=== PATIENT | female | born 1990 | race Caucasian/White ===

== ENCOUNTER → 2024-04-03 | Outpatient (CLI) | payer BC, SELFPAY ==
[2024-04-06 21:07] LABS: Chlamydia By Nucleic Acid AMP Negative (Negative); Gonococcus By Nucleic Acid AMP Negative (Negative)
[2024-04-15 17:07] LABS: HPV APTIMA, High Risk Negative (Negative)
== END | disposition home or self-care (01) ==
LOC: LABSPEC 15:47
PROVIDERS: Referring Provider Registered Nurse; Visit Provider Registered Nurse
DX: O99.280 Endocrine, nutritional and metabolic diseases complicating pregnancy, unspecified trimester (principal); E03.9 Hypothyroidism, unspecified; Z3A.00 Weeks of gestation of pregnancy not specified
CPT/HCPCS: 87086; 87088; 87491; 87591; 87624; 88175; G0145

== ENCOUNTER → 2024-04-14 | Outpatient (CLI) | payer BC, SELFPAY ==
[2024-04-14 17:14] LABS: Absolute Lymphocyte Count 1.49 X10^3/uL (0.83-4.51); Absolute Neutrophil Count 5.6 X10^3/uL (2.0-7.7); Basophil# 0.03 X10^3/uL; Basophil% 0.4 % (0-1); Eosinophil# 0.07 X10^3/uL; Eosinophils% 0.9 % (0-5); Hematocrit 39.7 % (37-47); Hemoglobin 13.4 g/dL (12.0-15.0); Lymphocyte # 1.49 X10^3/ul (0.83-4.51); Lymphocyte % 19.7 % (19-41); Mean Corp Hgb Conc 33.8 g/dL (32-36); Mean Corpuscular Hgb 30.3 pg (27.0-32.0); Mean Corpuscular Volume 89.8 fL (81-99); Mean Platelet Vol. 9.7 fl (6.2-12.0); Monocyte# 0.38 X10^3/uL; NRBC Flagged by Analyzer 0 % (0-5); Neutrophil # 5.57 X10^3/uL (2.7-7.7); Neutrophil % 73.6 % (47-70); Platelet Count 273 K/mm3 (150-450); RBC Distribution Width CV 12.5 % (11.6-14.6); RBC Distribution Width SD 41.1 fl (35.1-43.9); Red Blood Count 4.42 M/mm3 (4.2-5.4); White Blood Count 7.6 K/mm3 (4.4-11.0)
[2024-04-14 17:46] LABS: T4 Free Direct 1.13 ng/dL (0.76-1.46)
[2024-04-14 18:39] LABS: HIV - WCH Non-Reactive (Nonreactive); Hepatitis B Surface Antigen Non-Reactive (Nonreactive); Hepatitis C Antibody Non-Reactive (Nonreactive); Rubella IgG Reactive (Nonreactive); Syphilis Antibodies Non-reactive
== END | disposition home or self-care (01) ==
LOC: BWCLAB 16:52
PROVIDERS: Referring Provider Registered Nurse; Visit Provider Registered Nurse
DX: O99.280 Endocrine, nutritional and metabolic diseases complicating pregnancy, unspecified trimester (principal); E03.9 Hypothyroidism, unspecified; Z3A.00 Weeks of gestation of pregnancy not specified
CPT/HCPCS: 36415; 84439; 84443; 85025; 86703; 86762; 86780; 86803; 86850; 86900; 86901; 87340

== ENCOUNTER → 2024-04-30 | Outpatient (CLI) | payer BC, SELFPAY | END | disposition home or self-care (01) | LOC: LABSPEC 16:46 | PROVIDERS: Visit Provider Obstetrics & Gynecology | DX: R30.0 Dysuria (principal) | CPT/HCPCS: 87086 ==

== ENCOUNTER → 2024-07-02 | Outpatient (CLI) | payer BC, SELFPAY | END | disposition home or self-care (01) | PROVIDERS: Referring Provider Obstetrics & Gynecology; Visit Provider Obstetrics & Gynecology | DX: Z34.90 Encounter for supervision of normal pregnancy, unspecified, unspecified trimester (principal); Z3A.00 Weeks of gestation of pregnancy not specified | CPT/HCPCS: 36415 ==

== ENCOUNTER → 2024-07-30 | Outpatient (CLI) | payer BC, SELFPAY ==
[2024-07-30 17:09] LABS: Absolute Lymphocyte Count 1.36 X10^3/uL (0.83-4.51); Absolute Neutrophil Count 6.6 X10^3/uL (2.0-7.7); Basophil# 0.04 X10^3/uL; Basophil% 0.5 % (0-1); Eosinophil# 0.07 X10^3/uL; Eosinophils% 0.8 % (0-5); Hematocrit 39.6 % (37-47); Hemoglobin 13.3 g/dL (12.0-15.0); Lymphocyte # 1.36 X10^3/ul (0.83-4.51); Mean Corp Hgb Conc 33.6 g/dL (32-36); Mean Corpuscular Hgb 30.9 pg (27.0-32.0); Mean Corpuscular Volume 92.1 fL (81-99); Mean Platelet Vol. 10.8 fl (6.2-12.0); Monocyte# 0.38 X10^3/uL; Monocyte% 4.5 % (0-10); NRBC Flagged by Analyzer 0 % (0-5); Neutrophil # 6.62 X10^3/uL (2.7-7.7); Platelet Count 263 K/mm3 (150-450); RBC Distribution Width CV 13.5 % (11.6-14.6); RBC Distribution Width SD 45.7 fl (35.1-43.9); White Blood Count 8.5 K/mm3 (4.4-11.0)
[2024-07-30 17:32] LABS: Syphilis Antibodies No_Result (Nonreactive)
[2024-07-30 18:01] LABS: Glucose Challenge Gest 1H 50g 141 mg/dL (70-140); HIV Nonreactive (Nonreactive)
== END | disposition home or self-care (01) ==
PROVIDERS: Referring Provider Obstetrics & Gynecology; Visit Provider Obstetrics & Gynecology
DX: O09.90 Supervision of high risk pregnancy, unspecified, unspecified trimester (principal); Z13.1 Encounter for screening for diabetes mellitus; Z3A.00 Weeks of gestation of pregnancy not specified
CPT/HCPCS: 36415; 82950; 85025; 86703; 86780

== ENCOUNTER → 2024-08-06 | Outpatient (CLI) | payer BC, SELFPAY ==
[2024-08-06 07:25] LABS: Glucose GTT-Gestation. Fasting 82 mg/dL (<105)
[2024-08-06 10:51] LABS: Glucose GTT-Gestational 1 Hr 175 mg/dL (<190)
[2024-08-06 10:51] LABS: Glucose GTT-Gestational 2 Hr 175 mg/dL (<165)
[2024-08-06 11:07] LABS: Glucose GTT-Gestational 3 Hr 86 L (<145)
== END | disposition home or self-care (01) ==
LOC: LAB 07:03
PROVIDERS: PCP Family Medicine; Referring Provider Obstetrics & Gynecology; Visit Provider Obstetrics & Gynecology
DX: Z13.1 Encounter for screening for diabetes mellitus (principal)
CPT/HCPCS: 36415; 82951; 82952

== ENCOUNTER → 2024-10-07 | Outpatient (CLI) | payer BC, SELFPAY | END | disposition home or self-care (01) | LOC: LABSPEC 16:35 | PROVIDERS: PCP Family Medicine; Referring Provider Obstetrics & Gynecology; Visit Provider Obstetrics & Gynecology | DX: O09.90 Supervision of high risk pregnancy, unspecified, unspecified trimester (principal); Z3A.00 Weeks of gestation of pregnancy not specified | CPT/HCPCS: 87081 ==

== ENCOUNTER 2024-10-14 15:18 | Inpatient (IN) | payer BC, SELFPAY ==
[2024-10-14] VITALS (9 sets, daily range): BP systolic 109–141; BP diastolic 63–85; PULSE 66–78; RESP 15–16; TEMP 36.9–37.4; O2SAT 99–100; BMI 28.6
--- NOTE | 2024-10-14 01:45 | FALS_PTH ---
PATIENT: ALVARO VALE LOC: [facility] U#:[id number] AGE/SX: 34/F ROOM: [facility] RE10/14/[address]: Shyanne Degroot CNM : 1990 BED: 1 DIS: 10/17/2024 SPEC #: [id number] RECD: 10/14/24 02:00 STATUS: ARUN OMER #: [id number] ALE: 10/14/24 01:[address]: Shyanne Degroot DEPT: SURGICAL PATHOLOGY RECD BY: Caden Manzano ENTERED: 10/15/24 08:26 SP TYPE: FALL TUBES OTHR DR: MD Dr. Nicole Cantor MD Tissues: A - Fallopian tube Procedures: Surgery Specimen Level II HEADER OPERATION: Tubal ligation PRE-OP DIAGNOSIS: Sterilization TISSUE SUBMITTED: A- Bilateral fallopian tubes * suture on right* MICROSCOPIC DIAGNOSIS A. Left and right fallopian tubes, bilateral salpingectomies: * Full thickness segment of the right fallopian tube with paratubal cysts * Full thickness segment of the left fallopian tube MICROSCOPIC DESCRIPTION Slides are reviewed. GROSS DESCRIPTION A. Received in formalin in a container labeled with the patient's name, date of , and R tube has suture are bilateral fimbriated fallopian tube segments, the right received with a stitch. The right tube is 5.5 cm in length by 0.8 cm in diameter with an attached 4.4 x 3.1 x 2.3 cm thin-walled paratubal cyst, adjacent to the unremarkable fimbriated end. The paratubal cyst is opened to reveal an abundance of thin, clear serous fluid. The inner lining is polanco-pink, smooth, and glistening. Sectioning of the right fallopian tube reveals a pinpoint lumen. The left fallopian tube is 5.5 cm in length by 0.8 cm in diameter. There is purple-jones, smooth, and glistening serosa with an unremarkable fimbriated end. Sectioning reveals a pinpoint lumen. [employer] sections:A1. Right fimbriated end, bisected with adjacent paratubal cystA2. Right fallopian tube cross-sections with paratubal cystA3. Left fallopian tube B 10-15-2024 CPT:54611n0
[2024-10-14] MEDS: Lactated Ringers 1,000 ML 999 ML IV (13:25)
[2024-10-14 14:18] LABS: Absolute Lymphocyte Count 1.49 X10^3/uL (0.83-4.51); Absolute Neutrophil Count 8.9 X10^3/uL (2.0-7.7); Basophil# 0.04 X10^3/uL; Basophil% 0.4 % (0-1); Eosinophil# 0.06 X10^3/uL; Eosinophils% 0.5 % (0-5); Hematocrit 36.2 % (37-47); Hemoglobin 12.5 g/dL (12.0-15.0); Lymphocyte # 1.49 X10^3/ul (0.83-4.51); Lymphocyte % 13.5 % (19-41); Mean Corp Hgb Conc 34.5 g/dL (32-36); Mean Corpuscular Hgb 31.3 pg (27.0-32.0); Mean Corpuscular Volume 90.7 fL (81-99); Mean Platelet Vol. 12.1 fl (6.2-12.0); Monocyte# 0.54 X10^3/uL; Monocyte% 4.9 % (0-10); NRBC Flagged by Analyzer 0 % (0-5); Neutrophil # 8.88 X10^3/uL (2.7-7.7); Neutrophil % 80.3 % (47-70); Platelet Count 229 K/mm3 (150-450); RBC Distribution Width CV 13.1 % (11.6-14.6); RBC Distribution Width SD 42.7 fl (35.1-43.9); Red Blood Count 3.99 M/mm3 (4.2-5.4); White Blood Count 11.1 K/mm3 (4.4-11.0)
[2024-10-14 15:03] LABS: Syphilis Antibodies Nonreactive (Nonreactive)
[2024-10-14] MEDS: Lactated Ringers 1,000 ML 150 ML IV (16:05)
--- NOTE | 2024-10-14 18:39 | HP.PCM.OB_ITS ---
HPI - General General Date of Admission: 10/14/24 Date of Service: 10/14/24 Chief Complaint: Lower Abdominal Pains; 36 Weeks 6-Day Gestation HPI Narrative ALVARO VALE, is a 34 F G2, P1 who presents at 36 weeks 6 days gestation with some lower abdominal pain intermittent. She denies any vaginal bleeding, leaking of fluid, or contractions and reports good movement. She had a prior section for non-reassuring heart tones. She desires permanent sterilization with her upcoming repeat . On monitor the patient is noted to have good variability but at initial presentation occasional late decelerations were noted. The patient had eaten at noon and it was decided to wait until 6 PM to and only proceed with section if absolutely necessary. After the patient received IV fluids and waited 3 more hours she was noted not to not have any further late decelerations so the section was postponed as she will be 37 weeks gestation tomorrow. After delaying the , a bedside ultrasound was done which showed a biophysical of 8 out of 10 with -2 for oligohydramnios. Some small pockets of fluid were visualized but none greater than 1 cm x 1 cm. The baby is cephalic. Maternal Data Information KATIE Calculator Estimated Delivery Date Method Current WG Current Estimate 11/05/24 LMP (Certain) 36w 6d Final KATIE Source: US <20 weeks Gestational age: 36 weeks 6 days gestation [facility] Medical History (Updated 10/14/24 @ 18:[address] Raheem Hart MD) Thyroid disorder Delivery by section of full-term infant Home Medications ?Medication ?Instructions ?Recorded ?Last Taken ?Type PNV 153-FA 400 mcg-om3 35 mg-dha 1 tab PO DAILY 10/13/24 18:00 History 25 mg-epa 5 mg-fish oil chew tablet 1 TAB acetaminophen 500 mg capsule 500 mg PO Q4-6H PRN pain 03/19/24 10/14/24 03:00 History 1,000 mg cetirizine 10 mg capsule (Zyrtec) 10 mg PO QDAY PRN al lergy symptoms 03/19/24 Unknown History levothyroxine 25 mcg capsule 50 mcg PO ONCE 07/30/24 0 10/14/24 06:30 History 50 mcg Allergy/AdvReac Type Severity Reaction Status Date / Time Penicillins (PCN) Allergy Mild Rash Verified 10/14/24 12:42 Family History Aunt Thyroid disorder Maternal Mother Thyroid disorder, Onset Age: 25 Graves Disease Postural orthostatic tachycardia syndrome [POTS] Depression Suicide attempt Surgical History (Updated 10/14/24 @ 18:[address] Raheem Hart MD) History of surgery H/O colonoscopy Thicket teeth extracted Social History adopted: No household members: spouse and children number of children: 1 current occupational status: employed current occupation: [employer] current occupational exposures/hazards: No pets and animals: Yes pets and animals: dog(s) history of recent travel: No sexually active: Yes Smoking Status: Never smoker alcohol intake: never substance use type: does not use diet: other well-balanced diet: daily or most days caffeine: No eating out: rarely or never during the past year weight has: remained stable what type of physical activity do you participate in: none kerry/sabianist: Mu-Ism seatbelt use: always do you feel safe at home: Yes additional social history: Raheem- [place] [facility] History 2 Elective abortions Hx Para 1 Spontaneous abortions Hx # Term Pregnancies Ectopic pregnancies Hx # Pregnancies Multiple births # of living children 1 Past Pregnancies Del. Date Name GA/Weeks Outcome Route Bth Weight Infant Gen Labor Lgth Anesthesia Del Locatn Provider FOB 10/16/21 Jonas 39 live - full term 7#10oz Male epidural [facility] Dr. Ethan Maciel Delivery Date: 10/16/21 Last Updated by: India Bradley LGA, IOL, c section due to decels, cord around neck Visit Details Expected Delivery Route/Plan RLTCS Plans Covid status: [] Flu vaccine: [] Tdap vaccine: [] Rhogam: [] LARC form signed: [] Problem list reviewed and updated with the most current plan of care details and appropriate orders placed. Relevant counseling for the gestational age provided. Continue routine care and follow up unless otherwise noted in visit notes/problem list details OB Flowsheet Initial Weight: 148 lb Date -?-?-?-?-?-?-?-?-?-?-?-?- EGA Weight BP Urine Prot -?-?-?-?-?-?-?-?-?-?-?-?- Glucose FHR FuHt Pres Dilation -?-?-?-?-?-?-?-?-?-?-?-?- Effaced St Visit Note 04/03/24 -?-?-?-?-?-?-?-?-?-?-?-?- 9w 1d 148 lb (+0 oz) 104/68 -?-?-?-?-?-?-?-?-?-?-?-?- 173 -?-?-?-?-?-?-?-?-?-?-?-?- LC CRL 2.68 con with LMP. desires nipt. 04/30/24 -?-?-?-?-?-?-?-?-?-?-?-?- 13w 0d 152 lb 4 oz (+4 lb 4 oz) 115/72 Negative -?-?-?-?-?-?-?-?-?-?-?-?- Negative 170 -?-?-?-?-?-?-?-?-?-?-?-?- JV- some nausea still. NIPT was low risk boy! some burning with urination. UA ordered. 06/01/24 -?-?-?-?-?-?-?-?-?-?-?-?- 17w 4d 153 lb 8 oz (+5 lb 8 oz) 118/68 Negative -?-?-?-?-?-?-?-?-?-?-?-?- Negative 170 -?-?-?-?-?-?-?-?-?-?-?-?- KW- no vb/crampi ng. possible flutters. US scheduled. desires R C/S and possible tubal. 07/02/24 -?-?-?-?-?-?-?-?-?-?-?-?- 22w 0d 160 lb 2 oz (+12 lb 2 oz) 126/75 -?-?-?-?-?-?-?-?-?-?-?-?- 140 -?-?-?-?-?-?-?-?-?-?-?-?- SM- no vb lof go od fm no reuglar ctx didn't get complete spine views will get afp today and fu US eventually 07/30/24 -?-?-?-?-?-?-?-?-?-?-?-?- 26w 0d 165 lb 6 oz (+17 lb 6 oz) 125/75 Negative -?-?-?-?-?-?-?-?-?-?-?-?- Negative 150 26 -?-?-?-?-?-?-?-?-?-?-?-?- JV- no lof, vagi nal bleeding, or cramping. did glucola today. results pending. 09/03/24 -?-?-?-?-?-?-?-?-?-?-?-?- 31w 0d 169 lb 8 oz (+21 lb 8 oz) 119/73 -?-?-?-?-?-?-?-?-?-?-?-?- 140 31 -?-?-?-?-?-?-?-?-?-?-?-?- SM- no vb lof go od mf no reulgar ctx nl 3 hr gtt 09/10/24 -?-?-?-?-?-?-?-?-?-?-?-?- 32w 0d 172 lb (+24 lb) 119/75 -?-?-?-?-?-?-?-?-?-?-?-?- 130 32 -?-?-?-?-?-?-?-?-?-?-?-?- SM- no vb lof go od fm nore gular ctx 09/22/24 -?-?-?-?-?-?-?-?-?-?-?-?- 33w 5d 172 lb 8 oz (+24 lb 8 oz) 129/78 Negative -?-?-?-?-?-?-?-?-?-?-?-?- Negative 130 33 -?-?-?-?-?-?-?-?-?-?-?-?- SM- no vb lof go od fm no regualr ctx doing well 10/07/24 -?-?-?-?-?-?-?-?-?-?-?-?- 35w 6d 175 lb 8 oz (+27 lb 8 oz) 127/84 Negative -?-?-?-?-?-?-?-?-?-?-?-?- Negative 140 35 Cephalic -?-?-?-?-?-?-?-?-?-?-?-?- JV- no lof, vagi nal bleeding, or dec fm. gbs collected. planning rpt section and BTL and if labor starts still wants a section. NST FHR Rate Baby A NST Reactive:: Yes FHR Category:: Category I Uterine Activity:: Initially showed some late decelerations but these resolved with IV fluid. Vital Signs Vital Signs Vital Signs: 10/14/24 12:51 10/14/24 12:51 10/14/24 12:51 Temperature Temperature Source Oral Pulse Rate 75 Respiratory Rate Blood Pressure 130/80 H Blood Pressure Mean BP Systolic 130 BP Diastolic 80 Blood Pressure Source Blood Pressure Position Blood Pressure Location Pulse Ox Oxygen Delivery Method 10/14/24 12:51 10/14/24 12:51 10/14/24 16:05 Temperature 99.4 F H Temperature Source Pulse Rate Respiratory Rate 16 Blood Pressure 141/85 H Blood Pressure Mean BP Systolic 141 BP Diastolic 85 Blood Pressure Source Blood Pressure Position Blood Pressure Location Pulse Ox Oxygen Delivery Method 10/14/24 16:05 10/14/24 16:06 10/14/24 16:06 Temperature Temperature Source Pulse Rate 77 71 Respiratory Rate Blood Pressure 136/82 H Blood Pressure Mean BP Systolic 136 BP Diastolic 82 Blood Pressure Source Blood Pressure Position Blood Pressure Location Pulse Ox Oxygen Delivery Method 10/14/24 16:08 10/14/24 16:08 10/14/24 16:09 Temperature Temperature Source Oral Pulse Rate 74 Respiratory Rate Blood Pressure Blood Pressure Mean BP Systolic BP Diastolic Blood Pressure Source Blood Pressure Position Blood Pressure Location Pulse Ox 99 Oxygen Delivery Method 10/14/24 16:09 10/14/24 16:09 10/14/24 16:33 Temperature 98.5 F 98.5 F Temperature Source Oral Pulse Rate 78 Respiratory Rate 16 16 Blood Pressure 136/82 H Blood Pressure Mean 100 BP Systolic BP Diastolic Blood Pressure Source Monitor Blood Pressure Position Semi-Fowlers Blood Pressure Location Right Arm Pulse Ox 99 Oxygen Delivery Method Room Air 10/14/24 17:58 10/14/24 17:58 10/14/24 17:58 Temperature Temperature Source Pulse Rate 66 Respiratory Rate 16 Blood Pressure 109/63 Blood Pressure Mean BP Systolic 109 BP Diastolic 63 Blood Pressure Source Blood Pressure Position Blood Pressure Location Pulse Ox Oxygen Delivery Method Weight Weight: 177 lb 9.6 oz Body Mass Index (BMI) 28.6 Physical Exam Const alert, oriented x3 and no apparent distress General Appearance: cooperative and comfortable Exam Limitations: no limitations HEENT normocephalic Resp normal respiratory effort and no retractions Cardio regular rate Back/Spine normal ROM Extremity normal to inspection, full ROM and no clubbing, cyanosis or edema Neuro moves all extremities Psych mental status grossly normal, affect normal, speech normal and activity/motor behavior normal Labs Labs Labs: Blood Type O POSITIVE Antibody Screen NEGATIVE Hct 36.2 % (37-47) L Hgb 12.5 g/dL (12.0-15.0) Syphilis Total Ab Nonreactive (Nonreactive) Rubella IgG Antibody Reactive (Nonreactive) Hep Bs Antigen Non-Reactive (Nonreactive) Hepatitis C Antibody Non-Reactive (Nonreactive) Chlamydia DNA (NAHID) Negative (Negative) N.gonorrhoeae DNA (NAHID) Negative (Negative) HIV 1&2 Antibody Nonreactive (Nonreactive) Glucose 1 Hr 50 gm 141 mg/dL (70-140) H Gest Glucose Tolerance MG/DL Assessment & Plan (1) Sterilization: COMMENT: plan BS at time of CS (2) Previous section: (3) Oligohydramnios in third trimester: PLAN: Plan to monitor patient on continuous monitor overnight and proceed with repeat section in the morning. At that time she will be 37 weeks g estation. If heart tones become non-reassuring between now and then we will proceed immediately with section. We discussed the surgery including tubal at length including the possibly of bleeding, infection, and injury to surrounding structures such as bowel or bladder. We also discussed the permanent nature of a tubal removal and the availability of other nonpermanent control options and the patient desires that we proceed with bilateral salpingectomy. All questions were answered.
--- OUTSIDE RECORDS SUMMARY | 2024-10-14 21:56 | XMS RPT_ITS | CCD ---
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 Monterroso October Primary Care Unava ilable MD BRE LONG Referring Unava ilable Woodland, Ms. Monterroso October Primary Care Unava ilable NISHA LUI Attending Unavailable NISHA LUI Referring Unavailable MD BRE LONG Attending Unava ilable Jamie, Ms. Monterroso October Primary Care Unava ilMD BRE Bell Referring Unava ilable Woodland, Ms. Monterroso October Primary Care Unava ilMD BRE Bell Attending Unava ilable MD BRE LONG Attending Unava ilable [place], Ms. Monterroso October Primary Care Unava ilMD BRE Bell Referring Unava ilable MD BRE LONG Attending Unava ilable Jamie, Ms. Monterroso October Primary Care Unava ilMD BRE Bell Referring Unava ilable MD BRE LONG Attending Unava ilable Jamie, Ms. Monterroso Jonelle Primary Care Unava ilMD BRE Bell Referring Unava ilable MD BRE LONG Attending Unava ilable [place]land, Ms. Monterroso October Primary Care Unava ilable MD BRE LONG Referring Unava ilable ETHAN, MD BRE BURGESS Attending Unava ilable [place]land, Ms. Monterroso October Primary Care Unava ilMD BRE Bell Referring Unava ilable DO TINY ABDULLAHI Attending Unavailab le [place], Ms. Monterroso October Primary Care Unava ilable Kamenik, Ms. Caden Weaver Attending Unavai lable [place]land, Ms. Monterroso October Primary Care Unava ilable Lucius, Venita Duarte Attending Unava ilable [place], Ms. Monterroso October Primary Care Unava ilable Kamdiegok, Ms. Caden Weaver Attending Unavai lable Woodland, Ms. Monterroso October Primary Care Unava ilable LongBre Attending Unavailable Long, Bre Referring Unavailable Woodland, Ms. Monterroso October Primary Care Unava ilable LongBre Attending Unavailable Long, Bre Referring Unavailable [place]land, Ms. Monterroso October Primary Care Unava ilable Amadeo, Dr. Freddie Espana Referring Unavailabl e [place], Ms. Monterroso October Primary Care Unava ilable Amadeo, Dr. Freddie Espana Attending Unavailabl e Long, Bre Admitting Unavailable Long, Bre Referring Unavailable Sal Trejo Attending Unavailable [place], Ms. Monterroso October Primary Care Unava ilable Nicole Negron MD Primary Care Provider Nicole Negron MD Unavailable Nicole Negron MD Primary Care Provider Nicole Negron MD Unavailable NICOLE NEGRON Primary Care Unavailab CADEN Hearn Attending Unavailable NICOLE NEGRON Primary Care Unavailab CADEN Hearn Attending Unavailable NICOLE NEGRON Primary Care Unavailab PAPA Reynaga Attending Unavailable LONGSDORF, NICOLE A Primary Care Unavailab le LUCIUSVENITA JUAREZ Attending Unavailable LONGSDORF, NICOLE A Primary Care Unavailab le LONGSDORF, NICOLE A Primary Care Unavailab le LONGSDORF, NICOLE A Primary Care Unavailab le LONGSDORF, NICOLE A Primary Care Unavailab le LONGSDORF, NICOLE A Primary Care Unavailab le LONGSDORF, NICOLE A Primary Care Unavailab le BAILEY BRO Referring Unavailabl e NO PRIMARY CAREMD Primary Care Unavailable CONSTANTINE LUI Attending Unavailable NO PRIMARY CARE, Primary Care Unavailable AUGUSTUS CANTU Attending Unavailable BRYANNA PARDO Referring Unavailab nina Degroot CNM, Shyanne Attending Provider Shyanne Degroot CNM Referring Provider Dr. Bryanna Coronel DO Attending Provider Karoline Prabhakar CNM Attending Provider [phone] Dr. Bailey Bro MD Attending Provider [phone] Dr. Bailey Bro MD Referring Provider Dr. Bryanna Coronel DO Referring Provider Dr. Nicole Negron MD Primary Care Provide r Dr. Bryanna Coronel DO Attending Provider Dr. Nicole Negron MD Referring Provider Nicole Negorn MD Primary Care Provider Nicole Negron MD Unavailable NICOLE NEGRON Attending Unavailab le LONGSDORF, NICOLE A Primary Care Unavailab le MICKY, STEPHANIA Attending Unavailable LONGSDORF, NICOLE A Referring Unavailab le LONGSDORF, NICOLE A Primary Care Unavailab le MICKY, STEPHANIA Attending Unavailable MIGDALIA, NICOLE A Primary Care Unavailab le Bryanna Coronel Attending Unavailabl e Shyanne Degroot Attending Unavailable Shyanne Degroot Referring Unavailable Bailey Bro Attending Unavailable Bailey Bro Referring Unavailable Degroot, Shyanne Attending Unavailable Karoline Prabhakar Attending Unavailable Bailey Bro Attending Unavailable Vande Velde, Bryanna Attending Unavailabl e MarcanthonyBailey Attending Unavailable Longsdorf, Nicole Referring Unavailable Longsdorf, Nicole Primary Care Unavailable Vande Velde, Bryanna Referring Unavailabl e Vande Velde, Bryanna Attending Unavailabl e Longsdorf, Nicole Primary Care Unavailable Vande Velde, Bryanna Attending Unavailabl e Vande Velde, Bryanna Referring Unavailabl e Longsdorf, Nicole Primary Care Unavailable Vande Velde, Bryanna Admitting Unavailabl e Vande Velde, Bryanna Attending Unavailabl e Longsdorf, Nicole Primary Care Unavailable Vande Velde, Bryanna Referring Unavailabl e Vande Velde, Bryanna Attending Unavailabl e Vande Velde, Bryanna Attending Unavailabl e MARCO A, SAFIA Attending Unavailable MARCO A, SAFIA Referring Unavailable Bailey Bro Attending Unavailable GideonanthBailey carr Referring Unavailable Degroot, Shyanne Attending Unavailable Degroot, Shyanne Referring Unavailable Longsdorf, Nicole Primary Care Unavailable Bailey Bro Attending Unavailable Longsdorf, Nicole Referring Unavailable Longsdorf, Nicole Primary Care Unavailable MarcBailey reveles Attending Unavailable Longsdorf, Nicole Referring Unavailable Longsdorf, Nicole Primary Care Unavailable Longsdorf, Nicole Referring Unavailable Vande Velde, Bryanna Attending Unavailabl e Allergies Allergy Classification Reported Allergen(s) Allergy Type Date of Onset Reaction(s) Facility influenza A virus (H1N1) antigen / influenza A virus (H3N2) antigen / influenza B virus antigen (2 sources) influenza A virus (H1N1) antigen / influenza A virus (H3N2) antigen / influenza B virus antigen; Translations: [Influenza, seasonal, injectable] Drug Allergy [facility] Work Phone: Penicillins (antibiotic) (2 sources) Penicillins; Translations: [Penicillins] Drug Allergy [facility] Work Phone: Serotonin Reuptake Inhibitors (SSRIs) (2 sources) Citalopram; Translations: [CeleXA TABS] Drug Allergy [facility] Work Phone: (5 sources) Citalopram Drug Allergy Unknown [facility] (20 sources) Penicillin; Translations: [Penicillins] Drug Allergy Unknown [facility] (20 sources) Citalopram; Translations: [CeleXA TABS] Drug Allergy 3 Unknown [facility] Work Phone: (20 sources) Influenza, seasonal, injectable; Translations: [Influenza, seasonal, injectable] Allergy to drug (finding) [facility] Work Phone: (4 sources) influenza virus vaccine, inactivated Other, Rash [facility] (12 sources) Penicillins; Translations: [PENICILLINS] Drug Allergy 5 [facility] (6 sources) Other; Translations: [OTHER] Allergy to substance 3 Other, Rash [facility] Work Phone: (1 source) Seasonal allergy; Translations: [SEASONAL ALLERGIES] Propensity to adverse reactions (disorder) 5 [facility] Repository (3 sources) Citalopram; Translations: [CITALOPRAM] Drug Allergy 3 [place] [address] Repository (4 sources) Penicillins Allergy to substance 5 [facility] (1 source) Penicillins Drug Allergy 3 [facility] (1 source) Penicillins Drug allergy (disorder) 5 [facility] Repository Medications Current Medications Medication Drug Class(es) Dates Sig (Normalized) Sig (Original) acetaminophen 500 mg oral capsule (20 sources) Start: 03-19-2024 take 1 capsule by mouth every four to six hours as needed Acetaminophen 500 mg capsule Active 500 mg PO EVERY 4-6 HOURS as needed March 19, 2024 1:00am Start: 10-18-2021 take 3 tablets by mo ut every six hours acetaminophen 325 mg oral tablet ; 3 tab(s) orally every 6 hours Quantity: 0 Refills: 0 Ordered: 18-Oct-2021 Bre Long Start: 18-Oct-2021 Generic Substitution Allowed acetaminophen (T ylenol) 325 mg tablet Take by mouth every 6 hours if needed for mild pain (1 - 3). Active take 2 tablets by mo [facility] every four hours acetaminophen 325 mg oral tablet ; 2 tab(s) orally every 4 hours as needed for pain Quantity: 0 Refills: 0 Ordered: 16-Oct-2021 Megan Segura Status: Discontinued Generic Substitution Allowed Tylenol TABS Wesley ntity: 0 Refills: 0 Ordered: 07-Mar-2021 DO Active azithromycin 250 mg oral tablet (2 sources) Macrolide Antimicrobial Start: 11-26-2023 End: 12-01-2023 azithromycin (Zithromax Z-Sony) 250 mg tablet Indications: Acute non-recurrent maxillary sinusitis Take 2 tablets (500 mg) on Day 1, followed by 1 tablet (250 mg) once daily on Days 2 through 5. 6 tablet 11/26/2023 12/01/2023 Active Start: 08-26-2023 End: 08-31-2023 azithromycin (Zithromax Z-Pa k) 250 mg tablet Indications: Acute streptococcal pharyngitis Take 2 tablets (500 mg) on Day 1, followed by 1 tablet (250 mg) once daily on Days 2 through 5. 6 tablet 08/26/2023 08/31/2023 Active cetirizine hydrochloride 10 mg oral capsule (20 sources) Histamine-1 Receptor Antagonist Start: 03-19-2024 take 1 capsule by mouth once daily as needed Cetirizine (Zyrtec) 10 mg capsule Active 10 mg PO daily as needed March 19, 2024 1:00am take 1 tablet by mouth once michael y cetirizine (ZyrTEC) 10 mg tablet Take 1 tablet (10 mg) by mouth once daily. Active ZyrTEC Allergy 1 0 MG Oral Capsule Quantity: 0 Refills: 0 Ordered: 26-Oct-2020 DO Active ZyrTEC Quantity: 0 Refills: 0 Ordered: 04-Feb-2021 Brandi Snowden Status: Discontinued Generic Substitution Allowed ZyrTEC Quantity: 0 Refills: 0 Ordered: 04-Feb-2021 Brandi Snowden Generic Substitution Allowed fructose 374 mg/ml / glucose 374 mg/ml / phosphoric acid 4.3 mg/ml oral solution (2 sources) Start: 04-23-2024 phosphorated c arbohydrate (Emetrol) solution Indications: Nausea Take 15-30 milliliter(s) orally every 15 minutes, As Needed for nausea/vomiting (do not take more than 5 doses in 1 hour). 400 mL 04/23/2024 Active levothyroxine sodium 0.025 mg oral capsule (16 sources) l-Thyroxine Start: 07-30-2024 Levothyroxine 25 mcg capsule Active 50 ug PO ONCE July 30, 2024 2:50pm 50 mcg x5 days, 25 mcg x2 days Start: 06-18-2024 End: 06-18-2025 take 1 tablet by mouth once daily in the morning levothyroxine (Synthroid, Levoxyl) 50 mcg tablet Indications: Acquired hypothyroidism Take 1 tablet (50 mcg) by mouth early in the morning.. Take on an empty stomach at the same time each day, either 30 to 60 minutes prior to breakfast 90 tablet 3 06/18/2024 06/18/2025 Active Start: 06-01-2024 End: 07-30-2024 take 2 capsules by mouth two times weekly Levothyroxine 25 mcg capsule Discontinued 50 ug PO .twice weekly June 01, 2024 3:38pm July 30, 2024 2:51pm Start: 03-19-2024 End: 06-01-2024 take 1 capsule by mouth once daily Levothyroxine 25 mcg capsule Discontinued 25 ug PO daily March 19, 2024 1:00am June 01, 2024 3:39pm Start: 03-06-2024 End: 03-06-2025 take 1 tablet by mouth once daily in the morning levothyroxine (Synthroid) 25 mcg tablet Indications: Acquired hypothyroidism Take 1 tablet (25 mcg) by mouth early in the morning.. Take on an empty stomach at the same time each day, either 30 to 60 minutes prior to breakfast 30 tablet 11 03/06/2024 03/06/2025 Active ondansetron 8 mg disintegrating oral tablet (1 source) Serotonin-3 Receptor Antagonist Start: 05-28-2022 take 1 tablet by mouth every six hours ondansetron 8 mg oral tablet, disintegrating ; 1 tab(s) orally every 6 hours Quantity: 12 Refills: 0 Ordered: 28-May-2022 Tiny Abdullahi Start: 28-May-2022 Generic Substitution Allowed Pnv No.[id number]-Ep a-Fish 400 mcg-35 mg- 25 mg-5 mg tablet,chewable (4 sources) Start: 03-19-2024 Pnv No.[id number] pa-Fish 400 mcg-35 mg- 25 mg-5 mg tablet,chewable Active {tbl} PO March 19, 2024 1:00am 1 oral capsule (2 sources) take 1 capsule by mouth once daily 1 oral capsule ; 1 cap(s) orally once a day Quantity: 0 Refills: 0 Ordered: 16-Oct-2021 Megan Segura Generic Substitution Allowed Completed/Discontinued Medications Medication Drug Class(es) Dates Sig (Normalized) Sig (Original) ibuprofen 800 mg oral tablet (6 sources) Nonsteroidal Anti-inflammatory Drug Start: 10-18-2021 End: 11-01-2021 take 1 tablet by mouth every eight hours ibuprofen 800 mg oral tablet ; 1 tab(s) orally every 8 hours Quantity: 60 Refills: 0 Ordered: 18-Oct-2021 Bre Long Start: 18-Oct-2021 End: 01-Nov-2021 Generic Substitution Allowed Comments: Do not take this drug if you are .It is very important that you take or use this exactly as directed. Do not skip doses or discontinue unless directed by your doctor.May cause drowsiness or dizziness.Obtain medical advice before taking any non-prescription drugs as some may affect the action of this medication.Take with food or milk. Motrin IB 200 MG Oral Tablet Quantity: 0 Refills: 0 Ordered: 26-Oct-2020 DO Active Comment on above: Do not take this blanco g if you are .It is very important that you take or use this exactly as directed. Do not skip doses or discontinue unless directed by your doctor.May cause drowsiness or dizziness.Obtain medical advice before taking any non-prescription drugs as some may affect the action of this medication.Take with food or milk. PNV Plus Multivitamin TABS (20 sources) PNV Plu s Multivitamin TABS Quantity: 0 Refills: 0 Ordered: 07-Mar-2021 DO Active microencapsulated potassium chloride 20 meq extended release oral tablet (1 source) Start: 4 End: 4 20 mEq, oral, Once, On Mariely 03/19/24 at 1650, For 1 dose, Best given with food and plenty of water to minimize gastric irritation. Do not crush or chew. NEGATED: Highlighted row has not occurred!No Current Medications (2 sources) No Current Medications Problems Active Problems Problem Classification Problem Date Documented Da te Episodic/Chronic Contraceptive and procreative management (1 source) Encounter for sterilization; Translations: [Encounter for sterilization] Onset: 5 Episodic Diabetes or abnormal glucose tolerance complicating ; childbirth; or the puerperium (12 sources) Abnormal glucose level; Translations: [Abnormal glucose complicating ] Onset: 5 08-03-2024 Episodic Comment on above: needs 3 hour needs 3 hour -n WNL distress and abnormal forces of labor (1 source) Liveborn with labor distress; Translations: [ distress, affecting management of mother, delivered, with or without mention of antepartum condition] 10-17-2021 Episodic Fever of unknown origin (1 source) Fever, unspecified; Translations: [Fever, unspecified] Onset: 3 Episodic Headache; including migraine (3 sources) Headache; including migraine; Translations: [Headache, unspecified] Onset: 3 02-04-2021 Comment on above: HEADACHE, FEVER, COU GH, BODY ACHES Hemorrhage during ; abruptio placenta; placenta previa (3 sources) Bleeding from female genital tract during ; Translations: [Antepartum hemorrhage, unspecified, unspecified trimester] Onset: 4 03-19-2024 Episodic Immunizations and screening for infectious disease (20 sources) Patient encounter status; Translations: [Screening examination for venereal disease] Onset: 2 09-03-2024 Episodic Comment on above: plan BS at time of C S Inflammatory diseases of female pelvic organs (11 sources) Vaginitis; Translations: [Vaginitis and vulvovaginitis, unspecified] Episodic Malaise and fatigue (20 sources) Fatigue; Translations: [Other malaise and fatigue] Episodic Nausea and vomiting (4 sources) Nausea; Translations: [Nausea] Onset: 3 Episodic Other complications of ; puerperium affecting management of mother (5 sources) Large for gestation age fetus; Translations: [LGA (large for gestational age) fetus] Episodic Other complications of (20 sources) High risk ; Translations: [Supervision of high risk , unspecified, unspecified trimester] 03-19-2024 Episodic Comment on above: , KATIE 11/05/24, Martinez Mcdaniel, Raheem PRR , KATIE 5,boy [facility] Jonas, Raheem Other complications of (1 source) Supervision of high risk , unspecified, unspecified trimester; Translations: [Supervision of high risk , unspecified, unspecified trimester] Onset: 5 Episodic Other ear and sense organ disorders (1 source) Unspecified hearing loss, right ear; Translations: [Unspecified hearing loss, right ear] Onset: 3 Chronic Other ear and sense organ disorders (1 source) Impacted cerumen, bilateral; Translations: [Impacted cerumen, bilateral] Onset: 3 Episodic Other gastrointestinal disorders (20 sources) Irritable bowel syndrome; Translations: [Irritable bowel syndrome without diarrhea] 04-30-2024 Chronic Other gastrointestinal disorders (1 source) Irritable bowel syndrome without diarrhea; Translations: [Irritable bowel syndrome, unspecified] Onset: 5 Chronic Other nutritional; endocrine; and metabolic disorders (20 sources) Weight gain; Translations: [Abnormal weight gain] Episodic Other and delivery including normal (20 sources) Primigravida; Translations: [Supervision of normal first ] Onset: 2 10-13-2021 Episodic Comment on above: elects NIPT with Gen kalpana, nl anatomy Other screening for suspected conditions (not mental disorders or infectious disease) (20 sources) Cancer cervix screening status; Translations: [Screening for malignant neoplasms of cervix] Onset: 4 02-07-2024 Episodic Other upper respiratory disease (20 sources) Seasonal allergy; Translations: [Other seasonal allergic rhinitis] 03-19-2024 Chronic Other upper respiratory disease (1 source) Other seasonal allergic rhinitis; Translations: [Other seasonal allergic rhinitis] Onset: 5 Chronic Other upper respiratory disease (2 sources) Pain in throat 06-28-2022 Episodic Comment on above: SORE THROAT Other upper respiratory disease (1 source) Nasal congestion; Translations: [Nasal congestion] Onset: 3 Episodic Residual codes; unclassified (15 sources) Unprotected sexual intercourse; Translations: [High-risk sexual behavior] Episodic Residual codes; unclassified (7 sources) Gestation period, 11 weeks; Translations: [ state, incidental] Episodic Residual codes; unclassified (17 sources) Past history of procedure; Translations: [Other postprocedural status] Episodic Comment on above: 04/04/2021 NIL HPV-; Residual codes; unclassified (8 sources) Gestation period, 15 weeks; Translations: [ state, incidental] Episodic Residual codes; unclassified (3 sources) Gestation period, 19 weeks; Translations: [ state, incidental] Episodic Residual codes; unclassified (2 sources) Gestation period, 26 weeks; Translations: [ state, incidental] Episodic Residual codes; unclassified (1 source) Gestation period, 29 weeks; Translations: [ state, incidental] Episodic Residual codes; unclassified (11 sources) Gestation period, 31 weeks; Translations: [ state, incidental] Episodic Residual codes; unclassified (8 sources) Gestation period, 36 weeks; Translations: [ state, incidental] Episodic Residual codes; unclassified (1 source) History of uterine scar from previous surgery; Translations: [History of uterine scar from previous surgery] Onset: 5 Episodic Residual codes; unclassified (1 source) 35 weeks gestation of ; Translations: [35 weeks gestation of ] Onset: 5 Episodic Residual codes; unclassified (1 source) 31 weeks gestation of ; Translations: [31 weeks gestation of ] Onset: 5 Episodic Residual codes; unclassified (1 source) 26 weeks gestation of ; Translations: [26 weeks gestation of ] Onset: 5 Episodic Thyroid disorders (20 sources) Acquired hypothyroidism; Translations: [Hypothyroidism, unspecified] Onset: 4 03-30-2024 Chronic Comment on above: TSH with [facility]ater. no rmalized with levothyroidismTSH 2.79 04/03/2024, t4=1.05 Unclassified (2 sources) INDUCTION OF LABOR 10-03-2021 Comment on above: INDUCTION OF LABOR Unclassified (1 source) PP 10-10-2021 Comment on above: PP Unclassified (1 source) 39 weeks gestation of 10-13-2021 Unclassified (1 source) Status post delivery 10-17-2021 Unclassified (1 source) intolerance to labor, delivered, current hospitalization 10-17-2021 Unclassified (2 sources) PASSED OUT THIS A.M. 05-28-2022 Comment on above: PASSED OUT THIS A.M. Unclassified (1 source) Patient encounter procedure 12-04-2021 Comment on above: YEARLY Unclassified (2 sources) UNABLE TO HEAR OUT OF RIGHT EAR 08-11-2022 Comment on above: UNABLE TO HEAR OUT O F RIGHT EAR Unclassified (1 source) Cough, unspecified; Translations: [Cough, unspecified] Onset: 3 Unclassified (1 source) Unvaccinated for COVID-19; Translations: [Unvaccinated for COVID-19] Onset: 3 Unclassified (1 source) Contact with and (suspected) exposure to COVID-19; Translations: [Contact with and (suspected) exposure to COVID-19] Onset: 3 Unclassified (1 source) Personal history of COVID-19; Translations: [Personal history of COVID-19] Onset: 2 Viral infection (20 sources) Disease caused by 2019-nCoV; Translations: [Other specified viral infection] Onset: 3 05-28-2022 Episodic Viral infection (1 source) COVID-19; Translations: [COVID-19] Onset: 2 Past or Other Problems Problem Classification Problem Date Documented Da te Episodic/Chronic Allergic reactions (2 sources) Allergy status to penicillin; Translations: [Allergy status to serum and vaccine status] Onset: 05-28-2022 Episodic Diseases of mouth; excluding dental (10 sources) Bleeding from mouth; Translations: [Irritative hyperplasia of oral mucosa] Onset: 10-16-2022 Resolved: 10-16-2022 10-16-2022 Episodic Genitourinary symptoms and ill-defined conditions (20 sources) Blood in urine; Translations: [Hematuria, unspecified] Onset: 04-23-2024 Episodic Other complications of ; puerperium affecting management of mother (1 source) Abnormality in heart rate and rhythm complicating labor and delivery; Translations: [Abnlt in heart rate and rhythm comp labor and delivery] Onset: 10-19-2021 Episodic Other complications of (3 sources) Maternal care for excessive growth, third trimester, not applicable or unspecified; Translations: [Maternal care for excess growth, third trimester, unsp] Onset: 10-16-2021 Episodic Other complications of (3 sources) Uterine size-date discrepancy, third trimester; Translations: [Uterine size-date discrepancy, third trimester] Onset: 10-13-2021 Episodic Other complications of (3 sources) Endocrine, nutritional and metabolic diseases complicating , unspecified trimester; Translations: [Endocrine, nutritional and metabolic diseases complicating , unspecified trimester ([facility])] Onset: 05-14-2024 Episodic Other skin disorders (2 sources) Nonscarring hair loss, unspecified; Translations: [Nonscarring hair loss, unspecified] Onset: 01-31-2024 Episodic Other upper respiratory infections (11 sources) Acute pharyngitis, unspecified; Translations: [Streptococcal sore throat] Onset: 09-03-2022 08-26-2023 Episodic Prolonged (1 source) Post-term ; Translations: [Post-term ] Onset: 10-13-2021 Episodic Residual codes; unclassified (1 source) 39 weeks gestation of ; Translations: [39 weeks gestation of ] Onset: 10-19-2021 Episodic Residual codes; unclassified (1 source) 40 weeks gestation of ; Translations: [40 weeks gestation of ] Onset: 10-13-2021 Episodic Residual codes; unclassified (1 source) 37 weeks gestation of ; Translations: [37 weeks gestation of ] Onset: 09-26-2021 Episodic Residual codes; unclassified (2 sources) First trimester ; Translations: [Less than 8 weeks gestation of ] Onset: 03-30-2024 03-30-2024 Episodic Residual codes; unclassified (1 source) Less than 8 weeks gestation of ; Translations: [Less than 8 weeks gestation of ([facility])] Onset: 03-30-2024 Episodic Residual codes; unclassified (1 source) 22 weeks gestation of ; Translations: [22 weeks gestation of ] Onset: 07-02-2024 Episodic Residual codes; unclassified (1 source) 17 weeks gestation of ; Translations: [17 weeks gestation of ] Onset: 06-01-2024 Episodic Syncope (4 sources) Syncope; Translations: [Syncope and collapse] Onset: 05-28-2022 05-28-2022 Episodic Unclassified (20 sources) Finding of menstrual bleeding; Translations: [Menstruation] Comment on above: AGE 15; Unclassified (9 sources) Onset: 10-16-2022 Resolved: 09-17-2023 10-16-2022 NEGATED: Highlighted row has been ruled out!Unclassified (4 sources) No known active problems 02-07-2024 Results Test Name Value Interpretation Reference Range Facility Rule out Beta Strep (Grp. B) on 10-12-2024 MISSAEL Group B Beta Streptococcus is not isolated. Normal [facility] Comment on above: Performed By: #### L 100.0100, L3890.6100, L900.0098, L509.4005, L506.0400, L3890.6005, BTS, L509.8000, L501.9520, L3890.6300 #### [facility] [address] [place], [address] License Examiner Office Visit Reporton 10-07-2024 License Examiner Office Visit Report [facility] [address], [address] [place] [address] OFFICE VISIT Date of Service: 10/07/24 MR#: [id number] Acct: [id number] Name: MARIA ELENA AJ Ajith Rep #: [id number] : 1990 Provider: Dr. Bryanna Hogan DO Age/Sex: 34/F Location: [facility] Status: Signed Intake Vital Signs 07/30/24 14:46 09/22/24 15:45 10/07/24 15:51 10/07/24 15:52 Height 5 ft 6 in 5 ft 6 in 5 ft 6 in 5 ft 6 in Weight: 175 lb 8 oz BMI 28.3 BP 127/84 H Intake Visit Reasons: 36wk ob *doc only Ems Driver Required: No Is patient in pain?: No Allergies Penicillins (PCN) Allergy (Mild, Verified 10/07/24 15:51) Rash Medications ???Medication ???Instructions ???Recorded ???Confirmed ???Type PNV 153-FA 400 mcg-om3 35 mg-dha tab PO 03/19/24 10/07/24 History 25 mg-epa 5 mg-fish oil chew tablet acetaminophen 500 mg capsule 500 mg PO Q4-6H PRN 03/19/2410/07 History cetirizine 10 mg capsule (Zyrtec) 10 mg PO QDAY PRN 03/19/24 History levothyroxine 25 mcg capsule 50 mcg PO ONCE 07/30/24 10/07/24 H istory Last Menstrual Period: 01/30/24 Zika: Zika virus screening: Negative : No PFSH PFSH Medical History Delivery by section of full-term infant Surgical History H/O colonoscopy [place] teeth extracted Family History Aunt Thyroid disorder Maternal Mother Thyroid disorder, Onset Age: 25 Graves Disease Postural orthostatic tachycardia syndrome [POTS] Depression Suicide attempt Social History adopted: No household members: spouse and children number of children: 1 current occupational status: employed 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 current occupational exposures/hazards: No pets and animals: Yes pets and animals: dog(s) history of recent travel: No sexually active: Yes Smoking Status: Never smoker alcohol intake: never substance use type: does not use diet: other well-balanced diet: daily or most days caffeine: No eating out: rarely or never during the past year weight has: remained stable what type of physical activity do you participate in: none kerry/judaism: Mormon seatbelt use: always do you feel safe at home: Yes additional social history: Raheem- Maintenance SV History 2 Elective abortions Hx Para 1 Spontaneous abortions Hx # Term Pregnancies Ectopic pregnancies Hx # Pregnancies Multiple births # of living children 1 Past Pregnancies Del. Date Name GA/Weeks Outcome Route Bth Weight Gen Labor Lgth Anesthesia Del Andria Provider FOB 10/16/21 Jonas 39 live - full term 7#10oz Male epidural [facility] Dr. Ethan Maciel Delivery Date: 10/16/21 Last Updated by: India Bradley LGA, IOL, c section due to decels, cord around neck HPI 36wk ob *doc only Details: MARIA ELENA AJ is a 34 year old who presents for routine OB visit. OB Visit KATIE Calculator Estimated Delivery Date Method Current WG Current Estimate 11/05/24 LMP (Certain) 35w 6d Expected Delivery Route/Plan RLTCS Specific Issue/Plans Covid status: [] Flu vaccine: [] Tdap vaccine: [] Rhogam: [] LARC form signed: [] Problem list reviewed and updated with the most current plan of care details and appropriate orders placed. Relevant counseling for the gestational age provided. Continue routine care and follow up unless otherwise noted in visit notes/problem list details Initial Weight: 148 lb Date -???-???-???-???-???-??? -???-???-???-???-???-??? - EGA Weight BP Urine Prot -???-???-???-???-???-??? -???-???-???-???-???-??? - Glucose FHR FuHt Pres Dilation -???-???-???-???-???-??? -???-???-???-???-???-??? - Effaced St Visit Note 04/03/24 -???-???-???-???-???-??? -???-???-???-???-???-??? - 9w 1d 148 lb (+0 oz) 104/68 -???-???-???-???-???-??? -???-???-???-???-???-??? - 173 -???-???-???-???-???-??? -???-???-???-???-???-??? - LC CRL 2.68 con with LMP. desires nipt. 04/30/24 -???-???-???-???-???-??? -???-???-???-???-???-??? - 13w 0d 152 lb 4 oz (+4 lb 4 oz) 115/72 Negative -???-???-???-???-???-??? -???-???-???-???-???-??? - Negative 170 -???-???-???-???-???-??? -???-???-???-???-???-??? - JV- some avinash sea still. NIPT was low risk boy! some burning with urination. UA ordered. 06/01/24 -???-???-???-???-???-??? -???-???-???-???-???-??? - 17w 4d 153 lb 8 oz (+5 lb 8 oz) 118/68 Negative -???-???-???-???-???-??? -???-???-???-???-???-??? - Negative 170 -???-???-???-???-???-??? -???- (more content not included)... Normal [facility] T4 (THYROXINE), TOTALon 05-2 T4 [Mass/Vol] 13.6 ug/dL High 5.1-11.9 [facility] Comment on above: Order Comment: FASTI NG:YES FASTING: YES Performed By: #### 8 67 #### [facility] [address], [address] [place], [place] [id number] Client Liaison: Florencio Denis MD TSHon 10-03-2024 TSH Qn 3.28 m[IU]/L Normal [facility] Comment on above: Result Comment: Refe rence Range > or = 20 Years 0.40-4.50 Ranges First trimester 0.26-2.66 Second trimester 0.55-2.73 Third trimester 0.43-2.91 Performed By: #### 8 67 #### [facility] [address], [address] [place], [place] [id number] Client Liaison: Florencio Denis MD Laboratory - Chemistry and C hemistry - challengeOrdered By: Bailey Bro on 09-22-2024 Glucose Ql (U) Negative [facility] - UrinalysisOrder ed By: Bailey Bro on 09-22-2024 Protein Ql (U) Negative [facility] License Examiner Office Visit Reporton 09-22-2024 License Examiner Office Visit Report [facility] [address], [address] [place] [address] OFFICE VISIT Date of Service: 09/22/24 MR#: [id number] Acct: [id number] Name: MARIA ELENA AJ Rep #: [id number] : 1990 Provider: Dr. Bailey wilkinson MD Age/Sex: 33/F Location: [facility] Status: Signed Intake Vital Signs 04/30/24 15:41 09/10/24 15:54 09/22/24 15:40 09/22/24 15:45 Height 5 ft 6 in 5 ft 6 in 5 ft 6 in 5 ft 6 in Weight: 172 lb 8 oz BMI 27.8 BP 129/78 H Intake Visit Reasons: 34 wk ob *doc only Ems Driver Required: No Is patient in pain?: No Feel stressed/tense/nervous/a nxious/difficulty sleeping: not at all Allergies Penicillins (PCN) Allergy (Mild, Verified 09/22/24 15:40) Rash Medications ???Medication ???Instructions ???Recorded ???Confirmed ???Type PNV 153-FA 400 mcg-om3 35 mg-dha tab PO 03/19/24 09/22/24 History 25 mg-epa 5 mg-fish oil chew tablet acetaminophen 500 mg capsule 500 mg PO Q4-6H PRN 03/19/2409/22 History cetirizine 10 mg capsule (Zyrtec) 10 mg PO QDAY PRN 03/19/24 History levothyroxine 25 mcg capsule 50 mcg PO ONCE 07/30/24 09/22/24 H istory Last Menstrual Period: 01/30/24 Zika: Zika virus screening: Negative : No PFSH PFSH Medical History Delivery by section of full-term Surgical History H/O colonoscopy [place] teeth extracted Family History Aunt Thyroid disorder Maternal Mother Thyroid disorder, Onset Age: 25 Graves Disease Postural orthostatic tachycardia syndrome [POTS] Depression Suicide attempt Social History adopted: No household members: spouse and children number of children: 1 current occupational status: employed 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 current occupational exposures/hazards: No pets and animals: Yes pets and animals: dog(s) history of recent travel: No sexually active: Yes Smoking Status: Never smoker alcohol intake: never substance use type: does not use diet: other well-balanced diet: daily or most days caffeine: No eating out: rarely or never during the past year weight has: remained stable what type of physical activity do you participate in: none kerry/judaism: Mormon seatbelt use: always do you feel safe at home: Yes additional social history: Raheem- Maintenance SV History 2 Elective abortions Hx Para 1 Spontaneous abortions Hx # Term Pregnancies Ectopic pregnancies Hx # Pregnancies Multiple births # of living children 1 Past Pregnancies Del. Date Name GA/Weeks Outcome Route Bth Weight Infant Gen Labor Lgth Anesthesia Del Locatn Provider FOB 10/16/21 Jonas 39 live - full term 7#10oz Male epidural [facility] Dr. Ethan Maciel Delivery Date: 10/16/21 Last Updated by: India Bradley LGA, IOL, c section due to decels, cord around neck HPI 34 wk ob *doc only Details: MARIA ELENA AJ is a 33 year old who presents for routine OB visit. OB Visit KATIE Calculator Estimated Delivery Date Method Current WG Current Estimate 11/05/24 LMP (Certain) 33w 5d Expected Delivery Route/Plan RLTCS Specific Issue/Plans Covid status: [] Flu vaccine: [] Tdap vaccine: [] Rhogam: [] LARC form signed: [] Problem list reviewed and updated with the most current plan of care details and appropriate orders placed. Relevant counseling for the gestational age provided. Continue routine care and follow up unless otherwise noted in visit notes/problem list details Initial Weight: 148 lb Date -???-???-???-???-???-??? -???-???-???-???-???-??? - EGA Weight BP Urine Prot -???-???-???-???-???-??? -???-???-???-???-???-??? - Glucose FHR FuHt Pres Dilation -???-???-???-???-???-??? -???-???-???-???-???-??? - Effaced St Visit Note 04/03/24 -???-???-???-???-???-??? -???-???-???-???-???-??? - 9w 1d 148 lb (+0 oz) 104/68 -???-???-???-???-???-??? -???-???-???-???-???-??? - 173 -???-???-???-???-???-??? -???-???-???-???-???-??? - LC CRL 2.68 con with LMP. desires nipt. 04/30/24 -???-???-???-???-???-??? -???-???-???-???-???-??? - 13w 0d 152 lb 4 oz (+4 lb 4 oz) 115/72 Negative -???-???-???-???-???-??? -???-???-???-???-???-??? - Negative 170 -???-???-???-???-???-??? -???-???-???-???-???-??? - JV- some avinash sea still. NIPT was low risk boy! some burning with urination. UA ordered. 06/01/24 -???-???-???-???-???-??? -???-???-???-???-???-??? - 17w 4d 153 lb 8 oz (+5 lb 8 oz) 118/68 Negative -???-???-???-???-???-??? -???-???-? (more content not included)... Normal [facility] License Examiner Office Visit Reporton 09-10-2024 License Examiner Office Visit Report [facility] [address], [address] [place] [address] OFFICE VISIT Date of Service: 09/10/24 MR#: [id number] Acct: [id number] Name: MARIA ELENA AJ Rep #: [id number] : 1990 Provider: Dr. Bailey wilkinson MD Age/Sex: 33/F Location: [facility] Status: Signed Intake Vital Signs 04/30/24 15:41 07/02/24 16:05 09/03/24 15:08 09/10/24 15:54 Height 5 ft 6 in 5 ft 6 in 5 ft 6 in 5 ft 6 in Weight: 169 lb 8 oz 172 lb BMI 27.3 27.7 BP 119/73 119/75 Intake Visit Reasons: 32 wk ob *doc only Chief Complaint: 32wk ob Ems Driver Required: No Is patient in pain?: No Allergies Penicillins (PCN) Allergy (Mild, Verified 09/10/24 15:52) Rash Medications ???Medication ???Instructions ???Recorded ???Confirmed ???Type PNV 153-FA 400 mcg-om3 35 mg-dha tab PO 03/19/24 09/10/24 History 25 mg-epa 5 mg-fish oil chew tablet acetaminophen 500 mg capsule 500 mg PO Q4-6H PRN 03/19/2409/10 History cetirizine 10 mg capsule (Zyrtec) 10 mg PO QDAY PRN 03/19/24 History levothyroxine 25 mcg capsule 50 mcg PO ONCE 07/30/24 09/10/24 H istory Last Menstrual Period: 01/30/24 : No Have you fallen in the past year?: No PFSH PFSH Medical History Delivery by section of full-term Surgical History H/O colonoscopy [place] teeth extracted Family History Aunt Thyroid disorder Maternal Mother Thyroid disorder, Onset Age: 25 Graves Disease Postural orthostatic tachycardia syndrome [POTS] Depression Suicide attempt Social History adopted: No household members: spouse and children number of children: 1 current occupational status: employed 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 current occupational exposures/hazards: No pets and animals: Yes pets and animals: dog(s) history of recent travel: No sexually active: Yes Smoking Status: Never smoker alcohol intake: never substance use type: does not use diet: other well-balanced diet: daily or most days caffeine: No eating out: rarely or never during the past year weight has: remained stable what type of physical activity do you participate in: none kerry/judaism: Mormon seatbelt use: always do you feel safe at home: Yes additional social history: Raheem- Maintenance SV History 2 Elective abortions Hx Para 1 Spontaneous abortions Hx # Term Pregnancies Ectopic pregnancies Hx # Pregnancies Multiple births # of living children 1 Past Pregnancies Del. Date Name GA/Weeks Outcome Route Bth Weight Gen Labor Lgth Anesthesia Del Locatn Provider FOB 10/16/21 Jonas 39 live - full term 7#10oz Male epidural [facility]. Ethan Maciel Delivery Date: 10/16/21 Last Updated by: India Bradley LGA, IOL, c section due to decels, cord around neck HPI 32 wk ob *doc only Details: MARIA ELENA AJ is a 33 year old who presents for routine OB visit. OB Visit KATIE Calculator Estimated Delivery Date Method Current WG Current Estimate 11/05/24 LMP (Certain) 32w 0d Expected Delivery Route/Plan RLTCS Specific Issue/Plans Covid status: [] Flu vaccine: [] Tdap vaccine: [] Rhogam: [] LARC form signed: [] Problem list reviewed and updated with the most current plan of care details and appropriate orders placed. Relevant counseling for the gestational age provided. Continue routine care and follow up unless otherwise noted in visit notes/problem list details Initial Weight: 148 lb Date -???-???-???-???-???-??? -???-???-???-???-???-??? - EGA Weight BP Urine Prot -???-???-???-???-???-??? -???-???-???-???-???-??? - Glucose FHR FuHt Pres Dilation -???-???-???-???-???-??? -???-???-???-???-???-??? - Effaced St Visit Note 04/03/24 -???-???-???-???-???-??? -???-???-???-???-???-??? - 9w 1d 148 lb (+0 oz) 104/68 -???-???-???-???-???-??? -???-???-???-???-???-??? - 173 -???-???-???-???-???-??? -???-???-???-???-???-??? - LC CRL 2.68 con with LMP. desires nipt. 04/30/24 -???-???-???-???-???-??? -???-???-???-???-???-??? - 13w 0d 152 lb 4 oz (+4 lb 4 oz) 115/ Negative -???-???-???-???-???-??? -???-???-???-???-???-??? - Negative 170 -???-???-???-???-???-??? -???-???-???-???-???-??? - JV- some avinash sea still. NIPT was low risk boy! some burning with urination. UA ordered. 06/01/24 -???-???-???-???-???-??? -???-???-???-???-???-??? - 17w 4d 153 lb 8 oz (+5 lb 8 oz) 118/ Negative -???-???-???-???-???-??? -???-???-???-???-???-??? - Negative 170 -??? (more content not included)... [facility] License Examiner Office Visit Reporton 09-03-2024 License Examiner Office Visit Report [facility] [address], [address] [place] [address] OFFICE VISIT Date of Service: 09/03/24 MR#: [id number] Acct: [id number] Name: MARIA ELENA AJ Rep #: [id number] : 1990 Provider: Dr. Bailey wilkinson MD Age/Sex: 33/F Location: [facility] Status: Signed Intake Vital Signs 04/03/24 14:36 06/01/24 14:33 07/02/24 16:05 07/30/24 14:46 09/03/24 15:08 Height 5 ft 6 in 5 ft 6 in 5 ft 6 in 5 ft 6 in 5 ft 6 in Weight: 169 lb 8 oz BMI 27.3 BP 119/73 Intake Visit Reasons: 31 wk ob *doc only Ems Driver Required: No Is patient in pain?: No Feel stressed/tense/nervous/a nxious/difficulty sleeping: not at all Allergies Penicillins (PCN) Allergy (Mild, Verified 09/03/24 15:06) Rash Medications ???Medication ???Instructions ???Recorded ???Confirmed ???Type PNV 153-FA 400 mcg-om3 35 mg-dha tab PO 03/19/24 09/03/24 History 25 mg-epa 5 mg-fish oil chew tablet acetaminophen 500 mg capsule 500 mg PO Q4-6H PRN 03/19/2409/03 History cetirizine 10 mg capsule (Zyrtec) 10 mg PO QDAY PRN 03/19/24 History levothyroxine 25 mcg capsule 50 mcg PO ONCE 07/30/24 09/03/24 H istory Last Menstrual Period: 01/30/24 Zika: Zika virus screening: Negative : No PFSH PFSH Medical History Delivery by section of full-term infant Surgical History H/O colonoscopy [place] teeth extracted Family History Aunt Thyroid disorder Maternal Mother Thyroid disorder, Onset Age: 25 Graves Disease Postural orthostatic tachycardia syndrome [POTS] Depression Suicide attempt Social History adopted: No household members: spouse and children number of children: 1 current occupational status: employed 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 current occupational exposures/hazards: No pets and animals: Yes pets and animals: dog(s) history of recent travel: No sexually active: Yes Smoking Status: Never smoker alcohol intake: never substance use type: does not use diet: other well-balanced diet: daily or most days caffeine: No eating out: rarely or never during the past year weight has: remained stable what type of physical activity do you participate in: none kerry/judaism: Mormon seatbelt use: always do you feel safe at home: Yes additional social history: Raheem- Cedrick MONCADA History 2 Elective abortions Hx Para 1 Spontaneous abortions Hx # Term Pregnancies Ectopic pregnancies Hx # Pregnancies Multiple births # of living children 1 Past Pregnancies Del. Date Name GA/Weeks Outcome Route Bth Weight Infant Gen Labor Lgth Anesthesia Del Locatn Provider FOB 10/16/21 Jonas 39 live - full term 7#10oz Male epidural [facility] Dr. Ethan Maciel Delivery Date: 10/16/21 Last Updated by: India Bradley LGA, IOL, c section due to decels, cord around neck HPI 31 wk ob *doc only Details: MARIA ELENA AJ is a 33 year old who presents for routine OB visit. OB Visit KATIE Calculator Estimated Delivery Date Method Current WG Current Estimate 11/05/24 LMP (Certain) 31w 0d Expected Delivery Route/Plan RLTCS Specific Issue/Plans Covid status: [] Flu vaccine: [] Tdap vaccine: [] Rhogam: [] LARC form signed: [] Problem list reviewed and updated with the most current plan of care details and appropriate orders placed. Relevant counseling for the gestational age provided. Continue routine care and follow up unless otherwise noted in visit notes/problem list details Initial Weight: 148 lb Date -???-???-???-???-???-??? -???-???-???-???-???-??? - EGA Weight BP Urine Prot -???-???-???-???-???-??? -???-???-???-???-???-??? - Glucose FHR FuHt Pres Dilation -???-???-???-???-???-??? -???-???-???-???-???-??? - Effaced St Visit Note 04/03/24 -???-???-???-???-???-??? -???-???-???-???-???-??? - 9w 1d 148 lb (+0 oz) 104/68 -???-???-???-???-???-??? -???-???-???-???-???-??? - 173 -???-???-???-???-???-??? -???-???-???-???-???-??? - LC CRL 2.68 con with LMP. desires nipt. 04/30/24 -???-???-???-???-???-??? -???-???-???-???-???-??? - 13w 0d 152 lb 4 oz (+4 lb 4 oz) 115/72 Negative -???-???-???-???-???-??? -???-???-???-???-???-??? - Negative 170 -???-???-???-???-???-??? -???-???-???-???-???-??? - JV- some avinash sea still. NIPT was low risk boy! some burning with urination. UA ordered. 06/01/24 -???-???-???-???-???-??? -???-???-???-???-???-??? - 17w 4d 153 lb 8 oz (+5 lb 8 oz) 118/68 Negative -???-???- (more content not included)... Normal [facility] T4 (THYROXINE), TOTALon - T4 [Mass/Vol] 12.2 ug/dL High 5.1-11.9 [facility] Comment on above: Performed By: #### 8 67 #### [facility] [address], [address] [place], [place] [id number] Client Liaison: Florencio Denis MD TSHon 08-29-2024 TSH Qn 2.46 m[IU]/L Normal [facility] Comment on above: Result Comment: Refe rence Range > or = 20 Years 0.40-4.50 Ranges First trimester 0.26-2.66 Second trimester 0.55-2.73 Third trimester 0.43-2.91 Performed By: #### 8 67 #### [facility] [address], [address] [place], [place] [id number] Client Liaison: Florencio Denis MD Gestational GTT 3HR 100gon 0 08-06-2024 3HR GTT- GEST. High [facility] Comment on above: Order Comment: Y Result Comment: FAST ING 82 Col: 08/06/24 0707 GLUCOSE TOLERANCE TEST FOR Reference Interval GESTATIONAL DIABETES Fasting <105 mg/dL 1 hour <190 mg/dl 2 hour <165 mg/dl 3 hour <145 mg/dl 1 HR GLU 175 Col: 08/06/24 0839 2 HR GLU 175 H Col: 08/06/24 0937 3 HR GLU 86 Col: 08/06/24 1040 Performed By: #### L 500.4710 #### [facility] [address] [place], [address] Glucose tolerance 3 hours ge stational panelOrdered By: Bryanna Zhang on 08-06-2024 Gestational Glucose Tolerance Test See comment [facility] Comment on above: FASTING 82 Col: 07/12 12/04 0707GLUCOSE TOLERANCE TEST FOR Reference Interval GESTATIONAL DIABETES Fasting <105 mg/dL 1 hour <190 mg/dl 2 hour <165 mg/dl 3 hour <145 mg/dl 1 HR GLU 175 Col: 08/06/24 0839 2 HR GLU 175 H Col: 08/06/24 0937 3 HR GLU 86 Col: 08/06/24 1040 Quantitative serum or plasma 3 hour gestational glucose tolerance panelOrdered By: Bryanna Zhang on 08-06-2024 Glucose tolerance 3 hours gestational panel See comment [facility] Comment on above: FASTING 82 Col: 07/12 12/04 0707GLUCOSE TOLERANCE TEST FOR Reference Interval GESTATIONAL DIABETES Fasting <105 mg/dL 1 hour <190 mg/dl 2 hour <165 mg/dl 3 hour <145 mg/dl 1 HR GLU 175 Col: 08/06/24 0839 2 HR GLU 175 H Col: 08/06/24 0937 3 HR GLU 86 Col: 08/06/24 1040 T4 (THYROXINE), TOTALon 07-12 T4 [Mass/Vol] 12.5 ug/dL High 5.1-11.9 [facility] Comment on above: Performed By: #### 8 26, 936 #### [facility] [place] [address] Client Liaison: Florencio Denis MD T4, FREEon 08-01-2024 T4, FREE Normal [facility] Comment on above: Order Comment: FASTI NG:NO FASTING: NO Performed By: #### 8 90, 006 #### [facility] [place] [address] Client Liaison: Florencio Denis MD TSHon 08-01-2024 TSH Normal [facility] Comment on above: Performed By: #### 8 90, 246 #### [facility] [place] [address] Client Liaison: Florencio Denis MD Absolute lymphocyte countOrd ered By: Bryanna Zhang on 07-30-2024 Lymphocytes Auto (Unsp spec) [#/Vol] 1.36 10*3/uL 0.83-4.51 [facility] Absolute neutrophil countOrd ered By: Bryanna Zhang on 07-30-2024 Neutrophils (Bld) [#/Vol] 6.6 10*3/uL 2.0-7.7 [facility] Automated lymphocyte count a s percentage of total leukocytesOrdered By: Bryanna Zhang on 07-30-2024 Lymphocytes/100 WBC Auto (Unsp spec) 16.0 % Low 19-41 [facility] Basophil percentageOrdered B y: Bryanna Zhang on 07-30-2024 Basophils/100 WBC (Bld) 0.5 % 0-1 [facility] CBC W/Diff, Automatedon - Absolute Lymph 1.36 X10 3/uL Normal 0.83-4.51 [facility] Comment on above: Performed By: #### L 3410.9998, L100.0100 #### [facility] [address] [place], [address] Absolute Neut 6.6 X10 3/uL Normal 2.0-7.7 [facility] Comment on above: Performed By: #### L 3410.9998, L100.0100 #### [facility] [address] [place], [address] Basophils/100 WBC (Bld) 0.5 % Normal 0-1 [facility] Comment on above: Performed By: #### L 3410.9998, L100.0100 #### [facility] [address] [place], [address] Eosinophils/100 WBC (Bld) 0.8 % Normal 0-5 [facility] Comment on above: Performed By: #### L 3410.9998, L100.0100 #### [facility] [address] [place], [address] Erythrocyte distribution width (RBC) [Ratio] 13.5 % Normal 11.6-14.6 [facility] Comment on above: Performed By: #### L 3410.9998, L100.0100 #### [facility] [address] [place], [address] Hematocrit (Bld) [Volume fraction] 39.6 % Normal 37-47 [facility] Comment on above: Performed By: #### L 3410.9998, L100.0100 #### [facility] [address] [place], [address] Hemoglobin (Bld) [Mass/Vol] 13.3 g/dL Normal 12.0-15.0 [facility] Comment on above: Performed By: #### L 3410.9998, L100.0100 #### [facility] [address] [place], [address] IG% 0.200 Normal 0.0-0.9 [facility] Comment on above: Result Comment: IG% - Immature Granulocytes (promyelocytes, myelocytes and metamyelocytes) > 1% indicates that a LEFT SHIFT is Present. Performed By: #### L 3410.9998, L100.0100 #### [facility] [address] [place], [address] Lymphocytes/100 WBC (Bld) 16.0 % Low 19-41 [facility] Comment on above: Performed By: #### L 3410.9998, L100.0100 #### [facility] [address] [place], [address] MCH (RBC) [Entitic mass] 30.9 pg Normal 27.0-32.0 [facility] Comment on above: Performed By: #### L 3410.9998, L100.0100 #### [facility] [address] [place], [address] MCHC (RBC) [Mass/Vol] 33.6 g/dL Normal 32-36 [facility] Comment on above: Performed By: #### L 3410.9998, L100.0100 #### [facility] [address] [place], [address] MCV (RBC) [Entitic vol] 92.1 fL Normal 81-99 [facility] Comment on above: Performed By: #### L 3410.9998, L100.0100 #### [facility] [address] [place], [address] Monocytes/100 WBC (Bld) 4.5 % Normal 0-10 [facility] Comment on above: Performed By: #### L 3410.9998, L100.0100 #### [facility] [address] [place], [address] Neutrophils/100 WBC (Bld) 78.0 % High 47-70 [facility] Comment on above: Performed By: #### L 3410.9998, L100.0100 #### [facility] [address] [place], [address] Nucleated RBC (Bld) [#/Vol] 0 10*3/uL Normal 0-5 [facility] Comment on above: Performed By: #### L 3410.9998, L100.0100 #### [facility] [address] [place], [address] Platelet mean volume (Bld) [Entitic vol] 10.8 fL Normal 6.2-12.0 [facility] Comment on above: Performed By: #### L 3410.9998, L100.0100 #### [facility] [address] [place], [address] Platelets (Bld) [#/Vol] 263 10*3/uL Normal 150-450 [facility] Comment on above: Performed By: #### L 3410.9998, L100.0100 #### [facility] [address] [place], [address] RBC (Bld) [#/Vol] 4.30 10*6/uL Normal 4.2-5.4 [facility] Comment on above: Performed By: #### L 3410.9998, L100.0100 #### [facility] [address] [place], [address] RDW SD 45.7 fl High 35.1-43.9 [facility] Comment on above: Performed By: #### L 3410.9998, L100.0100 #### [facility] [address] [place], [address] WBC (Bld) [#/Vol] 8.5 10*3/uL Normal 4.4-11.0 [facility] Comment on above: Performed By: #### L 3410.9998, L100.0100 #### [facility] [address] [place], [address] Eosinophil percentageOrdered By: Bryanna Zhang on 07-30-2024 Eosinophils/100 WBC (Bld) 0.8 % 0-5 [facility] Erythrocyte distribution wid th ratioOrdered By: Bryanna Zhang on 07-30-2024 Erythrocyte distribution width (RBC) [Ratio] 13.5 % 11.6-14.6 [facility] Erythrocyte distribution wid th standard deviationOrdered By: Bryanna Zhang on 07-30-2024 Erythrocyte distribution width (RBC) [Entitic vol] 45.7 fL High 35.1-43.9 [facility] Erythrocyte distribution width (RBC) [Ratio] 45.7 fl High 35.1-43.9 [facility] Glucose Challenge Gest 1H 50 mariama 07-30-2024 GLU GEST 50g 1H 141 mg/dL High 70-140 [facility] Comment on above: Performed By: #### L 3410.9998, L100.0100 #### [facility] [address] [place], [address] Glucose measurement at 2 merna rs post-dose gestational glucose tolerance testOrdered By: Bryanna Zhang on 07-30-2024 Glucose [Mass/Vol] 141 mg/dL High 70-140 [facility] Hematocrit Auto (Bld) [Volum e fraction]Ordered By: Bryanna Zhang on 07-30-2024 Hematocrit (Bld) [Volume fraction] 39.6 % 37-47 [facility] Hemoglobin measurementOrdere d By: Bryanna Zhang on 07-30-2024 Hemoglobin (Bld) [Mass/Vol] 13.3 g/dL 12.0-15.0 [facility] Immature granulocytes/100 WB C Auto (Bld)Ordered By: Bryanna Zhang on 07-30-2024 Immature granulocytes/100 WBC (Bld) 0.200 % 0.0-0.9 [facility] Comment on above: IG% - Immature Granu locytes (promyelocytes, myelocytes and metamyelocytes) > 1% indicates that a LEFT SHIFT is Present. L3890.6006on 07-30-2024 HIV Non-Reactive Normal Nonreactive [facility] Comment on above: Result Comment: Non- Reactive Reactive Repeatedly reactive samples must be confirmed according to CDC recommended confirmatory algorithms. The subresults for either HIVAG or AHIV can be used as an aid in the selection of the confirmation algorithm for reactive samples. Send out specimens with Reactive results to [facility] for confirmation. Order the HIV antibody detection and differentiation: #[id number] Performed By: #### L 3410.9998, L100.0100 #### [facility] [address] [facility] [place], [place], [address] L509.8002on 07-30-2024 Syphilis Abs No_Result Normal Nonreactive [facility] Comment on above: Performed By: #### L 3410.9998, L100.0100 #### [facility] [address] [facility] [place], [place], [id number] Laboratory - Chemistry and C hemistry - challengeOrdered By: Bryanna Zhang on 07-30-2024 Glucose Ql (U) Negative [facility] - UrinalysisOrder ed By: Bryanna Zhang on 07-30-2024 Protein Ql (U) Negative [facility] Lymphocytes Auto (Unsp spec) [#/Vol]Ordered By: Bryanna Zhang on 07-30-2024 Lymphocytes (Bld) [#/Vol] 1.36 10*3/uL 0.83-4.51 [facility] Lymphocytes/100 WBC Auto (Un sp spec)Ordered By: Bryanna Zhang on 07-30-2024 Lymphocytes/100 WBC (Bld) 16.0 % Low 19-41 [facility] MCV (mean corpuscular volume ) determinationOrdered By: Bryanna Zhang on 07-30-2024 MCV (RBC) [Entitic vol] 92.1 fL 81-99 [facility] Mean corpuscular hemoglobin (MCH) determinationOrdered By: Bryanna Zhang on 07-30-2024 MCH (RBC) [Entitic mass] 30.9 pg 27.0-32.0 [facility] Mean corpuscular hemoglobin concentration (MCHC) determinationOrdered By: Bryanna Zhang on 07-30-2024 MCHC (RBC) [Mass/Vol] 33.6 g/dL 32-36 [facility] Mean platelet volume determi nationOrdered By: Bryanna Zhang on 07-30-2024 Platelet mean volume (Bld) [Entitic vol] 10.8 fL 6.2-12.0 [facility] Monocyte percentageOrdered B y: Bryanna Zhang on 07-30-2024 Monocytes/100 WBC (Bld) 4.5 % 0-10 [facility] Neutrophil percentageOrdered By: Bryanna Zhang on 07-30-2024 Neutrophils/100 WBC (Bld) 78.0 % High 47-70 [facility] No Panel InformationOrdered By: Bryanna Zhang on 07-30-2024 HIV (1&2) Antibody Non-Reactive Nonreactive [facility] Comment on above: Non-ReactiveReactive Repeatedly reactive samples must be confirmed according to CDC recommended confirmatory algorithms. The subresults for either HIVAG or AHIV can be used as an aid in the selection of the confirmation algorithm for reactive samples.Send out specimens with Reactive results to [facility] for confirmation.Order the HIV antibody detection and differentiation: #[id number] Nucleated red blood cell per centageOrdered By: Bryanna Zhang on 07-30-2024 Nucleated RBC/100 WBC (Bld) [Ratio] 0 % 0-5 [facility] License Examiner Office Visit Reporton 07-30-2024 License Examiner Office Visit Report [facility]'s [address], [address] [place] [address] OFFICE VISIT Date of Service: 07/30/24 MR#: [id number] Acct: [id number] Name: MARIA ELENA AJ Rep #: [id number] : 1990 Provider: Dr. Bryanna Hogan, Age/Sex: 33/F Location: [facility] Status: Signed Intake Vital Signs 04/03/24 14:36 07/02/24 16:05 07/30/24 14:44 07/30/24 14:46 Height 5 ft 6 in 5 ft 6 in 5 ft 6 in 5 ft 6 in Weight: 165 lb 6 oz BMI 26.6 BP 125/75 H Intake Visit Reasons: 26 wk ob/glucose Ems Driver Required: No Is patient in pain?: No Allergies Penicillins (PCN) Allergy (Mild, Verified 07/30/24 14:44) Rash Medications ???Medication ???Instructions ???Recorded ???Confirmed ???Type PNV 153-FA 400 mcg-om3 35 mg-dha tab PO 03/19/24 07/30/24 History 25 mg-epa 5 mg-fish oil chew tablet acetaminophen 500 mg capsule 500 mg PO Q4-6H PRN 03/19/2407/30 History cetirizine 10 mg capsule (Zyrtec) 10 mg PO QDAY PRN 03/19/24 History levothyroxine 25 mcg capsule 50 mcg PO ONCE 07/30/24 07/30/24 H istory Last Menstrual Period: 01/30/24 Zika: Zika virus screening: Negative : No PFSH PFSH Medical History Delivery by section of full-term infant Surgical History H/O colonoscopy [place] teeth extracted Family History Aunt Thyroid disorder Maternal Mother Thyroid disorder, Onset Age: 25 Graves Disease Postural orthostatic tachycardia syndrome [POTS] Depression Suicide attempt Social History adopted: No household members: spouse and children number of children: 1 current occupational status: employed 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 current occupational exposures/hazards: No pets and animals: Yes pets and animals: dog(s) history of recent travel: No sexually active: Yes Smoking Status: Never smoker alcohol intake: never substance use type: does not use diet: other well-balanced diet: daily or most days caffeine: No eating out: rarely or never during the past year weight has: remained stable what type of physical activity do you participate in: none kerry/judaism: Mormon seatbelt use: always do you feel safe at home: Yes additional social history: Raheem- Maintenance SV History 2 Elective abortions Hx Para 1 Spontaneous abortions Hx # Term Pregnancies Ectopic pregnancies Hx # Pregnancies Multiple births # of living children 1 Past Pregnancies Del. Date Name GA/Weeks Outcome Route Bth Weight Infant Gen Labor Lgth Anesthesia Del Locatn Provider FOB 10/16/21 Jonas 39 live - full term 7#10oz Male epidural [facility] Dr. Ethan Maciel Delivery Date: 10/16/21 Last Updated by: India Bradley LGA, IOL, c section due to decels, cord around neck HPI 26 wk ob/glucose Details: MARIA ELENA AJ is a 33 year old who presents for routine OB visit. OB Visit KATIE Calculator Estimated Delivery Date Method Current WG Current Estimate 11/05/24 LMP (Certain) 26w 0d Expected Delivery Route/Plan RLTCS Specific Issue/Plans Covid status: [] Flu vaccine: [] Tdap vaccine: [] Rhogam: [] LARC form signed: [] Problem list reviewed and updated with the most current plan of care details and appropriate orders placed. Relevant counseling for the gestational age provided. Continue routine care and follow up unless otherwise noted in visit notes/problem list details Initial Weight: 148 lb Date -???-???-???-???-???-??? -???-???-???-???-???-??? - EGA Weight BP Urine Prot -???-???-???-???-???-??? -???-???-???-???-???-??? - Glucose FHR FuHt Pres Dilation -???-???-???-???-???-??? -???-???-???-???-???-??? - Effaced St Visit Note 04/03/24 -???-???-???-???-???-??? -???-???-???-???-???-??? - 9w 1d 148 lb (+0 oz) 104/68 -???-???-???-???-???-??? -???-???-???-???-???-??? - 173 -???-???-???-???-???-??? -???-???-???-???-???-??? - CRL 2.68 con with LMP. desires nipt. 04/30/24 -???-???-???-???-???-??? -???-???-???-???-???-??? - 13w 0d 152 lb 4 oz (+4 lb 4 oz) 115/72 Negative -???-???-???-???-???-??? -???-???-???-???-???-??? - Negative 170 -???-???-???-???-???-??? -???-???-???-???-???-??? - JV- some avinash sea still. NIPT was low risk boy! some burning with urination. UA ordered. 06/01/24 -???-???-???-???-???-??? -???-???-???-???-???-??? - 17w 4d 153 lb 8 oz (+5 lb 8 oz) 118/68 Negative -???-???-???-???-???-??? -???-???-???-???-???-??? - Negative 170 -???-???-???-???-???-??? -???-?? (more content not included)... Normal [facility] Platelet countOrdered By: Lg Zhang on 07-30-2024 Platelets (Bld) [#/Vol] 263 10*3/uL 150-450 [facility] RBC Auto (Bld) [#/Vol]Ordere d By: Bryanna Zhang on 07-30-2024 RBC (Bld) [#/Vol] 4.30 10*6/uL 4.2-5.4 [facility] T. pallidum abOrdered By: Lg Zhang on 07-30-2024 Syphilis Total Antibody No_Result Nonreactive [facility] White blood cell (WBC) count Ordered By: Bryanna Zhang on 07-30-2024 WBC (Bld) [#/Vol] 8.5 10*3/uL 4.4-11.0 [facility] L3410.9998on 07-07-2024 [facility] Misc. COMMENT Normal . [facility] Comment on above: Order Comment: [id number] 1 AFP SERUM RT Result Comment: TEST RESULTS LIMITS AFP, Serum, Open Spina Bifida Results Report Test Results: *Screen Negative* Gest. Age on Collection Date 22.0 weeks Gestat. Age Based On LMP Recalculations are not recommended when gestational dating by LMP and ultrasound are within 10 days. M[age] KATIE 34.1 yr Race Weight 160 lbs Insulin Dep Diabetes No Multiple Gestation No AFP Value 139.7 ng/mL AFP MoM 2.01 OSBR Risk 1 IN 788 Interpretation Interpretation: Screen Negative This result is screen negative for OSB. The AFP MoM calculated is based on the gestational age provided. MS-AFP can identify up to 80% of open neural tube defects. Closed neural tube defects and some open defects may not be detected by this test. This test does not screen for Down Syndrome or Trisomy 18. If screening for Down Syndrome or Trisomy 18 is desired, contact [facility] to discuss available options. The [employer] recommends amniocentesis be offered to women age 35 and older. Comment: Nanette Wise, Ph.D., [facility] Director References: Available Upon Request. Multiples Of Median Cutoffs For AFP Elevations Tate 2.5 Black 2.8 IDD 2.0 Twins 4.5 Abbreviation Definitions IDD - Insulin Dep Diabetes OSBR - Open Spina Bifida Risk For further inquiries contact [facility] at [phone]. This test was developed and its performance characteristics determined by [facility]. It has not been cleared or approved by the Food and Drug Administration. TESTING PERFORMED AT [facility]. ORIGINAL REPORT ON FILE IN LAB CONTAINS ADDITIONAL TEST SITE INFORMATION. AMENDED REPORT 07/07/24 1402 [facility] Mis. previously reported as: COMMENT Test Ordered: [id number] AFP, Serum, Open Spina Bifida Test Results: TG Reference Range: . Please refer to the following specimen for additional lab results. Please refer to [phone] for results. Performed at: [address] [id number] Building Architectural Designer: Kumar Monzon PhD, Phone: [phone] Performed at: [facility] [address] [place], [place] [id number] Building Architectural Designer: Amanda Nelson [facility], Phone: [phone] Performed By: #### L 3410.9998, L100.0100 #### [facility] [address] [place], [address] CBC W/Diff, Automatedon 02-2 0-2024 Absolute Neut Normal 2.0-7.7 [facility] Comment on above: Result Comment: to b e done another day Performed By: #### L 3410.9998, L100.0100 #### [facility] [address] [place], [address] HCT Normal 37-47 [facility] Comment on above: Result Comment: to b e done another day Performed By: #### L 3410.9998, L100.0100 #### [facility] [address] [place], [address] HGB Normal 12.0-15.0 [facility] Comment on above: Result Comment: to b e done another day Performed By: #### L 3410.9998, L100.0100 #### [facility] [address] [place], [address] MCH Normal 27.0-32.0 [facility] Comment on above: Result Comment: to b e done another day Performed By: #### L 3410.9998, L100.0100 #### [facility] [address] [place], [address] MCHC Normal 32-36 [facility] Comment on above: Result Comment: to b e done another day Performed By: #### L 3410.9998, L100.0100 #### [facility] [address] [place], [address] MCV Normal 81-99 [facility] Comment on above: Result Comment: to b e done another day Performed By: #### L 3410.9998, L100.0100 #### [facility] [address] [place], [address] NEUT% Normal 47-70 [facility] Comment on above: Result Comment: to b e done another day Performed By: #### L 3410.9998, L100.0100 #### [facility] [address] [place], [address] PLT Normal 150-450 [facility] Comment on above: Result Comment: to b e done another day Performed By: #### L 3410.9998, L100.0100 #### [facility] [address] [place], [address] RBC Normal 4.2-5.4 [facility] Comment on above: Result Comment: to b e done another day Performed By: #### L 3410.9998, L100.0100 #### [facility] [address] [place], [address] RDW CV Normal 11.6-14.6 [facility] Comment on above: Result Comment: to b e done another day Performed By: #### L 3410.9998, L100.0100 #### [facility] [address] [place], [address] RDW SD Normal 35.1-43.9 [facility] Comment on above: Result Comment: to b e done another day Performed By: #### L 3410.9998, L100.0100 #### [facility] [address] [place], [address] WBC Normal 4.4-11.0 [facility] Comment on above: Result Comment: to b e done another day Performed By: #### L 3410.9998, L100.0100 #### [facility] [address] [place], [address] License Examiner Office Visit Reporton 07-02-2024 License Examiner Office Visit Report [facility]'s [address], [address] [place] [address] OFFICE VISIT Date of Service: 07/02/24 MR#: [id number] Acct: [id number] Name: MARIA ELENA AJ Rep #: [id number] : 1990 Provider: Dr. Bailey wilkinson MD Age/Sex: 33/F Location: [facility] Status: Signed Intake Vital Signs 04/03/24 14:36 06/01/24 14:33 07/02/24 16:04 07/02/24 16:05 Height 5 ft 6 in 5 ft 6 in 5 ft 6 in 5 ft 6 in Weight: 160 lb 2 oz BMI 25.8 BP 126/75 H Intake Visit Reasons: 20 wk ob Ems Driver Required: No Is patient in pain?: No Feel stressed/tense/nervous/a nxious/difficulty sleeping: not at all Allergies Penicillins (PCN) Allergy (Mild, Verified 07/02/24 16:04) Rash Medications ???Medication ???Instructions ???Recorded ???Confirmed ???Type PNV 153-FA 400 mcg-om3 35 mg-dha tab PO 03/19/24 07/02/24 History 25 mg-epa 5 mg-fish oil chew tablet acetaminophen 500 mg capsule 500 mg PO Q4-6H PRN 03/19/2407/02 History cetirizine 10 mg capsule (Zyrtec) 10 mg PO QDAY PRN 03/19/24 History levothyroxine 25 mcg capsule 50 mcg PO .twice weekly 06/01/24 0 07/02/24 History Last Menstrual Period: 01/30/24 Zika: Zika virus screening: Negative : No PFSH PFSH Medical History Delivery by section of full-term Surgical History H/O colonoscopy [place] teeth extracted Family History Aunt Thyroid disorder Maternal Mother Thyroid disorder, Onset Age: 25 Graves Disease Postural orthostatic tachycardia syndrome [POTS] Depression Suicide attempt Social History adopted: No household members: spouse and children number of children: 1 current occupational status: employed 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 current occupational exposures/hazards: No pets and animals: Yes pets and animals: dog(s) history of recent travel: No sexually active: Yes Smoking Status: Never smoker alcohol intake: never substance use type: does not use diet: other well-balanced diet: daily or most days caffeine: No eating out: rarely or never during the past year weight has: remained stable what type of physical activity do you participate in: none kerry/judaism: Mormon seatbelt use: always do you feel safe at home: Yes additional social history: Raheem- Maintenance SV History 2 Elective abortions Hx Para 1 Spontaneous abortions Hx # Term Pregnancies Ectopic pregnancies Hx # Pregnancies Multiple births # of living children 1 Past Pregnancies Del. Date Name GA/Weeks Outcome Route Bth Weight Infant Gen Labor Lgth Anesthesia Del Locatn Provider FOB 10/16/21 Jonas 39 live - full term 7#10oz Male epidural [facility] Dr. Ethan Maciel Delivery Date: 10/16/21 Last Updated by: India Bradley LGA, IOL, c section due to decels, cord around neck HPI 20 wk ob Details: MARIA ELENA AJ is a 33 year old who presents for routine OB visit. OB Visit KATIE Calculator Estimated Delivery Date Method Current WG Current Estimate 11/05/24 LMP (Certain) 22w 0d Expected Delivery Route/Plan RLTCS Specific Issue/Plans Covid status: [] Flu vaccine: [] Tdap vaccine: [] Rhogam: [] LARC form signed: [] Problem list reviewed and updated with the most current plan of care details and appropriate orders placed. Relevant counseling for the gestational age provided. Continue routine care and follow up unless otherwise noted in visit notes/problem list details Initial Weight: 148 lb Date -???-???-???-???-???-??? -???-???-???-???-???-??? - EGA Weight BP Urine Prot -???-???-???-???-???-??? -???-???-???-???-???-??? - Glucose FHR FuHt Pres Dilation -???-???-???-???-???-??? -???-???-???-???-???-??? - Effaced St Visit Note 04/03/24 -???-???-???-???-???-??? -???-???-???-???-???-??? - 9w 1d 148 lb (+0 oz) 104/68 -???-???-???-???-???-??? -???-???-???-???-???-??? - 173 -???-???-???-???-???-??? -???-???-???-???-???-??? - LC CRL 2.68 con with LMP. desires nipt. 04/30/24 -???-???-???-???-???-??? -???-???-???-???-???-??? - 13w 0d 152 lb 4 oz (+4 lb 4 oz) 115/72 Negative -???-???-???-???-???-??? -???-???-???-???-???-??? - Negative 170 -???-???-???-???-???-??? -???-???-???-???-???-??? - JV- some avinash sea still. NIPT was low risk boy! some burning with urination. UA ordered. 06/01/24 -???-???-???-???-???-??? -???-???-???-???-???-??? - 17w 4d 153 lb 8 oz (+5 lb 8 oz) 118/68 Negative -???-???-???-???-???-??? -???-???-???-???-???- (more content not included)... Normal [facility] Thyrotropinon 06-05-2024 TSH Qn 3.91 m[IU]/L Normal 0.44-3.98 [facility] Comment on above: Order Comment: TSH t esting is performed using different testing methodology at [facility] than at [facility]. Direct result comparisons should only be made within the same method. Performed By: #### 2 132-9 #### CK KHAN ([id number]) [facility] [address] [place] [address] Thyroxine.freeon 06-05-2024 Free T4 [Mass/Vol] 0.85 ng/dL Normal 0.61-1.12 [facility] Comment on above: Order Comment: Thyro xine Free testing is performed using different testing methodology at [facility] than at [facility]. Direct result comparisons should only be made within the same method.Biotin can cause falsely elevated free T4 results. Patients taking a Biotin dose of up to 10 mg/day should refrain from taking Biotin for 24 hours before sample collection. Patient taking a Biotin dose of >10 mg/day should consult with their physician or the laboratory before the blood draw. Performed By: #### 2 132-9 #### CK KHAN ([id number]) [facility] [address] [place], [place] [id number] Laboratory - Chemistry and C hemistry - challengeon 06-01-2024 Glucose Ql (U) Negative [facility] - Urinalysison Protein Ql (U) Negative [facility] License Examiner Office Visit Reporton 06-01-2024 License Examiner Office Visit Report [address], [address] [place] [id number] OFFICE VISIT Date of Service: 06/01/24 MR#: [id number] Acct: [id number] Name: MARIA ELENA AJ Rep #: [id number] : 1990 Provider: SHAQ Sheikh ams Age/Sex: 33/F Location: [facility] [place] Status: Signed Intake Vital Signs 04/30/24 15:41 06/01/24 14:33 Height 5 ft 6 in 5 ft 6 in Weight: 153 lb 8 oz BMI 24.7 BP 118/68 Intake Visit Reasons: 16 WK OB Ems Driver Required: No Is patient in pain?: No Feel stressed/tense/nervous/a nxious/difficulty sleeping: not at all Allergies Penicillins (PCN) Allergy (Mild, Verified 06/01/24 14:34) Rash Medications ???Medication ???Instructions ???Recorded ???Confirmed ???Type PNV 153-FA 400 mcg-om3 35 mg-dha tab PO 03/19/24 06/01/24 History 25 mg-epa 5 mg-fish oil chew tablet acetaminophen 500 mg capsule 500 mg PO Q4-6H PRN 03/19/24 06/01/24 History cetirizine 10 mg capsule (Zyrtec) 10 mg PO QDAY PRN 03/19/24 06/01/24 History levothyroxine 25 mcg capsule 50 mcg PO .twice weekly 06/01/24 06/01/24 History Last Menstrual Period: 01/30/24 Zika: Zika virus screening: Negative : No Have you fallen in the past year?: No PFSH PFSH Medical History Delivery by section of full-term Surgical History H/O colonoscopy [place] teeth extracted Family History Aunt Thyroid disorder Maternal Mother Thyroid disorder, Onset Age: 25 Graves Disease Postural orthostatic tachycardia syndrome [POTS] Depression Suicide attempt Social History adopted: No household members: spouse and children number of children: 1 current occupational status: employed 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 current occupational exposures/hazards: No pets and animals: Yes pets and animals: dog(s) history of recent travel: No sexually active: Yes Smoking Status: Never smoker alcohol intake: never substance use type: does not use diet: other well-balanced diet: daily or most days caffeine: No eating out: rarely or never during the past year weight has: remained stable what type of physical activity do you participate in: none kerry/judaism: Mormon seatbelt use: always do you feel safe at home: Yes additional social history: Raheem- [place] SV History 2 Elective abortions Hx Para 1 Spontaneous abortions Hx # Term Pregnancies Ectopic pregnancies Hx # Pregnancies Multiple births # of living children 1 Past Pregnancies Del. Date Name GA/Weeks Outcome Route Bth Weight Infant Gen Labor Lgth Anesthesia Del Locatn Provider FOB 10/16/21 Jonas 39 live - full term 7#10oz Male epidural [facility] Dr. Ethan Maciel Delivery Date: 10/16/21 Last Updated by: India Bradley LGA, IOL, c section due to decels, cord around neck HPI 16 WK OB Details: MARIA ELENA AJ is a 33 year old who presents for routine OB visit. OB Visit KATIE Calculator Estimated Delivery Date Method Current WG Current Estimate 11/05/24 LMP (Certain) 17w 4d Expected Delivery Route/Plan undecided c/s vs TOLAC Specific Issue/Plans Covid status: [] Flu vaccine: [] Tdap vaccine: [] Rhogam: [] LARC form signed: [] Problem list reviewed and updated with the most current plan of care details and appropriate orders placed. Relevant counseling for the gestational age provided. Continue routine care and follow up unless otherwise noted in visit notes/problem list details Initial Weight: 148 lb Date -???-???-???-???-???-??? -???-???-???-???-???-??? - EGA Weight BP Urine Prot -???-???-???-???-???-??? -???-???-???-???-???-??? - Glucose FHR FuHt Pres Dilation -???-???-???-???-???-??? -???-???-???-???-???-??? - Effaced St Visit Note 04/03/24 -???-???-???-???-???-??? -???-???-???-???-???-??? - 9w 1d 148 lb (+0 oz) 104/68 -???-???-???-???-???-??? -???-???-???-???-???-??? - 173 -???-???-???-???-???-??? -???-???-???-???-???-??? - LC CRL 2.68 con with LMP. desires nipt. 04/30/24 -???-???-???-???-???-??? -???-???-???-???-???-??? - 13w 0d 152 lb 4 oz (+4 lb 4 oz) 115/72 Negative -???-???-???-???-???-??? -???-???-???-???-???-??? - Negative 170 -???-???-???-???-???-??? -???-???-???-???-???-??? - JV- some avinash sea still. NIPT was low risk boy! some burning with urination. UA ordered. 06/01/24 -???-???-???-???-???-??? -???-???-???-???-???-??? - 17w 4d 153 lb 8 oz (+5 lb 8 oz) 118/68 Negative -???-???-???-???-???-??? -???-???-???-???-???-??? - Negative (more content not included)... Normal [facility] Thyrotropinon 05-08-2024 TSH Qn 3.47 m[IU]/L Normal 0.44-3.98 [facility] Comment on above: Order Comment: TSH t esting is performed using different testing methodology at [facility] than at other [facility]. Direct result comparisons should only be made within the same method. Performed By: #### T KATIE #### CK KHAN ([id number]) [facility] [address] [place] [address] Thyroxine.freeon 05-08-2024 Free T4 [Mass/Vol] 0.87 ng/dL Normal 0.61-1.12 [facility] Comment on above: Order Comment: TSH t esting is performed using different testing methodology at [facility] than at [facility]. Direct result comparisons should only be made within the same method. Performed By: #### T KATIE #### CK KHAN ([id number]) [facility]) [address] [place] [address] Urine Cultureon 05-01-2024 URC Culture exhibits no growth. Normal [facility] Comment on above: Performed By: #### L 3410.9998, L100.0100 #### [facility] [address] [place] [address]. [place], [place], [id number] Laboratory - Chemistry and C hemistry - challengeon 04-30-2024 Bilirubin Ql (U) Negative [facility] Glucose Ql (U) Negative [facility] Ketones Ql (U) Negative [facility] pH (U) 5.0 [pH] [facility] Specific gravity (U) [Rel density] 1.010 [facility] Urobilinogen (U) [Mass/Vol] 0.7274390 mg/dL [facility] Laboratory - Hematology and Cell countson 04-30-2024 Hemoglobin Ql (U) Trace [facility] - Specimen inform ationon 04-30-2024 Clarity (U) Clear [facility] Color (U) YELLOW [facility] Laboratory - Urinalysison Nitrite Ql (U) Negative [facility] Protein Ql (U) Negative [facility] No Panel Informationon 04-30 Urine Leukocytes Negatve [facility] License Examiner Office Visit Reporton 04-30-2024 License Examiner Office Visit Report [facility] [address], [address] [place] [address] OFFICE VISIT Date of Service: 04/30/24 MR#: [id number] Acct: [id number] Name: MARIA ELENA AJ Rep #: [id number] : 1990 Provider: Dr. Bryanna Hogan DO Age/Sex: 33/F Location: [facility] Status: Signed Intake Vital Signs 04/03/24 14:36 04/30/24 15:41 04/30/24 15:41 Height 5 ft 6 in 5 ft 6 in 5 ft 6 in Weight: 152 lb 4 oz BMI 24.5 BP 115/72 Intake Visit Reasons: 12 WK OB Ems Driver Required: No Is patient in pain?: No Allergies Penicillins (PCN) Allergy (Mild, Verified 04/30/24 15:40) Rash Medications ???Medication ???Instructions ???Recorded ???Confirmed ???Type PNV 153-FA 400 mcg-om3 35 mg-dha tab PO 03/19/24 04/30/24 History 25 mg-epa 5 mg-fish oil chew tablet acetaminophen 500 mg capsule 500 mg PO Q4-6H PRN 03/19/24 04/30/24 History cetirizine 10 mg capsule (Zyrtec) 10 mg PO QDAY PRN 03/19/24 04/30/24 History levothyroxine 25 mcg capsule 25 mcg PO QDAY 03/19/24 04/30/24 History Last Menstrual Period: 01/30/24 Zika: Zika virus screening: Negative : No PFSH PFSH Medical History Delivery by section of full-term infant Surgical History H/O colonoscopy [place] teeth extracted Family History Aunt Thyroid disorder Maternal Mother Thyroid disorder, Onset Age: 25 Graves Disease Postural orthostatic tachycardia syndrome [POTS] Depression Suicide attempt Social History adopted: No household members: spouse and children number of children: 1 current occupational status: employed 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 current occupational exposures/hazards: No pets and animals: Yes pets and animals: dog(s) history of recent travel: No sexually active: Yes Smoking Status: Never smoker alcohol intake: never substance use type: does not use diet: other well-balanced diet: daily or most days caffeine: No eating out: rarely or never during the past year weight has: remained stable what type of physical activity do you participate in: none kerry/judaism: Mormon seatbelt use: always do you feel safe at home: Yes additional social history: Raheem- [place] History 2 Elective abortions Hx Para 1 Spontaneous abortions Hx # Term Pregnancies Ectopic pregnancies Hx # Pregnancies Multiple births # of living children 1 Past Pregnancies Del. Date Name GA/Weeks Outcome Route Bth Weight Infant Gen Labor Lgth Anesthesia Del Locatn Provider FOB 10/16/21 Jonas 39 live - full term 7#10oz Male epidural [facility] Dr. Ethan Maciel Delivery Date: 10/16/21 Last Updated by: India Bradley LGA, IOL, c section due to decels, cord around neck HPI 12 WK OB Details: MARIA ELENA AJ is a 33 year old who presents for routine OB visit. OB Visit KATIE Calculator Estimated Delivery Date Method Current WG Current Estimate 11/05/24 LMP (Certain) 13w 0d Expected Delivery Route/Plan undecided c/s vs TOLAC Specific Issue/Plans Covid status: [] Flu vaccine: [] Tdap vaccine: [] Rhogam: [] LARC form signed: [] Problem list reviewed and updated with the most current plan of care details and appropriate orders placed. Relevant counseling for the gestational age provided. Continue routine care and follow up unless otherwise noted in visit notes/problem list details Initial Weight: 148 lb Date -???-???-???-???-???-??? -???-???-???-???-???-??? - EGA Weight BP Urine Prot -???-???-???-???-???-??? -???-???-???-???-???-??? - Glucose FHR FuHt Pres Dilation -???-???-???-???-???-??? -???-???-???-???-???-??? - Effaced St Visit Note 04/03/24 -???-???-???-???-???-??? -???-???-???-???-???-??? - 9w 1d 148 lb (+0 oz) 104/68 -???-???-???-???-???-??? -???-???-???-???-???-??? - 173 -???-???-???-???-???-??? -???-???-???-???-???-??? - LC CRL 2.68 con with LMP. desires nipt. 04/30/24 -???-???-???-???-???-??? -???-???-???-???-???-??? - 13w 0d 152 lb 4 oz (+4 lb 4 oz) 115/72 Negative -???-???-???-???-???-??? -???-???-???-???-???-??? - Negative 170 -???-???-???-???-???-??? -???-???-???-???-???-??? - JV- some avinash sea still. NIPT was low risk boy! some burning with urination. UA ordered. ACOG First Trimester First Trimester: Desire for , Alcohol, Tobacco Cessation, Illicit/Recreational Drug/Substance Use, Intimate Partner Violence, Barriers to care, Unstable Housing, Communication Barriers, Environmental/Work Haz (more content not included)... Normal [facility] Urine cultureOrdered By: Emily Zhang on 04-30-2024 Bacteria identified Cx Nom (U) Culture exhibits no growth. [facility] Bacteria identifiedon 2023 Bacteria identified Cx Nom (U) Test: Urine Culture Specimen Source: Clean Catch/Voided Specimen Type: Urine Specimen Date: 04/23/20241832 Result Date: 04/24/20242132 Result Status: Final result Abnormal: No Resulting Lab: [facility] [address] [place] [address] CULTURE Clinically insignificant growth based on current clinical standards. Normal [facility] Comment on above: Performed By: #### 6 30-4 #### FAITH Canseco ([id number]) [facility] ([facility]) [address] [place] [address] POCT SARS-COV-2/FLU/RSV PCR SYMPTOMATIC manually resultedon 04-23-2024 FLUAV RNA NAHID+probe Ql (Resp) Not detected Not Detected [facility] Work Phone: FLUBV RNA NAHID+probe Ql (Resp) Not detected Not Detected [facility] Work Phone: RSV RNA NAHID+probe Ql (Resp) Not detected Not Detected [facility] Work Phone: SARS-CoV-2 (COVID-19) RNA NAHID+probe Ql (Resp) Not detected Not Detected [facility] Work Phone: [facility] Work Phone: POCT UA Automated manually r esultedOrdered By: Liliane Wiley on 04-23-2024 Appearance (U) Clear Clear [facility] Glucose Test strip (U) [Mass/Vol] Negative NEGATIVE mg/dl [facility] Hemoglobin Ql (U) TRACE-Lysed Abnormal NEGATIVE [facility] Interpretation and review of laboratory results Abnormal [facility] Leukocyte esterase Test strip Ql (U) Negative NEGATIVE [facility] Nitrite Ql (U) Negative NEGATIVE [facility] pH (U) 6.5 [pH] No Reference Range Established [facility] POC Bilirubin, Urine Negative NEGATIVE [facility] POC Color, Urine Yellow Straw, Yellow, Light-Yellow [facility] POC Ketones, Urine Negative NEGATIVE mg/dl [facility] POC Protein, Urine Negative NEGATIVE, 30 (1+) mg/dl [facility] POC Specific [place], Urine 1.010 1.005 - 1.035 [facility] POC Urobilinogen, Urine 0.2 0.2, 1.0 EU/DL [facility] PAP IG HPV APTIMA 16/18,45on 04-15-2024 ADEQ Comment Normal . [facility] Comment on above: Order Comment: Speci men Comment: [id number] Comment: No. of containers..01 ThinPrep Vial Result Comment: Sati sfactory for evaluation. Endocervical and/or squamous metaplastic cells (endocervical component) are present. Performed By: #### L 3410.9998, L100.0100 #### [facility] [address] [place], [place], [id number] COMM . Normal . [facility] Comment on above: Order Comment: Speci men Comment: [id number] Comment: No. of containers..01 ThinPrep Vial Performed By: #### L 3410.9998, L100.0100 #### [facility] [address] [place], [place], [id number] COMMENT Comment Normal . [facility] Comment on above: Order Comment: Speci men Comment: [id number] Comment: No. of containers..01 ThinPrep Vial Result Comment: This liquid based ThinPrep(R) pap test was screened with the use of an image guided system. Performed By: #### L 3410.9998, L100.0100 #### [facility] [address] [place], [address] DIAG Comment Normal . [facility] Comment on above: Order Comment: Speci men Comment: [id number] Comment: No. of containers..01 ThinPrep Vial Result Comment: NEGA TIVE FOR INTRAEPITHELIAL LESION OR MALIGNANCY. Performed By: #### L 3410.9998, L100.0100 #### [facility] [address] [place], [address] HPV APTIMA, HR Negative Normal Negative [facility] Comment on above: Order Comment: Speci men Comment: [id number] Comment: No. of containers..01 ThinPrep Vial Result Comment: This nucleic acid amplification test detects fourteen high- risk HPV types (16,18,31,33,35,39,45,51,52,56,58,59,66,68) without differentiation. Performed By: #### L 3410.9998, L100.0100 #### [facility] [address] [place], [address] HPV Iris Rfx Comment Normal . [facility] Comment on above: Order Comment: Speci men Comment: [id number] Comment: No. of containers..01 ThinPrep Vial Result Comment: Crit eria not met, HPV Genotype not performed. Performed at: [address] [id number] Building Architectural Designer: Zaira Lopes MD, Phone: [phone] Performed at: =[address] [id number] Building Architectural Designer: Zaira Lopes MD, Phone: [phone] Performed By: #### L 3410.9998, L100.0100 #### [facility] [address] [place], [address] PAPSMR Comment Normal . [facility] Comment on above: Order Comment: Speci men Comment: [id number] Comment: No. of containers..01 ThinPrep Vial Result Comment: The Pap smear is a screening test designed to aid in the detection of premalignant and malignant conditions of the uterine cervix. It is not a diagnostic procedure and should not be used as the sole means of detecting cervical cancer. Both false-positive and false-negative reports do occur. Performed By: #### L 3410.9998, L100.0100 #### [facility] [address] [place], [address] PERFORM Comment Normal . [facility] Comment on above: Order Comment: Speci men Comment: [id number] Comment: No. of containers..01 ThinPrep Vial Result Comment: Milagros Mejia, Coal Passer (ASCP) Performed By: #### L 3410.9998, L100.0100 #### [facility] [address] [place], [place], [phone] Absolute neutrophil countOrd ered By: Shyanne Degroot on 04-14-2024 Neutrophils (Bld) [#/Vol] 5.6 10*3/uL 2.0-7.7 [facility] Basophil percentageOrdered B y: Shyanne Degroot on 04-14-2024 Basophils/100 WBC (Bld) 0.4 % 0-1 [facility] CBC W/Diff, Automatedon Absolute Lymph 1.49 X10 3/uL Normal 0.83-4.51 [facility] Comment on above: Performed By: #### L 100.0100, L3890.6100, L900.0098, L509.4005, L506.0400, L3890.6005, BTS, L509.8000, L501.9520, L3890.6300 #### [facility] [address] [place], [place], [phone] ([phone]) Absolute Neut 5.6 X10 3/uL Normal 2.0-7.7 [facility] Comment on above: Performed By: #### L 100.0100, L3890.6100, L900.0098, L509.4005, L506.0400, L3890.6005, BTS, L509.8000, L501.9520, L3890.6300 #### [facility] [address] [place], [address] (183) Basophils/100 WBC (Bld) 0.4 % Normal 0-1 [facility] Comment on above: Performed By: #### L 100.0100, L3890.6100, L900.0098, L509.4005, L506.0400, L3890.6005, BTS, L509.8000, L501.9520, L3890.6300 #### [facility] [address] [place], [address] (221) Eosinophils/100 WBC (Bld) 0.9 % Normal 0-5 [facility] Comment on above: Performed By: #### L 100.0100, L3890.6100, L900.0098, L509.4005, L506.0400, L3890.6005, BTS, L509.8000, L501.9520, L3890.6300 #### [facility] [address] [place], [place], [phone] (685) Erythrocyte distribution width (RBC) [Ratio] 12.5 % Normal 11.6-14.6 [facility] Comment on above: Performed By: #### L 100.0100, L3890.6100, L900.0098, L509.4005, L506.0400, L3890.6005, BTS, L509.8000, L501.9520, L3890.6300 #### [facility] [address] [place], [address] Hematocrit (Bld) [Volume fraction] 39.7 % Normal 37-47 [facility] Comment on above: Performed By: #### L 100.0100, L3890.6100, L900.0098, L509.4005, L506.0400, L3890.6005, BTS, L509.8000, L501.9520, L3890.6300 #### [facility] [address] [place], [address] Hemoglobin (Bld) [Mass/Vol] 13.4 g/dL Normal 12.0-15.0 [facility] Comment on above: Performed By: #### L 100.0100, L3890.6100, L900.0098, L509.4005, L506.0400, L3890.6005, BTS, L509.8000, L501.9520, L3890.6300 #### [facility] [address] [place], [address] IG% 0.400 Normal 0.0-0.9 [facility] Comment on above: Result Comment: IG% - Immature Granulocytes (promyelocytes, myelocytes and metamyelocytes) > 1% indicates that a LEFT SHIFT is Present. Performed By: #### L 100.0100, L3890.6100, L900.0098, L509.4005, L506.0400, L3890.6005, BTS, L509.8000, L501.9520, L3890.6300 #### [facility] [address] [place], [address] Lymphocytes/100 WBC (Bld) 19.7 % Normal 19-41 [facility] Comment on above: Performed By: #### L 100.0100, L3890.6100, L900.0098, L509.4005, L506.0400, L3890.6005, BTS, L509.8000, L501.9520, L3890.6300 #### [facility] [address] [place], [address] MCH (RBC) [Entitic mass] 30.3 pg Normal 27.0-32.0 [facility] Comment on above: Performed By: #### L 100.0100, L3890.6100, L900.0098, L509.4005, L506.0400, L3890.6005, BTS, L509.8000, L501.9520, L3890.6300 #### [facility] [address] [place], [address] MCHC (RBC) [Mass/Vol] 33.8 g/dL Normal 32-36 [facility] Comment on above: Performed By: #### L 100.0100, L3890.6100, L900.0098, L509.4005, L506.0400, L3890.6005, BTS, L509.8000, L501.9520, L3890.6300 #### [facility] [address] [place], [address] MCV (RBC) [Entitic vol] 89.8 fL Normal 81-99 [facility] Comment on above: Performed By: #### L 100.0100, L3890.6100, L900.0098, L509.4005, L506.0400, L3890.6005, BTS, L509.8000, L501.9520, L3890.6300 #### [facility] [address] [place], [address] Monocytes/100 WBC (Bld) 5.0 % Normal 0-10 [facility] Comment on above: Performed By: #### L 100.0100, L3890.6100, L900.0098, L509.4005, L506.0400, L3890.6005, BTS, L509.8000, L501.9520, L3890.6300 #### [facility] [address] [place], [address] Neutrophils/100 WBC (Bld) 73.6 % High 47-70 [facility] Comment on above: Performed By: #### L 100.0100, L3890.6100, L900.0098, L509.4005, L506.0400, L3890.6005, BTS, L509.8000, L501.9520, L3890.6300 #### [facility] [address] [place], [address] (286) Nucleated RBC (Bld) [#/Vol] 0 10*3/uL Normal 0-5 [facility] Comment on above: Performed By: #### L 100.0100, L3890.6100, L900.0098, L509.4005, L506.0400, L3890.6005, BTS, L509.8000, L501.9520, L3890.6300 #### [facility] [address] [place], [address] (317) Platelet mean volume (Bld) [Entitic vol] 9.7 fL Normal 6.2-12.0 [facility] Comment on above: Performed By: #### L 100.0100, L3890.6100, L900.0098, L509.4005, L506.0400, L3890.6005, BTS, L509.8000, L501.9520, L3890.6300 #### [facility] [address] [place], [address] (785) Platelets (Bld) [#/Vol] 273 10*3/uL Normal 150-450 [facility] Comment on above: Performed By: #### L 100.0100, L3890.6100, L900.0098, L509.4005, L506.0400, L3890.6005, BTS, L509.8000, L501.9520, L3890.6300 #### [facility] [address] [place], [address] RBC (Bld) [#/Vol] 4.42 10*6/uL Normal 4.2-5.4 [facility] Comment on above: Performed By: #### L 100.0100, L3890.6100, L900.0098, L509.4005, L506.0400, L3890.6005, BTS, L509.8000, L501.9520, L3890.6300 #### [facility] [address] [place], [address] RDW SD 41.1 fl Normal 35.1-43.9 [facility] Comment on above: Performed By: #### L 100.0100, L3890.6100, L900.0098, L509.4005, L506.0400, L3890.6005, BTS, L509.8000, L501.9520, L3890.6300 #### [facility] [address] [place], [address] WBC (Bld) [#/Vol] 7.6 10*3/uL Normal 4.4-11.0 [facility] Comment on above: Performed By: #### L 100.0100, L3890.6100, L900.0098, L509.4005, L506.0400, L3890.6005, BTS, L509.8000, L501.9520, L3890.6300 #### [facility] [address] [place], [address] Direct serum free thyroxine (FT4) measurementOrdered By: Shyanne Degroot on 04-14-2024 Free T4 [Mass/Vol] 1.13 ng/dL 0.76-1.46 [facility] Eosinophil percentageOrdered By: Shyanne Degroot on 04-14-2024 Eosinophils/100 WBC (Bld) 0.9 % 0-5 [facility] Erythrocyte distribution wid th ratioOrdered By: Shyanne Degroot on 04-14-2024 Erythrocyte distribution width (RBC) [Ratio] 12.5 % 11.6-14.6 [facility] Erythrocyte distribution wid th standard deviationOrdered By: Shyanne Degroot on 04-14-2024 Erythrocyte distribution width (RBC) [Entitic vol] 41.1 fL 35.1-43.9 [facility] HIV - WCHon 04-14-2024 HIV Non-Reactive Normal Nonreactive [facility] Comment on above: Order Comment: Reaso n for Exam: Performed By: #### L 3410.9998, L100.0100 #### [facility] [address] [place], [address] HIV 1+2 Ab+HIV1 p24 Ag IA Ql Ordered By: Shyanne Degroot on 04-14-2024 HIV (1&2) Antibody Non-Reactive Nonreactive [facility] Hematocrit Auto (Bld) [Volum e fraction]Ordered By: Shyanne Degroot on 04-14-2024 Hematocrit (Bld) [Volume fraction] 39.7 % 37-47 [facility] Hemoglobin measurementOrdere d By: Shyanne Degroot on 04-14-2024 Hemoglobin (Bld) [Mass/Vol] 13.4 g/dL 12.0-15.0 [facility] Hepatitis B Surface Antigeno n 04-14-2024 HEP B Surf Ag Non-Reactive [facility] Comment on above: Order Comment: Reaso n for Exam: Performed By: #### L 3410.9998, L100.0100 #### [facility] [address] [place], [address] Hepatitis B surface antigen detectionOrdered By: Shyanne Degroot on 04-14-2024 Hepatitis B Surface Antigen Non-Reactive Nonreactive [facility] Hepatitis C Antibodyon 04-14 Hepatitis C AB Non-Reactive Normal [facility] Comment on above: Order Comment: Reaso n for Exam: Result Comment: Non Reactive: < 0.8 Equivocal: >/= 0.8 to < 1.0 Reactive: >/= 1.0 The [facility] requires that a reactive/equivocal HCV antibody result be sent out for confirmation. HCV Quant by PCR testing. Performed By: #### L 3410.9998, L100.0100 #### [facility] [address] [place], [place], [id number] Hepatitis C virus antibody a ssayOrdered By: Shyanne Degroot on 04-14-2024 Hepatitis C Antibody Non-Reactive Nonreactive [facility] Comment on above: Non Reactive: < 0.8 Equivocal: >/= 0.8 to < 1.0 Reactive: >/= 1.0The CDC requires that a reactive/equivocal HCV antibody result be sent out for confirmation. HCV Quant by PCR testing. Immature granulocytes/100 WB C Auto (Bld)Ordered By: Shyanne Degroot on 04-14-2024 Immature granulocytes/100 WBC (Bld) 0.400 % 0.0-0.9 [facility] Comment on above: IG% - Immature Granu locytes (promyelocytes, myelocytes and metamyelocytes) > 1% indicates that a LEFT SHIFT is Present. L509.8000on 04-14-2024 Syphilis Abs Non-Reactive Normal [facility] Comment on above: Order Comment: Reaso n for Exam: Performed By: #### L 100.0100, L3890.6100, L900.0098, L509.4005, L506.0400, L3890.6005, BTS, L509.8000, L501.9520, L3890.6300 #### [facility] [address] [facility] [place], [place], [id number] Lymphocytes Auto (Unsp spec) [#/Vol]Ordered By: Shyanne Degroot on 04-14-2024 Lymphocytes (Bld) [#/Vol] 1.49 10*3/uL 0.83-4.51 [facility] Lymphocytes/100 WBC Auto (Un sp spec)Ordered By: Shyanne Degroot on 04-14-2024 Lymphocytes/100 WBC (Bld) 19.7 % 19-41 [facility] MCV (mean corpuscular volume ) determinationOrdered By: Shyanne Degroot on 04-14-2024 MCV (RBC) [Entitic vol] 89.8 fL 81-99 [facility] Mean corpuscular hemoglobin (MCH) determinationOrdered By: Shyanne Degroot on 04-14-2024 MCH (RBC) [Entitic mass] 30.3 pg 27.0-32.0 [facility] Mean corpuscular hemoglobin concentration (MCHC) determinationOrdered By: Shyanne Degroot on 04-14-2024 MCHC (RBC) [Mass/Vol] 33.8 g/dL 32-36 [facility] Mean platelet volume determi nationOrdered By: Shyanne Degroot on 04-14-2024 Platelet mean volume (Bld) [Entitic vol] 9.7 fL 6.2-12.0 [facility] Miscellaneous procedureOrder ed By: Shyanne Degroot on 04-14-2024 Miscellaneous Test Comment SEE SCANNED REPORT [facility] Monocyte percentageOrdered B y: Shyanne Degroot on 04-14-2024 Monocytes/100 WBC (Bld) 5.0 % 0-10 [facility] NATERAon 04-14-2024 NATURA SEE SCANNED REPORT Normal [facility] Comment on above: Order Comment: Comme nts: NIPT with Gender Performed By: #### L 100.0100, L3890.6100, L900.0098, L509.4005, L506.0400, L3890.6005, BTS, L509.8000, L501.9520, L3890.6300 #### [facility] [address] [place], [place] [address], [address] Neutrophil percentageOrdered By: Shyanne Degroot on 04-14-2024 Neutrophils/100 WBC (Bld) 73.6 % High 47-70 [facility] Nucleated red blood cell per centageOrdered By: Shyanne Degroot on 04-14-2024 Nucleated RBC/100 WBC (Bld) [Ratio] 0 % 0-5 [facility] Platelet countOrdered By: Kerry Degroot on 04-14-2024 Platelets (Bld) [#/Vol] 273 10*3/uL 150-450 [facility] RBC Auto (Bld) [#/Vol]Ordere d By: Shyanne Degroot on 04-14-2024 RBC (Bld) [#/Vol] 4.42 10*6/uL 4.2-5.4 [facility] Rubella IgGon 04-14-2024 Rubella IgG Reactive Normal Nonreactive [facility] Comment on above: Order Comment: Reaso n for Exam: Result Comment: Anti body Results Interpretation of Immune Status Non Reactive Presumed Non-Immune Equivocal Equivocal Reactive Presumed Immune Performed By: #### L 100.0100, L3890.6100, L900.0098, L509.4005, L506.0400, L3890.6005, BTS, L509.8000, L501.9520, L3890.6300 #### [facility] [address] [place], [place], [id number] Rubella immune status IgGOrd ered By: Shyanne Degroot on 04-14-2024 Rubella IgG Antibody Reactive Nonreactive [facility] Comment on above: Antibody Results Int erpretation of Immune Status Non Reactive Presumed Non-Immune Equivocal Equivocal Reactive Presumed Immune T4 Free Directon 04-14-2024 T4 FREE DIRECT 1.13 ng/dL Normal 0.76-1.46 [facility] Comment on above: Order Comment: NIPT with Gender Performed By: #### L 100.0100, L3890.6100, L900.0098, L509.4005, L506.0400, L3890.6005, BTS, L509.8000, L501.9520, L3890.6300 #### [facility] [address] [place], [place], [id number] TSH QnOrdered By: Shyanne kendall on 04-14-2024 Thyroid Stimulating Hormone (TSH) 2.880 uIU/mL 0.358-3.740 [facility] Thyroid Stim Hormone (TSH)on 04-14-2024 TSH 2.880 uIU/mL Normal 0.358-3.740 [facility] Comment on above: Order Comment: NIPT with Gender Performed By: #### L 100.0100, L3890.6100, L900.0098, L509.4005, L506.0400, L3890.6005, BTS, L509.8000, L501.9520, L3890.6300 #### [facility] [address] [place], [address] Treponema sp Ab Ql (S)Ordere d By: Shyanne Degroot on 04-14-2024 Syphilis Total Antibody Non-Reactive [facility] Type AND Screenon 04-14-2024 Ab SCREEN GEL Negative Normal [facility] Comment on above: Order Comment: PN Performed By: #### L 100.0100, L3890.6100, L900.0098, L509.4005, L506.0400, L3890.6005, BTS, L509.8000, L501.9520, L3890.6300 #### [facility] [address] [place], [place], [id number] ABO and Rh group Nom (Bld) Blood group O Rh(D) positive Normal [facility] Comment on above: Order Comment: PN Performed By: #### L 100.0100, L3890.6100, L900.0098, L509.4005, L506.0400, L3890.6005, BTS, L509.8000, L501.9520, L3890.6300 #### [facility] [address] [place], [address] White blood cell (WBC) count Ordered By: Shyanne Degroot on 04-14-2024 WBC (Bld) [#/Vol] 7.6 10*3/uL 4.4-11.0 [facility] Chlamydia/GC NAHID aptimaon CHLAMY,NUC ACID Negative Normal Negative [facility] Comment on above: Performed By: #### L 3410.9998, L100.0100 #### [facility] [address] [place], [place], [address] GC BY NUC ACID Negative Normal Negative [facility] Comment on above: Result Comment: Perf ormed at: =G - [facility] [address] [place] [id number] Building Architectural Designer: Zaira Lopes MD, Phone: [phone] Performed By: #### L 3410.9998, L100.0100 #### [facility] [address] [place], [place], [address] Urine Cultureon 04-05-2024 [facility] Mixed Gram Positive Organisms Sprakers Count 11,000-25,000 MIXC Mixed contaminants. Submit a new specimen if indicated. Normal [facility] Comment on above: Performed By: #### L 3410.9998, L100.0100 #### [facility] [address] [place], [place], [address] Free T4 [Mass/Vol]on 024 Interpretation and review of laboratory results Normal [facility] Thyroxine Free testi ng is performed using different testing methodology at [facility] than at other [facility]. Direct result comparisons should only be made within the same method. Biotin can cause falsely elevated free T4 results. Patients taking a Biotin dose of up to 10 mg/day should refrain from taking Biotin for 24 hours before sample collection. Patient taking a Biotin dose of >10 mg/day should consult with their physician or the laboratory before the blood draw. [facility] License Examiner Office Visit Reporton 04-03-2024 License Examiner Office Visit Report [facility] [address], [address] [place] [address] OFFICE VISIT Date of Service: 04/03/24 MR#: [id number] Acct: [id number] Name: MARIA ELENA AJ Rep #: [id number] : 1990 Provider: SHAQ young Age/Sex: 33/F Location: [facility] Status: Signed Intake Vital Signs 04/03/24 14:36 Height 5 ft 6 in Weight: 148 lb BMI 23.8 BP 104/68 Intake Visit Reasons: New OB, LMP 9/19, KATIE 11/05/24 Chief Complaint: NOB Ems Driver Required: No Is patient in pain?: No Allergies Penicillins (PCN) Allergy (Mild, Verified 04/03/24 14:34) Rash Medications ???Medication ???Instructions ???Recorded ???Confirmed ???Type PNV 153-FA 400 mcg-om3 35 mg-dha tab PO 03/19/24 History 25 mg-epa 5 mg-fish oil chew tablet acetaminophen 500 mg capsule 500 mg PO Q4-6H PRN 03/19/24 History cetirizine 10 mg capsule (Zyrtec) 10 mg PO QDAY PRN 03/19/24 History levothyroxine 25 mcg capsule 25 mcg PO QDAY 03/19/24 History Last Menstrual Period: 01/30/24 Zika: Zika virus screening: Negative : No PFSH PFSH Medical History Delivery by section of full-term infant Surgical History H/O colonoscopy [place] teeth extracted Family History (Updated 04/03/24 @ 14:36 by Yennifer Gooden) Aunt Thyroid disorder Maternal Mother Thyroid disorder, Onset Age: 25 Graves Disease Postural orthostatic tachycardia syndrome [POTS] Depression Suicide attempt Social History adopted: No household members: spouse and children number of children: 1 current occupational status: employed 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 current occupational exposures/hazards: No pets and animals: Yes pets and animals: dog(s) history of recent travel: No sexually active: Yes Smoking Status: Never smoker alcohol intake: never substance use type: does not use diet: other well-balanced diet: daily or most days caffeine: No eating out: rarely or never during the past year weight has: remained stable what type of physical activity do you participate in: none kerry/judaism: Mormon seatbelt use: always do you feel safe at home: Yes additional social history: Raheem- [place] History 2 Elective abortions Hx Para 1 Spontaneous abortions Hx # Term Pregnancies Ectopic pregnancies Hx # Pregnancies Multiple births # of living children 1 Past Pregnancies Del. Date Name GA/Weeks Outcome Route Bth Weight Infant Gen Labor Lgth Anesthesia Del Sachinatn Provider FOB 10/16/21 Jonas 39 live - full term 7#10oz Male epidural [facility]. Ethan Maciel Delivery Date: 10/16/21 Last Updated by: India Bradley LGA, IOL, c section due to decels, cord around neck HPI New OB, LMP 01/29, KATIE 11/05/24 Details: MARIA ELENA AJ is a 33 year old who presents for New OB visit. OB Visit KATIE Calculator Estimated Delivery Date Method Current WG Current Estimate 11/05/24 LMP (Certain) 9w 1d Comments: HIV: Urine Culture: Sequential Screen: NIPT Screen: Estimated Due Date: 11/05/24 Expected Delivery Route/Plan undecided c/s vs TOLAC Specific Issue/Plans Covid status: [] Flu vaccine: [] Tdap vaccine: [] Rhogam: [] LARC form signed: [] Problem list reviewed and updated with the most current plan of care details and appropriate orders placed. Relevant counseling for the gestational age provided. Continue routine care and follow up unless otherwise noted in visit notes/problem list details Initial Weight: 148 lb Date -???-???-???-???-???-??? -???-???-???-???-???-??? - EGA Weight BP Urine Prot -???-???-???-???-???-??? -???-???-???-???-???-??? - Glucose FHR FuHt Pres Dilation -???-???-???-???-???-??? -???-???-???-???-???-??? - Effaced St Visit Note 04/03/24 -???-???-???-???-???-??? -???-???-???-???-???-??? - 9w 1d 148 lb (+0 oz) 104/68 -???-???-???-???-???-??? -???-???-???-???-???-??? - 173 -???-???-???-???-???-??? -???-???-???-???-???-??? - LC CRL 2.68 con with LMP. desires nipt. Menstrual History Last Menstrual Period: 01/30/24 Reported LMP: definite Normal amount/duration: Yes Antepartum Record Genetic Screening: Congenital Heart Defect: Other, Neural Tube Defect: Other, Hemoglobinopathy Or Carrier: Other, Cystic Fibrosis: Other, Chromosome Abnormality: Other, Avinash-Sachs: Other, Hemophilia: Other, Intellectual Disability/Autism: Other, Recurrent Loss/Stillbirth: Other, Other Structural Defect: Other, Other Genetic Disease: Other and Maternal Metaboli (more content not included)... Normal [facility] T4on 04-03-2024 T4 [Mass/Vol] 11.9 ug/dL High 4.5 - 11.1 ug/dL [facility] T4 [Mass/Vol]on 04-03-2024 Interpretation and review of laboratory results Abnormal [facility] TPO Ab Qnon 04-03-2024 Interpretation and review of laboratory results Normal [facility] Negative: <=60 U/mL Positive: >60 U/mL [facility] TSH Qnon 04-03-2024 Interpretation and review of laboratory results Normal [facility] TSH testing is perfo rmed using different testing methodology at [facility] than at other [facility]. Direct result comparisons should only be made within the same method. [facility] Thyroid Peroxidase (TPO) Ant ibodyon 04-03-2024 TPO Ab Qn 31 [IU]/mL NINF [facility] Thyroid Stimulating Hormoneo n 04-03-2024 TSH Qn 2.79 m[IU]/L [facility] Thyroperoxidase Abon 024 TPO Ab Qn 31 [IU]/mL Normal <=60 [facility] Comment on above: Order Comment: TSH t esting is performed using different testing methodology at [facility] than at other [facility]. Direct result comparisons should only be made within the same method. Performed By: #### T JACKELYNS #### CK KHAN ([id number]) [facility] [address] [place], [place] [address] Thyrotropinon 04-03-2024 TSH Qn 2.79 m[IU]/L Normal 0.44-3.98 [facility] Comment on above: Order Comment: TSH t esting is performed using different testing methodology at [facility] than at other [facility]. Direct result comparisons should only be made within the same method. Performed By: #### T JACKELYNS #### CK KHAN ([id number]) [facility] [address] [place], [place] [address] Thyroxineon 04-03-2024 T4 [Mass/Vol] 11.9 ug/dL High 4.5-11.1 [facility] Comment on above: Performed By: #### T JACKELYNS #### CK KHAN ([id number]) [facility] [address] [place] [address] Thyroxine, Freeon 04-03-2024 Free T4 [Mass/Vol] 1.05 ng/dL 0.61 - 1. 12 ng/dL [facility] Thyroxine.freeon 04-03-2024 Free T4 [Mass/Vol] 1.05 ng/dL Normal 0.61-1.12 [facility] Comment on above: Order Comment: TSH t esting is performed using different testing methodology at [facility] than at other [facility]. Direct result comparisons should only be made within the same method. Performed By: #### T JACKELYNS #### CK KHAN ([id number]) [facility] [address] [place], [place] [address] Blood type and Indirect anti body screen panel (Bld)on 03-19-2024 ABO group Nom (Bld) O [facility] Blood group antibody screen Ql Negative [facility] D Ag Ql (Bld) Positive [facility] ABO group Nom (Bld) O Normal [facility] Comment on above: Performed By: #### 3 4532-2 #### CK KHAN ([id number]) [facility] ([facility]) [address] [place] [address] Blood group antibody screen Ql Negative [facility] Comment on above: Performed By: #### 3 4532-2 #### CK KHAN ([id number]) [facility] ([facility]) [address] [place] [address] D Ag Ql (Bld) Positive [facility] Comment on above: Performed By: #### 3 4532-2 #### CK KHAN ([id number]) [facility] ([facility]) [address] [place] [address] CBC W Auto Differential pane l (Bld)on 03-19-2024 Basophils (Bld) [#/Vol] 0.05 10*3/uL [facility] Basophils/100 WBC (Bld) 0.5 % 0.0 - 2.0 % [facility] Eosinophils (Bld) [#/Vol] 0.12 10*3/uL [facility] Eosinophils/100 WBC (Bld) 1.3 % 0.0 - 6.0 % [facility] Erythrocyte distribution width (RBC) [Ratio] 12 % 11.5 - 14.5 % [facility] Hematocrit (Bld) [Volume fraction] 41.4 % 36.0 - 46.0 % [facility] Hemoglobin (Bld) [Mass/Vol] 14 g/dL 12.0 - 16.0 g/dL [facility] Immature granulocytes (Bld) [#/Vol] 0.04 10*3/uL [facility] Immature granulocytes/100 WBC (Bld) 0.4 % 0.0 - 0.9 % [facility] Comment on above: Immature Granulocyte Count (IG) includes promyelocytes, myelocytes and metamyelocytes but does not include bands. Percent differential counts (%) should be interpreted in the context of the absolute cell counts (cells/UL). Lymphocytes (Bld) [#/Vol] 1.72 10*3/uL [facility] Lymphocytes/100 WBC (Bld) 18.7 % 13.0 - 44.0 % [facility] MCH (RBC) [Entitic mass] 30.6 pg 26.0 - 34.0 pg [facility] MCHC (RBC) [Mass/Vol] 33.8 g/dL 32.0 - 36.0 g/dL [facility] MCV (RBC) [Entitic vol] 90 fL 80 - 100 fL [facility] Monocytes (Bld) [#/Vol] 0.51 10*3/uL [facility] Monocytes/100 WBC (Bld) 5.5 % 2.0 - 10.0 % [facility] Neutrophils (Bld) [#/Vol] 6.78 10*3/uL [facility] Comment on above: Percent differential counts (%) should be interpreted in the context of the absolute cell counts (cells/uL). Neutrophils/100 WBC (Bld) 73.6 % 40.0 - 80.0 % [facility] Nucleated RBC/100 WBC (Bld) [Ratio] 0 % [facility] Platelets (Bld) [#/Vol] 258 10*3/uL [facility] RBC (Bld) [#/Vol] 4.58 10*6/uL [facility] WBC (Bld) [#/Vol] 9.2 10*3/uL [facility] Basophils (Bld) [#/Vol] 0.05 x10*3/uL Normal 0.00-0.10 [facility] Comment on above: Performed By: #### 5 7021-8 #### CK KHAN ([id number]) [facility] [address] [place] [address] Basophils/100 WBC (Bld) 0.5 % Normal 0.0-2.0 [facility] Comment on above: Performed By: #### 5 7021-8 #### CK KHAN ([id number]) [facility] [address] [place] [address] Eosinophils (Bld) [#/Vol] 0.12 x10*3/uL Normal 0.00-0.70 [facility] Comment on above: Performed By: #### 5 7021-8 #### CK KHAN ([id number]) [facility] [address] [place] [address] Eosinophils/100 WBC (Bld) 1.3 % Normal 0.0-6.0 [facility] Comment on above: Performed By: #### 5 7021-8 #### CK KHAN ([id number]) [facility] [address] [place] [address] Erythrocyte distribution width (RBC) [Ratio] 12.0 % Normal 11.5-14.5 [facility] Comment on above: Performed By: #### 5 7021-8 #### CK KHAN ([id number]) [facility] [address] [place] [address] Hematocrit (Bld) [Volume fraction] 41.4 % Normal 36.0-46.0 [facility] Comment on above: Performed By: #### 5 7021-8 #### CK KHAN ([id number]) [facility] [address] [place] [address] Hemoglobin (Bld) [Mass/Vol] 14.0 g/dL Normal 12.0-16.0 [facility] Comment on above: Performed By: #### 5 7021-8 #### CK KHAN ([id number]) [facility] [address] [place] [address] Immature granulocytes (Bld) [#/Vol] 0.04 x10*3/uL Normal 0.00-0.70 [facility] Comment on above: Performed By: #### 5 7021-8 #### CK KHAN ([id number]) [facility] [address] [place] [address] Immature granulocytes/100 WBC (Bld) 0.4 % Normal 0.0-0.9 [facility] Comment on above: Result Comment: Danisha ture Granulocyte Count (IG) includes promyelocytes, myelocytes and metamyelocytes but does not include bands. Percent differential counts (%) should be interpreted in the context of the absolute cell counts (cells/UL). Performed By: #### 5 7021-8 #### CK KHAN ([id number]) [facility] [address] [place] [address] Lymphocytes (Bld) [#/Vol] 1.72 x10*3/uL Normal 1.20-4.80 [facility] Comment on above: Performed By: #### 5 7021-8 #### CK KHAN ([id number]) [facility] [address] [place] [address] Lymphocytes/100 WBC (Bld) 18.7 % Normal 13.0-44.0 [facility] Comment on above: Performed By: #### 5 7021-8 #### CK KHAN ([id number]) [facility] [address] [place], [place] [address] MCH (RBC) [Entitic mass] 30.6 pg Normal 26.0-34.0 [facility] Comment on above: Performed By: #### 5 7021-8 #### CK KHAN ([id number]) [facility] [address] [place] [address] MCHC (RBC) [Mass/Vol] 33.8 g/dL Normal 32.0-36.0 [facility] Comment on above: Performed By: #### 5 7021-8 #### CK KHAN ([id number]) [facility] [address] [place] [address] MCV (RBC) [Entitic vol] 90 fL Normal 80-100 [facility] Comment on above: Performed By: #### 5 7021-8 #### CK KHAN ([id number]) [facility] [address] [place] [address] Monocytes (Bld) [#/Vol] 0.51 x10*3/uL Normal 0.10-1.00 [facility] Comment on above: Performed By: #### 5 7021-8 #### CK KHAN ([id number]) [facility] [address] [place] [address] Monocytes/100 WBC (Bld) 5.5 % Normal 2.0-10.0 [facility] Comment on above: Performed By: #### 5 7021-8 #### CK KHAN ([id number]) [facility] [address] [place] [address]187 Neutrophils (Bld) [#/Vol] 6.78 x10*3/uL Normal 1.20-7.70 [facility] Comment on above: Result Comment: Perc ent differential counts (%) should be interpreted in the context of the absolute cell counts (cells/uL). Performed By: #### 5 7021-8 #### CK KHAN ([id number]) [facility] [address] [place] [address] 47533 Neutrophils/100 WBC (Bld) 73.6 % Normal 40.0-80.0 [facility] Comment on above: Performed By: #### 5 7021-8 #### CK KHAN ([id number]) [facility] [address] [place] [address] 10831 Nucleated RBC/100 WBC (Bld) [Ratio] 0.0 /100 WBCs Normal 0.0-0.0 [facility] Comment on above: Performed By: #### 5 7021-8 #### CK KHAN ([id number]) [facility] [address] [place] [address] Platelets (Bld) [#/Vol] 258 x10*3/uL Normal 150-450 [facility] Comment on above: Performed By: #### 5 7021-8 #### CK KHAN ([id number]) [facility] [address] [place] [address] RBC (Bld) [#/Vol] 4.58 x10*6/uL Normal 4.00-5.20 [facility] Comment on above: Performed By: #### 5 7021-8 #### CK KHAN ([id number]) [facility] [facility] [address] [place] [address] WBC (Bld) [#/Vol] 9.2 x10*3/uL Normal 4.4-11.3 [facility] Comment on above: Performed By: #### 5 7021-8 #### CK KHAN ([id number]) [facility] ([facility]) [address] [place] [address] Choriogonadotropin.beta subu niton 03-19-2024 HCG.beta subunit Qn 013837 m[IU]/mL High <5 [facility] Comment on above: Order Comment: Total HCG measurement is performed using the Tara [employer] Access Immunoassay which detects intact HCG and free beta HCG subunit. This test is not indicated for use as a tumor marker. HCG testing is performed using a different test methodology at [facility] than other [facility]. Direct result comparison should only be made within the same method. Result Comment: Low- level positive HCG results can be seen in early , in kayleen- or post-menopausal females due to normal pituitary HCG production, or with analytic interference. Repeat testing in 48-72 hours can aid in assessing for as results should double in this time period. FSH measurement is recommended in kayleen- or post-menopausal females as concurrent elevation of FSH can support pituitary production as the source of the HCG elevation. Performed By: #### 2 1198-7 #### CK KHAN ([id number]) [facility] ([facility]) [address] [place] [address] Comprehensive metabolic 2000 panelon 03-19-2024 Albumin BCP dye [Mass/Vol] 4.1 g/dL 3.4 - 5.0 g/dL [facility] ALP [Catalytic activity/Vol] 55 U/L 33 - 110 U/L [facility] ALT With P-5'-P [Catalytic activity/Vol] 12 U/L 7 - 45 U/L [facility] Comment on above: Patients treated wit h Sulfasalazine may generate falsely decreased results for ALT. Anion gap [Moles/Vol] 9 mmol/L Low 10 - 2 0 mmol/L [facility] AST With P-5'-P [Catalytic activity/Vol] 14 U/L 9 - 39 U/L [facility] Bilirubin [Mass/Vol] 0.5 mg/dL 0.0 - 1 .2 mg/dL [facility] Calcium [Mass/Vol] 9.2 mg/dL 8.6 - 10. 3 mg/dL [facility] Chloride [Moles/Vol] 103 mmol/L 98 - 10 7 mmol/L [facility] CO2 [Moles/Vol] 26 mmol/L 21 - 32 mmol/L [facility] Creatinine [Mass/Vol] 0.69 mg/dL 0.50 - 1.05 mg/dL [facility] eGFR - PINF [facility] Comment on above: Calculations of garrett mated GFR are performed using the 2020 CKD-EPI Study Refit equation without the race variable for the IDMS-Traceable creatinine methods. https://jasn.asnjournals.org/content/early//ASN.91934 93868 Glucose [Mass/Vol] 97 mg/dL 74 - 99 mg/dL [facility] Potassium [Moles/Vol] 3.3 mmol/L Low 3.5 - 5.3 mmol/L [facility] Protein [Mass/Vol] 7.3 g/dL 6.4 - 8.2 g/dL [facility] Sodium [Moles/Vol] 135 mmol/L Low 136 - 145 mmol/L [facility] Urea nitrogen [Mass/Vol] 13 mg/dL 6 - 23 mg/dL [facility] Albumin BCP dye [Mass/Vol] 4.1 g/dL Normal 3.4-5.0 [facility] Comment on above: Performed By: #### 2 4323-8 #### CK KHAN ([id number]) [facility] ([facility]) [address] [place] [address] ALP [Catalytic activity/Vol] 55 U/L Normal 33-110 [facility] Comment on above: Performed By: #### 2 4323-8 #### CK KHAN ([id number]) [facility] ([facility]) [address] [place] [address] ALT With P-5'-P [Catalytic activity/Vol] 12 U/L Normal 7-45 [facility] Comment on above: Result Comment: Sunita ents treated with Sulfasalazine may generate falsely decreased results for ALT. Performed By: #### 2 4323-8 #### CK KHAN ([id number]) [facility] ([facility]) [address] [place] [address] Anion gap [Moles/Vol] 9 mmol/L Low 10-20 [facility] Comment on above: Performed By: #### 2 4323-8 #### CK KHAN ([id number]) [facility] ([facility]) [address] [place] [address] AST With P-5'-P [Catalytic activity/Vol] 14 U/L Normal 9-39 [facility] Comment on above: Performed By: #### 2 4323-8 #### CK KHAN ([id number]) [facility] ([facility]) [address] [place] [address] Bilirubin [Mass/Vol] 0.5 mg/dL Normal 0.0-1.2 [facility] Comment on above: Performed By: #### 2 4323-8 #### CK KHAN ([id number]) [facility] ([facility]) [address] [place] [address] Calcium [Mass/Vol] 9.2 mg/dL Normal 8.6-10.3 [facility] Comment on above: Performed By: #### 2 4323-8 #### CK KHAN ([id number]) [facility] ([facility]) [address] [place] [address] Chloride [Moles/Vol] 103 mmol/L Normal 98-107 [facility] Comment on above: Performed By: #### 2 4323-8 #### CK KHAN ([id number]) [facility] ([facility]) [address] [place] [address] CO2 [Moles/Vol] 26 mmol/L Normal 21-32 [facility] Comment on above: Performed By: #### 2 4323-8 #### CK KHAN ([id number]) [facility] ([facility]) [address] [place] [address] Creatinine [Mass/Vol] 0.69 mg/dL Normal 0.50-1.05 [facility] Comment on above: Performed By: #### 2 4323-8 #### CK KHAN ([id number]) [facility] ([facility]) [address] [place] [address] GFR/1.73 sq M.predicted MDRD (S/P/Bld) [Vol rate/Area] mL/min/{1.73_m2} Normal >60 [facility] Comment on above: Result Comment: Calc ulations of estimated GFR are performed using the 2020 CKD-EPI Study Refit equation without the race variable for the IDMS-Traceable creatinine methods. https://jasn.asnjournals.org/content/early//ASN.56067 27351 Performed By: #### 2 4323-8 #### CK KHAN ([id number]) [facility] ([facility]) [address] [place] [address] Glucose [Mass/Vol] 97 mg/dL Normal 74-99 [facility] Comment on above: Performed By: #### 2 4323-8 #### CK KHAN ([id number]) [facility] ([facility]) [address] [place] [address] Potassium [Moles/Vol] 3.3 mmol/L Low 3.5-5.3 [facility] Comment on above: Performed By: #### 2 4323-8 #### CK KHAN ([id number]) [facility] ([facility]) [address] [place] [address] Protein [Mass/Vol] 7.3 g/dL Normal 6.4-8.2 [facility] Comment on above: Performed By: #### 2 4323-8 #### CK RIVASANNABEL ([id number]) [facility] ([facility]) [address] [place] [address] Sodium [Moles/Vol] 135 mmol/L Low 136-145 [facility] Comment on above: Performed By: #### 2 4323-8 #### CK URIASKERRY ([id number]) [facility] ([facility]) [address] [place] [address] Urea nitrogen [Mass/Vol] 13 mg/dL Normal 6-23 [facility] Comment on above: Performed By: #### 2 4323-8 #### CK RIVASANNABEL ([id number]) [facility] ([facility]) [facility] [place] [address] HCG.beta subunit Qnon 2023 Interpretation and review of laboratory results Abnormal [facility] Total HCG measuremen t is performed using the Tara Arnoldo Access Immunoassay which detects intact HCG and free beta HCG subunit. This test is not indicated for use as a tumor marker. HCG testing is performed using a different test methodology at [facility] than other [facility]. Direct result comparison should only be made within the same method. [facility] No Panel Informationon 03-19 Interpretation and review of laboratory results Abnormal [facility] US PELVIS OB TRANSABDOMINAL W TRANSVAGINAL UP TO 1ST TRIMESTERon 03-19-2024 US PELVIS OB TRANSABDOMINAL W TRANSVAGINAL UP TO 1ST TRIMESTER Interpreted By: Sarah Hanson, STUDY: US PELVIS OB TRANSABDOMINAL W TRANSVAGINAL UP TO 1ST TRIMESTER; 03/19/2024 5:25 pm INDICATION: Signs/Symptoms:vaginal bleeding in . no documented IUP. LMP 01/30/2024 and serum beta HCG 101,154. COMPARISON: None. ACCESSION NUMBER(S): [id number] ORDERING CLINICIAN: PAPA DELGADO TECHNIQUE: Multiple grayscale and M-mode sonographic transabdominal and transvaginal images of the pelvis were obtained. FINDINGS: Within the upper endometrial canal, there is gestational sac which contains a pole measuring 9.6 mm in crown-rump length. This corresponds to an estimated gestational age of 7 weeks 0 days. The estimated sonographic due date is 11/03/2024. The heart rate is 165 beats per minute. There is subjectively normal amount of amniotic fluid. A yolk sac is noted. A small crescentic hypoechoic subchorionic hemorrhage measures 1.6 x 1.0 x 0.4 cm. The uterus measures 11.1 x 5.9 x 8.4 cm. No uterine myometrial masses seen. The right ovary measures 3.2 x 2.4 x 2.4 cm and contains a 1.9 cm dominant follicle. Normal arterial and venous flow is present. No right ovarian mass. There is an elongated thin walled anechoic structure in the right adnexal region measuring 4.7 x 2.1 x 3.6 cm. No internal solid components noted. There may be a tubular component on sagittal cine clip images provided. The left ovary measures 4.3 x 2.6 x 3.4 cm and contains a 2.5 cm corpus luteum. Normal arterial and venous flow is present. No left ovarian mass. IMPRESSION: 1. Single live intrauterine with a pole and normal heart rate of 165 beats per minute. 2. Estimated gestational age of 7 weeks 0 days based on sonographic measurements with estimated sonographic due date of 11/03/2024. 3. Small subchorionic hemorrhage. 4. Right adnexal elongated simple-appearing cystic structure measuring up to 4.7 cm may represent right hydrosalpinx, paraovarian or peritoneal inclusion cyst. Attention on follow-up imaging is advised. 5. Left ovarian corpus luteum. Signed by: Sarah Hanson 03/19/2024 6:00 PM Dictation workstation: [id number] [facility] US Pelvis transvaginalon 1. Single live intrauterine with a pole and normal heart rate of 165 beats per minute. 2. Estimated gestational age of 7 weeks 0 days based on sonographic measurements with estimated sonographic due date of 11/03/2024. 3. Small subchorionic hemorrhage. 4. Right adnexal elongated simple-appearing cystic structure measuring up to 4.7 cm may represent right hydrosalpinx, paraovarian or peritoneal inclusion cyst. Attention on follow-up imaging is advised. 5. Left ovarian corpus luteum. Signed by: Sarah Hanson 03/19/2024 6:00 PM Dictation workstation: [id number] MMODAL Interpreted By: Sarah Bray, STUDY: US PELVIS OB TRANSABDOMINAL W TRANSVAGINAL UP TO 1ST TRIMESTER; 03/19/2024 5:25 pm INDICATION: Signs/Symptoms:vaginal bleeding in . no documented IUP. LMP 01/30/2024 and serum beta HCG 101,154. COMPARISON: None. ACCESSION NUMBER(S): [id number] ORDERING CLINICIAN: PAPA DELGADO TECHNIQUE: Multiple grayscale and M-mode sonographic transabdominal and transvaginal images of the pelvis were obtained. FINDINGS: Within the upper endometrial canal, there is gestational sac which contains a pole measuring 9.6 mm in crown-rump length. This corresponds to an estimated gestational age of 7 weeks 0 days. The estimated sonographic due date is 11/03/2024. The heart rate is 165 beats per minute. There is subjectively normal amount of amniotic fluid. A yolk sac is noted. A small crescentic hypoechoic subchorionic hemorrhage measures 1.6 x 1.0 x 0.4 cm. The uterus measures 11.1 x 5.9 x 8.4 cm. No uterine myometrial masses seen. The right ovary measures 3.2 x 2.4 x 2.4 cm and contains a 1.9 cm dominant follicle. Normal arterial and venous flow is present. No right ovarian mass. There is an elongated thin walled anechoic structure in the right adnexal region measuring 4.7 x 2.1 x 3.6 cm. No internal solid components noted. There may be a tubular component on sagittal cine clip images provided. The left ovary measures 4.3 x 2.6 x 3.4 cm and contains a 2.5 cm corpus luteum. Normal arterial and venous flow is present. No left ovarian mass. MMODAL Sarah Hanson MD - 03/19/2024 Interpreted By: Sarah Hanson, STUDY: US PELVIS OB TRANSABDOMINAL W TRANSVAGINAL UP TO 1ST TRIMESTER; 03/19/2024 5:25 pm INDICATION: Signs/Symptoms:vaginal bleeding in . no documented IUP. LMP 01/30/2024 and serum beta HCG 101,154. COMPARISON: None. ACCESSION NUMBER(S): [id number] ORDERING CLINICIAN: PAPA DELGADO TECHNIQUE: Multiple grayscale and M-mode sonographic transabdominal and transvaginal images of the pelvis were obtained. FINDINGS: Within the upper endometrial canal, there is gestational sac which contains a pole measuring 9.6 mm in crown-rump length. This corresponds to an estimated gestational age of 7 weeks 0 days. The estimated sonographic due date is 11/03/2024. The heart rate is 165 beats per minute. There is subjectively normal amount of amniotic fluid. A yolk sac is noted. A small crescentic hypoechoic subchorionic hemorrhage measures 1.6 x 1.0 x 0.4 cm. The uterus measures 11.1 x 5.9 x 8.4 cm. No uterine myometrial masses seen. The right ovary measures 3.2 x 2.4 x 2.4 cm and contains a 1.9 cm dominant follicle. Normal arterial and venous flow is present. No right ovarian mass. There is an elongated thin walled anechoic structure in the right adnexal region measuring 4.7 x 2.1 x 3.6 cm. No internal solid components noted. There may be a tubular component on sagittal cine clip images provided. The left ovary measures 4.3 x 2.6 x 3.4 cm and contains a 2.5 cm corpus luteum. Normal arterial and venous flow is present. No left ovarian mass. IMPRESSION: 1. Single live intrauterine with a pole and normal heart rate of 165 beats per minute. 2. Estimated gestational age of 7 weeks 0 days based on sonographic measurements with estimated sonographic due date of 11/03/2024. 3. Small subchorionic hemorrhage. 4. Right adnexal elongated simple-appearing cystic structure measuring up to 4.7 cm may represent right hydrosalpinx, paraovarian or peritoneal inclusion cyst. Attention on follow-up imaging is advised. 5. Left ovarian corpus luteum. Signed by: Sarah Hanson 03/19/2024 6:00 PM Dictation workstation: [id number] [facility] Work Phone: Radiology Study observation (narrative) [facility] Work Phone: US Pelvis transvaginalOrdere d By: Sarah Hanson on 03-19-2024 [facility] Work Phone: Urinalysis complete W Reflex Culture panel (U)on 03-19-2024 Appearance (U) Clear Clear [facility] Bacteria Auto (Urine sed) [#/Area] 1+ Abnormal NONE SEEN /HPF [facility] Bilirubin (U) [Mass/Vol] Negative NEGATIVE [facility] Color (U) Colorless Abnormal Light-Yellow , Yellow, Dark-Yellow [facility] Epithelial cells.squamous Auto (Urine sed) [#/Area] 1-9 (SPARSE) Reference range not established. /HPF [facility] Glucose Auto test strip (U) [Mass/Vol] Normal Normal mg/dL [facility] Ketones (U) [Mass/Vol] Negative NEGAT CHELSI mg/dL [facility] Leukocyte esterase Auto test strip Ql (U) Negative NEGATIVE [facility] Mucus Auto (Urine sed) [#/Area] FEW Reference range not established. /LPF [facility] Nitrite Auto test strip Ql (U) Negative NEGATIVE [facility] pH (U) 6 [pH] 5.0, 5.5, 6.0, 6.5, 7.0, 7.5, 8.0 [facility] Protein (U) [Mass/Vol] Negative NEGAT CHELSI, 10 (TRACE), 20 (TRACE) mg/dL [facility] RBC (U) [#/Vol] 0.5 (2+) Abnormal NEGATIVE [facility] RBC Auto (Urine sed) [#/Area] >20 Abnormal NONE, 1-2, 3-5 /HPF [facility] Specific gravity (U) [Rel density] 1.005 1.005 - 1.035 [facility] Urobilinogen (U) [Mass/Vol] Normal Normal mg/dL [facility] WBC Auto (Urine sed) [#/Area] 1-5 1-5, NONE /HPF [facility] Appearance (U) Clear Normal Clear [facility] Comment on above: Performed By: #### 5 8077-9 #### CK KHAN ([id number]) [facility] ([facility]) [address] [place] [address] Bacteria Auto (Urine sed) [#/Area] 1+ /HPF Abnormal NONE SEEN [facility] Comment on above: Performed By: #### 5 8077-9 #### CK KHAN ([id number]) [facility] ([facility]) [address] [place] [address] Bilirubin (U) [Mass/Vol] Negative Normal NEGATIVE [facility] Comment on above: Performed By: #### 5 8077-9 #### CK KHAN ([id number]) [facility] ([facility]) [address] [place] [address] Color (U) Colorless Normal Light-Yellow , Yellow, Dark-Yellow [facility] Comment on above: Performed By: #### 5 8077-9 #### CK KHAN ([id number]) [facility] ([facility]) [address] [place] [address] Epithelial cells.squamous Auto (Urine sed) [#/Area] 1-9 (SPARSE) Normal Reference range not established. [facility] Comment on above: Performed By: #### 5 8077-9 #### CK KHAN ([id number]) [facility] ([facility]) [address] [place] [address] Glucose Auto test strip (U) [Mass/Vol] Normal Normal Normal [facility] Comment on above: Performed By: #### 5 8077-9 #### CK KHAN ([id number]) [facility] ([facility]) [address] [place], [place] [address] Ketones (U) [Mass/Vol] Negative Normal NEGATIVE [facility] Comment on above: Performed By: #### 5 8077-9 #### CK KHAN ([id number]) [facility] ([facility]) [address] [place], [place] [address] Leukocyte esterase Auto test strip Ql (U) Negative Normal NEGATIVE [facility] Comment on above: Performed By: #### 5 8077-9 #### CK KHAN ([id number]) [facility] ([facility]) [address] [place] [address]87 Mucus Auto (Urine sed) [#/Area] FEW Normal Reference range not established. [facility] Comment on above: Performed By: #### 5 8077-9 #### CK KHAN ([id number]) [facility] ([facility]) [address] [place] [address] 62729 Nitrite Auto test strip Ql (U) Negative Normal NEGATIVE [facility] Comment on above: Performed By: #### 5 8077-9 #### CK KHAN ([id number]) [facility] ([facility]) [address] [place] [address]36[address] pH (U) 6.0 [pH] Normal 5.0, 5.5, 6.0, 6.5, 7.0, 7.5, 8.0 [facility] Comment on above: Performed By: #### 5 8077-9 #### CK KHAN ([id number]) [facility] ([facility]) [address] [place] [address]352 Protein (U) [Mass/Vol] Negative Normal NEGAT CHELSI, 10 (TRACE), 20 (TRACE) [facility] Comment on above: Performed By: #### 5 8077-9 #### CK KHAN ([id number]) [facility] ([facility]) [address] [place] [address] 06942 RBC (U) [#/Vol] 0.5 (2+) Abnormal NEGATIVE [facility] Comment on above: Performed By: #### 5 8077-9 #### CK KHAN ([id number]) [facility] ([facility]) [address] [place] [address] 34852 RBC Auto (Urine sed) [#/Area] >20 Abnormal NONE, 1-2, 3-5 [facility] Comment on above: Performed By: #### 5 8077-9 #### CK KHAN ([id number]) [facility] ([facility]) [address] [place] [address] 47736 Specific gravity (U) [Rel density] 1.005 Normal 1.005-1.035 [facility] Comment on above: Performed By: #### 5 8077-9 #### CK KHAN ([id number]) [facility] ([facility]) [address] [place] [address] Urobilinogen (U) [Mass/Vol] Normal Normal Normal [facility] Comment on above: Performed By: #### 5 8077-9 #### CK KHAN ([id number]) [facility] ([facility]) [address] [place] [address] WBC Auto (Urine sed) [#/Area] 1-5 Normal 1-5, NONE [facility] Comment on above: Performed By: #### 5 8077-9 #### CK KHAN ([id number]) [facility] ([facility]) [address] [place] [address] hCG, quantitative, on 03-19-2024 HCG.beta subunit Qn 282088 m[IU]/mL High [facility] Comment on above: Low-level positive H CG results can be seen in early , in kayleen- or post-menopausal females due to normal pituitary HCG production, or with analytic interference. Repeat testing in 48-72 hours can aid in assessing for as results should double in this time period. FSH measurement is recommended in kayleen- or post-menopausal females as concurrent elevation of FSH can support pituitary production as the source of the HCG elevation. Thyrotropinon 03-06-2024 TSH Qn 5.20 m[IU]/L High 0.44-3.98 [facility] Comment on above: Order Comment: TSH t esting is performed using different testing methodology at [facility] than at other [facility]. Direct result comparisons should only be made within the same method. Performed By: #### T HYDS #### CK KHAN ([id number]) [facility] ([facility]) [address] [place] [address] Thyroxine.freeon 03-06-2024 Free T4 [Mass/Vol] 1.12 ng/dL Normal 0.61-1.12 [facility] Comment on above: Order Comment: TSH t esting is performed using different testing methodology at [facility] than at other [facility]. Direct result comparisons should only be made within the same method. Performed By: #### T KATIE #### CK KHAN ([id number]) [facility] ([facility]) [address] [place], [place] [address] Triiodothyronine.freeon 02-11 Free T3 [Mass/Vol] 3.2 pg/mL Normal 2.3-4.2 [facility] Comment on above: Performed By: #### T KATIE #### CK KHAN ([id number]) [facility] ([facility]) [address] [place], [place] [address] CBC W Auto Differential pane l (Bld)on 01-31-2024 Basophils (Bld) [#/Vol] 0.07 x10*3/uL Normal 0.00-0.10 [facility] Comment on above: Performed By: #### 5 7021-8 #### CK KHAN ([id number]) [facility] ([facility]) [address] [place] [address] 41870 Basophils/100 WBC (Bld) 1.3 % Normal 0.0-2.0 [facility] Comment on above: Performed By: #### 5 7021-8 #### CK KHAN ([id number]) [facility] ([facility]) [address] [place] [address] 77581 Eosinophils (Bld) [#/Vol] 0.25 x10*3/uL Normal 0.00-0.70 [facility] Comment on above: Performed By: #### 5 7021-8 #### CK KHAN ([id number]) [facility] ([facility]) [address] [place] [address] 56140 Eosinophils/100 WBC (Bld) 4.8 % Normal 0.0-6.0 [facility] Comment on above: Performed By: #### 5 7021-8 #### CK KHAN ([id number]) [facility] ([facility]) [address] [place] [address] 11568 Erythrocyte distribution width (RBC) [Ratio] 12.4 % Normal 11.5-14.5 [facility] Comment on above: Performed By: #### 5 7021-8 #### CK KHAN ([id number]) [facility] ([facility]) [address] [place] [address] 39189 Hematocrit (Bld) [Volume fraction] 41.9 % Normal 36.0-46.0 [facility] Comment on above: Performed By: #### 5 7021-8 #### CK KHAN ([id number]) [facility] ([facility]) [address] [place] [address] 54367 Hemoglobin (Bld) [Mass/Vol] 13.8 g/dL Normal 12.0-16.0 [facility] Comment on above: Performed By: #### 5 7021-8 #### CK KHAN ([id number]) [facility] ([facility]) [address] [place] [address] 94152 Immature granulocytes (Bld) [#/Vol] 0.01 x10*3/uL Normal 0.00-0.70 [facility] Comment on above: Performed By: #### 5 7021-8 #### CK KHAN ([id number]) [facility] ([facility]) [address] [place] [address] 97656 Immature granulocytes/100 WBC (Bld) 0.2 % Normal 0.0-0.9 [facility] Comment on above: Result Comment: Danisha ture Granulocyte Count (IG) includes promyelocytes, myelocytes and metamyelocytes but does not include bands. Percent differential counts (%) should be interpreted in the context of the absolute cell counts (cells/UL). Performed By: #### 5 7021-8 #### CK KHAN ([id number]) [facility] ([facility]) [address] [place] [address] 59628 Lymphocytes (Bld) [#/Vol] 1.70 x10*3/uL Normal 1.20-4.80 [facility] Comment on above: Performed By: #### 5 7021-8 #### CK KHAN ([id number]) [facility] ([facility]) [address] [place] [address] 55186 Lymphocytes/100 WBC (Bld) 32.7 % Normal 13.0-44.0 [facility] Comment on above: Performed By: #### 5 7021-8 #### CK KHAN ([id number]) [facility] ([facility]) [address] [place] [address] 62930 MCH (RBC) [Entitic mass] 30.3 pg Normal 26.0-34.0 [facility] Comment on above: Performed By: #### 5 7021-8 #### CK KHAN ([id number]) [facility] ([facility]) [address] [place] [address] 73783 MCHC (RBC) [Mass/Vol] 32.9 g/dL Normal 32.0-36.0 [facility] Comment on above: Performed By: #### 5 7021-8 #### CK KHAN ([id number]) [facility] ([facility]) [address] [place] [address] 34972 MCV (RBC) [Entitic vol] 92 fL Normal 80-100 [facility] Comment on above: Performed By: #### 5 7021-8 #### CK HKAN ([id number]) [facility]) [address] [place] [address] 24272 Monocytes (Bld) [#/Vol] 0.31 x10*3/uL Normal 0.10-1.00 [facility] Comment on above: Performed By: #### 5 7021-8 #### CK KHAN ([id number]) [facility]) [address] [place] [address] 92945 Monocytes/100 WBC (Bld) 6.0 % Normal 2.0-10.0 [facility] Comment on above: Performed By: #### 5 7021-8 #### CK KHAN ([id number]) [facility]) [address] [place] [address] 12435 Neutrophils (Bld) [#/Vol] 2.86 x10*3/uL Normal 1.20-7.70 [facility] Comment on above: Result Comment: Perc ent differential counts (%) should be interpreted in the context of the absolute cell counts (cells/uL). Performed By: #### 5 7021-8 #### CK KHAN ([id number]) [facility]) [address] [place] [address] 06167 Neutrophils/100 WBC (Bld) 55.0 % Normal 40.0-80.0 [facility] Comment on above: Performed By: #### 5 7021-8 #### CK KHAN ([id number]) [facility]) [address] [place] [address] 74163 Nucleated RBC/100 WBC (Bld) [Ratio] 0.0 /100 WBCs Normal 0.0-0.0 [facility] Comment on above: Performed By: #### 5 7021-8 #### CK KHAN ([id number]) [facility]) [address] [place] [address] 43268 Platelets (Bld) [#/Vol] 251 x10*3/uL Normal 150-450 [facility] Comment on above: Performed By: #### 5 7021-8 #### CK KHAN ([id number]) [facility]) [address] [place] [address] 90937 RBC (Bld) [#/Vol] 4.55 x10*6/uL Normal 4.00-5.20 [facility] Comment on above: Performed By: #### 5 7021-8 #### CK KHAN ([id number]) [facility]) [address] [place] [address] 29808 WBC (Bld) [#/Vol] 5.2 x10*3/uL Normal 4.4-11.3 [facility] Comment on above: Performed By: #### 5 7021-8 #### CK KHAN ([id number]) [facility]) [address] [place] [address] 31603 Calcidiolon 01-31-2024 25-hydroxyvitamin D3 [Mass/Vol] 31 ng/mL Normal 30-100 [facility] Comment on above: Order Comment: Defic iency: < 20 ng/ml Insufficiency: 20-29 ng/ml Sufficiency: 30-100 ng/ml This assay accurately quantifies the sum of Vitamin D3, 25-Hydroxy and Vitamin D2,25-Hydroxy. Performed By: #### 1 989-3 #### CK KHAN ([id number]) [facility]) [address] [place] [address] Cobalaminson 01-31-2024 Cobalamin (Vitamin B12) [Mass/Vol] 710 pg/mL Normal 211-911 [facility] Comment on above: Performed By: #### 2 132-9 #### CK KHAN ([id number]) [facility]) [address] [place] [address] Comprehensive metabolic 2000 panelon 01-31-2024 Albumin BCP dye [Mass/Vol] 4.2 g/dL Normal 3.4-5.0 [facility] Comment on above: Performed By: #### 2 4323-8 #### CK KHAN ([id number]) [facility]) [address] [place] [address] ALP [Catalytic activity/Vol] 52 U/L Normal 33-110 [facility] Comment on above: Performed By: #### 2 4323-8 #### CK KHAN ([id number]) [facility]) [address] [place] [address] 29267 ALT With P-5'-P [Catalytic activity/Vol] 16 U/L Normal 7-45 [facility] Comment on above: Result Comment: Sunita ents treated with Sulfasalazine may generate falsely decreased results for ALT. Performed By: #### 2 4323-8 #### CK KHAN ([id number]) [facility]) [address] [place] [address] 57658 Anion gap [Moles/Vol] 10 mmol/L Normal 10-20 [facility] Comment on above: Performed By: #### 2 4323-8 #### CK KHAN ([id number]) [facility]) [address] [place] [address] 48294 AST With P-5'-P [Catalytic activity/Vol] 17 U/L Normal 9-39 [facility] Comment on above: Performed By: #### 2 4323-8 #### CK KHAN ([id number]) [facility]) [address] [place] [address] Bilirubin [Mass/Vol] 1.0 mg/dL Normal 0.0-1.2 [facility] Comment on above: Performed By: #### 2 4323-8 #### CK KHAN ([id number]) [facility]) [address] [place] [address] 75401 Calcium [Mass/Vol] 9.0 mg/dL Normal 8.6-10.3 [facility] Comment on above: Performed By: #### 2 4323-8 #### CK KHAN ([id number]) [facility]) [address] [place] [address] 26349 Chloride [Moles/Vol] 108 mmol/L High 98-107 [facility] Comment on above: Performed By: #### 2 4323-8 #### CK KHAN ([id number]) [facility]) [address] [place] [address] 74360 CO2 [Moles/Vol] 26 mmol/L Normal 21-32 [facility] Comment on above: Performed By: #### 2 4323-8 #### CK KHAN ([id number]) [facility]) [address] [place] [address] 75905 Creatinine [Mass/Vol] 0.78 mg/dL Normal 0.50-1.05 [facility] Comment on above: Performed By: #### 2 4323-8 #### CK KHAN ([id number]) [facility]) [address] [place] [address] 15583 GFR/1.73 sq M.predicted MDRD (S/P/Bld) [Vol rate/Area] mL/min/{1.73_m2} Normal >60 [facility] Comment on above: Result Comment: Calc ulations of estimated GFR are performed using the 2020 CKD-EPI Study Refit equation without the race variable for the IDMS-Traceable creatinine methods. https://jasn.asnjournals.org/content//ASN.42192 46631 Performed By: #### 2 4323-8 #### CK KHAN ([id number]) [facility]) [address] [place] [address] 73187 Glucose [Mass/Vol] 80 mg/dL Normal 74-99 [facility] Comment on above: Performed By: #### 2 4323-8 #### CK KHAN ([id number]) [facility]) [address] [place] [address] 79015 Potassium [Moles/Vol] 3.9 mmol/L Normal 3.5-5.3 [facility] Comment on above: Performed By: #### 2 4323-8 #### CK KHAN ([id number]) [facility]) [address] [place] [address] 06585 Protein [Mass/Vol] 7.2 g/dL Normal 6.4-8.2 [facility] Comment on above: Performed By: #### 2 4323-8 #### CK KHAN ([id number]) [facility]) [address] [place] [address] 07022 Sodium [Moles/Vol] 140 mmol/L Normal 136-145 [facility] Comment on above: Performed By: #### 2 4323-8 #### CK KHAN ([id number]) [facility]) [address] [place] [address] 02476 Urea nitrogen [Mass/Vol] 15 mg/dL Normal 6-23 [facility] Comment on above: Performed By: #### 2 4323-8 #### CK KHAN ([id number]) [facility]) [address] [place] [address] 28084 TSH WITH REFLEX TO FREE T4 I F ABNORMALon 01-31-2024 TSH Qn 4.92 m[IU]/L High 0.44-3.98 [facility] Comment on above: Order Comment: TSH t esting is performed using different testing methodology at [facility] than at other [facility]. Direct result comparisons should only be made within the same method. Performed By: #### T JACKELYNS #### CK KHAN ([id number]) [facility]) [address] [place] [address] Thyroxine.freeon 01-31-2024 Free T4 [Mass/Vol] 1.10 ng/dL Normal 0.61-1.12 [facility] Comment on above: Order Comment: TSH t esting is performed using different testing methodology at [facility] than at other [facility]. Direct result comparisons should only be made within the same method. Performed By: #### T JACKELYNS #### CK KHAN ([id number]) [facility]) [address] [place] [address] POCT SARS-COV-2/FLU/RSV PCR SYMPTOMATIC manually resultedOrdered By: Liliane Wiley on 11-26-2023 FLUAV RNA NAHID+probe Ql (Resp) Not detected Not Detected [facility] FLUBV RNA NAHID+probe Ql (Resp) Not detected Not Detected [facility] RSV RNA NAHID+probe Ql (Resp) Not detected Not Detected [facility] SARS-CoV-2 (COVID-19) RNA NAHID+probe Ql (Resp) Not detected Not Detected [facility] CBC W Auto Differential pane l (Bld)on 10-12-2023 Basophils (Bld) [#/Vol] 0.06 x10*3/uL Normal 0.00-0.10 [facility] Comment on above: Performed By: #### 5 7021-8 #### CK KHAN ([id number]) [facility]) [address] [place] [address] Basophils/100 WBC (Bld) 1.1 % Normal 0.0-2.0 [facility] Comment on above: Performed By: #### 5 7021-8 #### CK KHAN ([id number]) [facility]) [address] [place] [address] Eosinophils (Bld) [#/Vol] 0.05 x10*3/uL Normal 0.00-0.70 [facility] Comment on above: Performed By: #### 5 7021-8 #### CK KHAN ([id number]) [facility]) [address] [place] [address] 36558 Eosinophils/100 WBC (Bld) 0.9 % Normal 0.0-6.0 [facility] Comment on above: Performed By: #### 5 7021-8 #### CK KHAN ([id number]) [facility]) [address] [place] [address] 08666 Erythrocyte distribution width (RBC) [Ratio] 12.5 % Normal 11.5-14.5 [facility] Comment on above: Performed By: #### 5 7021-8 #### CK KHAN ([id number]) [facility]) [address] [place] [address] 44000 Hematocrit (Bld) [Volume fraction] 40.4 % Normal 36.0-46.0 [facility] Comment on above: Performed By: #### 5 7021-8 #### CK KHAN ([id number]) [facility]) [address] [place] [address] 81614 Hemoglobin (Bld) [Mass/Vol] 13.5 g/dL Normal 12.0-16.0 [facility] Comment on above: Performed By: #### 5 7021-8 #### CK KHAN ([id number]) [facility]) [address] [place] [address] 25226 Immature granulocytes (Bld) [#/Vol] 0.01 x10*3/uL Normal 0.00-0.70 [facility] Comment on above: Performed By: #### 5 7021-8 #### CK KHAN ([id number]) [facility]) [address] [place] [address] 96184 Immature granulocytes/100 WBC (Bld) 0.2 % Normal 0.0-0.9 [facility] Comment on above: Result Comment: Danisha ture Granulocyte Count (IG) includes promyelocytes, myelocytes and metamyelocytes but does not include bands. Percent differential counts (%) should be interpreted in the context of the absolute cell counts (cells/UL). Performed By: #### 5 7021-8 #### CK KHAN ([id number]) [facility]) [address] [place] [address] 96864 Lymphocytes (Bld) [#/Vol] 1.60 x10*3/uL Normal 1.20-4.80 [facility] Comment on above: Performed By: #### 5 7021-8 #### CK KHAN ([id number]) [facility]) [address] [place] [address] 07498 Lymphocytes/100 WBC (Bld) 30.4 % Normal 13.0-44.0 [facility] Comment on above: Performed By: #### 5 7021-8 #### CK KHAN ([id number]) [facility]) [address] [place] [address] 76950 MCH (RBC) [Entitic mass] 30.2 pg Normal 26.0-34.0 [facility] Comment on above: Performed By: #### 5 7021-8 #### CK KHAN ([id number]) [facility]) [address] [place] [address] 20244 MCHC (RBC) [Mass/Vol] 33.4 g/dL Normal 32.0-36.0 [facility] Comment on above: Performed By: #### 5 7021-8 #### CK KHAN ([id number]) [facility]) [address] [place] [address] 65288 MCV (RBC) [Entitic vol] 90 fL Normal 80-100 [facility] Comment on above: Performed By: #### 5 7021-8 #### CK KHAN ([id number]) [facility]) [address] [place] [address] 24429 Monocytes (Bld) [#/Vol] 0.38 x10*3/uL Normal 0.10-1.00 [facility] Comment on above: Performed By: #### 5 7021-8 #### CK KHAN ([id number]) [facility]) [address] [place] [address] 26037 Monocytes/100 WBC (Bld) 7.2 % Normal 2.0-10.0 [facility] Comment on above: Performed By: #### 5 7021-8 #### CK KHAN ([id number]) [facility]) [address] [place] [address] 77295 Neutrophils (Bld) [#/Vol] 3.17 x10*3/uL Normal 1.20-7.70 [facility] Comment on above: Result Comment: Perc ent differential counts (%) should be interpreted in the context of the absolute cell counts (cells/uL). Performed By: #### 5 7021-8 #### CK KHAN ([id number]) [facility]) [address] [place] [address] 99836 Neutrophils/100 WBC (Bld) 60.2 % Normal 40.0-80.0 [facility] Comment on above: Performed By: #### 5 7021-8 #### CK KHAN ([id number]) [facility]) [address] [place] [address] 68461 Nucleated RBC/100 WBC (Bld) [Ratio] 0.0 /100 WBCs Normal 0.0-0.0 [facility] Comment on above: Performed By: #### 5 7021-8 #### CK KHAN ([id number]) [facility]) [address] [place] [address] 84818 Platelets (Bld) [#/Vol] 250 x10*3/uL Normal 150-450 [facility] Comment on above: Performed By: #### 5 7021-8 #### CK KHAN ([id number]) [facility]) [address] [place] [address] 53164 RBC (Bld) [#/Vol] 4.47 x10*6/uL Normal 4.00-5.20 [facility] Comment on above: Performed By: #### 5 7021-8 #### CK KHAN ([id number]) [facility]) [address] [place] [address] 39555 WBC (Bld) [#/Vol] 5.3 x10*3/uL Normal 4.4-11.3 [facility] Comment on above: Performed By: #### 5 7021-8 #### CK KHAN ([id number]) [facility]) [address] [place] [address] 36197 Cobalaminson 10-12-2023 Cobalamin (Vitamin B12) [Mass/Vol] 525 pg/mL Normal 211-911 [facility] Comment on above: Performed By: #### 2 132-9 #### CK KHAN ([id number]) [facility]) [address] [place] [address] 93936 Comprehensive metabolic 2000 panelon 10-12-2023 Albumin BCP dye [Mass/Vol] 4.2 g/dL Normal 3.4-5.0 [facility] Comment on above: Performed By: #### 2 4323-8 #### CK KHAN ([id number]) [facility]) [address] [place] [address] 04697 ALP [Catalytic activity/Vol] 52 U/L Normal 33-110 [facility] Comment on above: Performed By: #### 2 4323-8 #### CK KHAN ([id number]) [facility]) [address] [place] [address] 04863 ALT With P-5'-P [Catalytic activity/Vol] 11 U/L Normal 7-45 [facility] Comment on above: Result Comment: Sunita ents treated with Sulfasalazine may generate falsely decreased results for ALT. Performed By: #### 2 4323-8 #### CK KHAN ([id number]) [facility]) [address] [place] [address] 88087 Anion gap [Moles/Vol] 10 mmol/L Normal 10-20 [facility] Comment on above: Performed By: #### 2 4323-8 #### CK KHAN ([id number]) [facility]) [address] [place] [address] AST With P-5'-P [Catalytic activity/Vol] 13 U/L Normal 9-39 [facility] Comment on above: Performed By: #### 2 4323-8 #### CK KHAN ([id number]) [facility]) [address] [place] [address] 36920 Bilirubin [Mass/Vol] 1.0 mg/dL Normal 0.0-1.2 [facility] Comment on above: Performed By: #### 2 4322-8 #### CK KHAN ([id number]) [facility]) [address] [place] [address] 33529 Calcium [Mass/Vol] 9.1 mg/dL Normal 8.6-10.3 [facility] Comment on above: Performed By: #### 2 4322-8 #### CK KHAN ([id number]) [facility]) [address] [place] [address] Chloride [Moles/Vol] 107 mmol/L Normal 98-107 [facility] Comment on above: Performed By: #### 2 432-8 #### CK KHAN ([id number]) [facility]) [address] [place] [address] CO2 [Moles/Vol] 26 mmol/L Normal 21-32 [facility] Comment on above: Performed By: #### 2 432-8 #### CK KHAN ([id number]) [facility]) [address] [place] [address] 47056 Creatinine [Mass/Vol] 0.82 mg/dL Normal 0.50-1.05 [facility] Comment on above: Performed By: #### 2 4323-8 #### CK KHAN ([id number]) [facility]) [address] [place] [address] 72247 GFR/1.73 sq M.predicted MDRD (S/P/Bld) [Vol rate/Area] mL/min/{1.73_m2} Normal >60 [facility] Comment on above: Result Comment: Calc ulations of estimated GFR are performed using the 2020 CKD-EPI Study Refit equation without the race variable for the IDMS-Traceable creatinine methods. https://jasn.asnjournals.org/content//ASN.01168 48549 Performed By: #### 2 4323-8 #### CK KHAN ([id number]) [facility]) [address] [place] [address] 94986 Glucose [Mass/Vol] 82 mg/dL Normal 74-99 [facility] Comment on above: Performed By: #### 2 4323-8 #### CK KHAN ([id number]) [facility]) [address] [place] [address] 42367 Potassium [Moles/Vol] 3.9 mmol/L Normal 3.5-5.3 [facility] Comment on above: Performed By: #### 2 4323-8 #### CK KHAN ([id number]) [facility]) [address] [place] [address] 35148 Protein [Mass/Vol] 6.8 g/dL Normal 6.4-8.2 [facility] Comment on above: Performed By: #### 2 4323-8 #### CK KHAN ([id number]) [facility]) [address] [place] [address] 55561 Sodium [Moles/Vol] 139 mmol/L Normal 136-145 [facility] Comment on above: Performed By: #### 2 4323-8 #### CK KHAN ([id number]) [facility] [address] [place] [address] 77391 Urea nitrogen [Mass/Vol] 17 mg/dL Normal 6-23 [facility] Comment on above: Performed By: #### 2 4323-8 #### CK KHAN ([id number]) [facility] [place] [address] Lipid 1996 panelon 4 Cholesterol [Mass/Vol] 139 mg/dL Normal 0-199 [facility] Comment on above: Result Comment: Age Desirable Borderline High High 0-19 Y 0 - 169 170 - 199 >/= 200 20-24 Y 0 - 189 190 - 224 >/= 225 >24 Y 0 - 199 200 - 239 >/= 240 All ranges are based on fasting samples. Specific therapeutic targets will vary based on patient-specific cardiac risk. Pediatric guidelines reference:Pediatrics 2011, 128(S5).Adult guidelines reference: NCEP ATPIII Guidelines,JEN 2001, 258:2486-97 Venipuncture immediately after or during the administration of Metamizole may lead to falsely low results. Testing should be performed immediately prior to Metamizole dosing. Performed By: #### 2 4331-1 #### CK KHAN ([id number]) [facility]) [address] [place] [address] 15267 Cholesterol in HDL [Mass/Vol] 38.0 mg/dL Normal [facility] Comment on above: Result Comment: Age Very Low Low Normal High 0-19 Y < 35 < 40 40-45 ---- 20-24 Y ---- < 40 >45 ---- >24 Y ---- < 40 40-60 >60 Performed By: #### 2 4331-1 #### CK KHAN ([id number]) [facility]) [address] [place] [address] 86150 Cholesterol in LDL [Mass/Vol] 88 mg/dL Normal <=99 [facility] Comment on above: Result Comment: Near Borderline AGE Desirable Optimal High High Very High 0-19 Y 0 - 109 --- 110-129 >/= 130 ---- 20-24 Y 0 - 119 --- 120-159 >/= 160 ---- >24 Y 0 - 99 100-129 130-159 160-189 >/=190 Performed By: #### 2 4331-1 #### CK KHAN ([id number]) [facility]) [address] [place] [address] 39379 Cholesterol in VLDL [Mass/Vol] 13 mg/dL Normal 0-40 [facility] Comment on above: Performed By: #### 2 4331-1 #### CK KHAN ([id number]) [facility]) [facility] [place] [address] CHOLESTEROL/HDL RATIO 3.7 Normal [facility] Comment on above: Result Comment: Ref Values Desirable < 3.4 High Risk > 5.0 Performed By: #### 2 4331-1 #### CK KHAN ([id number]) [facility]) [facility] [place] [address] NON HDL CHOLESTEROL 101 mg/dL Normal 0-149 [facility] Comment on above: Result Comment: Age Desirable Borderline High High Very High 0-19 Y 0 - 119 120 - 144 >/= 145 >/= 160 20-24 Y 0 - 149 150 - 189 >/= 190 ---- >24 Y 30 mg/dL above LDL Cholesterol goal Performed By: #### 2 4331-1 #### CK KHAN ([id number]) [facility]) [facility] [place] [address] Triglyceride [Mass/Vol] 67 mg/dL Normal 0-149 [facility] Comment on above: Result Comment: Age Desirable Borderline High High Very High 0 D-90 D 19 - 174 ---- ---- ---- 91 D- 9 Y 0 - 74 75 - 99 >/= 100 ---- 10-19 Y 0 - 89 90 - 129 >/= 130 ---- 20-24 Y 0 - 114 115 - 149 >/= 150 ---- >24 Y 0 - 149 150 - 199 200- 499 >/= 500 Venipuncture immediately after or during the administration of Metamizole may lead to falsely low results. Testing should be performed immediately prior to Metamizole dosing. Performed By: #### 2 4331-1 #### CK KHAN ([id number]) [facility]) [facility] [place] [address] TSH WITH REFLEX TO FREE T4 I F ABNORMALon 10-12-2023 TSH Qn 3.00 m[IU]/L Normal 0.44-3.98 [facility] Comment on above: Order Comment: TSH t esting is performed using different testing methodology at [facility] than at other [facility]. Direct result comparisons should only be made within the same method. Performed By: #### T KATIE #### STOVER BILL ([id number]) [facility] [address] [place] [address] POCT BD Veritor Triplex Agon 08-26-2023 POC Triplex Flu A-Ag Presumptive negativ e for Triplex FLU A (no antigen detected) Presumptive negative for Triplex FLU A (no antigen detected) [facility] Work Phone: POC Triplex Flu B-Ag Presumptive negativ e for Triplex FLU B (no antigen detected) Presumptive negative for Triplex FLU B (no antigen detected) [facility] Work Phone: SARS-CoV-2 (COVID-19) RNA NAHID+probe Ql (Unsp spec) Presumptive negative for Triplex SARS-CoV-2 (no antigen detected) Presumptive negative for Triplex SARS-CoV-2 (no antigen detected) [facility] Work Phone: [facility] Work Phone: POCT Group A Streptococcus, PCR manually resultedon 08-26-2023 Interpretation and review of laboratory results Abnormal [facility] Work Phone: S. pyogenes DNA NAHID+probe Ql (Throat) Detected Abnormal Not Detected [facility] Work Phone: [facility] Work Phone: CNOVon 05-16-2023 CNOV Office Visit (UCWSTR ) -------- MARIA ELENA AJ ([id number]) 1990 F Date Time Provider Department 05/16/23 7:45 AM [facility] During your visit today, we recorded the following information about you: Temperature Pulse Respiration Blood pressure 98.4 degrees 89/minute 18/minute 122/78 Weight 66.5 kg Samm Ferguson MD 05/16/2023 8:03 AM Signed Patient presents with: Sore Throat: ST, cough and Durant x 3 days HPI: Feeling sick for 3-4 days. Sore throat worsened last night Positive symptoms: minimal Cough, Sore throat, Headache, Nasal Congestion (has some at baseline), diarrhea this weekend after eating sausage Negative symptoms: Fever, Body Aches, Vomiting, OTC: none. Had COVID illness in February. MEDICATIONS: No current outpatient medications on file. No current facility-administered medications for this visit. ALLERGIES: ALLERGIES Allergen Reactions Penicillins Rash Seasonal Allergies Other: See Comments congestion VITALS: BP 122/78 Pulse 89 Temp 36.9 ?C (98.4 ?F) (Tympanic) Resp 18 Wt 66.5 kg (146 lb 9.6 oz) LMP 09/25/2014 SpO2 100% PHYSICAL EXAM: GEN: mildly ill appearing HEENT: PERRL, EOMI, conjunctiva clear Ears: canals clear. TMs without erythema, bulge, or effusion Sinuses: non-tender frontal sinus, non-tender maxillary sinuses Throat: moist mucous membranes, mild erythema, no exudate Neck: supple, no thyromegaly, no lymphadenopathy HEART: regular rate and rhythm, no murmurs LUNGS: clear to auscultation, no wheezes or crackles, no increased WOB ASSESSMENT/PLAN: 1. Sore throat - ICD9: 462, ICD10: J02.9 - STREP A MOLECULAR (POC) - negative. - suspect viral URI; unlikely COVID because of recent infection. - Discussed supportive care treatment with rest, cold medicine, and analgesia. Samm Ferguson MD Allergies As of Date: 05/16/2023 Noted Allergy Reaction PENICILLINS 09/10/2014 2 - Rash SEASONAL ALLERGIES 09/08/2014 14 - Other: See Comments Comments: congestion Date Reviewed: 05/16/2023 Reviewed by: Sarah Winn LPN - Fully Assessed Reason for Visit: Sore Throat [200] Cmt: ST, cough and Durant x 3 days Primary Visit Diagnosis:Sore throat [J02.9] Order(s):STREP A MOLECULAR (POC) [6263790] Order #: [id number]. #:[id number] Problem List As Of Date: 05/16/2023 (None) Letter Text Encounter Status:Closed by SAMM FERGUSON on 05/16/23 Normal [facility] GROUP A STREP,PCRon 09-04-19 GROUP A STREP,PCR Not detected Normal Not Detected [facility] Comment on above: Result Comment: This test was performed utilizing an FDA-cleared rapid nucleic acid amplification by PCR to qualitatively detect Group A Streptococci from throat swab specimens without the need for culture confirmation of negative results. Performed By: #### G APC1 #### [place] [address] Lab Specimen Source Throat Normal [facility] Comment on above: Performed By: #### G APC1 #### [address] [address] Provider Note - ED v3on 08-12 Provider Note - ED v3 Provider Note: Chart Review ED NOTES ED NOTES: Presents for evaluation of throat swelling and scratchiness, increased thirst, nasal congestion, cough that have been ongoing for the past 3 days. Pain is exacerbated by oral intake. Pt did not attempt any OTC meds or conservative measures. No fever, chills, vomiting, URI symptoms, or other constitutional S/S. pt has seasonal allergies and states that symptoms preceded sore throat. No other complaints. HISTORY OF PRESENTING ILLNESS MARIA ELENA is a 31 year old Female and was seen by me at 03-Sep-2022 17:43. Triage Information: Most recent Vital Sign Value Date PAST MEDICAL HISTORY ALLERGIES/INTOLERANCES: Allergy Allergen: penicillin Type: Drug Reaction: Unknown Allergen: Celexa Type: Drug Reaction: Unknown Allergen: influenza virus vaccine, inactivated Type: Drug Reaction: Other Rash HEALTH HISTORY: No documented data. 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 HENMT: Airway patent, ears with clear tympanic membranes bilaterally. Nasal mucosa clear. Mouth with normal mucosa. Throat has slight posterior OP erytherma, no edema no pnd, no oropharyngeal exudates and uvula is midline. Face with no lymph node enlargement. EYES: Clear bilaterally, pupils equal, round and reactive to light. CARDIOVASCULAR: Normal rate, regular rhythm. Heart sounds S1, S2. No murmurs, rubs or gallops. PMI non-displaced. RESPIRATORY: Breath sounds clear and equal bilaterally. NEUROLOGICAL: Alert and oriented, no focal deficits, no motor or sensory deficits. SKIN: Skin normal color for race, warm, dry and intact. No evidence of trauma. PSYCHIATRIC: Alert and oriented to person, place, time/situation. normal mood and affect. No apparent risk to self or others. CRITICAL CARE VITAL SIGNS: T PRBP SpO2O2(LPM) %FiO2 Method 03-Sep-2022 17:43:[id number] 98 MDM MDM/ED COURSE: Discussed Findings with: patient Data Reviewed: vital signs Treatment Plan: Swab obtained for strep testing. Encouraged pt to continue otc cold remedies PRN, push by mouth fluids and rest. Patient's clinical presentation is otherwise unremarkable at this time. Patient is discharged with instructions to follow-up with primary care or seek emergency medical attention for worsening symptoms or any new concerns. DISPOSITION Diagnosis/Annotation: ED Dx Name:Acute pharyngitis Code:J02.9 Disposition: discharged Type: home CONSULT CRITICAL CARE TIME Is this a critically ill patient: no Electronic Signatures for Addendum Section: Caden Segura (CLAIM MANAGER-PRINT DECORATOR) (Signed Addendum 04-Sep-2022 08:47) VM left for pt to return to call regarding strep test results. Electronic Signatures: Caden Segura (CLAIM MANAGER-PRINT DECORATOR) (Signed 04-Sep-2022 08:46) Authored: ED Notes, HPI, PMH, ROS, PE, Results/Vital Signs, MDM/ED Course, Clinical Impression, Attestation, Chart Review, Scores Last Updated: 04-Sep-2022 08:47 by Caden Segura (CLAIM MANAGER-PRINT DECORATOR) [facility] Provider Note - ED v3 This report has be en cancelled. [facility] Provider Note - ED v3on 0 Provider Note - ED v3 Provider Note: Chart Review: HISTORY OF PRESENTING ILLNESS MARIA ELENA is a 31 year old Female and was seen by me at 11-Aug-2022 15:01. The historian is the patient. Triage Information: Most recent Vital Sign Value Date PAST MEDICAL HISTORY ALLERGIES/INTOLERANCES: Allergy Allergen: penicillin Type: Drug Reaction: Unknown Allergen: Celexa Type: Drug Reaction: Unknown Allergen: influenza virus vaccine, inactivated Type: Drug Reaction: Other Rash HEALTH HISTORY: No known health issues. Family history: no pertinent history. Social history: non-smoker. OUTPATIENT MEDICATIONS: Home Medications Review Status for Reconciliation: Complete Med Status: No Current Medications SIGNIFICANT EVENTS: Immunizations Description:Tdap History of ; no other known significant events or other known past surgical history. CRITICAL CARE VITAL SIGNS: T PRBP SpO2O2(LPM) %FiO2 Method 11-Aug-2022 14:50:[id number] 98 MDM MDM/ED COURSE: This note was generated with voice recognition software and may contain errors including spelling, grammar, syntax, and misrecognization of what was dictated CHIEF COMPLAINT R ear muffled/ diminished hearing HISTORY OF PRESENT ILLNESS Patient presents today with complaints of R ear muffled/diminished hearing x 1 week. Reports she noticed her hearing going in and out for a few days, but about a week ago, all the sudden it felt like her ear closed up and she was not able to hear much anymore. Denies any recent history of trauma or use of ear plugs/qtips; denies ear pain/drainage, fever, headaches, dizziness, nasal congestion, and cold symptoms. Reports is unsure if L ear feels like it is plugged, as well. She tried using an ear flushing kit without any relief; has not tried any other [id number] medications or home remedies for symptom management. REVIEW OF SYSTEMS 10 systems reviewed negative with exception of history of present illness listed above PHYSICAL EXAMINATION General: Pleasant female; alert and oriented; in no acute distress. Sitting comfortably on exam table. Eyes: Pupils equal, round and reactive to light. No conjunctival erythema; no scleral icterus. HENT: No sinus tenderness. Bilat TMs fully occluded by dark cerumen. Visible portion of canals without erythema/edema; no tenderness with manipulation of tragus or pinna. After irrigation, bilat canals with only small amount of cerumen, and full TMs intact/canal visible - unremarkable. Neck: Supple. No lymphadenopathy Respiratory: Lungs are clear to auscultation; no wheezes, rhonchi, or rales. Respirations unlabored, Breath sounds are equal, Symmetrical chest wall expansion. Cardiovascular: Normal rate, Regular rhythm. Normal S1S2. No m/r/g. Musculoskeletal: Grossly normal; appropriate for age. Ambulates and changes position without instability or reported dizziness. Integumentary: Elmo, warm, dry, and Intact. Neurologic: No focal deficits. Hearing grossly intact (and normal again per pt) s/p ear irrigation. Cognition and Speech: Oriented, Speech clear and coherent. Psychiatric: Cooperative, Appropriate mood & affect. MEDICAL DECISION MAKING Course: Worsening; stable. Impression/Plan: Ear irrigation of both ears performed in office today; ear canals clear s/p procedure. Pt tolerated procedure well, stating hearing had returned to normal afterwards. No sign of infection or indications for further treatment at this time. Discussed strategies for management of normal cerumen in the future - should avoid qtips, but can use baby nose bulb and warm water + H2O2 to irrigate, or seek care if wax becomes bothersome again or if she has any further issues with hearing. Patient agrees with plan of care; questions were encouraged and answered. Problem: diminished hearing Data reviewed/analyzed: No labwork, imaging, or tests outside of physical exam done today; no previous documents available for review today. Ear irrigation performed in office. Risk: Low risk of morbidity/mortality Problems addressed: cerumen impaction of bilat ears Education/patient instructions: See above. Should continue regular f/u with PCP. DISPOSITION Diagnosis/Annotation: ED Dx Name:Bilateral impacted cerumen Code:H61.23 Disposition: discharged Type: home CONSULT CRITICAL CARE TIME Is this a critically ill patient: no Electronic Signatures: Venita Goins (CLAIM MANAGER-PRINT DECORATOR) (Signed 12-Aug-2022 16:57) Authored: HPI, PMH, Results/Vital Signs, MDM/ED Course, Clinical Impression, Attestation, Chart Review, Scores Last Updated: 12-Aug-2022 16:57 by Venita Goins (CLAIM MANAGER-PRINT DECORATOR) Normal [facility] GROUP A STREP,PCRon 06-28-19 23 GROUP A STREP,PCR Detected Abnormal Not Detected [facility] Comment on above: Result Comment: This test was performed utilizing an FDA-cleared rapid nucleic acid amplification by PCR to qualitatively detect Group A Streptococci from throat swab specimens without the need for culture confirmation of negative results. Performed By: #### G APC1 #### [place] [id number] Lab Specimen Source Throat Normal [facility] Comment on above: Performed By: #### G APC1 #### [place] [address] Provider Note - ED v3on 06-13 Provider Note - ED v3 Provider Note: Chart Review ED NOTES ED NOTES: Presents for evaluation of throat swelling and pain. 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 Pain is exacerbated by oral intake. Pt did not attempt any OTC meds or conservative measures. No chills, vomiting, cough, URI symptoms, or other constitutional S/S. No known ill contacts. No other complaints. HISTORY OF PRESENTING ILLNESS MARIA ELENA is a 31 year old Female and was seen by me at 28-Jun-2022 09:06. Triage Information: Most recent Vital Sign Value Date PAST MEDICAL HISTORY ALLERGIES/INTOLERANCES: Allergy Allergen: penicillin Type: Drug Reaction: Unknown Allergen: Celexa Type: Drug Reaction: Unknown Allergen: influenza virus vaccine, inactivated Type: Drug Reaction: Other Rash HEALTH HISTORY: No documented data. OUTPATIENT MEDICATIONS: Home Medications Review Status for Reconciliation: Complete Med Status: Patient Currently Takes Medications Drug Name: azithromycin 250 mg oral tablet Instructions: Take 2 tabs (500mg) x 1 days, then 1 tab (250mg) once daily x 4 days SIGNIFICANT EVENTS: Immunizations Description:Tdap CROSSING GATEMAN: Is : no Is : yes REVIEW OF SYSTEMS All other systems reviewed and are negative REVIEW OF SYSTEMS: Comments See HPI PHYSICAL EXAM CONSTITUTIONAL: Mildly ill appearing but well nourished, awake, alert, oriented to person, place, time/situation and in no apparent distress. HENMT: Airway patent, ears with clear tympanic membranes bilaterally. Nasal mucosa clear. Mouth with normal mucosa. Throat has posterior OP erythema, 2+ tonsillar edema bilaterally, no oropharyngeal exudates and uvula is midline. Face with anterior cervical lymphadenopathy. EYES: Clear bilaterally, pupils equal, round and reactive to light. CARDIOVASCULAR: Normal rate, regular rhythm. Heart sounds S1, S2. No murmurs, rubs or gallops. PMI non-displaced. RESPIRATORY: Breath sounds clear and equal bilaterally. NEUROLOGICAL: Alert and oriented, no focal deficits, no motor or sensory deficits. SKIN: Skin normal color for race, warm, dry and intact. No evidence of trauma. PSYCHIATRIC: Alert and oriented to person, place, time/situation. normal mood and affect. No apparent risk to self or others. CRITICAL CARE VITAL SIGNS: T PRBP SpO2O2(LPM) %FiO2 Method 28-Jun-2022 09:03:[id number]/73 99 MDM MDM/ED COURSE: Discussed Findings with: patient Data Reviewed: vital signs Awaiting: lab results (strep testing) Treatment Plan: Rx Z-Sony. Advised pt to change toothbrush after 3 days of antibiotics, use warm salt water gargles, otc analgesics, push by mouth fluids and rest. Patient's clinical presentation is otherwise unremarkable at this time. Patient is discharged with instructions to follow-up with primary care or seek emergency medical attention for worsening symptoms or any new concerns. DISPOSITION Diagnosis/Annotation: ED Dx Name:Acute pharyngitis Code:J02.9 Disposition: discharged Type: home CONSULT CRITICAL CARE TIME Is this a critically ill patient: no Electronic Signatures for Addendum Section: Liliane Wiley (FIDEL SPENCER) (Signed Addendum 28-Jun-2022 18:24) patient contacted with results Electronic Signatures: Liliane Wiley (FIDEL SPENCER) (Signature Pending) Authored: PE, Attestation Caden Segura (CLAIM MANAGER-PRINT DECORATOR) (Signed 28-Jun-2022 09:27) Authored: ED Notes, HPI, PMH, ROS, PE, Results/Vital Signs, MDM/ED Course, Clinical Impression, Attestation, Chart Review, Scores Last Updated: 28-Jun-2022 18:24 by Liliane Wiley (FIDEL SPENCER) [facility] CBC AND DIFFERENTIALon 05-28 % AUTOMATED IMMATURE GRAN 0.2 % Normal 0.0 - 0.9 [facility] Comment on above: Result Comment: Danisha ture Granulocyte Count (IG) includes promyelocytes, myelocytes and metamyelocytes but does not include bands. Percent differential counts (%) should be interpreted in the context of the absolute cell counts (cells/L). Performed By: #### C BCDF #### [address] [address] Basophils (Bld) [#/Vol] 0.04 10*3/uL Normal 0.00 - 0.10 [facility] Comment on above: Performed By: #### C BCDF #### [address] [address] Basophils/100 WBC (Bld) 0.7 % Normal 0.0 - 2.0 [facility] Comment on above: Performed By: #### C BCDF #### [address] [address] Eosinophils (Bld) [#/Vol] 0.01 10*3/uL Normal 0.00 - 0.70 [facility] Comment on above: Performed By: #### C BCDF #### [address] [address] Eosinophils/100 WBC (Bld) 0.2 % Normal 0.0 - 6.0 [facility] Comment on above: Performed By: #### C BCDF #### [address] [address] Erythrocyte distribution width (RBC) [Ratio] 12.4 % Normal 11.5 - 14.5 [facility] Comment on above: Performed By: #### C BCDF #### [address] [address] Hematocrit (Bld) [Volume fraction] 43.4 % Normal 36.0 - 46.0 [facility] Comment on above: Performed By: #### C BCDF #### [address] [address] Hemoglobin (Bld) [Mass/Vol] 14.6 g/dL Normal 12.0 - 16.0 [facility] Comment on above: Performed By: #### C BCDF #### [address] [address] Lymphocytes (Bld) [#/Vol] 0.48 10*3/uL Low 1.20 - 4.80 [facility] Comment on above: Performed By: #### C BCDF #### [address] [address] Lymphocytes/100 WBC (Bld) 8.1 % Normal 13.0 - 44.0 [facility] Comment on above: Performed By: #### C BCDF #### [address] [address] MCHC (RBC) [Mass/Vol] 33.6 g/dL Normal 32.0 - 36.0 [facility] Comment on above: Performed By: #### C BCDF #### [address] [address] MCV (RBC) [Entitic vol] 89 fL Normal 80 - 100 [facility] Comment on above: Performed By: #### C BCDF #### [address] [address] Monocytes (Bld) [#/Vol] 0.24 10*3/uL Normal 0.10 - 1.00 [facility] Comment on above: Performed By: #### C BCDF #### [address] [address] Monocytes/100 WBC (Bld) 4.0 % Normal 2.0 - 10.0 [facility] Comment on above: Performed By: #### C BCDF #### [address] [address] Neutrophils (Bld) [#/Vol] 5.15 10*3/uL Normal 1.20 - 7.70 [facility] Comment on above: Result Comment: Perc ent differential counts (%) should be interpreted in the context of the absolute cell counts (cells/L). Performed By: #### C BCDF #### [address] [address] Neutrophils/100 WBC (Bld) 86.8 % Normal 40.0 - 80.0 [facility] Comment on above: Performed By: #### C BCDF #### [address] [address] Platelets (Bld) [#/Vol] 224 10*3/uL Normal 150 - 450 [facility] Comment on above: Performed By: #### C BCDF #### [address] [address] RBC 4.89 x10E12/L Normal 4.00 - 5.20 [facility] Comment on above: Performed By: #### C BCDF #### [address] [address] WBC (Bld) [#/Vol] 5.9 10*3/uL Normal 4.4 - 11.3 [facility] Comment on above: Performed By: #### C BCDF #### [place] [id number] COMPREHENSIVE PANELon 2022 Albumin [Mass/Vol] 4.4 g/dL Normal 3.4 - 5.0 [facility] Comment on above: Performed By: #### C MP #### [address] [address] ALP [Catalytic activity/Vol] 100 U/L Normal 33 - 110 [facility] Comment on above: Performed By: #### C MP #### [address] [address] ALT [Catalytic activity/Vol] 14 U/L Normal 7 - 45 [facility] Comment on above: Result Comment: Sunita ents treated with Sulfasalazine may generate falsely decreased results for ALT. Performed By: #### C MP #### [address] [address] Anion gap [Moles/Vol] 11 mmol/L Normal 10 - 20 [facility] Comment on above: Performed By: #### C MP #### [address] [address] AST [Catalytic activity/Vol] 16 U/L Normal 9 - 39 [facility] Comment on above: Performed By: #### C MP #### [address] [address] Bilirubin [Mass/Vol] 0.9 mg/dL Normal 0.0 - 1.2 [facility] Comment on above: Performed By: #### C MP #### [address] [address] Calcium [Mass/Vol] 9.4 mg/dL Normal 8.6 - 10.3 [facility] Comment on above: Performed By: #### C MP #### [address] [address] Chloride [Moles/Vol] 103 mmol/L Normal 98 - 107 [facility] Comment on above: Performed By: #### C MP #### [address] [address] Creatinine [Mass/Vol] 0.85 mg/dL Normal 0.50 - 1.05 [facility] Comment on above: Performed By: #### C MP #### [address] [address] eGFR FEMALE >90 Normal >90 [facility] Comment on above: Result Comment: CALC ULATIONS OF ESTIMATED GFR ARE PERFORMED USING THE 2020 CKD-EPI STUDY REFIT EQUATION WITHOUT THE RACE VARIABLE FOR THE IDMS-TRACEABLE CREATININE METHODS. https://jasn.asnjournals.org/content//ASN.63186 [address] Performed By: #### C MP #### [address] [address] Glucose [Mass/Vol] 101 mg/dL High 74 - 99 [facility] Comment on above: Performed By: #### C MP #### [address] [address] HCO3 (Bld) [Moles/Vol] 26 mmol/L Normal 21 - 32 [facility] Comment on above: Performed By: #### C MP #### [address] [address] Potassium [Moles/Vol] 3.7 mmol/L Normal 3.5 - 5.3 [facility] Comment on above: Performed By: #### C MP #### [address] [address] Protein [Mass/Vol] 7.7 g/dL Normal 6.4 - 8.2 [facility] Comment on above: Performed By: #### C MP #### [address] [address] Sodium [Moles/Vol] 136 mmol/L Normal 136 - 145 [facility] Comment on above: Performed By: #### C MP #### [address] [address] Urea nitrogen [Mass/Vol] 12 mg/dL Normal 6 - 23 [facility] Comment on above: Performed By: #### C MP #### [address] [address] Covid 19 Resultson 3 SARS-CoV-2 (COVID-19) RNA NAHID+probe Ql (Unsp spec) NEGATIVE COVID-19 Test Coronaviruses are common world-wide and are the cause of many common colds. SARS-COV2 is a new coronavirus that began circulating worldwide in 2019 so we are calling it COVID-19. It has been estimated that four out of five patients with COVID-19 will recover at home without the need for medical attention. Symptoms of COVID-19 may include cough, fever, shortness of breath, loss of taste or smell and other flu-like symptoms including chills, sore muscles, sore throat, and headache. Severe illness is more common in older people and people with other health problems such as high blood pressure, obesity, and immune system problems. If the test is positive, you have COVID-19. You will be contacted by the ordering physicians office and instructed to remain on home isolation, in accordance with CDC guidelines. You may also be contacted by the [facility] to see if any of your close contacts may have been exposed to the virus and need to quarantine. If the test is negative, you likely do not have COVID-19 at this time, but you still may have a different illness that can spread to other people (like Influenza, or the Flu) and could still be at risk for getting COVID-19. We recommend that you stay away from other people to limit the spread of illness until your symptoms are improving and you are fever-free for 24 hours without the use of fever lowering medications such as acetaminophen or ibuprofen. No test is 100% accurate so if you are still concerned you may have COVID-19, talk to your doctor about the need to continue to stay away from others. Medicines Unless your provider told you not to use the following: Acetaminophen (Tylenol and others) is generally safe. Anti-inflammatory medications, such as Ibuprofen (Advil or Motrin) or Naproxen (Aleve) can also be used. Pklr-zrx-lpvcwii cough and cold medicines can be used according to the instructions on the package. Some spjw-sbq-yqxtyfu medicines also contain acetaminophen. Make sure you are not taking more than your recommended dose. For those not hospitalized, there is no specific treatment available for this illness. Antibiotics do not treat Coronaviruses. Follow-Up Follow up with your doctor by scheduling a virtual visit or consider follow-up at one of our urgent care fever clinics. If you are having difficulty breathing, or are very weak and having difficulty standing, this is a medical emergency. Call 911 or have someone take you to the nearest emergency room immediately. If possible, wear a facemask. Additional guidance from the CDC for patients who tested POSITIVE for COVID-19 How to isolate: Isolate yourself in a specific room at home and limit your contact with others. Use a separate bathroom from other members of the household, when possible. Leave home only to get essential medical care. Do not go to work, school or public areas. Avoid using public transportation, ride-sharing, or taxis. Restrict contact with pets and other animals. If you must care for your pet or be around animals while you are sick, wash your hands before and after your interaction and wear a facemask. Make sure that shared spaces in the home have good airflow, such as by an air conditioner or an opened window, weather permitting. Personal Hygiene Procedures: Wear a face mask when in the same room as other people or pets. If a face mask interferes with your breathing, others should wear a mask when sharing space with you. Frequent hand-washing: wash your hands with soap and water for at least 20 seconds. If soap and water are not available, use alcohol-based hand mold swabber. Avoid touching your eyes, nose, and mouth with unwashed hands. Household Hygiene Procedures: Avoid sharing personal household items such as dishes, glassware, cups, eating utensils, towels or bedding with other people or pets in your home. After use, these items should be washed with soap and hot water. Disinfect all high-touch surfaces every day with antibacterial cleaning solutions such as Lysol wipes, bleach, cleansers, etc. High-touch surfaces include tabletops, doorknobs, bathroom fixtures, toilets, phones, keyboards, tablets and bedside tables. Immediately clean any surfaces that may have blood, poop or body fluids on them, using antibacterial cleaning solutions such as Lysol wipes, bleach, cleansers, etc. If clothing or bedding come into contact with blood, poop or body fluids, they should be washed immediately. Follow the directions on the laundry detergent and clothing labels but hot water is recommended when possible. Stopping home isolation precautions: If possible, consult your doctor before stopping home isolation precautions. According to the CDC, you can discontinue home isolation precautions when you have met both of these criteria: Your fever and respiratory symptoms have been gone for 24 merna (more content not included)... Normal [facility] EMR ADDONon 05-28-2022 ADDON CONFIRMATION Canceled [facility] Comment on above: Order Comment: TEST EMR ADDON WAS CANCELLED, 05/28/2022 21:06 DUPLICATE ORDER. Performed By: #### E MRAD #### [address] [address] ADDON CONFIRMATION REQUEST REC'D Normal [facility] Comment on above: Performed By: #### E MRAD #### [address] [address] HCG,BETA-QUANTITATIVEon 05-13 HCG,BETA-QUANTITATIVE <2 Normal [facility] Comment on above: Result Comment: . Total HCG measurement is performed using the Tara Clovis Access Immunoassay which detects intact HCG and free beta HCG subunit. . This test is not indicated for use as a tumor marker. HCG testing is performed using a different test methodology at [facility] than other [facility]. Direct result comparison should only be made within the same method. REF VALUES NON FEMALE <5 MALES <5 Performed By: #### C BCDF #### [place] [address] INFLUENZA A/B, COVID 2019 PC R,SYMPTOMATICon 05-28-2022 INFLUENZA A, PCR Not detected Normal Not Detected [facility] Comment on above: Result Comment: Resp iratory virus testing is performed routinely by PCR for Influenza A/B and RSV. Not Detected results do not preclude Influenza A/B or RSV infections since the adequacy of sample collection or low viral burden may impact the clinical sensitivity of this test method. Performed By: #### C BCDF #### [place] [address] INFLUENZA B, PCR Not detected Normal Not Detected [facility] Comment on above: Result Comment: Resp iratory virus testing is performed routinely by PCR for Influenza A/B and RSV. Not Detected results do not preclude Influenza A/B or RSV infections since the adequacy of sample collection or low viral burden may impact the clinical sensitivity of this test method. Performed By: #### C BCDF #### [place] [address] SARS-CoV-2 (COVID-19) RNA NAHID+probe Ql (Unsp spec) Not detected Normal Not Detected [facility] Comment on above: Result Comment: . This test has received FDA Emergency Use Authorization (EUA) and has been verified by [facility]. This test is only authorized for the duration of time that circumstances exist to justify the authorization of the emergency use of in vitro diagnostic tests for the detection of SARS-CoV-2 virus and/or diagnosis of COVID-19 infection under section 564(b)(1) of the Act, 21 U.S.C. 360bbb-3(b)(1), unless the authorization is terminated or revoked sooner. [facility] is certified under CLIA-88 as qualified to perform high complexity testing. Testing is performed in the [facility] laboratory located at [address] [place] [address]. SARS-CoV-2/Flu/RSV Multiplex Test: Fact sheet for providers: https://www.fda.gov/media/942999/download Fact sheet for patients: https://www.fda.gov/media/139714/download Performed By: #### C BCDF #### [address] [address] Lab Specimen Source Nasal, Nasopharyngeal Normal [facility] Comment on above: Performed By: #### C BCDF #### [address] [address] LACTATEon 05-28-2022 Lactate [Moles/Vol] 0.7 mmol/L Normal 0.4 - 2.0 [facility] Comment on above: Result Comment: Erica puncture immediately after or during the administration of Metamizole may lead to falsely low results. Testing should be performed immediately prior to Metamizole dosing. Performed By: #### C BCDF #### [address] [address] Provider Note - ED v3on 05-13 Provider Note - ED v3 Provider Note: Chart Review: ED NOTES ED NOTES: Source of Information: Patient. Patient's . EMR was reviewed for previous records. -------- HPI: Syncope. This 31-year-old white female presents to the ED with complaint of syncope she states that she passed out twice this morning. States that when she woke up she was not feeling well and thought if she had a granola bar and some water she would feel better she walked to the kitchen and started feeling very hot and dizzy she sat down to a chair and was going to move to the couch which she passed on to the floor she denies any injury. then found her on the ground and attempted to set her back up and she had another syncopal episode. Patient states that she has not been feeling well for the past several days with fever and nausea and feeling dizzy or like she might pass out. She states that last night she had a fever but she denied having fever this morning she does admit to a decrease in her p.o. intake since onset of not feeling well. She denies being vaccinated against COVID and/or flu. She denies any ill contacts. She denies any associated chest pain or shortness of breath prior to passing out. She states that standing up seem to make the symptoms worse. -------- PMH: Currently breast-feeding PSH: Denies Social Hx: The patient denies any use of tobacco, alcohol or illicit drugs. Fam: MEDS: Zyrtec, Tylenol ALLERGIES: Celexa, penicillin, flu vaccine -------- PHYSICAL EXAM: General: Patient alert, awake, oriented X3, appears to be in no obvious distress, nontoxic, cooperative Skin: Warm. Dry. Intact. No rash. Eyes: PEARTLA, EOMIs intact, sclera white, conjunctiva clear HEENT: Atraumatic. Normo-cephalic. Oral and nasal mucosa pink and moist. Neck: Supple without meningismus, no lymphadenopathy. CV: Regular rate and rhythm without murmurs, heaves, lifts or thrills. Respiratory: Nonlabored breathing. There are no retractions or tachypnea. Lungs are clear to auscultation bilaterally. GI: Soft, nontender, without gross distention, bowel sounds present in all 4 quadrants. There is no pulsatile masses. There is no CVA tenderness. No rebound, rigidity or guarding. MUSC: There is no joint swelling or bony tenderness on exam. Neuro: Cranial nerves II - XII grossly intact. No focal neurologic deficits are noted on exam. Lower extremities: There is no peripheral edema bilaterally, negative Homans sign. No palpable cords. Distal pulses are +2/4 and present in both lower extremities. Psych: Maintains eye contact. Cooperative. -------- ED course: EKG was interpreted by myself at 7:26 AM reveals normal sinus rhythm no acute ST or T wave changes. Heart rate is 95 bpm. The SD interval is 126 ms. The QRS durations 86 ms. The QTC is 447 ms axis is -1 degree. Patient was seen and evaluated due to complaints of of a cyst syncopal episode x2 at home. Patient describes flulike symptoms that she has had for past couple of days with decreased p.o. intake. Patient was tested for influenza and COVID which were negative. Patient urinalysis reveals no evidence of infection. CBC reveals no anemia and electrolytes were unremarkable except for a slight elevation of glucose at 101. was negative. Chest x-ray revealed no acute cardiopulmonary disease process. Patient was treated with IV fluids and orthostatics were obtained and these were negative patient was feeling much better prior to be discharged home. I feel most likely the patient's syncope was related to orthostasis due to viral syndrome and decreased p.o. intake of fluids. Patient was discharged home in stable improved condition and referred back to her primary care doctor for follow-up. This chart was dictated with the use of Wordseye software within the framework of the current electronic medical records software. Attempts were made to edit in real time, given time constraints there is the potential for inaccuracies in my dictation. Tiny Abdullahi, DO HISTORY OF PRESENTING ILLNESS MARIA ELENA is a 31 year old Female and was seen by me at 28-May-2022 07:21 for a chief complaint of syncope (c/o body aches and low grade temp x 2-3 days. this morning she c/o nausea then had a syncopal episode, fell and hit her head.)(1). Triage Information: Most recent Vital Sign Value Date Temp (F): 98.6 05-28-2022 07:27 Temp (C) (more content not included)... Normal [facility] Risk Screen - Adult Emergenc yon 05-28-2022 Risk Screen - Adult Emergency Preferred Language: Preferred Language: Preferred Language for Discussing Health Care (patient/designee)Yusuf doyle Patient Preferred Pharmacy: Patient Preferred Pharmacy Statement: I have reviewed and updated the patient's preferred pharmacy selection for today's visit. Advanced Directives: Advance Directive/DNRno Family Violence Adult: Abuse Screen: Are you or have you been threatened or abused physically, emotionally, or sexually by anyoneno Learning Assessment (Patient): Learning Assessment (Patient): Patient is Able to be Assessed for Learningyes Factors Influencing Readiness to Learnn/a Factors that Impact Ability to Learnnone Devices/Methods Used to Communicatenone Learning Preferencesverbal instruction Cultural Considerationsnone Developmental Considerationsnone Rastafari Considerationsnone Other Learnersspouse Learning Assessment (Other Learner): Learning Assessment (Other Learner): Other learner availableyes... Learnerspouse Factors Influencing Readiness to Learnn/a Factors that Impact Ability to Learnnone Devices/Methods Used to Communicatenone Learning Preferencesverbal instruction Cultural Considerationsnone Developmental Considerationsnone Rastafari Considerationsnone Pressure Injury/TB/Substance: Pressure Injury: Do you have a coughno Smoking Statusnever smoker Alcohol Usedenies Drug Usedenies Admission Risk Screen: Significant IndicatorsComplete CAGE: CAGE: Is this an injured patient at a Trauma Center ([facility]): no Electronic Signatures: Ilana Gupta (RN) (Signed 28-May-2022 07:36) Authored: Preferred Language, Patient Preferred Pharmacy, Advanced Directives, Family Violence Adult, Learning Assessment (Patient), Learning Assessment (Other Learner), Pressure Injury/TB/Substance, Pressure Injury, CAGE Last Updated: 28-May-2022 07:36 by Ilana Gupta (RN) Normal [facility] TSHon 05-28-2022 TSH Qn 2.11 m[IU]/L Normal 0.44 - 3.98 [facility] Comment on above: Result Comment: TSH testing is performed using different testing methodology at [facility] than at other [facility]. Direct result comparisons should only be made within the same method. Performed By: #### C BCDF #### [address] [place] [address] Triage - EDon 05-28-2022 Triage - ED Quick Triage: Are You no Have You Given In The Last 6 Weeksno Are You Currently Breastfeedingyes Chart Review: PRIMARY ASSESSMENT ABCD Normal Findings: airway open and patent, circulation normal and alert and oriented ARRIVAL INFORMATION Means of Arrival: Ambulatory Mode of Arrival: private vehicle Arrival From: home Accompanied By: spouse/significant other Language: Spoken Language Preferred: Tristanian Reading Language Preferred: Tristanian Present on Arrival: Device Present on Arrival to ED: no CHIEF COMPLAINT MARIA ELENA AJ is a Female patient with a chief complaint of syncope (c/o body aches and low grade temp x 2-3 days. this morning she c/o nausea then had a syncopal episode, fell and hit her head.). Triage Date/Time: 28-May-2022 07:20 NESHA: 2 Pain Rating (0-10): 4 = Moderate Pain location: generalized Vital Signs: Temperature: 98.6F ( 37.0C) taken temporal Blood Pressure: 118/78 Mean: Heart Rate: 98 Respiratory Rate: 16 Pulse Oximetry: 98% on room air, no respiratory support. Height: 5 feet 6.00 inches. 167.6 CM Weight: 140.2 pounds. Calculated 63.6 kg. (stated) Calculated BMI (kg/m2): 22.641 Calculated BSA (m2) 1.72 Alan Coma Scale: Best Eye Response: (E4) spontaneous Best Motor Response: (M6) obeys commands Best Verbal Response: (V5) oriented [place] Score: 15 Last menstrual period: 18-May-2022 Patient has homicidal thoughts: no Risk Screens Suicide Risk Screen In the Past Month: Have you wished you were or wished you could go to sleep and not wake up no In the Past Month: Have you had any actual thoughts of killing yourself no In Your Lifetime: Have you ever done anything, started to do anything, or prepared to do anything to end your life no Talbert Fall Scale Screening Has the patient fallen before (or is the patient in the ED as a result of a fall) has had a fall Does the patient have an impaired gait does not have impaired gait Is the patient cognitively impaired not cognitively impaired Talbert Fall Scale History of falling (immediate or previous) yes (25) Secondary Diagnosis no (0) Intravenous Therapy/ Heparin/Saline Lock no (0) Gait/Transferring normal/bedrest/wheelchai r (0) Ambulatory Aids none/bedrest/nurse assist (0) Mental Status oriented to own ability (0) Talbert Fall Risk Score: 25 Interventions: Talbert Fall Interventions: MODERATE INTERVENTIONS: *Low Interventions Plus: * falls risk band/sticker applied to patient, *yellow non-skid footwear, *instruct to call for assistance before getting out of bed, *bed/chair/bedside commode/toilet alarms, *sensory devices/ambulatory aides available and in reach, *medications reviewed for potential side effects and care planning. TRAVEL HISTORY Travel History Coronavirus Screening: no exposure or symptoms Travel Exposure History: NO travel to International locations in the past 30 days PAIN Pain Scale Used: PARKER Pain Rating (0-10): 4 = Moderate Past Medical History: Past Medical History Reviewedyes Electronic Signatures: Ilana Gupta) (Signed 28-May-2022 07:35) Entered: Risk Screens, Pain, Arrival, ABCD, Travel History, Chart Review, Past Medical History Authored: Quick Triage, Risk Screens, Pain, Arrival, ABCD, Travel History, Chart Review, Past Medical History Last Updated: 28-May-2022 07:35 by Ilana Gupta (RN) Normal [facility] UA MICROSCOPICon 05-28-2022 RBC None Normal 0-5 [facility] Comment on above: Performed By: #### U AMIC #### [place] [address] SQUAMOUS EPITH. CELLS 5 /HPF Normal [facility] Comment on above: Performed By: #### U AMIC #### [place] [address] WBC None Normal 0-5 [facility] Comment on above: Performed By: #### U AMIC #### [place] [address] URINALYSIS WITH CULTURE IF I NDICATEDon 05-28-2022 Appearance (U) HAZY Normal CLEAR [facility] Comment on above: Performed By: #### C BCDF #### [place] [address] Bilirubin Ql (U) Negative Normal NEGATIVE [facility] Comment on above: Performed By: #### C BCDF #### [id number] Color (U) Yellow Normal STRAW,YELLOW [facility] Comment on above: Performed By: #### C BCDF #### [place] [address] Glucose Ql (U) Negative Normal NEGATIVE [facility] Comment on above: Performed By: #### C BCDF #### [id number] Hemoglobin Ql (U) SMALL(1+) Abnormal NEGATIVE [facility] Comment on above: Performed By: #### C BCDF #### [address] [place] [id number] Ketones Ql (U) 5(TRACE) Abnormal NEGATIVE [facility] Comment on above: Performed By: #### C BCDF #### [address] [address] Leukocyte esterase Test strip Ql (U) Negative Normal NEGATIVE [facility] Comment on above: Performed By: #### C BCDF #### [address] [address] Nitrite Ql (U) Negative Normal NEGATIVE [facility] Comment on above: Performed By: #### C BCDF #### [address] [address] pH (U) 5.0 [pH] Normal 5.0 - 8.0 [facility] Comment on above: Performed By: #### C BCDF #### [address] [address] Protein Ql (U) 30(1+) Abnormal NEGATIVE [facility] Comment on above: Performed By: #### C BCDF #### [address] [address] Specific gravity (U) [Rel density] 1.016 Normal 1.005 - 1.035 [facility] Comment on above: Performed By: #### C BCDF #### [address] [address] Urobilinogen (U) [Mass/Vol] mg/dL Normal 0.0 - 1.9 [facility] Comment on above: Performed By: #### C BCDF #### [address] [address] LMPon 12-04-2021 Last menstrual period start date [facility] [address] [employer] Phone: [facility] - Visiton 12-04-2021 [facility] - Visit Chief Complaint Patient here today for 6 week post visit. She had a on 10-16-[address] boy delivered by Dr. Long. She is breast feeding, has not started her period, has no signs of post depression, has been sexually active but is not interested in control at this time. History of Present IllnessPatient comes in for 6-week visit after a primary . Patient reports that her incision was slow to heal but now has healed completely. Patient is breast-feeding. Patient has stopped bleeding. Patient was sexually active last week and is not interested in any form of contraception at this point Active Problems 31 weeks gestation of (V22.2) (Z3A.31) 36 weeks gestation of (V22.2) (Z3A.36) COVID-19 (079.89) (U07.1) Fatigue (780.79) (R53.83) Hematuria (599.70) (R31.9) LGA (large for gestational age) fetus Normal first in third trimester (V22.0) (Z34.03) Screen for STD (sexually transmitted disease) (V74.5) (Z11.3) Screening for cervical cancer (V76.2) (Z12.4) Weight gain (783.1) (R63.5) Past Medical History History of Papanicolaou smear (V45.89) (Z98.890) 04/04/2021 NIL HPV- History of Menstruation AGE 15 Surgical History History of Colonoscopy History of Foot surgery History of Hydatidiform mole removal History of [place] tooth extraction Family History Family history of Crohn's disease (V18.59) (Z83.79) Family history of thyroid disease (V18.19) (Z83.49) Family history of Irregular heartbeat Family history of thyroid disease (V18.19) (Z83.49) Social History Never smoker No advance directives (V49.89) (Z78.9) No alcohol use No illicit drug use Sexually active Allergies CeleXA TABS Recorded By: Rosalinda Rand; 10/26/2020 4:07:34 PM Influenza, seasonal, injectable Recorded By: Rosalinda Rand; 10/26/2020 4:07:34 PM Penicillins Recorded By: Rosalinda Rand; 10/26/2020 4:07:34 PM Current Meds ZyrTEC Allergy 10 MG Oral Capsule; Therapy: (Recorded:26Oct2020) to Recorded Dispense: 0 Days ; #: Sufficient; Refill: 0; NANCY = N; Record; Last Updated By: Rosalinda Rand; 10/26/2020 4:07:35 PM Vitals Vital Signs Recorded: [id number] 03:02PM Jdovahpl166 Uryhszoxc02 Height5 ft 6 in Jzribk946 lb 13.60 oz BMI Icdvhkzhoa16.48 kg/m2 BSA Calculated1.81 LMPbreastfeeding Physical Exam Constitutional: Healthy-appearing in no distress. Head and Face: No obvious lesions. Neck: Good range of motion. Pulmonary: Breathing comfortably. Abdomen: Incision clean intact and well-healed. Genitourinary: Sexual maturation: External genitalia revealed no lesions the vagina was well estrogenized the cervix was healthy-appearing. Musculoskeletal: Traumatic good mobility of her extremities. Psychiatric: Appropriately oriented with normal mood and affect where he got Currently. Provider Impressions Patient is a 6 weeks . Patient is doing well. Declined contraception. Follow-up in 6 months for her annual Signatures Electronically signed by : Bre Long DO; Dec 04 2021 3:20PM EST (Author) Normal [facility] [facility] - Post Opon [facility] - Post Op Provider Impressions Patient is 1 week post for postop check. Patient doing well. Continue cleaning incision regularly and follow-up in 5 weeks for her visit Chief Complaint PT HERE TODAY FOR A C/S CHECK. PT DENIES ANY REDNESS, OR DISCHARGE COMING FROM SITE. PT HAS NO CONCERNS AT THIS TIME. History of Present IllnessPatient is a 31-year-old who is here for incision check status post last week. Patient is breast-feeding. Patient reports that bleeding is not excessive. Patient tolerating diet well. Pain is well controlled with Motrin and Tylenol. Patient has no complaints or concerns today Active Problems 31 weeks gestation of (V22.2) (Z3A.31) 36 weeks gestation of (V22.2) (Z3A.36) COVID-19 (079.89) (U07.1) Fatigue (780.79) (R53.83) Hematuria (599.70) (R31.9) LGA (large for gestational age) fetus Normal first in third trimester (V22.0) (Z34.03) Screen for STD (sexually transmitted disease) (V74.5) (Z11.3) Screening for cervical cancer (V76.2) (Z12.4) Weight gain (783.1) (R63.5) Past Medical History History of Papanicolaou smear (V45.89) (Z98.890) 04/04/2021 NIL HPV- History of Menstruation AGE 15 Surgical History History of Colonoscopy Resolved Date: 18 Nov 2017 History of Foot surgery History of Hydatidiform mole removal History of [place] tooth extraction Family History Family history of Crohn's disease (V18.59) (Z83.79) Family history of thyroid disease (V18.19) (Z83.49) Family history of Irregular heartbeat Family history of thyroid disease (V18.19) (Z83.49) Social History Never smoker No advance directives (V49.89) (Z78.9) No alcohol use No illicit drug use Sexually active Allergies CeleXA TABS Recorded By: Rosalinda Rand; 10/26/2020 4:07:34 PM Influenza, seasonal, injectable Recorded By: Rosalinda Rand; 10/26/2020 4:07:34 PM Penicillins Recorded By: Rosalinda Rand; 10/26/2020 4:07:34 PM Current Meds Medication NameInstruction PNV Plus Multivitamin TABS Tylenol TABS ZyrTEC Allergy 10 MG Oral Capsule Vitals Vital Signs Recorded: 23Oct2021 02:20PM Cyixicrv792 Dulvmojrd45 Height5 ft 6 in Sxpakj713 lb 8.78 oz BMI Poiuraxget14.04 kg/m2 BSA Calculated1.86 Physical Exam Constitutional: Awake alert appearing in no distress. Pulmonary: Breathing comfortably. Abdomen: Incision clean dry intact and healing well Steri-Strips removed. Musculoskeletal: Good mobility of her extremities. Psychiatric: Appropriately oriented with normal mood and affect. Signatures Electronically signed by : Bre Long DO; Oct 23 2021 2:54PM EST (Author) Normal [facility] Daily Progress Note - OB-Pos t-partumon 10-19-2021 Daily Progress Note - UP-Rind-ivhvkf Current Stage: Stage: Post- Subjective Data: Post : Ambulate: Yes Flatus: Yes Tolerate Diet: Yes : POD #3 Patient is resting well. She is breast-feeding. Objective Information: Objective Information: T PRBPMAPSpO2 [id number]% Date/Time10/19 0:356/9 0:356/9 3:156/9 0:356/9 0:356/9 3:15 Range(36.6C - 36.7C ) (62 - 72 ) (14 - 16 ) (120 - 135 )/ (73 - 85 ) (86 - 99 ) (97% - 98% ) Pain reported at 6 3:15: denies needs at this time ---- Intake and Output ----- Mn/Dy/Year TimeIntakeOutputNet Oct 19, 2021 6:00 am000 Physical Exam: Constitutional: alert, oriented Obstetric: Abdomen: Soft and nontender. The low Pfannenstiel incision is healing well, well approximated, no erythema or drainage. Steri-Strips in place. Respiratory/Thorax: normal respiratory effort, lungs clear, no wheezes or rhonchi Cardiovascular: S1 S2 RRR, no murmurs Extremities: no calf tenderness, reflexes 2+ Assessment and Plan: Additional Dx: Single live : Entered Date: 17-Oct-2021 07:11 intolerance to labor, delivered, current hospitalization: Entered Date: 17-Oct-2021 07:10 Status post delivery: Entered Date: 17-Oct-2021 07:10 39 weeks gestation of : Entered Date: 13-Oct-2021 12:45 Assessment: POD #3 Home today. Follow-up in the office with Dr. Long in 1 week for incision check. Electronic Signatures: Sal Trejo) (Signed 19-Oct-2021 07:19) Authored: Current Stage, Subjective Data, Objective Data, Assessment and Plan, Note Completion Last Updated: 19-Oct-2021 07:19 by Sal Trejo) Normal [facility] CBCon 10-18-2021 Erythrocyte distribution width (RBC) [Ratio] 15.9 % High 11.5 - 14.5 [facility] Comment on above: Performed By: #### C BCDF #### [address] [address] Hematocrit (Bld) [Volume fraction] 33.7 % Low 36.0 - 46.0 [facility] Comment on above: Performed By: #### C BCDF #### [address] [address] Hemoglobin (Bld) [Mass/Vol] 11.5 g/dL Low 12.0 - 16.0 [facility] Comment on above: Performed By: #### C BCDF #### [address] [address] MCHC (RBC) [Mass/Vol] 34.0 g/dL Normal 32.0 - 36.0 [facility] Comment on above: Performed By: #### C BCDF #### [address] [address] MCV (RBC) [Entitic vol] 86 fL Normal 80 - 100 [facility] Comment on above: Performed By: #### C BCDF #### [place] [id number] Platelets (Bld) [#/Vol] 157 10*3/uL Normal 150 - 450 [facility] Comment on above: Performed By: #### C BCDF #### [place] [id number] RBC 3.92 x10E12/L Low 4.00 - 5.20 [facility] Comment on above: Performed By: #### C BCDF #### [address] [address] WBC (Bld) [#/Vol] 10.3 10*3/uL Normal 4.4 - 11.3 [facility] Comment on above: Performed By: #### C BCDF #### [place] [id number] COMPREHENSIVE PANELon 2021 Albumin [Mass/Vol] 2.7 g/dL Low 3.4 - 5.0 [facility] Comment on above: Performed By: #### C MP ####[address] [address] ALP [Catalytic activity/Vol] 118 U/L High 33 - 110 [facility] Comment on above: Performed By: #### C MP ####[place] [id number] ALT [Catalytic activity/Vol] 11 U/L Normal 7 - 45 [facility] Comment on above: Result Comment: Sunita ents treated with Sulfasalazine may generate falsely decreased results for ALT. Performed By: #### C MP ####[address] [address] Anion gap [Moles/Vol] 11 mmol/L Normal 10 - 20 [facility] Comment on above: Performed By: #### C MP ####[address] [address] AST [Catalytic activity/Vol] 16 U/L Normal 9 - 39 [facility] Comment on above: Performed By: #### C MP ####[address] [address] Bilirubin [Mass/Vol] 0.3 mg/dL Normal 0.0 - 1.2 [facility] Comment on above: Performed By: #### C MP ####[address] [address] Calcium [Mass/Vol] 8.4 mg/dL Low 8.6 - 10.3 [facility] Comment on above: Performed By: #### C MP ####[address] [address] Chloride [Moles/Vol] 106 mmol/L Normal 98 - 107 [facility] Comment on above: Performed By: #### C MP ####[address] [address] Creatinine [Mass/Vol] 0.63 mg/dL Normal 0.50 - 1.05 [facility] Comment on above: Performed By: #### C MP ####[address] [address] eGFR FEMALE >90 Normal >90 [facility] Comment on above: Result Comment: CALC ULATIONS OF ESTIMATED GFR ARE PERFORMED USING THE 2020 CKD-EPI STUDY REFIT EQUATION WITHOUT THE RACE VARIABLE FOR THE IDMS-TRACEABLE CREATININE METHODS. https://jasn.asnjournals.org/content//ASN.79545 77218 Performed By: #### C MP ####[address] [address] Glucose [Mass/Vol] 79 mg/dL Normal 74 - 99 [facility] Comment on above: Performed By: #### C MP ####[address] [address] HCO3 (Bld) [Moles/Vol] 24 mmol/L Normal 21 - 32 [facility] Comment on above: Performed By: #### C MP ####[address] [address] Potassium [Moles/Vol] 4.0 mmol/L Normal 3.5 - 5.3 [facility] Comment on above: Performed By: #### C MP ####[address] [address] Protein [Mass/Vol] 5.5 g/dL Low 6.4 - 8.2 [facility] Comment on above: Performed By: #### C MP ####[address] [address] Sodium [Moles/Vol] 137 mmol/L Normal 136 - 145 [facility] Comment on above: Performed By: #### C MP ####[address] [address] Urea nitrogen [Mass/Vol] 13 mg/dL Normal 6 - 23 [facility] Comment on above: Performed By: #### C MP ####[address] [address] Daily Progress Note - OB-Pos t-partumon 10-18-2021 Daily Progress Note - WA-Yluf-bybefq Current Stage: Stage: Post- Subjective Data: Post : Ambulate: Yes Flatus: Yes Tolerate Diet: Yes Lochia: Light Current Pain Level (1-10): 0 : Patient is postop day #2 status post . Patient reports she only slept about 1 or 2 hours last night. Patient reports she is breast-feeding and that is going okay. Patient is tolerating a diet well. Patient reports good flatus and a small bowel movement yesterday. Patient reports pain is well controlled with Motrin and Tylenol. Patient reports she did use her incentive spirometer yesterday. Patient is voiding without difficulty. Patient has no concerns denies headaches or visual changes. Objective Information: Objective Information: T PRBPMAPSpO2 [id number]% Date/Time10/18 5: 5: 5: 5: 5: 5:25 Range(36.6C - 37.1C ) (48 - 97 ) (14 - 16 ) (119 - 139 )/ (64 - 82 ) (86 - 106 ) (88% - 98% ) Highest temp of 37.1 C was recorded at 10/17 12:34 Pain reported at 10/18 1:02: 2 = Mild ---- Intake and Output ----- Mn/Dy/Year TimeIntakeOutputNet Oct 17, 2021 10:00 [id number] Oct 17, 2021 2:00 [id number] The Intake and Output Totals for the last 24 hours are: IntakeOutputNet [id number] Physical Exam: Constitutional: Awake alert in no physical distress Obstetric: Uterine fundus appropriately tender below the umbilicus Head/Neck: Good range of motion Respiratory/Thorax: Good air movement and clear to auscultation Cardiovascular: Regular rate and rhythm Genitourinary: Perineum scant blood Extremities: Good mobility of her extremities Psychological: Appropriately oriented with normal mood and affect Skin: Incision clean dry and Steri-Strip strips intact Recent Lab Results: Results: CBC: 10/18/2021 04:02 \ Hgb / \ 11.5 L / WBC Plt 10.3 157 / Hct \ / 33.7 L \ RBC: 3.92 L MCV: 86 CMP: 10/18/2021 04:01 NA+ Cl- BUN / 137 106 13 / -------- Glucose --- 79 K+ HCO3- Creat \ 4.0 24 0.63 \ \ T Bili / \ 0.3 / AST x ---- x ALT 16 x ---- x 11 / Alk P \ / 118 H \ Calcium : 8.4 L Anion Gap : 11 Albumin : 2.7 L T Protein : 5.5 L Assessment and Plan: Assessment: Patient is status post primary postoperative day #2. Pain well controlled with Motrin and Tylenol GI function appears to have returned to normal. Bleeding minimal Breast-feeding is going okay patient desires to stay in hospital 1 more day to continue working on breast-feeding. Anticipate discharge home tomorrow patient has been doing well. Electronic Signatures: Bre Long) (Signed 18-Oct-2021 08:52) Authored: Current Stage, Subjective Data, Objective Data, Assessment and Plan, Note Completion Last Updated: 18-Oct-2021 08:52 by Bre Long) [facility] Discharge [id number] Discharge Profile2 Discharge Orders: Anticipated Discharge Date: Anticipated Discharge [id number] Problem List: Additional Dx: intolerance to labor, delivered, current hospitalization: Catalog Name: Labor and delivery complicated by stress, unspecified Hospital Providers: Provider RoleProvider Name AttendingBre Long DNAR: Code Status at Discharge: Full Code : Call 911: Call 911 or go to the nearest emergency room RIGHT AWAY if you have:. Chest pain or pressure; heart racing. Shortness of breath or difficulty breathing. Seizures; change in alertness or confusion. Thoughts of hurting yourself or someone else. Call Provider: Call your OB Provider if you have: (If you can't reach your healthcare provider, call 911 or go to an emergency room). Heavy bleeding. Soaking a large pad every hour or passing large clots. Incision that is not healing, is red or more painful, or has pus (if you have an incision). Red or swollen leg that is painful or warm to touch. Temperature of 100.4 degrees F or higher; bad-smelling vaginal blood or discharge. Headache that does not get better, even after taking medicine; bad headache with vision changes; pain in the upper right area of your belly. Red or swollen breast that is painful or warm to touch. Pain, burning, or difficulty with emptying your bladder. Severe constipation (more than 5 days). Trust your instincts. Always get medical care if you are not feeling well or have questions or concerns.. Activity: Return to normal activity as tolerated. Patient Instructions: Pelvic Rest: DO NOT place anything in vagina until cleared by OB Provider. May NOT return to school/work until cleared by OB Provider. Blood Pressure: Any Blood Pressure Systolic (upper number) 160 or higher OR Diastolic (bottom number) 110 or higher, call your doctor or director of safety immediately. Blood Pressure Systolic (upper number) 150 - 159 OR Diastolic (bottom number) 100 - 109, repeat in one hour. If repeat Blood Pressure Systolic 150 - 159 OR Diastolic 100 - 109, call your doctor or director of safety to discuss blood pressure management.. Diet: Regular. Follow-Up - OB Provider: Physician/Dept/ServiceOB Provider Dr. Long Call to Schedule in1 week, Outpatient office Electronic Signatures: Bre Long) (Signed 18-Oct-2021 08:56) Authored: Discharge Orders, , Gold Form - Behavioral Health Clinician Summary Last Updated: 18-Oct-2021 08:56 by Bre Long) [facility] Order Reconciliationon 10-18 Order Reconciliation Page 1 Discharge Reconciliation Document Reconciliation Type: Discharge requested on behalf of Bre Long (Physician) done by Bre Long) Discharge - Reconciliation: 18-Oct-2021 08:55 by: Bre Long) Home Medications EnteredHOME MEDICATIONS AT DISCHARGE DateReconciliation Comment/ Additional Information acetaminophen 325 mg oral tablet 2 tab(s) orally every 4 hours as needed for pain 16-Oct-2021 19:32 Discontinued; Discontinue from ORM acetaminophen 325 mg oral tablet is not required 1 oral capsule 1 cap(s) orally once a day 16-Oct-2021 19:32 1 oral capsule 1 cap(s) orally once a day 16-Oct-2021 19:32 1 oral capsule is continued as 1 oral capsule ZyrTEC 10 mg oral tablet 1 tab(s) orally once a day as needed 16-Oct-2021 19:31 ZyrTEC 10 mg oral tablet 1 tab(s) orally once a day as needed 16-Oct-2021 19:31 ZyrTEC 10 mg oral tablet is continued as ZyrTEC 10 mg oral tablet Current OrdersDateHOME MEDICATIONS AT DISCHARGE DateReconciliation Comment/ Additional Information Acetaminophen Tablet (TYLENOL)DOSE = 975 mg Oral Every 6 Hours 16-Oct-2021 23:57 acetaminophen 325 mg oral tablet 3 tab(s) orally every 6 hours 18-Oct-2021 08:53 Acetaminophen is continued as acetaminophen 325 mg oral tablet Acetaminophen Rectal Suppository (TYLENOL)DOSE = 650 mg Rectal Once, PRN Initial pain mgmt following deliveryClinician Notes: Administer in the OR. 13-Oct-2021 12:46 Acetaminophen Rectal is not required Benzocaine 20% - Menthol 0.5% Topical Prince (DERMOPLAST)DOSE = 1 application(s) Topical 4 Times a Day, PRN DiscomfortApply to Perianal Area 16-Oct-2021 18:18 Benzocaine 20% - Menthol 0.5% Topical is not required Bisacodyl Rectal Suppository (DULCOLAX)DOSE = 10 mg Rectal Daily, PRN Severe constipation 16-Oct-2021 18:18 Bisacodyl Rectal is not required Carboprost IntraMuscular (HEMABATE)DOSE = 250 microgram(s) IntraMuscular Once, PRN post bleeding in non-asthmatic patientClinician Notes: Consult provider prior to administration. 13-Oct-2021 12:46 Carboprost IntraMuscular is not required diphenhydrAMINE Injectable (BENADRYL)DOSE = 25 mg IntraVenous Push Every 4 Hours, PRN Itching if Nubain not effectiveStop After 24 Hours 16-Oct-2021 17:09 diphenhydrAMINE Injectable is not required Docusate Capsule (COLACE)DOSE = 100 mg Oral 2 Times a Day 16-Oct-2021 18:18 Docusate is not required fentaNYL 2 mcg/mL - Bupivacaine 0.0625% PCEA DEMAND/ PCEA Dose = 5BASAL/ Continuous Rate = 10One Hour Dose Limit = 40 mL/hr mL per hourNotes from Pharmacy: [Fentanyl 2 mcg/mL - Bupivacaine 0.0625%] 16-Oct-2021 15:02 fentaNYL 2 mcg/mL - Bupivacaine 0.0625% PCEA is not required hydrALAZINE (APRESOLINE) Injectable DOSE = 5 mg IntraVenous Push Once, PRN Acute-onset, severe HTN w/out known, suspected CADClinician Notes: Consult provider prior to administration. Push over more than 2 minutes. Systolic greater than or equal to 16 13-Oct-2021 12:46 hydrALAZINE (APRESOLINE) Injectable is not required HYDROmorphone Injectable (DILAUDID)DOSE = 0.2 mg IntraVenous Push Every 5 Minutes, PRN Pain - Severe (7-10)Clinician Notes: Max 4 Doses (0.8 mg) Contact OB Anesthesia for pain not being controlled 16-Oct-2021 17:09 HYDROmorphone Injectable is not required Ibuprofen Tablet (ADVIL, MOTRIN)DOSE = 600 mg Oral Every 6 HoursClinician Notes: START no earlier than 24 Hours AFTER Duramorph given. Give with Acetaminophen. 16-Oct-2021 18:18 ibuprofen 800 mg oral tablet 1 tab(s) orally every 8 hours 18-Oct-2021 08:53 Prescription is created for ibuprofen 800 mg oral tablet Labetalol Injectable (TRANDATE)DOSE = 20 mg IntraVenous Push Once, PRN Acute-onset, sev HTN w/o active asthma/ bret<60Clinician Notes: Consult provider prior to administration. Push over more than 2 minutes. Systolic greater than or equal to 160 OR 13-Oct-2021 12:46 Labetalol Injectable is not required Lactated Ringers Infusion IV Bag Volume = 1,000 mL Run at: 100 mL/hr IntraVenous Clinician Notes: Kayleen-operative order ONLY 16-Oct-2021 17:07 Lactated Ringers Infusion is not required Lactated Ringers Infusion IV Bag Volume = 1,000 mL Run at: 100 mL/hr IntraVenous Clinician Notes: Kayleen-operative order ONLY 16-Oct-2021 17:09 Lactated Ringers Infusion is not required Lactated Ringers Infusion IV Bag Volume = 1,000 mL Run at: 100 mL/hr IntraVenous 16-Oct-2021 16:17 Lactated Ringers Infusion is not required Lactated Ringers Infusion IV Bag Volume = 1,000 mL Run at: 125 mL/hr IntraVenous Clinician Notes: Convert IV to Saline Lock When Taking Oral Fluids Well 16-Oct-2021 18:18 Lactated Ringers Infusion is not required Lactated Ringers Infusion IV Bag Volume = 1,000 mL Run at: 125 mL/hr IntraVenous 13-Oct-2021 12:46 Lactated Ringers Infusion is not required Lactated Ringers IV Bolus DOSE = 1,000 mL OnceInfuse over 2 hour(s) 16-Oct-2021 16:17 Lactated Ringers (more content not included)... Normal [facility] CBCon 10-17-2021 Erythrocyte distribution width (RBC) [Ratio] 16.0 % High 11.5 - 14.5 [facility] Comment on above: Performed By: #### C BC #### [address] [address] Hematocrit (Bld) [Volume fraction] 34.8 % Low 36.0 - 46.0 [facility] Comment on above: Performed By: #### C BC #### [address] [address] Hemoglobin (Bld) [Mass/Vol] 11.6 g/dL Low 12.0 - 16.0 [facility] Comment on above: Performed By: #### C BC #### [address] [address] MCHC (RBC) [Mass/Vol] 33.4 g/dL Normal 32.0 - 36.0 [facility] Comment on above: Performed By: #### C BC #### [address] [address] MCV (RBC) [Entitic vol] 86 fL Normal 80 - 100 [facility] Comment on above: Performed By: #### C BC #### [address] [address] Platelets (Bld) [#/Vol] 177 10*3/uL Normal 150 - 450 [facility] Comment on above: Performed By: #### C BC #### [address] [address] RBC 4.05 x10E12/L Normal 4.00 - 5.20 [facility] Comment on above: Performed By: #### C BC #### [address] [address] WBC (Bld) [#/Vol] 16.8 10*3/uL High 4.4 - 11.3 [facility] Comment on above: Performed By: #### C #### [place] [address] [place] [address] Daily Progress Note - OB-Pos t-partumon 10-17-2021 Daily Progress Note - [id number] Current Stage: Stage: Post- Subjective Data: Post : Ambulate: No Flatus: Yes Tolerate Diet: Yes Lochia: Moderate : Patient is postoperative day #1. Patient reports that she did not sleep well last night because she was up through the night breast-feeding. Patient reports that pain overall is fairly well controlled. Patient has not voided since catheter was removed this morning. Patient reports good flatus and tolerating diet well. Patient has no complaints today and is working on breast-feeding. Patient denies headaches or visual changes Objective Information: Objective Information: T PRBPMAPSpO2 [id number]/812835% Date/Time10/17 3: 8: 3: 3:5310/17 3:5310/17 8:12 Range(36.6C - 37C ) (48 - 115 ) (16 - 18 ) (104 - 155 )/ (57 - 93 ) (75 - 112 ) (94% - 100% ) Highest temp of 37 C was recorded at 10/16 12:20 Pain reported at 10/17 3:53: 2 = Mild ---- Intake and Output ----- Mn/Dy/[facility]Int[facility]OutF[facility] Oct 17, 2021 6:00 [id number] Oct 16, 2021 10:00 [id number] Oct 16, 2021 2:00 [id number] The Intake and Output Totals for the last 24 hours are: IntakeOutputNet [id number] Physical Exam: Constitutional: Healthy-appearing in no physical distress Obstetric: Uterine fundus appropriately tender firm below the umbilicus Head/Neck: Good range of motion Respiratory/Thorax: Good air movement and clear to auscultation Cardiovascular: Regular rate and rhythm Gastrointestinal: Hypoactive bowel sounds Genitourinary: Scant blood on the perineum Musculoskeletal: Good mobility of her extremities Psychological: Appropriately oriented with normal mood and affect Recent Lab Results: Results: CBC: 10/17/2021 03:25 \ Hgb / \ 11.6 L / WBC Plt 16.8 H 177 / Hct \ / 34.8 L \ RBC: 4.05 MCV: 86 Assessment and Plan: Assessment: Patient is postoperative day #1 after a primary . GI appears to have hypoactive bowel sounds but will continue with regular diet as tolerated. Encourage ambulation to improve GI function. Pain adequately controlled Blood pressure elevated yesterday today blood pressure is normal and no symptoms of preeclampsia will watch blood pressure closely and check preeclamptic labs tomorrow Respiratory encourage incentive spirometery Electronic Signatures: Bre Long) (Signed 17-Oct-2021 08:17) Authored: Current Stage, Subjective Data, Objective Data, Assessment and Plan, Note Completion Last Updated: 17-Oct-2021 08:17 by Bre Long) [facility] Laboratory - Hematology and Cell countson 10-17-2021 Erythrocyte distribution width (RBC) [Ratio] 16.0 % above high threshold See Below [facility] [address] Work Phone: [phone] Comment on above: Reference Range: 11. 5 - 14.5 Hematocrit (Bld) [Volume fraction] 34.8 % below low threshold See Below [facility] [address] Work Phone: [phone] Comment on above: Reference Range: 36. 0 - 46.0 Hemoglobin (Bld) [Mass/Vol] 11.6 g/dL below low threshold See Below [facility] [address] Work Phone: [phone] Comment on above: Reference Range: 12. 0 - 16.0 MCHC (RBC) [Mass/Vol] 33.4 g/dL See Below [facility] [address] Work Phone: [phone] Comment on above: Reference Range: 32. 0 - 36.0 MCV (RBC) [Entitic vol] 86 fL 80 - 100 [facility] [address] Work Phone: [phone] Platelets (Bld) [#/Vol] 177 10*3/uL 150 - 450 [facility] [address] Work Phone: [phone] RBC (Bld) [#/Vol] 4.05 {x10E12/L} See Below [facility] [address] Work Phone: [phone] Comment on above: Reference Range: 4.0 0 - 5.20 WBC (Bld) [#/Vol] 16.8 10*3/uL above high threshold 4.4 - 11.3 [facility] [address] Work Phone: [phone] SYPHILIS SCREENING WITH REFL EXon 10-17-2021 SYPHILIS TOTAL AB Non-Reactive Normal NONREACTIVE [facility] Comment on above: Result Comment: No s ignificant level of Treponema pallidum antibody detected. Repeat testing in 2 to 4 weeks may be considered if early infection or incubating syphilis infection is suspected. Performed By: #### [facility] ####[id number] [place], [place] [id number] Admission Risk Screen - [place] 10-16-2021 Admission Risk Screen - OB Allergies: Allergies: penicillin: Unknown Celexa: Unknown influenza virus vaccine, inactivated: Other, Rash Patient Verification: New W ID Band Applied in my Departmentyes Patient Identity Verified Bydriver's license/state ID; patient ID Band FULL Name, include Middle, spelling matches patient's ID used for verificationyes ID Band Matches Patient ID used for Verficationyes ID Band MRN Matches EMR MRNyes Visitor Restriction: Coronavirus Visitor Restriction: Reasonable restrictions to in-person visitors will be observed due to current coronavirus pandemic. Travel History: COVID-19 Screening CompletedCOVID positive 14 or more days ago Additional DetailsCovid + in 2020 Travel or Exposure Past 30 DaysNO travel to International locations in the past 30 days Advance Directive: Advance Directive/DNRno Advance Directive Information Givenpatient/family declined Talbert Fall Screen: History of falling (immediate or previous)no (0) Secondary Diagnosisno (0) Intravenous Therapy/ Heparin/Saline Lockyes (20) Gait/Transferringnormal/ bedrest/wheelchair (0) Ambulatory Aidsnone/bedrest/nurse assist (0) Mental Statusoriented to own ability (0) Score: Low risk (<25). Moderate risk (25-44). High risk (>44).20 Talbert InterventionsLOW INTERVENTIONS: *patient oriented to surroundings and call system, * patient/family falls education completed and documented, *patients fall status communicated during bedside handoff, *whiteboard updated, *mode of toileting discussed with patient, *bed in low position with brakes locked, *call light in reach, * non-skid footwear Functional screen: Functional Screen: In the recent/past 2-4 weeks, patient or family have noticedno issues that require a rehabilitation consult at this time Learning Assessment (Patient): Patient is Able to be Assessed for Learningyes Factors Influencing Readiness to Learninterest in learning; motivation to learn Factors that Impact Ability to Learnnone Devices/Methods Used to Communicatenone Learning Preferenceswritten material; verbal instruction; skill demonstration; individual instruction Cultural Considerationsnone Developmental Considerationsnone Rastafari Considerationsnone Learning Assessment (Other Learner): Other learner availableno Nutrition Risk Screen: Nutrition Risk Screenno indicators present Nutrition Consult needed this visitno Can Patient Participate in Room Serviceyes Pain Screen: Pain Control Method: Laborrepositioning; rest; relaxation; epidural Pain Control Method: Postpartumrest; relaxation; medication Pain Scalenumerical 0-10 Pain Scale Educationteaching provided Acceptable Pain Level7 = Severe Presence of Painno Expression of Pain (nonverbal)none, verbalization Chronic Painno Skin - Bonilla Scale: Bonilla Scale (daily): Bonilla: Sensory Perception (response to environment)(4) no impairment Bon[place]: Moisture (degree skin exposed to moisture)(4) rarely moist [place]: Activity (ability to walk)(4) walks frequently [place]: Mobility (amount/control of body movement)(4) no limitation [place]: Nutrition (quality of food intake)(3) adequate [place]: Friction and Shear(3) no apparent problem [place]: Score22 Pressure Injury Present on Admissionno Spiritual Screen: Are there any cultural, spiritual, muslim practices/values/needs that are important for us to knowno Depression Screen: During the past month, have you often been bothered by feeling down, depressed or hopelessno During the past month, have you often had little interest or pleasure in doing thingsno Have you had any thoughts of harming anyone elseno [place] Suicide: Risk Screen Not Applicable/Able to Answerable to be screened In the Past Month: Have you wished you were or could go to sleep and not wake upno In the Past Month: Have you had any actual thoughts of killing yourselfno Lifetime: Have you ever done, started to do, or prepared to do anything to end your lifeno [place] Suicide Risknegative Family Violence Screen: Are you or have you been threatened or abused physically, emotionally, or sexually by anyoneno Do you feel UNSAFE going back to the place where you are livingno Clinical assessment: Are there any apparent signs of injuries/behaviors that could be related to abuse/neglectno Social Service Consult for abuse/neglect needed this visitno Vaccinations: Vaccination - Influenza Vaccination Screen: Is it flu season (between and August 10)No Vaccination - Pneumonia Vaccination Screen: Patient has received a previous pneumonia vaccine:no/unknown... Immunocompetent persons with underlying chronic conditions or reside in senior living care facilitiesnone of these conditions Persons with Functional or Anatomic Asplenianone of these conditions Immunocompromised Personsnone of these conditions Pneumonia vaccine NOT indicated due (more content not included)... Normal [facility] CBCon 10-16-2021 Erythrocyte distribution width (RBC) [Ratio] 15.3 % High 11.5 - 14.5 [facility] Comment on above: Performed By: #### C BC ####[place] [address] Hematocrit (Bld) [Volume fraction] 37.0 % Normal 36.0 - 46.0 [facility] Comment on above: Performed By: #### C BC ####[address] [address] Hemoglobin (Bld) [Mass/Vol] 12.6 g/dL Normal 12.0 - 16.0 [facility] Comment on above: Performed By: #### C BC ####[address] [address] MCHC (RBC) [Mass/Vol] 33.9 g/dL Normal 32.0 - 36.0 [facility] Comment on above: Performed By: #### C BC ####[address] [address] MCV (RBC) [Entitic vol] 86 fL Normal 80 - 100 [facility] Comment on above: Performed By: #### C BC ####[address] [address] Platelets (Bld) [#/Vol] 204 10*3/uL Normal 150 - 450 [facility] Comment on above: Performed By: #### C BC ####[address] [address] RBC 4.33 x10E12/L Normal 4.00 - 5.20 [facility] Comment on above: Performed By: #### C BC ####[address] [address] WBC (Bld) [#/Vol] 7.9 10*3/uL Normal 4.4 - 11.3 [facility] Comment on above: Performed By: #### C BC ####[address] [address] Discharge Planning Eyij8ml 0 10-16-2021 Discharge Planning Note2 Discharge Planning: Anticipated Discharge [id number] Discharge Planning Date and Time: 10/16/21 @ 0650 Discharge Planning initiated on admission and formally reevaluated at this time. Patient independent with ambulation and ADL's prior to admission. Additional home going needs anticipated at this time: none Handouts given to and reviewed with patient/caregiver per unit folder standards. Patient verbalizes understanding and denies any other post-discharge needs. Plan to continue to assess home going/discharge needs. Coordinate with interdisciplinary team as needed. Signature: Lauren Humphrey RN Date and Time: 10-19-2021 @ 1405 According to plan, patient discharged home with infant Discharge instructions printed and reviewed. Teaching provided on new medications, self-care, signs and symptoms to report, and follow-up appointments. Patient verbalized understanding and denies any questions at time of discharge. Patient instructed to call provider with any additional questions after discharge. Signature: david armandosupervisor international reservations: Discharge Planning Assessment [id number] Primary Contact Name and [phone](1) Lives Withspouse(1) Arrived [place] (1) Resource/Environmental Concernsnone(1) Anticipated Transition [place](1) Services Anticipated at Transitionnone(1) Discharge Documentation: Discharge/Transfer Date/[id number] 14:40 Discharged Accompanied Byspouse Discharge Modewheelchair Transportation Methodprivate car Code StatusCode Status order at time of discharge: Full Code [place] DNR Form Sent with Patient and/or Familyn/a Final DispositionHome Electronic Signatures: Briseyda Russo (RN) (Signed 19-Oct-2021 14:47) Authored: Discharge Planning, Discharge Documentation Lauren Humphrey (CLIN COOR) (Signed 16-Oct-2021 06:55) Authored: Discharge Planning, Assessment Last Updated: 19-Oct-2021 14:47 by Briseyda Russo (RN) References: 1. Data Referenced From Patient Profile - OB v3 16-Oct-2021 06:43 Normal [facility] Laboratory - Blood bankon ABO group Nom (Bld) [facility] [address] Work Phone: [phone] Blood group antibody screen Ql Negative [facility] [address] Work Phone: [phone] Rh immune globulin screen (Bld) [Interp] Positive [facility] [address] Work Phone: [phone] Laboratory - Hematology and Cell countson 10-16-2021 Erythrocyte distribution width (RBC) [Ratio] 15.3 % above high threshold See Below [facility] [address] Work Phone: [phone] Comment on above: Reference Range: 11. 5 - 14.5 Hematocrit (Bld) [Volume fraction] 37.0 % See Below [facility] [address] Work Phone: [phone] Comment on above: Reference Range: 36. 0 - 46.0 Hemoglobin (Bld) [Mass/Vol] 12.6 g/dL See Below [facility] [address] Work Phone: [phone] Comment on above: Reference Range: 12. 0 - 16.0 MCHC (RBC) [Mass/Vol] 33.9 g/dL See Below [facility] [address] Work Phone: [phone] Comment on above: Reference Range: 32. 0 - 36.0 MCV (RBC) [Entitic vol] 86 fL 80 - 100 [facility] [address] Work Phone: [phone] Platelets (Bld) [#/Vol] 204 10*3/uL 150 - 450 [facility] [address] Work Phone: [phone] RBC (Bld) [#/Vol] 4.33 {x10E12/L} See Below [facility] [address] Work Phone: [phone] Comment on above: Reference Range: 4.0 0 - 5.20 WBC (Bld) [#/Vol] 7.9 10*3/uL 4.4 - 11.3 [facility] [address] Work Phone: [phone] No Panel Informationon 10-16 ORDER RECD [facility] [address] Work Phone: [phone] Patient Profile - OB v3on Patient Profile - OB v3 Profile: Initial Info: How to be AddressedStepanie or Ramila Spoken Language PreferredEnglish Source of Informationpatient; health record Reason for admission this visitexpected delivery Primary Contact Name and [phone] Wants Family/Rep Notified of Admissionn/a; family present Notify PCPdo not notify PCP Informed of Patient Visiting Rightsyes Limitations on Visitors/Phone Callsnone Arrived [facility] Was Admitted To in Past 90 Daysnone Patient Belongingsremains with patient Patient Belongings Remaining with Patientclothing; jewelry; purse/wallet; cell phone/electronics Home Meds have been Reviewed and Verified with Patient/Familyyes Medications Brought to Hospitalno Info: Gravida1 Term Deliveries0 Deliveries0 Abortions0 Living Children0 Patient stated [id number] Calculation of EGA based on patient stated EDD39.3 Records availableyes Trimester Care Initiatedfirst Care ProviderDr. Long Current Risksnone Previous live (any gestational age)no Planno Baby's Post Discharge Care Provider (Provider Name, Address and Phone Number) [facility]. [facility] Feedingbreastmilk Benefits of Breast Milk DiscussionThe benefits of exclusive breast milk feeding and the risk of adding formula have been discussed with patient / mother. Discussion Date / [id number] 06:47 Previous Experienceno General Health: Current Weight in kg83.2 kilogram(s) Current Weight in odw801.4 pound(s) Weight Methodactual (measured) Scale Typestanding Pre Weight (lb)142 pound(s) Total Weight Gain (lb)41 pound(s) Height in feet5 feet Height in inches5.94 inch(es) Height in cm167.4 centimeter(s) Height Methodstated BMI (kg/m2)29.69 square meter Patient or Family Member Reaction to Anesthesianever had anesthesia Blood Avoidance/Restrictionsno ne Previous Transfusion Reactionnot applicable [facility] Based Care: How would you like to participate in your carelike to know what is being done before and keep updated on information What is the number one concern for you during this hospitalizationeverythi ng going smoothly with little to no complications What is the most important thing we can do to support you during this hospitalizationhaving everything I need and keeping me comfortable Is there anything we need to know to best care for youdenies Substance: Smoking Statusnever smoker Alcohol Usedenies Drug Usedenies Drug 2 Usedenies Health Mgmt: Symptoms/Conditions Managed at [place] Relationship/Environ: Primary Source of Support/Comfortspouse Lives Withspouse Resource/Environmental Concernsnone Anticipated Transition [place] Services Anticipated at Transitionnone Additional Information: Information Review: Allergies and Significant Events have been Reviewed and Verified with Patient/Familyyes Allergy, Intolerance, Adverse Event: Allergies: penicillin: Drug, Unknown, Active Celexa: Drug, Unknown, Active influenza virus vaccine, inactivated: Drug, Other, Rash, Active Electronic Signatures: Lauren Humphrey (CLIN COOR) (Signed 16-Oct-2021 06:54) Authored: Initial Info, Info, General Health, Rsp Based Care, Substance, Health Mgmt, Relationship/Environ, Additional Information Last Updated: 16-Oct-2021 06:54 by Lauren Humphrey (CLIN COOR) [facility] REQUEST-LEUKOREDUCED RED GEMMA LSon 10-16-2021 REQUEST-LEUKOREDUCED RED CELLS ORDER RECD [facility] Comment on above: Performed By: #### C BCDF #### [address] [address] SYPHILIS SCREENING WITH REFL EXon 10-16-2021 Lab Specimen Source Normal [facility] Comment on above: Performed By: #### S YPHR ####[id number] [place], [place] [id number] T. pallidum IgG+IgM IA Ql (S) Non-Reactive See Below [facility] [address] Work Phone: Comment on above: SOURCE: Reference Ra nge: NONREACTIVENo significant level of Treponema pallidum antibody detected. Repeat testing in 2 to 4 weeks may be considered if early infection or incubating syphilis infection is suspected. TYPE + SCREENon 10-16-2021 ABO TYPE O [facility] Comment on above: Performed By: #### C BCDF #### [place] [id number] RH TYPE Positive [facility] Comment on above: Performed By: #### C BCDF #### [place] [id number] CORONAVIRUS 2019, SCREEN ASY MPTOMATICon 10-13-2021 SARS-CoV-2 (COVID-19) RNA NAHID+probe Ql (Unsp spec) Not detected Normal Not Detected [facility] Comment on above: Result Comment: . This assay is designed to detect the N, ORF1ab and/or S genes of SARS-CoV-2 via nucleic acid amplification. A Negative (NOT DETECTED) result does not preclude 2019-nCoV infection since the adequacy of sample collection and/or low viral burden may result in presence of viral nucleic acids below the clinical sensitivity of this test method. Negative (NOT DETECTED) result should not be used as the sole basis for treatment or other patient management decisions. Rather negative results should be combined with clinical observations, patient history, and epidemiological information to make patient management decisions. Fact sheet for providers: https://www.fda.gov/media/402269/download Fact sheet for patients: https://www.fda.gov/media/646964/download This test has received FDA Emergency Use Authorization (EUA) and has been verified by [facility] ([facility]). This test is only authorized for the duration of time that circumstances exist to justify the authorization of the emergency use of in vitro diagnostic tests for the detection of SARS-CoV-2 virus and/or diagnosis of COVID-19 infection under section 564(b)(1) of the Act, 21 U.S.C. 360bbb-3(b)(1), unless the authorization is terminated or revoked sooner. [facility] is certified under CLIA-88 as qualified to perform high complexity testing. Testing is performed in the [facility] laboratories located at [address] [place] [address]. Performed By: #### C OVSC #### [place] [address] Lab Specimen Source Nasal, Nasopharyngeal Normal [facility] Comment on above: Performed By: #### C OVSC #### [place] [address] Coronavirus 2019 RNA by PCR, Screening Asymptomticon 10-13-2021 Coronavirus 2019 RNA by PCR, Screening Asymptomtic Not detected Normal See Below [facility] [address] Work Phone: Comment on above: SOURCE: Nasal, Nasop haryngealReference Range: Not Detected.This assay is designed to detect the N, ORF1ab and/or S genes of SARS-CoV-2 via nucleic acid amplification. A Negative (NOT DETECTED) result does not preclude 2019-nCoV infection since the adequacy of sample collection and/or low viral burden may result in presence of viral nucleic acids below the clinical sensitivity of this test method. Negative (NOT DETECTED) result should not be used as the sole basis for treatment or other patient management decisions. Rather negative results should be combined with clinical observations, patient history, and epidemiological information to make patient management decisions.Fact sheet for providers: https://www.fda.gov/media/656205/downloadFact sheet for patients: https://www.fda.gov/media/408472/downloadThis test has received FDA Emergency Use Authorization (EUA) and has been verified by [facility] ([facility]). This test is only authorized for the duration of time that circumstances exist to justify the authorization of the emergency use of in vitro diagnostic tests for the detection of SARS-CoV-2 virus and/or diagnosis of COVID-19 infection under section 564(b)(1) of the Act, 21 U.S.C. 360bbb-3(b)(1), unless the authorization is terminated or revoked sooner. [facility] is certified under CLIA-88 as qualified to perform high complexity testing. Testing is performed in the [facility] laboratories located at [address] [place] [address]. Covid 19 Resultson 2 SARS-CoV-2 (COVID-19) RNA NAHID+probe Ql (Unsp spec) NEGATIVE COVID-19 Test Coronaviruses are common world-wide and are the cause of many common colds. SARS-COV2 is a new coronavirus that began circulating worldwide in 2019 so we are calling it COVID-19. It has been estimated that four out of five patients with COVID-19 will recover at home without the need for medical attention. Symptoms of COVID-19 may include cough, fever, shortness of breath, loss of taste or smell and other flu-like symptoms including chills, sore muscles, sore throat, and headache. Severe illness is more common in older people and people with other health problems such as high blood pressure, obesity, and immune system problems. If the test is positive, you have COVID-19. You will be contacted by the ordering physicians office and instructed to remain on home isolation, in accordance with CDC guidelines. You may also be contacted by the [facility] to see if any of your close contacts may have been exposed to the virus and need to quarantine. If the test is negative, you likely do not have COVID-19 at this time, but you still may have a different illness that can spread to other people (like Influenza, or the Flu) and could still be at risk for getting COVID-19. We recommend that you stay away from other people to limit the spread of illness until your symptoms are improving and you are fever-free for 24 hours without the use of fever lowering medications such as acetaminophen or ibuprofen. No test is 100% accurate so if you are still concerned you may have COVID-19, talk to your doctor about the need to continue to stay away from others. Medicines Unless your provider told you not to use the following: Acetaminophen (Tylenol and others) is generally safe. Anti-inflammatory medications, such as Ibuprofen (Advil or Motrin) or Naproxen (Aleve) can also be used. Agnv-vvr-ivufmsf cough and cold medicines can be used according to the instructions on the package. Some xeju-kju-forenha medicines also contain acetaminophen. Make sure you are not taking more than your recommended dose. For those not hospitalized, there is no specific treatment available for this illness. Antibiotics do not treat Coronaviruses. Follow-Up Follow up with your doctor by scheduling a virtual visit or consider follow-up at one of our urgent care fever clinics. If you are having difficulty breathing, or are very weak and having difficulty standing, this is a medical emergency. Call 911 or have someone take you to the nearest emergency room immediately. If possible, wear a facemask. Additional guidance from the CDC for patients who tested POSITIVE for COVID-19 How to isolate: Isolate yourself in a specific room at home and limit your contact with others. Use a separate bathroom from other members of the household, when possible. Leave home only to get essential medical care. Do not go to work, school or public areas. Avoid using public transportation, ride-sharing, or taxis. Restrict contact with pets and other animals. If you must care for your pet or be around animals while you are sick, wash your hands before and after your interaction and wear a facemask. Make sure that shared spaces in the home have good airflow, such as by an air conditioner or an opened window, weather permitting. Personal Hygiene Procedures: Wear a face mask when in the same room as other people or pets. If a face mask interferes with your breathing, others should wear a mask when sharing space with you. Frequent hand-washing: wash your hands with soap and water for at least 20 seconds. If soap and water are not available, use alcohol-based hand mold swabber. Avoid touching your eyes, nose, and mouth with unwashed hands. Household Hygiene Procedures: Avoid sharing personal household items such as dishes, glassware, cups, eating utensils, towels or bedding with other people or pets in your home. After use, these items should be washed with soap and hot water. Disinfect all high-touch surfaces every day with antibacterial cleaning solutions such as Lysol wipes, bleach, cleansers, etc. High-touch surfaces include tabletops, doorknobs, bathroom fixtures, toilets, phones, keyboards, tablets and bedside tables. Immediately clean any surfaces that may have blood, poop or body fluids on them, using antibacterial cleaning solutions such as Lysol wipes, bleach, cleansers, etc. If clothing or bedding come into contact with blood, poop or body fluids, they should be washed immediately. Follow the directions on the laundry detergent and clothing labels but hot water is recommended when possible. Stopping home isolation precautions: If possible, consult your doctor before stopping home isolation precautions. According to the CDC, you can discontinue home isolation precautions when you have met both of these criteria: Your fever and respiratory symptoms have been gone for 24 merna (more content not included)... Normal [facility] No Panel Informationon 10-13 Please click on the link to view the study images Normal [facility] [address] Work Phone: Normal [facility] [address] Work Phone: US AGE FOL-UP PER FETU Son 10-13-2021 US AGE FOL-UP PER FETUS Patient Name: MARIA ELENA AJ STUDY: US AGE FOL-UP PER FETUS 10/13/2021 3:58 pm INDICATION: Size greater than dates. COMPARISON: Ultrasound dated 09/26/2021 ACCESSION NUMBER(S): [id number] ORDERING CLINICIAN: BRE LONG TECHNIQUE: Routine ultrasound of the pelvis was performed. Evaluation of the female pelvis was performed by transabdominal technique. FINDINGS: There is a single live intrauterine gestation in vertex position. BPD 100mm, 41 weeks, 2 days HC 357mm, 41 weeks, 6 days AC 355mm, 39 weeks, 3 days FL 79mm, 40 weeks, 1 days This results in a composite gestational age of 40 weeks, 5 days, + / -20 days. By dates the fetus should be 39 weeks, 0 days, which is concordant with the ultrasound dating. There is an estimated weight of 3949 g + / -598 g (90 of percentile). heart rate measures 150 beats per minute. Evaluation of anatomy is limited as the study was done for the evaluation of growth. The placenta is in posterior position. No evidence of placenta previa is seen. The amniotic fluid volume is within normal limits, with the amniotic fluid index measuring at up to 15.2 cm. Maternal anatomy: The cervix is closed, measuring at up to 3.3 cm in length. IMPRESSION: Single live intrauterine gestation corresponding to 40 weeks, 5 days, + / -20 days. Evaluation of anatomy was not performed. Recommend continued routine follow-up imaging evaluation. Electronically signed by: YULIA LAYNE MD [facility] GROUP B STREP SCREENon 09-26 GROUP B STREP SCREEN PATIENT: MARIA ELENA MACIAS LOCATION: [facility] [place] [facility] BILL#: [id number] : 89 AGE: SEX: F ORDERED BY: BRE LONG SOURCE: VAGINAL COLLECTED: 09/26/21 15:16 ANTIBIOTICS AT ALE.: RECEIVED : 09/27/21 15:56 SITE: VAGINAL R E S U L T S GROUP B STREP SCREEN FINAL 09/29/21 10:54 NEGATIVE FOR GROUP B BETA STREP. Normal [facility] Comment on above: Performed By: #### G BSCR #### [facility] [address] [place] [address] GROUP B STREP SCREEN TEST GROUP B STREP SCREEN WAS CANCELLED, 09/27/2021 12:13 wrong encounter. PATIENT: MARIA ELENA AJ LOCATION: [facility] [place] BILL#: [id number] : 89 AGE: SEX: F ORDERED BY: BRE LONG SOURCE: VAGINAL COLLECTED: 09/26/21 15:16 ANTIBIOTICS AT ALE.: RECEIVED : SITE: VAGINAL R E S U L T S GROUP B STREP SCREEN CANCELLED 09/27/21 12:14 [facility] Comment on above: Performed By: #### G BSCR #### [facility] [id number] [place] [id number] Laboratory - Microbiology an d Antimicrobial susceptibilityon 09-26-2021 Bacteria identified Aer cx Nom (Genital specimen) [facility] [address] Work Phone: [phone] No Panel Informationon 09-26 Please click on the link to view the study images Normal [facility] [address] Work Phone: [phone] Normal [facility] [address] Work Phone: [phone] Clinical Event Noteon 2021 Clinical Event Note Clinical Event: Clinical Event Note: Details 09/19/21 1630 Pt here for TDaP injection. Pt is 35wks gestation. Pt denies any leaking of fluid or bleeding. States fetus is active. Denies any pain or contractions currently. TDaP injection explained. Pt verbalized understanding. TDaP lot #[id number] exp: 07/19/2023 given IM in Left Deltoid 09/19/21 @ 1638. Pt tolerated injection well. TDap handout given and explained. Pt verbalizes understanding. Injection site without any complications. Patient discharged home ambulatory 09/19/21 1641 Electronic Signatures: Es Matamoros (RN) (Signed 19-Sep-2021 16:44) Authored: Clinical Event Note Last Updated: 19-Sep-2021 16:44 by Es Matamoros (RN) [facility] No Panel Informationon 08-22 Please click on the link to view the study images Normal [facility] [address] Work Phone: [phone] Normal [facility] [address] Work Phone: [phone] Complete Blood Count + Diffe rentialon 07-25-2021 Basophils/100 WBC (Bld) 0.6 % 0.0 - 2.0 [facility] [employer] Work Phone: [phone] Erythrocyte distribution width (RBC) [Ratio] 13.2 % See Below [facility] [address] Work Phone: [phone] Comment on above: Reference Range: 11. 5 - 14.5 Hematocrit (Bld) [Volume fraction] 35.9 % below low threshold See Below [facility] [address] Work Phone: [phone] Comment on above: Reference Range: 36. 0 - 46.0 Hemoglobin (Bld) [Mass/Vol] 12.8 g/dL See Below [facility] [place] Work Phone: [phone] Comment on above: Reference Range: 12. 0 - 16.0 Lymphocytes/100 WBC (Bld) 14.2 % See Below [facility] [address] [place] Work Phone: [phone] Comment on above: Reference Range: 13. 0 - 44.0 MCHC (RBC) [Mass/Vol] 35.7 g/dL See Below [facility] [address] [place] Work Phone: [phone] Comment on above: Reference Range: 32. 0 - 36.0 MCV (RBC) [Entitic vol] 89 fL 80 - 100 [facility] [address] [place] Work Phone: [phone] Monocytes/100 WBC (Bld) 6.3 % 2.0 - 10.0 [facility] [place] Work Phone: [phone] Neutrophils/100 WBC (Bld) 78.2 % See Below [facility] [address] Work Phone: [phone] Comment on above: Reference Range: 40. 0 - 80.0 Platelets (Bld) [#/Vol] 249 10*3/uL 150 - 450 [facility] [address] [place] Work Phone: [phone] RBC (Bld) [#/Vol] 4.05 {x10E12/L} See Below [facility] [address] [place] Work Phone: [phone] Comment on above: Reference Range: 4.0 0 - 5.20 WBC (Bld) [#/Vol] 9.0 10*3/uL 4.4 - 11.3 [facility] [address] Work Phone: [phone] Complete Blood Count + Differential 0.10 {x10E9/L} See Below [facility] [address] [place] Work Phone: [phone] Comment on above: Reference Range: 0.0 0 - 0.10 Reference Range: 0.0 0 - 0.70 Complete Blood Count + Differential 0.60 {x10E9/L} See Below [facility] [address] Work Phone: [phone] Comment on above: Reference Range: 0.1 0 - 1.00 Complete Blood Count + Differential 1.30 {x10E9/L} See Below [facility] [address] Work Phone: [phone] Comment on above: Reference Range: 1.2 0 - 4.80 Complete Blood Count + Differential 7.00 {x10E9/L} See Below [facility] [address] Work Phone: [phone] Comment on above: Reference Range: 1.2 0 - 7.70 Percent differential counts (%) should be interpreted in the context of the absolute cell counts (cells/L). Complete Blood Count + Differential 0.7 % 0.0 - 6.0 [facility] [employer] Work Phone: Glucose, 1 Hour Screen, Preg nancyon 07-25-2021 Glucose 1 Hr post 50 g glucose PO [Mass/Vol] 125 mg/dL <135 [facility] [address] [employer] Work Phone: [phone] Comment on above: Diagnostic value wit h glucose loading dose of 50 g. Reference values from [place] [employer]. Diabetes Care 2015;38(Suppl.1):S8-S16 No Panel Informationon 07-25 Normal [facility] [address] [employer] Work Phone: No Panel Informationon 06-06 Normal [facility] [address] [employer] Work Phone: Alpha Fetoprotein, Maternal Serumon 05-23-2021 Alpha Fetoprotein, Maternal Serum SEE BELOW [facility] [address] [employer] Work Phone: Comment on above: Genetics test res ults are available electronically in the [facility] under Diagnostic Testing-> Genetics.Results will be sent on a separate report. Complete Blood Count + Diffe rentialon 04-04-2021 Basophils/100 WBC (Bld) 2.0 % 0.0 - 2.0 [facility] [address] Work Phone: [phone] Erythrocyte distribution width (RBC) [Ratio] 13.4 % See Below [facility] [address] Work Phone: [phone] Comment on above: Reference Range: 11. 5 - 14.5 Hematocrit (Bld) [Volume fraction] 39.6 % See Below [facility] [address] Work Phone: [phone] Comment on above: Reference Range: 36. 0 - 46.0 Hemoglobin (Bld) [Mass/Vol] 13.3 g/dL See Below [facility] [address] Work Phone: [phone] Comment on above: Reference Range: 12. 0 - 16.0 Lymphocytes/100 WBC (Bld) 15.7 % See Below [facility] [address] Work Phone: [phone] Comment on above: Reference Range: 13. 0 - 44.0 MCHC (RBC) [Mass/Vol] 33.6 g/dL See Below [facility] [address] Work Phone: [phone] Comment on above: Reference Range: 32. 0 - 36.0 MCV (RBC) [Entitic vol] 92 fL 80 - 100 [facility] [address] Work Phone: [phone] Monocytes/100 WBC (Bld) 4.1 % 2.0 - 10.0 [facility] [address] Work Phone: [phone] Neutrophils/100 WBC (Bld) 77.1 % See Below [facility] [address] Work Phone: [phone] Comment on above: Reference Range: 40. 0 - 80.0 Platelets (Bld) [#/Vol] 262 10*3/uL 150 - 450 [facility] [address] Work Phone: [phone] RBC (Bld) [#/Vol] 4.32 {x10E12/L} See Below [facility] [address] Work Phone: [phone] Comment on above: Reference Range: 4.0 0 - 5.20 WBC (Bld) [#/Vol] 9.3 10*3/uL 4.4 - 11.3 [facility] [employer] Work Phone: [phone] Complete Blood Count + Differential 0.20 {x10E9/L} above high threshold See Below [facility] [employer] Work Phone: [phone] Comment on above: Reference Range: 0.0 0 - 0.10 Complete Blood Count + Differential 0.10 {x10E9/L} See Below [facility] [employer] Work Phone: [phone] Comment on above: Reference Range: 0.0 0 - 0.70 Complete Blood Count + Differential 0.40 {x10E9/L} See Below [facility] [employer] Work Phone: [phone] Comment on above: Reference Range: 0.1 0 - 1.00 Complete Blood Count + Differential 1.50 {x10E9/L} See Below [facility] [employer] Work Phone: [phone] Comment on above: Reference Range: 1.2 0 - 4.80 Complete Blood Count + Differential 7.20 {x10E9/L} See Below [facility] [employer] Work Phone: [phone] Comment on above: Reference Range: 1.2 0 - 7.70 Percent differential counts (%) should be interpreted in the context of the absolute cell counts (cells/L). Complete Blood Count + Differential 1.1 % 0.0 - 6.0 [facility] [place] [address] [employer] Work Phone: [phone] Cult, Urineon 04-04-2021 Bacteria identified Cx Nom (U) [facility] [place] [address] [employer] Work Phone: [phone] GC + Chlamydia By Amplified Detectionon 04-04-2021 C. trachomatis rRNA NAHID+probe Ql (Unsp spec) Negative Negative [facility] [place] [address] [employer] Work Phone: [phone] Comment on above: The APTIMA Combo 2 a ssay is FDA-approved for Chlamydia trachomatis and Neisseria gonorrhoeae testing on female endocervical and vaginal swabs, ThinPrep liquid pap samples, male urine samples and urethral swabs. Performance characteristics for Chlamydia trachomatis and Neisseria gonorrhoeae testing on specific itm-FQW-gtaycmux sample types (female urine samples) have been validated by [facility]. This laboratory is certified by CLIA to perform high complexity testing. Samples from all other sites are not validated for this method. N. gonorrhoeae rRNA NAHID+probe Ql (Unsp spec) Negative Negative [facility] [address] [employer] Work Phone: Comment on above: SOURCE: Urine The AP FRANCISCO Combo 2 assay is FDA-approved for Chlamydia trachomatis and Neisseria gonorrhoeae testing on female endocervical and vaginal swabs, ThinPrep liquid pap samples, male urine samples and urethral swabs. Performance characteristics for Chlamydia trachomatis and Neisseria gonorrhoeae testing on specific efc-EPM-kiizmlyp sample types (female urine samples) have been validated by [facility]. This laboratory is certified by CLIA to perform high complexity testing. Samples from all other sites are not validated for this method. HIV 1/2 ANTIGEN/ANTIBODY SCR EEN WITH REFLEX TO CONFIRMATIONon 04-04-2021 HIV 1+2 Ab Qn (S) Non-Reactive See Below [facility] [address] [employer] Work Phone: Comment on above: SOURCE: Reference Ra nge: NONREACTIVE HIV Ag/Ab screen is performed using the Siemens [employer] HIV Ag/Ab Combo assay which detects the presence of HIV p24 antigen as well as antibodies to HIV-1 (Group M and O) and HIV-2..No laboratory evidence of HIV infection. If acute HIV infection is suspected, consider testing for HIV RNA by PCR (viral load). Hepatitis B Surface Antigeno n 04-04-2021 Hepatitis B Surface Antigen Non-Reactive See Below [facility] [address] Work Phone: Comment on above: SOURCE: Reference Ra nge: NONREACTIVE Biotin interference may cause falsely decreased results. Patients taking a Biotin dose of up to 5 mg/day should refrain from taking Biotin for 24 hours before sample collection. Providers may contact their local laboratory for further information. Laboratory - Blood bankon ABO group Nom (Bld) Canceled [facility] [address] [place] Work Phone: [phone] ABO group Nom (Bld) O [facility] [address] Work Phone: [phone] Blood group antibody screen Ql Canceled [facility] [address] Work Phone: [phone] Blood group antibody screen Ql Negative [facility] [address] Work Phone: [phone] Rh immune globulin screen (Bld) [Interp] Canceled [facility] [address] Work Phone: [phone] Rh immune globulin screen (Bld) [Interp] Positive [facility] [address] Work Phone: [phone] Laboratory - Cytologyon 03-14 Cytology report Cyto stain.thin prep Doc (Cvx/Vag) [facility] [address] Work Phone: [phone] Rubella IgG Antibodyon 04-04 Rubella virus IgG IA Ql Positive [facility] [address] Work Phone: [phone] Comment on above: SOURCE: INTERPRETATI VE COMMENT NEGATIVE: No IgG antibodies specific to Rubella detected. It is likely that the patient has not had a previous exposure to Rubella through infection or vaccination. Alternatively, the patient may have been exposed to Rubella but a failure to respond may indicate immunodeficiency. EQUIVOCAL:Equivocal results; obtain additional sample for retesting. POSITIVE: IgG antibody to Rubella detected. This may indicate that the patient was exposed to Rubella through infection or vaccination.The interpretation of serological tests should take into accountthe immunological status of the patient. Test results forpatients, including immunocompromised patients, neonates, andpediatric patients, reflect their capacity to respondimmunologically to the virus as well as their exposure to thepathogen. Patients treated with IVIG may demonstrate alteredresults in serological assays. SYPHILIS SCREENING WITH REFL EXon 04-04-2021 T. pallidum IgG+IgM IA Ql (S) Non-Reactive See Below [facility] [place] [address] [place] Work Phone: [phone] Comment on above: SOURCE: Reference Ra nge: NONREACTIVENo significant level of Treponema pallidum antibody detected. Repeat testing in 2 to 4 weeks may be considered if early infection or incubating syphilis infection is suspected. Cult, Genitalon 03-07-2021 Bacteria identified Aer cx Nom (Genital specimen) [facility] [address] Work Phone: [phone] Cult, Urineon 03-07-2021 Bacteria identified Cx Nom (U) [facility] [address] Work Phone: [phone] IO HCG, Urine Test on 03-07-2021 HCG ( test) Ql (U) Positive [facility] [address] Work Phone: [phone] LMPon 03-07-2021 Last menstrual period start date 13Jan2021 [facility] [address] Work Phone: [phone] [facility] [place] - Office Visiton 02-11 [facility] [place] - Office Visit Diagnoses/Problems Assessed Positive urine test (V72.42) (Z32.01) Vaginitis (616.10) (N76.0) Hematuria (599.70) (R31.9) Orders Cult, Urine; Status:In Progress - Specimen/Data Collected,Retrospective Authorization; Done: 07Mar2021 IO HCG, Urine Test; Status:Resulted - Requires Verification,Retrospecti ve Authorization; Done: 07Mar2021 03:11PM Cult, Genital; Status:In Progress - Specimen/Data Collected,Retrospective Authorization; Done: 07Mar2021 Site : Vaginal Provider Impressions Patient is a 30-year-old 1 para 0 at 7-2/7 weeks gestation with EDC of October 20, 2021 she is here for confirmation of she will return in 4 weeks to start her care. Vaginal spotting wet mount was negative we will send a urine culture and vaginal culture to make sure she does not have a urinary tract infection or some other genital infection Chief Complaint PT IS A NEW PT HERE TODAY FOR AMENORRHEA. HAS HAD CRAMPING. NOTICED A LITTLE SPOTTING TODAY. DENIES ANY N/V. HAS BREAST TENDERNESS. LMP: 01/13/2021 History of Present IllnessPatient is a 30-year-old 1 para 0 whose last menstrual period was January 13, 2021. The patient reports that she has been feeling well since she found out she was she has been experiencing some mild round ligament pains she reports some minimal nausea but her appetite has been excellent reports that 2-day she noticed some pink blood on her toilet paper a couple times when she voided. Patient denies any abnormal discharge or odor and has had no recent coitus. Patient denies any health problems and is just excited to be Review of Systems Per HPI Active Problems Problems COVID-19 (079.89) (U07.1) Fatigue (780.79) (R53.83) Positive urine test (V72.42) (Z32.01) , first (V22.0) (Z34.00) Unprotected sex (V69.2) (Z72.51) Weight gain (783.1) (R63.5) Past Medical History Problems History of Menstruation AGE 15 Surgical History Problems History of Colonoscopy Resolved Date: 18 Nov 2017 History of Foot surgery History of Hydatidiform mole removal History of [place] tooth extraction Family History Mother Family history of Crohn's disease (V18.59) (Z83.79) Family history of thyroid disease (V18.19) (Z83.49) Grandmother Family history of Irregular heartbeat Aunt Family history of thyroid disease (V18.19) (Z83.49) Social History Problems Never smoker No advance directives (V49.89) (Z78.9) No alcohol use No illicit drug use Sexually active Unprotected sex (V69.2) (Z72.51) Allergies Medication CeleXA TABS Recorded By: Rosalinda Rand; 10/26/2020 4:07:34 PM Influenza, seasonal, injectable Recorded By: Rosalinda Rand; 10/26/2020 4:07:34 PM Penicillins Recorded By: Rosalinda Rand; 10/26/2020 4:07:34 PM Current Meds Medication NameInstruction PNV Plus Multivitamin TABS Tylenol TABS ZyrTEC Allergy 10 MG Oral Capsule Vitals Vital Signs Recorded: 07Mar2021 03:17PM Mnllkroethb99 F Jamdomlj562 Fefgkkrez09 Height5 ft 6 in Kzgjrf194 lb 8.64 oz BMI Vzpvirkxnv12.94 kg/m2 BSA Calculated1.79 [id number] Physical Exam Constitutional: Pleasant young female healthy-appearing. Head and Face: No gross lesions. Abdomen: Soft nontender. External genitalia revealed no lesions the vagina was well estrogenized the cervix was nonfriable there was no evidence of blood whatsoever Musculoskeletal: Good mobility of all extremities. Psychiatric: Appropriately oriented with normal mood and affect. Wet mount revealed no yeast no clue cells and no trichomoniasis Transvaginal ultrasound measurements showed the fetus to be 7 weeks and 4 days consistent with her last menstrual period giving her a final EDC October 20, 2021. heart rate was 167 Results/Data IO HCG, Urine [id number] 03:11PMBre Long MEDLINE LOT: [id number] EXP: 06/12/2022 Test NameResultFlagReference IO Urine hCGPositive Signatures Electronically signed by : Bre Long DO; Mar 07 2021 3:56PM EST (Author) Normal [facility] IO HCG, Urine Test on 02-14-2021 HCG ( test) Ql (U) Positive [employer] Phone: LMPon 02-14-2021 Fall risk assessment a) No falls within the last year [employer] Phone: Last menstrual period start date 13Jan2021 [employer] Phone: Tobacco use status CPHS b) No [employer] Phone: Office Visiton 02-14-2021 Follow-up visit Diagnoses/Problems , first (V22.0) (Z34.00) COVID-19 (079.89) (U07.1) Orders , first Obstetrics and Gynecology Referral Evaluation and Treatment Evaluate AND Treat first New OB visit Status: Hold For - Scheduling Requested for: 14Feb2021 Patient Discussion/Summary Recommended OB appt, continue vitamin. Follow up if any problems. If any bleeding or severe pain go to ER. Chief Complaint Pt presents for test; LMP 01/13/21; breast soreness for a couple of weeks. History of Present IllnessPt presents today for evaluation f missed menses. She has been trying to get and her menses was supposed to started x 4 days ago. She took home test and it was +. She denies nausea. She has breast tenderness. She recently had COVID and is feeling better, still some shortness of breath. She has been taking vitamin. Review of Systems General: Negative except HPI Cardiovascular: Negative except HPI Respiratory: Negative except HPI Gastrointestinal: Negative except HPI : Negative except HPI Neurological: Negative except HPI Active Problems Fatigue (780.79) (R53.83) Unprotected sex (V69.2) (Z72.51) Weight gain (783.1) (R63.5) Surgical History History of Colonoscopy Resolved Date: 18 Nov 2017 History of Foot surgery History of Hydatidiform mole removal History of [place] tooth extraction Family History Family history of Crohn's disease (V18.59) (Z83.79) Family history of thyroid disease (V18.19) (Z83.49) Family history of thyroid disease (V18.19) (Z83.49) Social History Never smoker No advance directives (V49.89) (Z78.9) No alcohol use No illicit drug use Unprotected sex (V69.2) (Z72.51) Allergies CeleXA TABS Recorded By: Rosalinda Rand; 10/26/2020 4:07:34 PM Influenza, seasonal, injectable Recorded By: Rosalinda Rand; 10/26/2020 4:07:34 PM Penicillins Recorded By: Rosalinda Rand; 10/26/2020 4:07:34 PM Current Meds Medication NameInstruction Motrin IB 200 MG Oral Tablet ZyrTEC Allergy 10 MG Oral Capsule Vitals Vital Signs Recorded: 14Feb2021 02:07PM Vqzxokrfjip22.1 F Heart Rate72 Nkowmqfu542, RUE Hlxrlxtoh48, RUE Height5 ft 6 in Tpjsgj573 lb 4 oz BMI Frzquxonmu13.93 kg/m2 BSA Calculated1.76 Tobacco Useb) No Fall Screeninga) No falls within the last year O2 Qfyofgwzvp74 [id number] Physical Exam General: well nourished, in no distress Neck: No lymphadenopathy, thyromegaly or carotid bruit. Supple and normal ROM Cardiovascular: RRR, no Murmur, No edema Respiratory: Clear lungs throughout, no cough Abdomen: No tenderness or masses. Normal bowel sounds Neuro: Alert and oriented x 3 Musculoskeletal: Normal gait Signatures Electronically signed by : Kriss Ayala APRN-PRINT DECORATOR; Feb 14 2021 7:49PM EST (Author) Normal [facility] Coronavirus 2019 RNA by PCR, Symptomaticon 02-04-2021 Date and time of symptom onset [id number] [facility] [employer] [employer] Phone: Coronavirus 2019 RNA by PCR, Symptomatic Detected Abnormal See Below [employer] [facility] Phone: Comment on above: SOURCE: Nasal, Nasop haryngealReference Range: Not Detected.This assay is designed to detect the N, ORF1ab and/or S genes of SARS-CoV-2 via nucleic acid amplification. A Negative (NOT DETECTED) result does not preclude 2019-nCoV infection since the adequacy of sample collection and/or low viral burden may result in presence of viral nucleic acids below the clinical sensitivity of this test method. Negative (NOT DETECTED) result should not be used as the sole basis for treatment or other patient management decisions. Rather negative results should be combined with clinical observations, patient history, and epidemiological information to make patient management decisions.Fact sheet for providers: https://www.fda.gov/media/596265/downloadFact sheet for patients: https://www.fda.gov/media/332143/downloadThis test has received FDA Emergency Use Authorization (EUA) and has been verified by [facility] ([facility]). This test is only authorized for the duration of time that circumstances exist to justify the authorization of the emergency use of in vitro diagnostic tests for the detection of SARS-CoV-2 virus and/or diagnosis of COVID-19 infection under section 564(b)(1) of the Act, 21 U.S.C. 360bbb-3(b)(1), unless the authorization is terminated or revoked sooner. [facility] is certified under CLIA-88 as qualified to perform high complexity testing. Testing is performed in the [facility] laboratories located at [address] [place] [address]. Ferritin, Serumon 10-26-2020 Ferritin [Mass/Vol] 56 ug/L 8 - 150 [facility] [employer] [facility] Work Phone: IO HCG, Urine Test on 10-26-2020 HCG ( test) Ql (U) Negative [facility] [employer] Work Phone: Laboratory - Chemistry and C hemistry - challengeon 10-26-2020 Anion gap [Moles/Vol] 10 mmol/L 10 - 20 [facility] [employer] Work Phone: Calcium [Mass/Vol] 9.2 mg/dL 8.6 - 10.3 [facility] [employer] Work Phone: Chloride [Moles/Vol] 105 mmol/L 98 - 107 [facility] [employer] Work Phone: CO2 [Moles/Vol] 27 mmol/L 21 - 32 [facility] [employer] Work Phone: Creatinine [Mass/Vol] 0.88 mg/dL See Below [facility] [employer] Work Phone: Comment on above: Reference Range: 0.5 0 - 1.05 Glucose [Mass/Vol] 81 mg/dL 74 - 99 [facility] [employer] Work Phone: Potassium [Moles/Vol] 3.7 mmol/L 3.5 - 5.3 [facility] [employer] Work Phone: Sodium [Moles/Vol] 138 mmol/L 136 - 145 [facility] [employer] Work Phone: TSH Qn 2.44 m[IU]/L See Below [facility] [employer] Work Phone: Comment on above: Reference Range: 0.4 4 - 3.98 TSH testing is performed using different testing methodology at [facility] than at other [facility]. Direct result comparisons should only be made within the same method. Urea nitrogen [Mass/Vol] 17 mg/dL 6 - 23 [facility] [employer] Work Phone: Laboratory - Hematology and Cell countson 10-26-2020 Erythrocyte distribution width (RBC) [Ratio] 12.9 % See Below [facility] Phone: Comment on above: Reference Range: 11. 5 - 14.5 Hematocrit (Bld) [Volume fraction] 40.4 % See Below [facility] Phone: Comment on above: Reference Range: 36. 0 - 46.0 Hemoglobin (Bld) [Mass/Vol] 13.3 g/dL See Below [facility] Phone: Comment on above: Reference Range: 12. 0 - 16.0 MCHC (RBC) [Mass/Vol] 33.0 g/dL [facility] Below [facility] Phone: Comment on above: Reference Range: 32. 0 - 36.0 MCV (RBC) [Entitic vol] 91 fL 80 - 100 [facility] Phone: Platelets (Bld) [#/Vol] 250 10*3/uL 150 - 450 [facility] Phone: RBC (Bld) [#/Vol] 4.43 {x10E12/L} See Below [facility] Phone: Comment on above: Reference Range: 4.0 0 - 5.20 WBC (Bld) [#/Vol] 6.1 10*3/uL 4.4 - 11.3 [facility] Phone: No Panel Informationon 10-26 >60 >60 [facility] Phone: Comment on above: CALCULATIONS OF GARRETT MATED GFR ARE PERFORMED USING THE MDRD STUDY EQUATION FOR THE IDMS-TRACEABLE CREATININE METHODS. CLIN CHEM 2007;53:766-72 Tobacco Screening.on 021 Fall risk assessment a) No falls within the last year [facility] Phone: Last menstrual period start date 28Sep2020 [employer] Work Phone: Tobacco use status CPHS b) No [facility] [employer] Work Phone: Vitamin B12, Serumon 021 Cobalamin (Vitamin B12) [Mass/Vol] 585 pg/mL 211 - 911 [employer] [facility] Work Phone: Vitamin D 25-Hydroxyon 10-26 25-hydroxyvitamin D3 [Mass/Vol] 25 ng/mL Abnormal [facility] [place] [employer] [facility] Work Phone: Comment on above: .DEFICIENCY: < 20 NG /MLINSUFFICIENCY: 20-29 NG/MLSUFFICIENCY: 30-100 NG/MLTHIS ASSAY ACCURATELY QUANTIFIES THE SUM OFVITAMIN D3, 25-HYDROXY AND VIT D2,25-HYDROXY. Thyroid Perox.tpo Abon 12-30 TPO Ab 7 International_Unit/mL Normal 0-34 [facility] Comment on above: Result Comment: Perf ormed At: CB [facility] [address] [id number] Nicolás Heath PhD Ph:[phone] Performed By: #### 1 [id number] #### CHRISTIANO Send Outs Subsection [address] [place] [address] Free T4on 12-29-2018 Free T4 [Mass/Vol] 1.00 ng/dL Normal 0.58-1.64 [facility] Comment on above: Performed By: #### [id number] #### CHRITSIANO [employer] [address] [place] [address] Lab Miscellaneouson 12-30-19 Status Sent Out Normal [facility] Comment on above: Performed By: #### 1 [id number] #### CHRISTIANO Send Outs Subsection [address] [place] [address] Test Name TPO ab Normal [facility] Comment on above: Performed By: #### 1 [id number] #### CHRISTIANO Send Outs Subsection [facility] [place] [address] TSHon 12-29-2018 TSH Qn 3.30 mcIU/mL Normal 0.30-5.60 [facility] Comment on above: Performed By: #### 2 [id number] #### CHRISTIANO [employer] [address] [place], [place] [id number] Vital Signs Date Time Vital Sign Value Performing Clinician Sreekanth chapmna 10-07-2024 15:52-0400 Body height 167.[address] Bailey Bro MD Work Phone: [facility] 10-07-2024 15:51-0400 Body mass index (BMI) [Ratio] 28.3 kg/m2 Dr. Bailey Bro MD Work Phone: 9(580)496-844145 [place] [address] 10-07-2024 15:51-0400 Body weight 79.[address] Bailey Bro MD Work Phone: 6(636)401-426845 [place] [address] 10-07-2024 15:51-0400 Diastolic blood pressure 84 mm[Hg] Dr. Bailey Bro MD Work Phone: [facility] 10-07-2024 15:51-0400 Systolic blood pressure 127 mm[Hg] Dr. Bailey Bro MD Work Phone: [facility] 09-22-2024 15:45-0400 Body height 167.[address] Bailey Bro MD Work Phone: [facility] 09-22-2024 15:40-0400 Body mass index (BMI) [Ratio] 27.8 kg/m2 Dr. Bailey Bro MD Work Phone: [facility] 09-22-2024 15:40-0400 Body weight 78.[address] Bailey Bro MD Work Phone: 3(997)407-393945 [place] [address] 09-22-2024 15:40-0400 Diastolic blood pressure 78 mm[Hg] Dr. Bailey Bro MD Work Phone: 1(943)114-026445 [place] [address] 09-22-2024 15:40-0400 Systolic blood pressure 129 mm[Hg] Dr. Bailey Bro MD Work Phone: 2(951)927-427545 [place] [address] 09-21-2024 17:00-0400 Body height 167.6 cm Stephania Rodrigues MD Work Phone: [facility] 09-21-2024 17:00-0400 Body mass index (BMI) [Ratio] 28.25 kg/m2 Stephania Rodrigues MD Work Phone: [facility] 09-21-2024 17:00-0400 Body weight 79.38 kg Stephania Rodrigues MD Work Phone: [facility] 09-21-2024 17:00-0400 Diastolic blood pressure 81 mm[Hg] Stephania Rodrigues MD Work Phone: [facility] 09-21-2024 17:00-0400 Heart rate 69 /min Stephania Rodrigues MD Work Phone: [facility] 09-21-2024 17:00-0400 Systolic blood pressure 124 mm[Hg] Stephania Rodrigues MD Work Phone: [facility] 09-10-2024 15:54-0400 Body mass index (BMI) [Ratio] 27.7 kg/m2 Dr. Bailey Bro MD Work Phone: [facility] 09-10-2024 15:54-0400 Body weight 78.[address] Bailey Bro MD Work Phone: [facility] 09-10-2024 15:54-0400 Diastolic blood pressure 75 mm[Hg] Dr. Bailey Bro MD Work Phone: [facility] 09-10-2024 15:54-0400 Systolic blood pressure 119 mm[Hg] Dr. Bailey Bro MD Work Phone: [facility] 09-03-2024 15:08-0400 Body mass index (BMI) [Ratio] 27.3 kg/m2 Dr. Bailey Bro MD Work Phone: [facility] 09-03-2024 15:08-0400 Body weight 76.[address] Bailey Bro MD Work Phone: [facility] 09-03-2024 15:08-0400 Diastolic blood pressure 73 mm[Hg] Dr. Bailey Bro MD Work Phone: [facility] 09-03-2024 15:08-0400 Systolic blood pressure 119 mm[Hg] Dr. Bailey Bro MD Work Phone: [facility] 07-30-2024 14:46-0400 Body height 167.64 cm Shyanne Degroot CNM Work Phone: [facility] 07-30-2024 14:44-0400 Body mass index (BMI) [Ratio] 26.6 kg/m2 Shyanne Degroot CNM Work Phone: [facility] 07-30-2024 14:44-0400 Body weight 75.01 kg Shyanne Degroot CNM Work Phone: [facility] 07-30-2024 14:44-0400 Diastolic blood pressure 75 mm[Hg] Syhanne Degroot CNM Work Phone: [facility] 07-30-2024 14:44-0400 Systolic blood pressure 125 mm[Hg] Shyanne Degroot CNM Work Phone: [facility] 07-02-2024 16:04-0500 Body mass index (BMI) [Ratio] 25.8 kg/m2 Shyanne Degroot CNM Work Phone: [facility] 07-02-2024 16:04-0500 Body weight 72.63 kg Shyannemario Degroot CNM Work Phone: [facility] 07-02-2024 16:04-0500 Diastolic blood pressure 75 mm[Hg] Shyanne Degroot CNM Work Phone: [facility] 07-02-2024 16:04-0500 Systolic blood pressure 126 mm[Hg] Shyanne Degroot CNM Work Phone: [facility] 06-01-2024 14:33-0500 Body mass index (BMI) [Ratio] 24.7 kg/m2 Shyanne Degroot CNM Work Phone: [facility] 06-01-2024 14:33-0500 Body weight 69.62 kg Shyanne Degroot CNM Work Phone: [facility] 06-01-2024 14:33-0500 Diastolic blood pressure 68 mm[Hg] Shyanne Degroot CNM Work Phone: [facility] 06-01-2024 14:33-0500 Systolic blood pressure 118 mm[Hg] Shyanne Degroot CNM Work Phone: [facility] 04-30-2024 15:41-0500 Body mass index (BMI) [Ratio] 24.5 kg/m2 Shyanne Degroot CNM Work Phone: [facility] 04-30-2024 15:41-0500 Body weight 69.05 kg Shyanne Degroot CNM Work Phone: [facility] 04-30-2024 15:41-0500 Diastolic blood pressure 72 mm[Hg] Shyanne Degroot CNM Work Phone: [facility] 04-30-2024 15:41-0500 Systolic blood pressure 115 mm[Hg] Shyanne Degroot CNM Work Phone: [facility] 04-23-2024 17:39-0500 Body height 167.6 cm Venita Goins CLAIM MANAGER-PRINT DECORATOR Work Phone: [facility] 04-23-2024 17:39-0500 Body mass index (BMI) [Ratio] 23.73 kg/m2 Venita Goins CLAIM MANAGER-PRINT DECORATOR Work Phone: [facility] 04-23-2024 17:39-0500 Body temperature 97.81 [degF] Venita Goins CLAIM MANAGER-PRINT DECORATOR Work Phone: [facility] 04-23-2024 17:39-0500 Body weight 66.68 kg Venita Goins CLAIM MANAGER-PRINT DECORATOR Work Phone: [facility] 04-23-2024 17:39-0500 Diastolic blood pressure 71 mm[Hg] Venita Lucius CLAIM MANAGER-PRINT DECORATOR Work Phone: [facility] 04-23-2024 17:39-0500 Heart rate 71 /min Venita Lucius CLAIM MANAGER-PRINT DECORATOR Work Phone: [facility] 04-23-2024 17:39-0500 Respiratory rate 18 /min Venita Lucius CLAIM MANAGER-PRINT DECORATOR Work Phone: [facility] 04-23-2024 17:39-0500 SaO2% (BldA) [Mass fraction] 100 % Venita Lucius CLAIM MANAGER-PRINT DECORATOR Work Phone: [facility] 04-23-2024 17:39-0500 Systolic blood pressure 136 mm[Hg] Venita Lucius CLAIM MANAGER-PRINT DECORATOR Work Phone: [facility] 03-30-2024 16:09-0500 Body height 167.6 cm Stephania Rodrigues MD Work Phone: [facility] 03-30-2024 16:09-0500 Body mass index (BMI) [Ratio] 23.73 kg/m2 Stephanai Rodrigues MD Work Phone: [facility] 03-30-2024 16:09-0500 Body weight 66.68 kg Stephania Rodrigues MD Work Phone: [facility] 03-30-2024 16:09-0500 Diastolic blood pressure 70 mm[Hg] Stephania Rodrigues MD Work Phone: [facility] 03-30-2024 16:09-0500 Heart rate 77 /min Stephania Rodrigues MD Work Phone: [facility] 03-30-2024 16:09-0500 Systolic blood pressure 117 mm[Hg] Stephania Rodrigues MD Work Phone: [facility] 03-19-2024 18:00-0500 Diastolic blood pressure 70 mm[Hg] Papa Delgado DO Work Phone: [facility] 03-19-2024 18:00-0500 Heart rate 74 /min Papa Delgado DO Work Phone: [facility] 03-19-2024 18:00-0500 Respiratory rate 16 /min Papa Delgado DO Work Phone: [facility] 03-19-2024 18:00-0500 Systolic blood pressure 113 mm[Hg] Papa Delgado DO Work Phone: [facility] 03-19-2024 16:05-0500 Body height 167.6 cm Papa Delgado DO Work Phone: [facility] 03-19-2024 16:05-0500 Body mass index (BMI) [Ratio] 22.6 kg/m2 Papa Delgado DO Work Phone: [facility] 03-19-2024 16:05-0500 Body temperature 97.5 [degF] Papa Delgado DO Work Phone: [facility] 03-19-2024 16:05-0500 Body weight 63.5 kg Papa Delgado DO Work Phone: [facility] 03-19-2024 16:05-0500 SaO2% (BldA) [Mass fraction] 100 % Papa Delgado DO Work Phone: [facility] 02-07-2024 16:09-0400 Body height 167.6 cm Nicole Negron MD Work Phone: [facility] 02-07-2024 16:09-0400 Body mass index (BMI) [Ratio] 22.89 kg/m2 Nicole Negron MD Work Phone: [facility] 02-07-2024 16:09-0400 Body weight 64.32 kg Nicole Negron MD Work Phone: [facility] 02-07-2024 16:09-0400 Diastolic blood pressure 60 mm[Hg] Nicole Negron MD Work Phone: [facility] 02-07-2024 16:09-0400 Heart rate 52 /min Nicole Negron MD Work Phone: [facility] 02-07-2024 16:09-0400 SaO2% (BldA) [Mass fraction] 100 % Nicole Negron MD Work Phone: [facility] 02-07-2024 16:09-0400 Systolic blood pressure 90 mm[Hg] Nicole Negron MD Work Phone: [facility] 11-26-2023 17:05-0400 Body height 167.6 cm Caden Kamenik CLAIM MANAGER-PRINT DECORATOR Work Phone: [facility] 11-26-2023 17:05-0400 Body mass index (BMI) [Ratio] 22.76 kg/m2 Caden Gravesenik CLAIM MANAGER-PRINT DECORATOR Work Phone: [facility] 11-26-2023 17:05-0400 Body temperature 98.1 [degF] Caden Gravesenik CLAIM MANAGER-PRINT DECORATOR Work Phone: [facility] 11-26-2023 17:05-0400 Body weight 63.96 kg Caden Gravesenimarah CLAIM MANAGER-PRINT DECORATOR Work Phone: [facility] 11-26-2023 17:05-0400 Diastolic blood pressure 78 mm[Hg] Caden Gravesenimarah CLAIM MANAGER-PRINT DECORATOR Work Phone: [facility] 11-26-2023 17:05-0400 Heart rate 83 /min Caden Gravesenimarha CLAIM MANAGER-PRINT DECORATOR Work Phone: [facility] 11-26-2023 17:05-0400 Respiratory rate 18 /min Caden Gravesenimarah CLAIM MANAGER-PRINT DECORATOR Work Phone: [facility] 11-26-2023 17:05-0400 SaO2% (BldA) [Mass fraction] 99 % Caden Gravesenimarah CLAIM MANAGER-PRINT DECORATOR Work Phone: [facility] 11-26-2023 17:05-0400 Systolic blood pressure 114 mm[Hg] Caden Segura CLAIM MANAGER-PRINT DECORATOR Work Phone: [facility] 09-17-2023 16:03-0400 Body height 167.6 cm Nicole Negron MD Work Phone: [facility] 09-17-2023 16:03-0400 Body mass index (BMI) [Ratio] 22.85 kg/m2 Nicole Negron MD Work Phone: [facility] 09-17-2023 16:03-0400 Body weight 64.23 kg Nicole Negron MD Work Phone: [facility] 09-17-2023 16:03-0400 Diastolic blood pressure 72 mm[Hg] Nicole Negron MD Work Phone: [facility] 09-17-2023 16:03-0400 Heart rate 67 /min Nicole Negron MD Work Phone: [facility] 09-17-2023 16:03-0400 SaO2% (BldA) [Mass fraction] 99 % Nicole Negron MD Work Phone: [facility] 09-17-2023 16:03-0400 Systolic blood pressure 118 mm[Hg] Nicole Negron MD Work Phone: [facility] 08-26-2023 09:40-0400 Body height 167.6 cm Caden Segura APRN-PRINT DECORATOR Work Phone: [facility] 08-26-2023 09:40-0400 Body mass index (BMI) [Ratio] 21.79 kg/m2 Caden Segura CLAIM MANAGER-PRINT DECORATOR Work Phone: [facility] 08-26-2023 09:40-0400 Body temperature 98.6 [degF] Caden Segura CLAIM MANAGER-PRINT DECORATOR Work Phone: [facility] 08-26-2023 09:40-0400 Body weight 61.24 kg Caden Segura CLAIM MANAGER-PRINT DECORATOR Work Phone: [facility] 08-26-2023 09:40-0400 Diastolic blood pressure 80 mm[Hg] Caden Segura CLAIM MANAGER-PRINT DECORATOR Work Phone: [facility] 08-26-2023 09:40-0400 Heart rate 83 /min Caden Segura CLAIM MANAGER-PRINT DECORATOR Work Phone: [facility] 08-26-2023 09:40-0400 Respiratory rate 16 /min Caden Segura CLAIM MANAGER-PRINT DECORATOR Work Phone: [facility] 08-26-2023 09:40-0400 SaO2% (BldA) [Mass fraction] 98 % Caden Segura CLAIM MANAGER-PRINT DECORATOR Work Phone: [facility] 08-26-2023 09:40-0400 Systolic blood pressure 113 mm[Hg] Caden Segura CLAIM MANAGER-PRINT DECORATOR Work Phone: [facility] 10-16-2022 16:12-0400 Body height 167.6 cm Nicole Negron MD Work Phone: [facility] 10-16-2022 16:12-0400 Body mass index (BMI) [Ratio] 24.37 kg/m2 Nicole Negron MD Work Phone: [facility] 10-16-2022 16:12-0400 Body weight 68.49 kg Nicole Negron MD Work Phone: [facility] 10-16-2022 16:12-0400 Diastolic blood pressure 68 mm[Hg] Nicole Negron MD Work Phone: [facility] 10-16-2022 16:12-0400 Heart rate 64 /min Nicole Negron MD Work Phone: [facility] 10-16-2022 16:12-0400 SaO2% (BldA) [Mass fraction] 98 % Nicole Negron MD Work Phone: [facility] 10-16-2022 16:12-0400 Systolic blood pressure 112 mm[Hg] Nicole Negron MD Work Phone: [facility] 08-11-2022 16:50-0400 Body height 168 cm Kriss Woodland Other Phone: [facility] 08-11-2022 16:50-0400 Body temperature 98.06 [degF] Kriss Woodland Other Phone: [facility] 08-11-2022 16:50-0400 Diastolic blood pressure 73 mm[Hg] Kriss Woodland Other Phone: [facility] 08-11-2022 16:50-0400 Heart rate 75 /min Kriss Woodland Other Phone: [facility] 08-11-2022 16:50-0400 Respiratory rate 12 /min Kriss Woodland Other Phone: [facility] 08-11-2022 16:50-0400 SaO2% (BldA) [Mass fraction] 98 % Kriss Woodland Other Phone: [facility] 08-11-2022 16:50-0400 Systolic blood pressure 118 mm[Hg] Kriss Woodland Other Phone: [facility] 06-28-2022 11:03-0500 Body height 168 cm Kriss Woodland Other Phone: [facility] 06-28-2022 11:03-0500 Body temperature 98.42 [degF] Kriss Woodland Other Phone: [facility] 06-28-2022 11:03-0500 Diastolic blood pressure 73 mm[Hg] Kriss Woodland Other Phone: [facility] 06-28-2022 11:03-0500 Heart rate 100 /min Kriss Woodland Other Phone: [facility] 06-28-2022 11:03-0500 Respiratory rate 16 /min Kriss Woodland Other Phone: [facility] 06-28-2022 11:03-0500 SaO2% (BldA) [Mass fraction] 99 % Kriss Woodland Other Phone: [facility] 06-28-2022 11:03-0500 Systolic blood pressure 120 mm[Hg] Kriss Woodland Other Phone: [facility] 05-28-2022 12:18-0500 Diastolic blood pressure 68 mm[Hg] Kriss Woodland Other Phone: [facility] 05-28-2022 12:18-0500 Heart rate 85 /min Kriss Woodland Other Phone: [facility] 05-28-2022 12:18-0500 Respiratory rate 16 /min Kriss Woodland Other Phone: [facility] 05-28-2022 12:18-0500 SaO2% (BldA) [Mass fraction] 100 % Kriss Woodland Other Phone: [facility] 05-28-2022 12:18-0500 Systolic blood pressure 112 mm[Hg] Kriss Woodland Other Phone: [facility] 05-28-2022 09:27-0500 Body height 167.6 cm Kriss Woodland Other Phone: [facility] 05-28-2022 09:27-0500 Body temperature 98.6 [degF] Kriss Woodland Other Phone: [facility] 05-28-2022 09:27-0500 Body weight 63.6 kg Kriss Woodland Other Phone: [facility] 12-04-2021 15:02-0400 Body height 167.64 cm Kriss Chapinpster Work Phone: [place] [address] [place] Work Phone: 12-04-2021 15:02-0400 Body mass index (BMI) [Ratio] 25.48 kg/m2 Kriss Mei [place] Work Phone: [place] [address] [place] Work Phone: 12-04-2021 15:02-0400 Body surface area Derived from formula 1.81 m2 Kriss Mei [place] Work Phone: [place] [address] [place] Work Phone: 12-04-2021 15:02-0400 Body weight 71.6 kg Kriss Chapinpster Work Phone: [place] [address] [place] Work Phone: 12-04-2021 15:02-0400 Diastolic blood pressure 68 mm[Hg] Kriss Mei ChapinWoodland Work Phone: [place] [address] [place] Work Phone: 12-04-2021 15:02-0400 Systolic blood pressure 166 mm[Hg] Kriss Mei [place] Work Phone: [place] [address] [place] Work Phone: 10-19-2021 16:00-0400 Body temperature 98.06 [degF] Kriss Woodland Other Phone: [facility] 10-19-2021 16:00-0400 Diastolic blood pressure 73 mm[Hg] Kriss Woodland Other Phone: [facility] 10-19-2021 16:00-0400 Heart rate 59 /min Kriss Woodland Other Phone: [facility] 10-19-2021 16:00-0400 Respiratory rate 16 /min Kriss Woodland Other Phone: [facility] 10-19-2021 16:00-0400 SaO2% (BldA) [Mass fraction] 99 % Kriss Ayala Other Phone: [facility] 10-19-2021 16:00-0400 Systolic blood pressure 121 mm[Hg] Kriss Ayala Other Phone: [facility] 10-10-2021 14:30-0400 Body height 167.64 cm Kriss Eastonter Work Phone: [place] [address] [place] Work Phone: 10-10-2021 14:30-0400 Body mass index (BMI) [Ratio] 29.36 kg/m2 Kriss Eastonter Work Phone: [place] [address] [place] Work Phone: 10-10-2021 14:30-0400 Body surface area Derived from formula 1.92 m2 Kriss Eastonter Work Phone: [place] [address] [place] Work Phone: 10-10-2021 14:30-0400 Body weight 82.5 kg Kriss Eastonter Work Phone: [place] [address] [place] Work Phone: 10-10-2021 14:30-0400 Diastolic blood pressure 78 mm[Hg] Kriss Chapinpster Work Phone: [place] [address] [place] Work Phone: 10-10-2021 14:30-0400 Systolic blood pressure 118 mm[Hg] Kriss Mei ChapinWoodland Work Phone: [place] [address] [place] Work Phone: 10-03-2021 15:01-0400 Body height 167.64 cm Kriss Chapinpster Work Phone: [address] Work Phone: 10-03-2021 15:01-0400 Body mass index (BMI) [Ratio] 29.39 kg/m2 Kriss Eastonter Work Phone: [place] [address] [place] Work Phone: 10-03-2021 15:01-0400 Body surface area Derived from formula 1.92 m2 Kriss Hurley [place] Work Phone: [place] [address] [place] Work Phone: 10-03-2021 15:01-0400 Body weight 82.6 kg Kriss Eastonter Work Phone: [place] [address] [place] Work Phone: 10-03-2021 15:01-0400 Diastolic blood pressure 82 mm[Hg] Kriss Hurley [place] Work Phone: [place] [address] [place] Work Phone: 10-03-2021 15:01-0400 Systolic blood pressure 122 mm[Hg] Kriss Hurley [place] Work Phone: [place] [address] [place] Work Phone: 09-26-2021 15:27-0400 Body height 167.64 cm Kriss Ayala Work Phone: [place] [address] [place] Work Phone: 09-26-2021 15:27-0400 Body mass index (BMI) [Ratio] 29.71 kg/m2 Kriss Eastonter Work Phone: [place] [address] [place] Work Phone: 09-26-2021 15:27-0400 Body surface area Derived from formula 1.93 m2 Kriss Hurley [place] Work Phone: [place] [address] [place] Work Phone: 09-26-2021 15:27-0400 Body weight 83.5 kg Kriss Eastonter Work Phone: [place] [address] [place] Work Phone: 09-26-2021 15:27-0400 Diastolic blood pressure 82 mm[Hg] Kriss Chapinpster Work Phone: [place] [address] [place] Work Phone: 09-26-2021 15:27-0400 Systolic blood pressure 120 mm[Hg] Kriss Chapinpster Work Phone: [place] [address] [place] Work Phone: 09-19-2021 15:54-0400 Body height 167.64 cm Kriss Chapinpster Work Phone: [place] [address] [place] Work Phone: 09-19-2021 15:54-0400 Body mass index (BMI) [Ratio] 29.25 kg/m2 Kriss Chapinpster Work Phone: [place] [address] [place] Work Phone: 09-19-2021 15:54-0400 Body surface area Derived from formula 1.92 m2 Kriss Chapinpster Work Phone: [place] [address] [place] Work Phone: 09-19-2021 15:54-0400 Body weight 82.2 kg Kriss Chapinpster Work Phone: [place] [address] [place] Work Phone: 09-19-2021 15:54-0400 Diastolic blood pressure 58 mm[Hg] Kriss Chapinpster Work Phone: [place] [address] [place] Work Phone: 09-19-2021 15:54-0400 Systolic blood pressure 102 mm[Hg] Kriss Chapinpster Work Phone: [place] [address] [place] Work Phone: 08-22-2021 15:42-0400 Body height 167.64 cm Kriss Eastonter Work Phone: [place] [address] [place] Work Phone: 08-22-2021 15:42-0400 Body mass index (BMI) [Ratio] 28.36 kg/m2 Kriss Eastonter Work Phone: [place] [address] [place] Work Phone: 08-22-2021 15:42-0400 Body surface area Derived from formula 1.89 m2 Kriss Mei [place] Work Phone: [place] [address] [place] Work Phone: 08-22-2021 15:42-0400 Body weight 79.7 kg Kriss Eastonter Work Phone: [place] [address] [place] Work Phone: 08-22-2021 15:42-0400 Diastolic blood pressure 58 mm[Hg] Kriss Easotnter Work Phone: [place] [address] [place] Work Phone: 08-22-2021 15:42-0400 Systolic blood pressure 102 mm[Hg] Kriss Mei EastonWoodland Work Phone: [place] [address] [place] Work Phone: 08-08-2021 15:26-0400 Body height 167.64 cm Kriss Chapinpster Work Phone: [place] [address] [place] Work Phone: 08-08-2021 15:26-0400 Body mass index (BMI) [Ratio] 27.8 kg/m2 Kriss J [place] Work Phone: [place] [address] [place] Work Phone: 08-08-2021 15:26-0400 Body surface area Derived from formula 1.88 m2 Kriss Eastonter Work Phone: [place] [address] [place] Work Phone: 08-08-2021 15:26-0400 Body weight 78.13 kg Kriss Chapinpster Work Phone: [place] [address] [place] Work Phone: 08-08-2021 15:26-0400 Diastolic blood pressure 64 mm[Hg] Kriss Chapinpster Work Phone: [place] [address] [place] Work Phone: 08-08-2021 15:26-0400 Systolic blood pressure 116 mm[Hg] Kriss Chapinpster Work Phone: [place] [address] [place] Work Phone: 07-25-2021 14:36-0400 Body height 167.64 cm Kriss Eastonter Work Phone: [place] [address] [place] Work Phone: 07-25-2021 14:36-0400 Body mass index (BMI) [Ratio] 27.68 kg/m2 Kriss Chapinpster Work Phone: [place] [address] [place] Work Phone: 07-25-2021 14:36-0400 Body surface area Derived from formula 1.87 m2 Kriss Chapinpster Work Phone: [place] [address] [place] Work Phone: 07-25-2021 14:36-0400 Body weight 77.79 kg Kriss Chapinpster Work Phone: [place] [address] [place] Work Phone: 07-25-2021 14:36-0400 Diastolic blood pressure 78 mm[Hg] Kriss Chapinpster Work Phone: [place] [address] [place] Work Phone: 07-25-2021 14:36-0400 Systolic blood pressure 118 mm[Hg] Kriss Mei EastonWoodland Work Phone: [place] [address] [place] Work Phone: 06-27-2021 15:17-0500 Body height 167.64 cm Kriss Eastonter Work Phone: [place] [address] [place] Work Phone: 06-27-2021 15:17-0500 Body mass index (BMI) [Ratio] 26.51 kg/m2 Kriss Eastonter Work Phone: [place] [address] [place] Work Phone: 06-27-2021 15:17-0500 Body surface area Derived from formula 1.84 m2 Kriss J [place] Work Phone: [place] [address] [place] Work Phone: 06-27-2021 15:17-0500 Body temperature 96.8 [degF] Kriss Eastonter Work Phone: [place] [address] [place] Work Phone: 06-27-2021 15:17-0500 Body weight 74.5 kg Kriss Hurley Jamie Work Phone: [place] [address] [place] Work Phone: 06-27-2021 15:17-0500 Diastolic blood pressure 68 mm[Hg] Kriss Hurley [place] Work Phone: [place] [address] [place] Work Phone: 06-27-2021 15:17-0500 Systolic blood pressure 122 mm[Hg] Kriss Hurley [place] Work Phone: [place] [address] [place] Work Phone: 05-30-2021 15:11-0500 Body height 167.64 cm Kriss Eastonter Work Phone: [place] [address] [place] Work Phone: 05-30-2021 15:11-0500 Body mass index (BMI) [Ratio] 25.87 kg/m2 Kriss Hurley [place] Work Phone: [place] [address] [place] Work Phone: 05-30-2021 15:11-0500 Body surface area Derived from formula 1.82 m2 Kriss Hurley [place] Work Phone: [place] [address] [place] Work Phone: 05-30-2021 15:11-0500 Body temperature 97.5 [degF] Kriss Hurley [place] Work Phone: [place] [address] [place] Work Phone: 05-30-2021 15:11-0500 Body weight 72.69 kg Kriss Eastonter Work Phone: [place] [address] [place] Work Phone: 05-30-2021 15:11-0500 Diastolic blood pressure 78 mm[Hg] Kriss Chapinpster Work Phone: [place] [address] [place] Work Phone: 05-30-2021 15:11-0500 Systolic blood pressure 116 mm[Hg] Kriss Hurley [place] Work Phone: [place] [address] [place] Work Phone: 05-02-2021 15:10-0500 Body height 167.64 cm Kriss Eastonter Work Phone: [place] [address] [place] Work Phone: 05-02-2021 15:10-0500 Body mass index (BMI) [Ratio] 24.92 kg/m2 Kriss Hurley Woodland Work Phone: [place] [address] [place] Work Phone: 05-02-2021 15:10-0500 Body surface area Derived from formula 1.79 m2 Kriss Eastonter Work Phone: [place] [address] [place] Work Phone: 05-02-2021 15:10-0500 Body temperature 97.5 [degF] Kriss Eastonter Work Phone: [place] [address] [place] Work Phone: 05-02-2021 15:10-0500 Body weight 70.03 kg Kriss Hurley Woodland Work Phone: [place] [address] [place] Work Phone: 05-02-2021 15:10-0500 Diastolic blood pressure 70 mm[Hg] Kriss Eastonter Work Phone: [place] [address] [place] Work Phone: 05-02-2021 15:10-0500 Systolic blood pressure 112 mm[Hg] Kriss Eastonter Work Phone: [place] [address] [place] Work Phone: 04-04-2021 15:37-0500 Body height 167.64 cm Kriss Eatsonter Work Phone: [place] [address] [place] Work Phone: 04-04-2021 15:37-0500 Body mass index (BMI) [Ratio] 25.02 kg/m2 Kriss Eastonter Work Phone: [place] [address] [place] Work Phone: 04-04-2021 15:37-0500 Body surface area Derived from formula 1.79 m2 Kriss Hurley [place] Work Phone: [place] [address] [place] Work Phone: 04-04-2021 15:37-0500 Body temperature 97.1 [degF] Kriss Eastonter Work Phone: [place] [address] [place] Work Phone: 04-04-2021 15:37-0500 Body weight 70.31 kg Kriss Eastonter Work Phone: [place] [address] [place] Work Phone: 04-04-2021 15:37-0500 Diastolic blood pressure 74 mm[Hg] Kriss Eastonter Work Phone: [place] [address] [place] Work Phone: 04-04-2021 15:37-0500 Systolic blood pressure 118 mm[Hg] Kriss Eastonter Work Phone: [place] [address] [place] Work Phone: 03-07-2021 15:17-0400 Body height 167.64 cm Kriss Eastonter Work Phone: [place] [address] [place] Work Phone: 03-07-2021 15:17-0400 Body mass index (BMI) [Ratio] 24.94 kg/m2 Kriss Eastonter Work Phone: [place] [address] [place] Work Phone: 03-07-2021 15:17-0400 Body surface area Derived from formula 1.79 m2 Kriss Eastonter Work Phone: [place] [address] [place] Work Phone: 03-07-2021 15:17-0400 Body temperature 98 [degF] Kriss Chapinpster Work Phone: [place] [address] [place] Work Phone: 03-07-2021 15:17-0400 Body weight 70.1 kg Kriss Chapinpster Work Phone: [address] Work Phone: 03-07-2021 15:17-0400 Diastolic blood pressure 72 mm[Hg] Kriss Ayala Work Phone: [address] Work Phone: 03-07-2021 15:17-0400 Systolic blood pressure 104 mm[Hg] Kriss Ayala Work Phone: [address] Work Phone: 02-14-2021 14:07-0400 Body height 167.64 cm Kriss Ayala Work Phone: [facility] Work Phone: 02-14-2021 14:07-0400 Body mass index (BMI) [Ratio] 23.93 kg/m2 Kriss Ayala Work Phone: [facility] Work Phone: 02-14-2021 14:07-0400 Body surface area Derived from formula 1.76 m2 Kriss Ayala Work Phone: [facility] Work Phone: 02-14-2021 14:07-0400 Body temperature 97.1 [degF] Kriss Ayala Work Phone: [facility] Work Phone: 02-14-2021 14:07-0400 Body weight 67.25 kg Kriss Ayala Work Phone: [facility] Work Phone: 02-14-2021 14:07-0400 Diastolic blood pressure 72 mm[Hg] Kriss J Woodland Work Phone: [facility] Work Phone: 02-14-2021 14:07-0400 Heart rate 72 /min Kriss Eastonter Work Phone: [facility] Work Phone: 02-14-2021 14:07-0400 SaO2% (BldA) [Mass fraction] 99 % Kriss Eastonter Work Phone: [facility] Work Phone: 02-14-2021 14:07-0400 Systolic blood pressure 112 mm[Hg] Kriss Chapinpster Work Phone: [facility] Work Phone: 02-04-2021 13:43-0400 Body height 167.6 cm Kriss Eastonter Other Phone: [facility] 02-04-2021 13:43-0400 Body temperature 98.24 [degF] Kriss Eastonter Other Phone: [facility] 02-04-2021 13:43-0400 Diastolic blood pressure 75 mm[Hg] Kriss Eastonter Other Phone: [facility] 02-04-2021 13:43-0400 Heart rate 88 /min Kriss Eastonter Other Phone: [facility] 02-04-2021 13:43-0400 SaO2% (BldA) [Mass fraction] 98 % Kriss Eastonter Other Phone: [facility] 02-04-2021 13:43-0400 Systolic blood pressure 110 mm[Hg] Kriss Chapinpster Other Phone: [facility] 10-26-2020 16:04-0400 Body height 167.64 cm Kriss Eastonter Work Phone: [facility] Work Phone: 10-26-2020 16:04-0400 Body mass index (BMI) [Ratio] 24.61 kg/m2 Kriss Ayala Work Phone: [facility] Work Phone: 10-26-2020 16:04-0400 Body surface area Derived from formula 1.78 m2 Kriss Ayala Work Phone: [facility] Work Phone: 10-26-2020 16:04-0400 Body temperature 97.8 [degF] Kriss Ayala Work Phone: [facility] Work Phone: 10-26-2020 16:04-0400 Body weight 69.17 kg Kriss Ayala Work Phone: [facility] Work Phone: 10-26-2020 16:04-0400 Diastolic blood pressure 68 mm[Hg] Kriss Ayala Work Phone: [facility] Work Phone: 10-26-2020 16:04-0400 Heart rate 83 /min Kriss Ayala Work Phone: [facility] Work Phone: 10-26-2020 16:04-0400 SaO2% (BldA) [Mass fraction] 98 % Kriss Ayala Work Phone: [facility] Work Phone: 10-26-2020 16:04-0400 Systolic blood pressure 102 mm[Hg] Kriss Mei ChapinWoodland Work Phone: [facility] Work Phone: Encounters Encounter Date Encounter Type Care Provider Facility Start: 10-07-2024 End: 10-07-[address] Bryanna Coronel DO -[facility] Work Phone: Start: 10-07-2024 End: 10-07-[address] Bailey Bro MD Work Phone: [facility] Work Phone: Start: 10-07-2024 End: 10-07-2024 ambulatory [facility] Facility:[facility] Start: 09-22-2024 End: 09-22-[address] Bailey Bro MD -[facility] Work Phone: Start: 09-22-2024 End: 09-22-[address] Bailey Bro MD Work Phone: [facility] Work Phone: Start: 09-21-2024 End: 09-21-[address] [facility] Start: 09-21-2024 End: 09-21-2024 Office outpatient visit 15 minutes Stephania Rodrigues MD Work Phone: [facility] [place] Comment on above: Acquired hypothyroid ism (Primary Dx) Start: 09-10-2024 End: 09-10-[address] Bailey Bro MD -[facility] Work Phone: Start: 09-10-2024 End: 09-10-2024 ambulatory [facility] Facility:[facility] Start: 09-03-2024 End: 09-03-[address] Bailey Bro MD -[facility] Work Phone: Start: 09-03-2024 End: 09-03-2024 [facility] Start: 08-06-2024 End: 08-06-[address] Bailey Bro MD Work Phone: [facility] Work Phone: Start: 08-06-2024 End: 08-06-[address] Bryanna Coronel DO -Laboratory Work Phone: Start: 08-06-2024 End: 08-06-2024 ambulatory Nicole Negron Facility:[facility] Start: 07-30-2024 End: 07-30-[address] Bryanna Coronel DO -[facility] Work Phone: Start: 07-30-2024 End: 07-30-2024 ambulatory Shyanne TRACY Work Phone: [facility] Work Phone: Start: 07-30-2024 End: 07-30-2024 ambulatory Bryanna Coronel Facility:[facility] Start: 07-23-2024 End: 07-23-2024 ambulatory BAILEY BRO [facility] Start: 07-20-2024 [facility] Start: 07-04-2024 ambulatory SAFIA OJEDAE Facility:[facility] Start: 07-02-2024 End: 07-02-[address] Bailey Bro MD -[facility] Work Phone: Start: 07-02-2024 End: 07-02-2024 ambulatory Bailey Bro Facility:[facility] Start: 07-02-2024 End: 07-02-2024 ambulatory Bailey Bro Facility:[facility] Start: 06-23-2024 End: 06-23-2024 ambulatory MD ARECHIGA [facility] Start: 06-05-2024 End: 06-05-[address] [facility] Start: 06-01-2024 End: 06-01-2024 Patient encounter procedure Karoline Prabhakar CNM -[facility] Work Phone: Start: 06-01-2024 End: 06-01-2024 ambulatory Karoline Prabhakar Facility:[facility] Start: 05-08-2024 End: 05-08-[address] [facility] Start: 04-30-2024 End: 04-30-[address] Bryanna Coronel DO -Laboratory, Specimen Work Phone: Start: 04-30-2024 End: 04-30-[address] Bryanna Coronel DO -[facility] Work Phone: Start: 04-30-2024 End: 04-30-2024 ambulatory Bryanna Coronel Facility:[facility] Start: 04-30-2024 End: 04-30-2024 ambulatory Bryanna Coronel Facility:[facility] Start: 04-23-2024 End: 04-23-2024 Patient encounter procedure Venita Goins CLAIM MANAGER-PRINT DECORATOR Work Phone: [facility] Comment on above: Nausea (Primary Dx); Acute viral syndrome; Hematuria, unspecified type Start: 04-23-2024 End: 04-23-2024 ambulatory NICOLE Emeka [facility] Start: 04-14-2024 End: 04-14-2024 Patient encounter procedure Shyanne Degroot CNM -Lab, [facility] Start: 04-14-2024 End: 04-14-2024 ambulatory Shyanne Rawlins Facility:[facility] Start: 04-03-2024 End: 04-03-2024 ambulatory Shyanne Degroot Facility:[facility] Start: 04-03-2024 End: 04-03-[address] [facility] Start: 04-03-2024 End: 04-03-2024 ambulatory Shyanne Degroot Facility:[facility] Start: 03-30-2024 End: 03-30-2024 Office consultation new/estab patient 60 min Stephania Rodrigues MD Work Phone: [facility] [place] Comment on above: Acquired hypothyroid ism; Less than 8 weeks gestation of ([facility]) Start: 03-30-2024 End: 03-30-2024 ambulatory STEPHANIA RODRIGUES [facility] Ambulatory Start: 03-19-2024 End: 03-19-2024 Emergency department patient visit Papa Delgado DO Work Phone: [facility] Comment on above: Vaginal bleeding in ([facility]HS-HCC) (Primary Dx) Start: 03-06-2024 End: 03-06-[address] [facility] Start: 02-07-2024 End: 02-07-2024 Office outpatient visit 15 minutes Nicole Negron MD Work Phone: [facility] Comment on above: Abnormal TSH (Primar y Dx) Start: 02-07-2024 End: 02-07-2024 ambulatory NICOLE Hendrickson [facility] Ambulatory Start: 01-31-2024 End: 01-31-[address] [facility] Start: 11-26-2023 End: 11-26-2023 Patient encounter procedure Caden Segura APRN-PRINT DECORATOR Work Phone: [facility] Comment on above: Acute non-recurrent maxillary sinusitis (Primary Dx); Acute upper respiratory infection Start: 11-26-2023 End: 11-26-2023 ambulatory NICOLE Hendrickson [facility] Start: 10-12-2023 End: 10-12-[address] [facility] Start: 10-12-2023 End: 10-12-2023 Encounter for general adult medical examination without abnormal findings NICOLE Hendrickson [facility] Start: 09-17-2023 End: 09-17-2023 Patient encounter status Nicole Negron MD Work Phone: [facility] Work Phone: Start: 09-17-2023 End: 09-17-2023 Periodic preventive med est patient 18-39 yrs Nicole Negron MD Work Phone: [facility] Comment on above: Healthcare maintenan ce (Primary Dx) Start: 08-26-2023 End: 08-26-2023 Patient encounter procedure Caden Margarito Starkvng CLAIM MANAGER-PRINT DECORATOR Work Phone: [facility] Comment on above: Acute streptococcal pharyngitis (Primary Dx) Start: 08-26-2023 End: 08-26-2023 ambulatory NICOLE NEGRON [facility] Start: 05-16-2023 End: 05-16-2023 ambulatory Facility:[facility] Start: 10-16-2022 End: 10-16-2022 Office outpatient visit 15 minutes Nicole Negron MD Work Phone: [facility] Comment on above: Irritation of oral c avity (Primary Dx) Start: 09-03-2022 End: 09-03-2022 Emergency department patient visit Ms. Caden Segura Facility:[id number] Start: 08-11-2022 End: 08-11-2022 Emergency department patient visit Venita Goins [facility] Start: 06-28-2022 End: 06-28-2022 Emergency department patient visit Caden Segura [facility] Start: 06-04-2022 ambulatory MD BRE LONG Facility:[id number] Start: 05-28-2022 End: 05-28-2022 Emergency department patient visit Tiny Abdullahi [facility] Emergency 09 Start: 03-14-2022 ambulatory Ms. Kriss Andino mikael Ayala Facility:[id number] Start: 12-04-2021 Patient encounter procedure Kriss Ayala Work Phone: [facility] [address] [place] Work Phone: Start: 12-04-2021 ambulatory MD BRE LONG Facility:[id number] Start: 10-23-2021 ambulatory MD BRE LONG Facility:[id number] Start: 10-17-2021 Chart Update Kriss haddad Work Phone: [facility] [place] Work Phone: Start: 10-16-2021 Chart Update Kriss Ragsdale ster Work Phone: [place] [address] [place] Work Phone: Start: 10-16-2021 End: 10-19-2021 Evaluation and management of inpatient Sal Trejo [facility]D [address] Start: 10-13-2021 ambulatory Bre Long Facility: [id number] Start: 10-10-2021 ambulatory MD BRE LONG Facility:[id number] Start: 10-10-2021 Office outpatient vi sit 15 minutes Kriss J [place] Work Phone: [facility] [address] [place] Work Phone: Start: 10-03-2021 ambulatory MD BRE LONG Facility:[id number] Start: 10-03-2021 Office outpatient vi sit 15 minutes Kriss J [place] Work Phone: [place] [address] [place] Work Phone: Start: 2021 Chart Update Kriss J Harp ster Work Phone: [place] [address] [place] Work Phone: Start: 09-27-2021 Chart Update Kriss J Harp ster Work Phone: [place] [address] [place] Work Phone: Start: 09-26-2021 Office outpatient vi sit 15 minutes Kriss J [place] Work Phone: [place] [address] [place] Work Phone: Start: 09-26-2021 ambulatory MD BRE LONG Facility:[id number] Start: 09-19-2021 End: 09-19-2021 ambulatory MD BRE LONG Facility:[id number] Start: 09-19-2021 Office outpatient vi sit 15 minutes Kriss J [place] Work Phone: [place] [address] [place] Work Phone: Start: 09-05-2021 ambulatory MD BRE LONG Facility:[id number] Start: 08-23-2021 Chart Update Kriss J Harp ster Work Phone: [facility] [address] [place] Work Phone: Start: 08-22-2021 AUDIT Kriss J Harp ster Work Phone: [facility] [address] [place] Work Phone: Start: 08-08-2021 Office outpatient vi sit 10 minutes Kriss Mei [place] Work Phone: [facility] [address] [place] Work Phone: Start: 07-26-2021 Chart Update Kriss J Harp ster Work Phone: [facility] [address] [place] Work Phone: Start: 06-27-2021 Office outpatient vi sit 15 minutes Kriss Mei [place] Work Phone: [place] [address] [place] Work Phone: Start: 06-07-2021 Chart Update Kriss Mei Harp ster Work Phone: [place] [address] [place] Work Phone: Start: 05-02-2021 Office outpatient vi sit 15 minutes Kriss Mei [place] Work Phone: [facility] [address] [place] Work Phone: Start: 04-18-2021 Chart Update Kriss Mei Harp ster Work Phone: [place] [address] [place] Work Phone: Start: 04-05-2021 Chart Update Kriss J Harp ster Work Phone: [facility] [address] [place] Work Phone: Start: 04-04-2021 Office outpatient ne w 30 minutes Kriss Mei [place] Work Phone: [facility] [address] [place] Work Phone: Start: 03-13-2021 Chart Update Kriss J Harp ster Work Phone: [place] [address] [place] Work Phone: Start: 03-10-2021 Chart Update Kriss Ragsdale ster Work Phone: [place] [address] [place] Work Phone: Start: 03-07-2021 Office outpatient ne w 20 minutes Kriss Ayala Work Phone: [place] [address] [place] Work Phone: Start: 02-14-2021 Chart Update Kriss Ragsdale ster Work Phone: [facility] Work Phone: Start: 02-14-2021 Patient encounter procedure Kriss Ayala Work Phone: [facility] Work Phone: Start: 02-04-2021 End: 02-04-2021 Emergency department patient visit Venita Goins [facility] Start: 10-27-2020 Chart Update Kriss Chapinp ster Work Phone: [facility] Work Phone: Start: 10-26-2020 Patient encounter procedure Kriss Ayala Work Phone[facility] Work [facility]: Procedures Date Procedure Procedure Detail Performing Clinician Start: 10-02-2024 Thyrotropin [Units/volume] in Serum or Plasma Stephania Rodrigues MD Work Phone: Start: 07-30-2024 Serologic test for syphilis Dr. Bailey Bro MD Work Phone: Start: 04-30-2024 Urine culture Shyanne fernández CNM Work Phone: Start: 04-23-2024 POCT SARS-COV-2/FLU/ RSV PCR SYMPTOMATIC Venita Goins CLAIM MANAGER-PRINT DECORATOR Work Phone: Start: 04-23-2024 Urnls dip stick/tabl et rgnt auto w/o microscopy Venita Goins CLAIM MANAGER-PRINT DECORATOR Work Phone: Start: 04-03-2024 Thyrotropin [Units/volume] in Serum or Plasma Stephania Rodrigues MD Work Phone: Start: 03-19-2024 Us preg uterus real time w/image dcmtn transvag Papa Delgado DO Work Phone: Start: 03-19-2024 Urinalysis complete W Reflex Culture panel - Urine Papa Delgado DO Work Phone: Start: 03-19-2024 Urnls dip stick/tabl et reagent auto microscopy Papa Delgado DO Work Phone: Start: 03-19-2024 Blood typing serolog ic rh (d) Papa Delgado DO Work Phone: Start: 03-19-2024 Comprehensive metabo lic panel Papa Delgado DO Work Phone: Start: 03-06-2024 Thyrotropin [Units/volume] in Serum or Plasma Papa Delgado DO Work Phone: Start: 11-26-2023 POCT SARS-COV-2/FLU/ RSV PCR SYMPTOMATIC Caden Segura CLAIM MANAGER-PRINT DECORATOR Work Phone: Start: 10-12-2023 Lipid 1996 panel - S cesia or Plasma Caden Segura CLAIM MANAGER-PRINT DECORATOR Work Phone: Start: 08-26-2023 POCT BD VERITOR TRIP CANDICE AG NICOLE NEGRON Start: 08-26-2023 POCT GROUP A STREPTOCOCCUS, PCR NICOLE NEGRON Start: 08-26-2023 POCT BD VERITOR TRIP CANDICE AG Caden Segura CLAIM MANAGER-PRINT DECORATOR Work Phone: Start: 08-26-2023 Iadna streptococcus group a amplified probe tq Caden Segura CLAIM MANAGER-PRINT DECORATOR Work Phone: Start: 05-28-2022 End: 05-28-2022 EKG impression Tiny Abdullahi Start: 10-16-2021 Antibody screen DO JUANY LUNDBERG ABDULLAHI Comment on above: Performed By: #### [facility] #### [place] [address] [place] [address] Start: 04-04-2021 Microscopic observat ion [Identifier] in Cervix by Cyto stain Caden Segura CLAIM MANAGER-PRINT DECORATOR Work Phone: Start: 11-18-2017 Colonoscopy Kriss Ayala Work Phone: Extraction of wisdom tooth Kriss Ayala Work Phone: H/O: section Status pos t delivery Kriss Ayala Other Phone: H/O: section Previous c esarean section Shyanne Zane [facility] Work Phone: Comment on above: decel, cord ar ound neck. considering repeat cs H/O: section Previous c esarean section Dr. Bryanna Coronel DO H/O: section Previous c esarean section Karoline TRACYM H/O: section Previous c esarean section Dr. Bailey Bro MD H/O: section Previous c esarean section Dr. Bryanna Coronel DO H/O: section Previous c esarean section Dr. Bailey Bro MD H/O: section Previous c esarean section Dr. Bailey Bro MD H/O: section Previous c esarean section Dr. Bailey Bro MD H/O: section Previous c esarean section Dr. Bryanna Coronel DO Operative procedure on foot Kriss Ayala Work Phone: Removal of hydatidif orm mole Kriss Ayala Work Phone: Plan of Treatment Date Care Activity Detail Author Start: 09-28-2066 RSV High Risk: (Elde rly (60+) or Population) (1 - 1-dose 75+ series) RSV High Risk: (Elderly (60+) or Population) (1 - 1-dose 75+ series) [facility] Start: 2051 RSV patient s and/or patients aged 60+ years (1 - 1-dose 60+ series) RSV patients and/or patients aged 60+ years (1 - 1-dose 60+ series) [facility] Start: 09-28-2041 Zoster Vaccines (1 of 2) Zoste r Vaccines (1 of 2) [facility] Start: 09-10-2034 DTaP/Tdap/Td Vaccine s (9 - Td or Tdap) DTaP/Tdap/Td Vaccines (9 - Td or Tdap) [facility] Start: 09-20-2031 DTaP/Tdap/Td Vaccine s (8 - Td or Tdap) DTaP/Tdap/Td Vaccines (8 - Td or Tdap) [facility] Start: 10-11-2028 Lipid panel Lipid Panel [facility] Start: 10-02-2025 Thyroid stimulating hormone measurement TSH Level [facility] Start: 04-03-2025 Thyroid stimulating hormone measurement TSH Level [facility] Start: 03-06-2025 Thyroid stimulating hormone measurement TSH Level [facility] Start: 01-11-2025 Influenza vaccination Influenz a Vaccine (Season Ended) [facility] Start: 10-30-2024 ambulatory Ambulatory Facility:[facility] Start: 10-19-2024 End: 10-05-2025 Thyrotropin [Units/volume] in Serum or Plasma Thyroid Stimulating Hormone Lab Routine Acquired hypothyroidism Expected: 10/19/2024 (Approximate), Expires: 10/05/2025 [facility] Work Phone: Comment on above: Expected: 10/19/2024 (Approximate), Expires: 10/05/2025 Start: 10-19-2024 End: 10-05-2025 Thyroxine (T4) free [Mass/volume] in Serum or Plasma Thyroxine, Free Lab Routine Acquired hypothyroidism Expected: 10/19/2024 (Approximate), Expires: 10/05/2025 [facility] Service [facility] Work Phone: Comment on above: Expected: 10/19/2024 (Approximate), Expires: 10/05/2025 Start: 09-21-2024 End: 09-21-2024 Patient encounter procedure 09/21/2024 4:40 PM EDT Office Visit [facility] [place] [id number] [place] [id number] [place] [id number] [address] Department [place] [address] [facility] Start: 09-17-2024 Yearly Adult Physical Yearly Adult P hysical [facility] Start: 04-04-2024 Screening for malign ant neoplasm of cervix [facility] Start: 03-30-2024 End: 03-30-2024 Patient encounter procedure 03/30/2024 4:20 PM EST Office Visit [facility] [id number] [place] [id number] [place] [id number] [address] Department [place] [address] [facility] Start: 02-07-2024 End: 02-06-2025 Thyrotropin [Units/volume] in Serum or Plasma TSH Lab Routine Abnormal TSH Expected: 02/07/2024 (Approximate), Expires: 02/06/2025 [facility] Service Area Work Phone: Comment on above: Expected: 02/07/2024 (Approximate), Expires: 02/06/2025 Start: 02-07-2024 End: 02-06-2025 Thyroxine (T4) free [Mass/volume] in Serum or Plasma T4, free Lab Routine Abnormal TSH Expected: 02/07/2024 (Approximate), Expires: 02/06/2025 [facility] Work Phone: Comment on above: Expected: 02/07/2024 (Approximate), Expires: 02/06/2025 Start: 02-07-2024 End: 02-06-2025 Triiodothyronine (T3) Free [Mass/volume] in Serum or Plasma T3, free Lab Routine Abnormal TSH Expected: 02/07/2024 (Approximate), Expires: 02/06/2025 [facility] Work Phone: Comment on above: Expected: 02/07/2024 (Approximate), Expires: 02/06/2025 Start: 01-12-2024 COVID-19 Vaccine ( season) COVID-19 Vaccine () [facility] Start: 01-12-2024 COVID-19 Vaccine () COVID-19 Vaccine () [facility] Start: 01-12-2024 Influenza vaccination [facility] Start: 09-17-2023 End: 09-16-2024 CBC W Auto Differential panel - Blood CBC and Auto Differential Lab Routine Healthcare maintenance Expected: 09/17/2023 (Approximate), Expires: 09/16/2024 [facility] Service Area Work Phone: Comment on above: Expected: 09/17/2023 (Approximate), Expires: 09/16/2024 Start: 09-17-2023 End: 09-16-2024 Cobalamin (Vitamin B12) [Mass/volume] in Serum or Plasma Vitamin B12 Lab Routine Healthcare maintenance Expected: 09/17/2023 (Approximate), Expires: 09/16/2024 [facility] Work Phone: Comment on above: Expected: 09/17/2023 (Approximate), Expires: 09/16/2024 Start: 09-17-2023 End: 09-16-2024 Comprehensive metabolic 2000 panel - Serum or Plasma Comprehensive Metabolic Panel Lab Routine Healthcare maintenance Expected: 09/17/2023 (Approximate), Expires: 09/16/2024 [facility] Work Phone: Comment on above: Expected: 09/17/2023 (Approximate), Expires: 09/16/2024 Start: 09-17-2023 End: 09-16-2024 Lipid 1996 panel - Serum or Plasma Lipid Panel Lab Routine Healthcare maintenance Expected: 09/17/2023 (Approximate), Expires: 09/16/2024 [facility] Work Phone: Comment on above: Expected: 09/17/2023 (Approximate), Expires: 09/16/2024 Start: 09-17-2023 End: 09-16-2024 TSH with reflex to Free T4 if abnormal TSH with reflex to Free T4 if abnormal Lab Routine Healthcare maintenance Expected: 09/17/2023 (Approximate), Expires: 09/16/2024 [facility] Work Phone: Comment on above: Expected: 09/17/2023 (Approximate), Expires: 09/16/2024 Start: 01-11-2023 COVID-19 Vaccine ( season) COVID-19 Vaccine ( season) [facility] Start: 01-11-2023 Influenza vaccination Influenz a Vaccine (Season Ended) [facility] Start: 06-04-2022 Patient encounter procedure [facility] Start: 12-04-2021 Patient encounter procedure [facility] Start: 12-04-2021 PPV, Provider: Bre Long, Status: Pen, Time: 3:00 PM PPV, Provider: Bre Long, Status: Pen, Time: 3:[address] Work Phone: Start: 10-16-2021 End: 10-17-2022 [facility] Comment on above: May self-administer after voiding Conditional order. C onsult Provider prior to administration. Conditional order. 6 00 milliunits/min x 30 mins., then 60 milliunits/min for the remainder of the bag. Consult Provider prior to administration. Convert IV to Saline Lock When Taking Oral Fluids Well Start: 10-16-2021 End: 10-17-2022 [facility] Comment on above: Kayleen-operative or kalpana ONLYMax total of 20 mg regardless of dose. Kayleen-operative or kalpana ONLY Max 4 Doses (0.8 mg) Contact OB Anesthesia for pain not being controlled Max 2 doses (0.2mg)N otify Anesthesia. May repeat X1 while waiting for anesthesia to arrive Start: 10-16-2021 End: 10-17-2022 fentaNYL 2 mcg/mL - Bupivacaine 0.0625% PCEA ([facility]) ; DEMAND/ PCEA Dose = 5BASAL/ Continuous Rate = 10One Hour Dose Limit = 40 mL/hr mL per hourNotes from Pharmacy: [Fentanyl 2 mcg/mL - Bupivacaine 0.0625%] Start: 16-Oct-2021 End: 16-Oct-2022 Ordered: 16-Oct-2021 [employer] [facility] Start: 10-16-2021 End: 10-17-2022 [facility] Comment on above: Administer in the OR . Consult provider neris or to administration. Push over more than 2 minutes. Systolic greater than or equal to 160 OR Diastolic greater than or equal to 110. Contraindications: active asthma, heart disease, heart failure, maternal bradycardia < 60. Consult provider neris or to administration. Push over more than 2 minutes. Systolic greater than or equal to 160 OR Diastolic greater than or equal to 110. Contraindication: coronary artery disease (CAD); Caution in suspected CAD. Consult provider neris or to administration. Systolic greater than or equal to 160 OR Diastolic greater than or equal to 110. Capsules administered orally and swallowed whole; Do not puncture or crush; Do not administer sublingually. 600 milliunits/min x 30 mins., then 60 milliunits/min for the remainder of the bag. Begin infusion at delivery of (s). Consult Provider neris or to administration. Conditional order. C onsult Provider prior to administration. Conditional order. 6 00 milliunits/min x 30 mins., then 60 milliunits/min for the remainder of the bag. Consult Provider prior to administration. Max dose of 16mg / 2 4 hours Contraindication: pr ior delivery, myomectomy or transfundal surgery. Start: 10-10-2021 EPVOB, Provider: Bre Long, Status: Pen, Time: 2:15 PM EPVOB, Provider: Bre Long, Status: Pen, Time: 2:15 PM [facility] [employer] Work Phone: Start: 10-03-2021 EPVOB, Provider: Bre Long, Status: Pen, Time: 2:45 PM EPVOB, Provider: Bre Long, Status: Pen, Time: 2:45 PM [employer] Work Phone: Start: 09-26-2021 EPVOB, Provider: Bre Long, Status: Pen, Time: 3:30 PM EPVOB, Provider: Bre Long, Status: Pen, Time: 3:30 PM [place] [address] [employer] Work Phone: Start: 09-05-2021 EPVOB, Provider: Bre Long, Status: Pen, Time: 3:00 PM EPVOB, Provider: Bre Long, Status: Pen, Time: 3:00 PM [place] [address] [employer] Work Phone: Start: 08-22-2021 EPVOB, Provider: Freddie Childs, Status: Pen, Time: 3:00 PM EPVOB, Provider: Freddie Childs, Status: Pen, Time: 3:00 PM [place] [address] [employer] Work Phone: Start: 08-08-2021 EPVOB, Provider: Bre Long, Status: Pen, Time: 3:15 PM EPVOB, Provider: Bre Long, Status: Pen, Time: 3:15 PM [facility] Work Phone: Start: 07-25-2021 EPVOB, Provider: Bre Long, Status: Pen, Time: 2:45 PM EPVOB, Provider: Bre Long, Status: Pen, Time: 2:45 PM [employer] Work Phone: Start: 06-27-2021 EPVOB, Provider: Bre Long, Status: Pen, Time: 3:00 PM EPVOB, Provider: Bre Long, Status: Pen, Time: 3:00 PM [place] [address] [employer] Work Phone: Start: 05-30-2021 EPVOB, Provider: Bre Long, Status: Pen, Time: 3:00 PM EPVOB, Provider: Bre Long, Status: Pen, Time: 3:[address] Work Phone: Start: 05-02-2021 EPVOB, Provider: Bre Long, Status: Pen, Time: 3:00 PM EPVOB, Provider: Bre Long, Status: Pen, Time: 3:[address] Work Phone: Start: 04-04-2021 EPVOB, Provider: Bre Long, Status: Pen, Time: 3:15 PM EPVOB, Provider: Bre Long, Status: Pen, Time: 3:[address] Work Phone: Start: 02-17-2021 NPV, Provider: Bre Long, Status: Pen, Time: 2:45 PM NPV, Provider: Bre Long, Status: Pen, Time: 2:45 PM [facility] Work Phone: Start: 09-28-2012 Screening for malign ant neoplasm of cervix [facility] Start: 09-28-2009 Hepatitis C screening Hepatitis C [facility] Start: 07-02-2008 Hepatitis A Vaccines (2 of 2 - 2-dose series) Hepatitis A Vaccines (2 of 2 - 2-dose series) [facility] Start: 03-31-1992 COVID-19 Vaccine (#1) COVID-19 Vacci ne (#1) [facility] Start: 1991 Lipid panel Lipid Panel [facility] Start: 1991 Yearly Adult Physical Yearly Adult P [facility] Bacteria identified in Urine by Culture Urine Culture Microbiology Routine Hematuria, unspecified type 04/23/2024 6:33 PM EST [facility] Service Area Work Phone: Electrocardiogram, 12-lead Elect rocardiogram, 12-lead ECG STAT As needed until discontinued starting 03/19/2024 [facility] Service Area Work Phone: Comment on above: As needed until disc ontinued starting 03/19/2024 End: 03-19-2024 Extra Urine Estes Tube [facility] Work Phone: Comment on above: Once for 1 Occurrenc es starting 03/19/2024 until 03/19/2024 Streptococcus agalac tiae [Presence] in Unspecified specimen by Organism specific culture [facility] End: 03-19-2024 Urinalysis complete W Reflex Culture panel - Urine [facility] Work Phone: Comment on above: STAT (Lab) for 1 Occ urrences starting 03/19/2024 until 03/19/2024 [facility] Immunizations Immunization Date Immunization Notes Care Provider Fa cility 09-10-2024 tetanus toxoid, redu samantha diphtheria toxoid, and acellular pertussis vaccine, adsorbed Dr. Bailey Bro MD Work Phone: [facility] 09-19-2021 tetanus toxoid, redu samantha diphtheria toxoid, and acellular pertussis vaccine, adsorbed Nicole Negron MD Work Phone: [facility] Work Phone: 03-16-2011 meningococcal polysaccharide (groups A, C, Y and W-135) diphtheria toxoid conjugate vaccine (MCV4P) Nicole Negron MD Work Phone: [facility] Work Phone: 07-27-2008 tetanus toxoid, redu samantha diphtheria toxoid, and acellular pertussis vaccine, adsorbed Nicole Negron MD Work Phone: [facility] Work Phone: 12-31-2007 hepatitis A vaccine, adult dosage Nicole Negron MD Work Phone: [facility] Work Phone: 12-31-2007 hepatitis A and hepatitis B vaccine Nicole Negron MD Work Phone: [facility] Work Phone: 06-11-2007 human papilloma viru s vaccine, quadrivalent Nicole Negron MD Work Phone: [facility] Work Phone: 02-26-2007 human papilloma viru s vaccine, quadrivalent Nicole Negron MD Work Phone: [facility] Work Phone: 12-09-2006 human papilloma viru s vaccine, quadrivalent Nicole Negron MD Work Phone: [facility] Work Phone: 12-09-2006 meningococcal polysaccharide (groups A, C, Y and W-135) diphtheria toxoid conjugate vaccine (MCV4P) Nicole Negron MD Work Phone: [facility] Work Phone: 12-09-2006 varicella virus vaccine Angelita Negron MD Work Phone: [facility] Work Phone: 03-15-2003 tetanus and diphther ia toxoids, adsorbed, preservative free, for adult use (5 Lf of tetanus toxoid and 2 Lf of diphtheria toxoid) Nicole Negron MD Work Phone: [facility] Work Phone: 12-25-1996 measles, mumps and rubella virus vaccine Nicole Negron MD Work Phone: [facility] Work Phone: 12-13-1995 diphtheria, tetanus toxoids and pertussis vaccine Nicole Negron MD Work Phone: [facility] Work Phone: 12-13-1995 trivalent poliovirus vaccine, live, oral Nicole Negron MD Work Phone: [facility] Work Phone: 07-08-1995 varicella virus vaccine Angelita Negrno MD Work Phone: [facility] Work Phone: 03-24-1993 diphtheria, tetanus toxoids and pertussis vaccine Nicole Negron MD Work Phone: [facility] Work Phone: 03-24-1993 trivalent poliovirus vaccine, live, oral Nicole Negron MD Work Phone: [facility] Work Phone: 01-23-1993 measles, mumps and rubella virus vaccine Nicole Negron MD Work Phone: [facility] Work Phone: 08-10-1992 hepatitis B vaccine, unspecified formulation Nicole Negron MD Work Phone: [facility] Work Phone: 03-28-1992 diphtheria, tetanus toxoids and pertussis vaccine Nicole Negron MD Work Phone: [facility] Work Phone: 02-01-1992 diphtheria, tetanus toxoids and pertussis vaccine Nicole Negron MD Work Phone: [facility] Work Phone: 02-01-1992 hepatitis B vaccine, pediatric or pediatric/adolescent dosage Nicole Negron MD Work Phone: [facility] Work Phone: 02-01-1992 trivalent poliovirus vaccine, live, oral Nicole Negron MD Work Phone: [facility] Work Phone: 1991 diphtheria, tetanus toxoids and pertussis vaccine Nicole Negron MD Work Phone: [facility] Work Phone: 1991 hepatitis B vaccine, pediatric or pediatric/adolescent dosage Nicole Negron MD Work Phone: [facility] Work Phone: 1991 trivalent poliovirus vaccine, live, oral Nicole Negron MD Work Phone: [facility] Work Phone: Payers Date Payer Category Payer Self-pay 2022 [facility] [id number] 2022 Unknown [id number] 2021 Unknown 2021 Unknown [id number] 1991 Unknown [id number] 2.16.840.1.539218.3.579.2.356 1991 Unknown [id number] 2.840.1.878714.3.579.2.356 1991 Unknown [id number] 2.16840.1.202437.3.579.2.356 1991 Unknown [id number] 2.16.840.1.500567.3.579.2.356 1991 Unknown [id number] 2.16.840.1.050386.3.579.2.356 1991 Unknown [id number] 2.16.840.1.529899.3.579.2.356 1991 Unknown [id number] 2.16.840.1.118041.3.579.2.356 1991 Unknown [id number] 2.16.840.1.091526.3.579.2.356 1991 Unknown [id number] 2.16.840.1.153922.3.579.2.356 1991 Unknown [id number] 2.16.840.1.823826.3.579.2.1068 1991 Unknown [id number] 2.16.840.1.023275.3.579.2.1068 1991 Unknown [id number] 2.16.840.1.027686.3.579.2.1068 1991 Unknown [id number] 2.16.840.1.824904.3.579.2.1068 1991 Unknown [id number] 2.16.840.1.338574.3.579.2.1068 1991 Unknown [id number] 2.16.840.1.390695.3.579.2.1068 1991 Unknown [id number] 2.16.840.1.501875.3.579.2.1068 1991 Unknown [id number] 2.16.840.1.261849.3.579.2.1068 1991 Unknown [id number] 2.16.840.1.868450.3.579.2.1242 1991 Unknown [id number] 2.16.840.1.717069.3.579.2.1242 1991 Unknown [id number] 2.16.840.1.332145.3.579.2.1242 1991 Unknown [id number] 2.16.840.1.863527.3.579.2.1242 1991 Unknown [id number] 2.16.840.1.679592.3.579.2.1244 1991 Unknown [id number] 2.16.840.1.660464.3.579.2.1244 1991 Unknown [id number] 2.16.840.1.044863.3.579.2.1244 1991 Unknown [id number] 2.16.840.1.481718.3.579.2.1244 1991 Unknown [id number] 2.16.840.1.880452.3.579.2.1245 1991 Unknown [id number] 2.840.1.071803.3.579.2.1245 1991 Unknown [id number] 2.840.1.666771.3.579.2.479 1991 Unknown [id number] 2.840.1.617931.3.579.2.479 1991 Unknown [id number] 2.840.1.215636.3.579.2.1244 1991 Unknown [id number] 2.840.1.744712.3.579.2.1244 1991 Unknown [id number] 2.840.1.390286.3.579.2.1244 Unknown [id number] 2.840.1.701852.3.579.2.462 Unknown [id number] 2.840.1.192539.3.579.2.462 Unknown [id number] 2.840.1.112344.3.579.2.462 Unknown [id number] 840.1.027400.3.579.2.462 Unknown [id number] 2.840.1.385968.3.579.2.462 Unknown [id number] 840.1.693854.3.579.2.462 Unknown [id number] 2.840.1.170669.3.579.2.462 Unknown [id number] 2.840.1.297032.3.579.2.462 Unknown [id number] 2.840.1.984179.3.579.2.462 Unknown [id number] 2.840.1.948135.3.579.2.462 Unknown [id number] 2.840.1.159966.3.579.2.462 Unknown [id number] 2.16.840.1.067004.3.579.2.462 Unknown [id number] 2.16.840.1.903557.3.579.2.462 Unknown [id number] 2.16.840.1.384987.3.579.2.462 Unknown [id number] 2.16.840.1.218575.3.579.2.462 Unknown [id number] 2.16.840.1.026704.3.579.2.462 Unknown [id number] 2.16.840.1.539882.3.579.2.462 Unknown [id number] 2.16.840.1.549398.3.579.2.462 Unknown [id number] 2.16.840.1.615290.3.579.2.462 Social History Date Type Detail Facility Start: 10-16-2022 End: 09-17-2023 No alcohol use No alcohol use [facility] Work Phone: Tobacco smoking consumption unknown [facility] Start: 10-16-2022 End: 03-27-2024 Tobacco smoking status NHIS Never smoked tobacco [facility] Work Phone: Start: 10-16-2022 Tobacco use and exposure Smokeless tobacco non-user [facility] Work Phone: Start: 10-16-2022 End: 09-21-2024 Alcohol intake Lifetime non-drinker (finding) [facility] Work Phone: Start: 10-16-2022 End: 09-17-2023 Tobacco use panel [facility] Work Phone: Start: 1990 Sex Assigned At Not on file [facility] Work Phone: Start: 10-06-2022 End: 09-21-2024 Exposure to SARS-CoV-2 (event) Not sure [facility] Start: 08-06-2024 End: 08-13-2024 Sex Female (finding) [facility] Start: 1990 Sex Assigned At Female [facility] Functional Status Date Assessment Result Facility Functional observable [facility] Mental Status Date Assessment Result Facility 10-18-2021 Cognitive functions 19-Oct-19 228:52 [facility] Clinical Notes 09-26-2020 to 10-07-2024 Note Date & Type Note Facility 10-07-2024 Progress note [facility] 10-07-2024 Progress note Note Date/Time October 07, 2024 4:18pm [facility] [address], [address] [place] [address] OFFICE VISIT Date of Service: 10/07/24 MR#: [id number] Acct: [id number] Name: MARIA ELENA AJ Rep #: [id number] : 1990 Provider: Dr. Shi Coronel DO Age/Sex: 34/F Location: [facility] Status: Signed Intake Vital Signs 07/30/24 14:46 09/22/24 15:45 10/07/24 15:51 10/07/24 15:52 Height 5 ft 6 in 5 ft 6 in 5 ft 6 in 5 ft 6 in Weight: 175 lb 8 oz BMI 28.3 BP 127/84 H Intake Visit Reasons: 36wk ob *doc only Ems Driver Required: No Is patient in pain?: No Allergies Penicillins (PCN) Allergy (Mild, Verified 10/07/24 15:51) Rash Medications ?Medication ?Instructions ?Recorded ?Confirmed ?Type PNV 153-FA 400 mcg-om3 35 mg-dha tab PO 03/19/2410/07 History 25 mg-epa 5 mg-fish oil chew tablet acetaminophen 500 mg capsule 500 mg PO Q4-6H PRN 03/1910/07/24 History cetirizine 10 mg capsule (Zyrtec) 10 mg PO QDAY PRN 10/07/24 History levothyroxine 25 mcg capsule 50 mcg PO ONCE 07/30/24 0 10/07/24 History Last Menstrual Period: 01/30/24 Zika: Zika virus screening: Negative : No PFSH PFSH Medical History Delivery by section of full-term Surgical History H/O colonoscopy [place] teeth extracted Family History Aunt Thyroid disorder Maternal Mother Thyroid disorder, Onset Age: 25 Graves Disease Postural orthostatic tachycardia syndrome [POTS] Depression Suicide attempt Social History adopted: No household members: spouse and children number of children: 1 current occupational status: employed 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 current occupational exposures/hazards: No pets and animals: Yes pets and animals: dog(s) history of recent travel: No sexually active: Yes Smoking Status: Never smoker alcohol intake: never substance use type: does not use diet: other well-balanced diet: daily or most days caffeine: No eating out: rarely or never during the past year weight has: remained stable what type of physical activity do you participate in: none kerry/judaism: Mormon seatbelt use: always do you feel safe at home: Yes additional social history: Raheem- [place] SV History 2 Elective abortions Hx Para 1 Spontaneous abortions Hx # Term Pregnancies Ectopic pregnancies Hx # Pregnancies Multiple births # of living children 1 Past Pregnancies Del. Date Name GA/Weeks Outcome Route Bth Weight Gen Labor Lgth Anesthesia Del Locatn Provider FOB 10/16/21 Jonas 39 live - full term 7#10oz Male epidural [facility] Dr. Ethan Maciel Delivery Date: 10/16/21 Last Updated by: India Bradley LGA, IOL, c section due to decels, cord around neck HPI 36wk ob *doc only Details: MARIA ELENA AJ is a 34 year old who presents for routine OB visit. OB Visit KATIE Calculator Estimated Delivery Date Method Current WG Current Estimate 11/05/24 LMP (Certain) 35w 6d Expected Delivery Route/Plan RLTCS Specific Issue/Plans Covid status: [] Flu vaccine: [] Tdap vaccine: [] Rhogam: [] LARC form signed: [] Problem list reviewed and updated with the most current plan of care details and appropriate orders placed. Relevant counseling for the gestational age provided. Continue routine care and follow up unless otherwise noted in visit notes/problem list details Initial Weight: 148 lb Date -?-?-?-?-?-?-?-?-?-?-?-?- EGA Weight BP Urine Prot -?-?-?-?-?-?-?-?-?-?-?-?- Glucose FHR FuHt Pres Dilation -?-?-?-?-?-?-?-?-?-?-?-?- Effaced St Visit Note 04/03/24 -?-?-?-?-?-?-?-?-?-?-?-?- 9w 1d 148 lb (+0 oz) 104/68 -?-?-?-?-?-?-?-?-?-?-?-?- 173 -?-?-?-?-?-?-?-?-?-?-?-?- LC CRL 2.68 con with LMP. desires nipt. 04/30/24 -?-?-?-?-?-?-?-?-?-?-?-?- 13w 0d 152 lb 4 oz (+4 lb 4 oz) 115/72 Negative -?-?-?-?-?-?-?-?-?-?-?-?- Negative 170 -?-?-?-?-?-?-?-?-?-?-?-?- JV- some nausea still. NIPT was low risk boy! some burning with urination. UA ordered. 06/01/24 -?-?-?-?-?-?-?-?-?-?-?-?- 17w 4d 153 lb 8 oz (+5 lb 8 oz) 118/68 Negative -?-?-?-?-?-?-?-?-?-?-?-?- Negative 170 -?-?-?-?-?-?-?-?-?-?-?-?- KW- no vb/crampi ng. possible flutters. US scheduled. desires R C/S and possible tubal. 07/02/24 -?-?-?-?-?-?-?-?-?-?-?-?- 22w 0d 160 lb 2 oz (+12 lb 2 oz) 126/75 -?-?-?-?-?-?-?-?-?-?-?-?- 140 -?-?-?-?-?-?-?-?-?-?-?-?- SM- no vb lof go od fm no reuglar ctx didn't get complete spine views will get afp today and fu US eventually 07/30/24 -?-?-?-?-?-?-?-?-?-?-?-?- 26w 0d 165 lb 6 oz (+17 lb 6 oz) 125/75 Negative -?-?-?-?-?-?-?-?-?-?-?-?- Negative 150 26 -?-?-?-?-?-?-?-?-?-?-?-?- JV- no lof, vagi nal bleeding, or cramping. did glucola today. results pending. 09/03/24 -?-?-?-?-?-?-?-?-?-?-?-?- 31w 0d 169 lb 8 oz (+21 lb 8 oz) 119/73 -?-?-?-?-?-?-?-?-?-?-?-?- 140 31 -?-?-?-?-?-?-?-?-?-?-?-?- SM- no vb lof go od mf no reulgar ctx nl 3 hr gtt 09/10/24 -?-?-?-?-?-?-?-?-?-?-?-?- 32w 0d 172 lb (+24 lb) 119/75 -?-?-?-?-?-?-?-?-?-?-?-?- 130 32 -?-?-?-?-?-?-?-?-?-?-?-?- SM- no vb lof go od fm nore gular ctx 09/22/24 -?-?-?-?-?-?-?-?-?-?-?-?- 33w 5d 172 lb 8 oz (+24 lb 8 oz) 129/78 Negative -?-?-?-?-?-?-?-?-?-?-?-?- Negative 130 33 -?-?-?-?-?-?-?-?-?-?-?-?- SM- no vb lof go od fm no regualr ctx doing well 10/07/24 -?-?-?-?-?-?-?-?-?-?-?-?- 35w 6d 175 lb 8 oz (+27 lb 8 oz) 127/84 Negative -?-?-?-?-?-?-?-?-?-?-?-?- Negative 140 35 Cephalic -?-?-?-?-?-?-?-?-?-?-?-?- JV- no lof, vagi nal bleeding, or dec fm. gbs collected. planning rpt section and BTL and if labor starts still wants a section. ACOG First Trimester First Trimester: Desire for , Alcohol, Tobacco Cessation, Illicit/Recreational Drug/Substance Use, Intimate Partner Violence, Barriers to care, Unstable Housing, Communication Barriers, Environmental/Work Hazards, Anticipated Course of Care, Toxoplasmosis Precations, Use of Any medications, Sexual activity, Exercise, Dental Care, Sauna/Hot tub use, Seat Belt use, Childbirth classes/Hospital facilities, Travel, Indications for Ultrasound and Screening for Aneuploidy; Discussed Results POC Urinalysis 2 Dip (Clinic) Office Urine Glucose Negative Last Edit by Wanda King on 10/07/24 16: 02 Office Urine Protein Negative Last Edit by Wanda King on 10/07/24 16: 02 Coding Level of Care Code OB Routine Diagnoses Sterilization Z30.2 Abnormal glucose affecting O99.810 IBS (irritable bowel syndrome) K58.9 Seasonal allergies J30.2 Hypothyroidism E03.9 Previous section Z98.891 Supervision of high-risk O09.90 35 weeks gestation of Z3A.35 Weeks of gestation: 35 weeks Assessment and Plan Assessment and Plan (1) Sterilization: Status: Acute Comment: plan BS at time of CS (2) Abnormal glucose affecting : Status: Acute Comment: needs 3 hour -n WNL (3) IBS (irritable bowel syndrome): Status: Acute (4) Seasonal allergies: Status: Acute (5) Hypothyroidism: Status: Acute Comment: TSH with Slater. normalized with levothyroidism TSH 2.79 04/03/2024, t4=1.05 (6) Previous section: Status: Acute Comment: decel, cord around neck. considering repeat cs (7) Supervision of high-risk : Status: Acute Comment: PRR , KATIE 11/05/24,boy [facility] Jonas, Raheem (8) : Status: Acute Qualifiers: Weeks of gestation: 35 weeks Qualified Code(s): Z3A.35 - 35 weeks gestation of Comment: elects NIPT with Gender, nl anatomy Orders: Orders POC Urinalysis 2 Dip (Clinic) Today Culture, Group B Streptococcus Today O09.90 - Supervision of high risk , unspecified, unspecified trimester 10/07/24 1618 <Electronically signed by Bryanna Kumar DO> Date _ Bryanna Coronel DO [facility] Signature: Date (if applicable) CC: ~ [facility] Work Phone: 1(500) 214-124205-13-2025 [facility] [address] [place] [address], [address] [place] [address] OFFICE VISIT Date of Service: 09/22/24 MR#: [id number] Acct: [id number] Name: MARIA ELENA AJ Rep #: [id number] : 1990 Provider: Dr. Vicente Bro MD Age/Sex: 33/F Location: [facility] Status: Signed Intake Vital Signs 04/30/24 15:41 09/10/24 15:54 09/22/24 15:40 09/22/24 15:45 Height 5 ft 6 in 5 ft 6 in 5 ft 6 in 5 ft 6 in Weight: 172 lb 8 oz BMI 27.8 BP 129/78 H Intake Visit Reasons: 34 wk ob *doc only Ems Driver Required: No Is patient in pain?: No Feel stressed/tense/nervous/anxious/difficulty sleeping: not at all Allergies Penicillins (PCN) Allergy (Mild, Verified 09/22/24 15:40) Rash Medications ?Medication ?Instructions ?Recorded ?Confirmed ?Type PNV 153-FA 400 mcg-om3 35 mg-dha tab PO 03/19/2409/22 History 25 mg-epa 5 mg-fish oil chew tablet acetaminophen 500 mg capsule 500 mg PO Q4-6H PRN 03/1909/22/24 History cetirizine 10 mg capsule (Zyrtec) 10 mg PO QDAY PRN 09/22/24 History levothyroxine 25 mcg capsule 50 mcg PO ONCE 07/30/24 0 09/22/24 History Last Menstrual Period: 01/30/24 Zika: Zika virus screening: Negative : No PFSH PFSH Medical History Delivery by section of full-term infant Surgical History H/O colonoscopy [place] teeth extracted Family History Aunt Thyroid disorder Maternal Mother Thyroid disorder, Onset Age: 25 Graves Disease Postural orthostatic tachycardia syndrome [POTS] Depression Suicide attempt Social History adopted: No household members: spouse and children number of children: 1 current occupational status: employed 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 current occupational exposures/hazards: No pets and animals: Yes pets and animals: dog(s) history of recent travel: No sexually active: Yes Smoking Status: Never smoker alcohol intake: never substance use type: does not use diet: other well-balanced diet: daily or most days caffeine: No eating out: rarely or never during the past year weight has: remained stable what type of physical activity do you participate in: none kerry/judaism: Mormon seatbelt use: always do you feel safe at home: Yes additional social history: Raheem- Maintenance SV History 2 Elective abortions Hx Para 1 Spontaneous abortions Hx # Term Pregnancies Ectopic pregnancies Hx # Pregnancies Multiple births # of living children 1 Past Pregnancies Del. Date Name GA/Weeks Outcome Route Bth Weight Infant Gen Labor Lgth Anesthesia Del Locatn Provider FOB 10/16/21 Jonas 39 live - full term 7#10oz Male epidural [facility] Dr. Ethan Maciel Delivery Date: 10/16/21 Last Updated by: India Bradley LGA, IOL, c section due to decels, cord around neck HPI 34 wk ob *doc only Details: MARIA ELENA AJ is a 33 year old who presents for routine OB visit. OB Visit KATIE Calculator Estimated Delivery Date Method Current WG Current Estimate 11/05/24 LMP (Certain) 33w 5d Expected Delivery Route/Plan RLTCS Specific Issue/Plans Covid status: [] Flu vaccine: [] Tdap vaccine: [] Rhogam: [] LARC form signed: [] Problem list reviewed and updated with the most current plan of care details and appropriate ordersplaced. Relevant counseling for the gestational age provided. Continue routine care and follow up unless otherwise noted in visit notes/problem list details Initial Weight: 148 lb Date -?-?-?-?-?-?-?-?-?-?-?-?- EGA Weight BP Urine Prot -?-?-?-?-?-?-?-?-?-?-?-?- Glucose FHR FuHt Pres Dilation -?-?-?-?-?-?-?-?-?-?-?-?- Effaced St Visit Note 04/03/24 -?-?-?-?-?-?-?-?-?-?-?-?- 9w 1d 148 lb (+0 oz) 104/68 -?-?-?-?-?-?-?-?-?-?-?-?- 173 -?-?-?-?-?-?-?-?-?-?-?-?- LC CRL 2.68 con with LMP. desires nipt. 04/30/24 -?-?-?-?-?-?-?-?-?-?-?-?- 13w 0d 152 lb 4 oz (+4 lb 4 oz) 115/72 Negative -?-?-?-?-?-?-?-?-?-?-?-?- Negative 170 -?-?-?-?-?-?-?-?-?-?-?-?- JV- some nausea still. NIPT was low risk boy! some burning with urination. UA ordered. 06/01/24 -?-?-?-?-?-?-?-?-?-?-?-?- 17w 4d 153 lb 8 oz (+5 lb 8 oz) 118/68 Negative -?-?-?-?-?-?-?-?-?-?-?-?- Negative 170 -?-?-?-?-?-?-?-?-?-?-?-?- KW- no vb/crampi ng. possible flutters. US scheduled. desires R C/S and possible tubal. 07/02/24 -?-?-?-?-?-?-?-?-?-?-?--?- 22w 0d 160 lb 2 oz (+12 lb 2 oz) 126/75 -?-?-?-?-?-?-?-?-?-?-?-?- 140 -?-?-?-?-?-?-?-?-?-?-?-?- SM- no vb lof go od fm no reuglar ctx didn't get complete spine views will get afp today and fu US eventually 07/30/24 -?-?-?-?-?-?-?-?-?-?-?-?- 26w 0d 165 lb 6 oz (+17 lb 6 oz) 125/75 Negative -?-?-?-?-?-?-?-?-?-?-?-?- Negative 150 26 -?-?-?-?-?-?-?-?-?-?-?-?- JV- no lof, vagi nal bleeding, or cramping. did glucola today. results pending. 09/03/24 -?-?-?-?-?-?-?-?-?-?-?-?- 31w 0d 169 lb 8 oz (+21 lb 8 oz) 119/73 -?-?-?-?-?-?-?-?-?-?-?-?- 140 31 -?-?-?-?-?-?-?-?-?-?-?-?- SM- no vb lof go od mf no reulgar ctx nl 3 hr gtt 09/10/24 -?-?-?-?-?-?-?-?-?-?-?-?- 32w 0d 172 lb (+24 lb) 119/75 -?-?-?-?-?-?-?-?-?-?-?-?- 130 32 -?-?-?-?-?-?-?-?-?-?-?-?- SM- no vb lof go od fm nore gular ctx 09/22/24 -?-?-?-?-?-?-?-?-?-?-?-?- 33w 5d 172 lb 8 oz (+24 lb 8 oz) 129/78 Negative -?-?-?-?-?-?-?-?-?-?-?-?- Negative 130 33 -?-?-?-?--?-?-?-?-?-?-?-?- SM- no vb lof go od fm no regualr ctx doing well ACOG First Trimester First Trimester: Desire for , Alcohol, Tobacco Cessation, Illicit/Recreational Drug/Substance Use, Intimate Partner Violence, Barriers to care, Unstable Housing, Communication Barriers, Environmental/Work Hazards, Anticipated Course of Care, Toxoplasmosis Precations, Use of Any med ications, Sexual activity, Exercise, Dental Care, Sauna/Hot tub use, Seat Belt use, Childbirth classes/Hospital facilities, Travel, Indications for Ultrasound and Screening for Aneuploidy; Discussed Results POC Urinalysis 2 Dip (Clinic) Office Urine Glucose Negative Last Edit by Mitzy Sultana on 09/22/24 15:46 Office Urine Protein Negative Last Edit by Mitzy Sultana on 09/22/24 15:46 Coding Level of Care Code OB Routine Diagnoses Sterilization Z30.2 Abnormal glucose affecting O99.810 IBS (irritable bowel syndrome) K58.9 Seasonal allergies J30.2 Hypothyroidism E03.9 Previous section Z98.891 Supervision of high-risk O09.90 33 weeks gestation of Z3A.33 Weeks of gestation: 33 weeks Assessment and Plan Assessment and Plan (1) Sterilization: Status: Acute Comment: plan BS at time of CS (2) Abnormal glucose affecting : Status: Acute Comment: needs 3 hour -n WNL (3) IBS (irritable bowel syndrome): Status: Acute (4) Seasonal allergies: Status: Acute (5) Hypothyroidism: Status: Acute Comment: TSH with Slater. normalized with levothyroidism TSH 2.79 04/03/2024, t4=1.05 (6) Previous section: Status: Acute Comment: decel, cord around neck. considering repeat cs (7) Supervision of high-risk : Status: Acute Comment: PRR , KATIE 11/05/24,fabi Mcdaniel, Raheem (8) : Status: Acute Qualifiers: Weeks of gestation: 33 weeks Qualified Code(s): Z3A.33 - 33 weeks gestation of Comment: elects NIPT with Gender, nl anatomy Orders: Orders POC Urinalysis 2 Dip (Clinic) Today 09/22/24 1554 isac REDDY> Date _ Bailey Bro MD Cosigner Signature: Date (if applicable) CC: ~ [facility]05-13-2025 Progress note Author Bailey Bro [facility] Note Date/Time September 22, 2024 3:54p m [facility] [address] [place] [address], [address] [place] [address] OFFICE VISIT Date of Service: 09/22/24 MR#: [id number] Acct: [id number] Name: MARIA ELENA AJ Rep #: [id number] : 1990 Provider: Dr. Vicente Bro MD Age/Sex: 33/F Location: [facility] Status: Signed Intake Vital Signs 04/30/24 15:41 09/10/24 15:54 09/22/24 15:40 09/22/24 15:45 Height 5 ft 6 in 5 ft 6 in 5 ft 6 in 5 ft 6 in Weight: 172 lb 8 oz BMI 27.8 BP 129/78 H Intake Visit Reasons: 34 wk ob *doc only Ems Driver Required: No Is patient in pain?: No Feel stressed/tense/nervous/anxious/difficulty sleeping: not at all Allergies Penicillins (PCN) Allergy (Mild, Verified 09/22/24 15:40) Rash Medications ?Medication ?Instructions ?Recorded ?Confirmed ?Type PNV 153-FA 400 mcg-om3 35 mg-dha tab PO 03/19/2409/22 History 25 mg-epa 5 mg-fish oil chew tablet acetaminophen 500 mg capsule 500 mg PO Q4-6H PRN 03/1909/22/24 History cetirizine 10 mg capsule (Zyrtec) 10 mg PO QDAY PRN 09/22/24 History levothyroxine 25 mcg capsule 50 mcg PO ONCE 07/30/24 0 09/22/24 History Last Menstrual Period: 01/30/24 Zika: Zika virus screening: Negative : No PFSH PFSH Medical History Delivery by section of full-term Surgical History H/O colonoscopy [place] teeth extracted Family History Aunt Thyroid disorder Maternal Mother Thyroid disorder, Onset Age: 25 Graves Disease Postural orthostatic tachycardia syndrome [POTS] Depression Suicide attempt Social History adopted: No household members: spouse and children number of children: 1 current occupational status: employed 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 current occupational exposures/hazards: No pets and animals: Yes pets and animals: dog(s) history of recent travel: No sexually active: Yes Smoking Status: Never smoker alcohol intake: never substance use type: does not use diet: other well-balanced diet: daily or most days caffeine: No eating out: rarely or never during the past year weight has: remained stable what type of physical activity do you participate in: none kerry/judaism: Mormon seatbelt use: always do you feel safe at home: Yes additional social history: Raheem- [place] SV History 2 Elective abortions Hx Para 1 Spontaneous abortions Hx # Term Pregnancies Ectopic pregnancies Hx # Pregnancies Multiple births # of living children 1 Past Pregnancies Del. Date Name GA/Weeks Outcome Route Bth Weight Infant Gen Labor Lgth Anesthesia Del Locatn Provider FOB 10/16/21 Jonas 39 live - full term 7#10oz Male epidural [facility] Dr. Ethan Maciel Delivery Date: 10/16/21 Last Updated by: India Bradley LGA, IOL, c section due to decels, cord around neck HPI 34 wk ob *doc only Details: MARIA ELENA AJ is a 33 year old who presents for routine OB visit. OB Visit KATIE Calculator Estimated Delivery Date Method Current WG Current Estimate 11/05/24 LMP (Certain) 33w 5d Expected Delivery Route/Plan RLTCS Specific Issue/Plans Covid status: [] Flu vaccine: [] Tdap vaccine: [] Rhogam: [] LARC form signed: [] Problem list reviewed and updated with the most current plan of care details and appropriate orders placed. Relevant counseling for the gestational age provided. Continue routine care and follow up unless otherwise noted in visit notes/problem list details Initial Weight: 148 lb Date -?-?-?-?-?-?-?-?-?-?-?-?- EGA Weight BP Urine Prot -?-?-?-?-?-?-?-?-?-?-?-?- Glucose FHR FuHt Pres Dilation -?-?-?-?-?-?-?-?-?-?-?-?- Effaced St Visit Note 04/03/24 -?-?-?-?-?-?-?-?-?-?-?-?- 9w 1d 148 lb (+0 oz) 104/68 -?-?-?-?-?-?-?-?-?-?-?-?- 173 -?-?-?-?-?-?-?-?-?-?-?-?- LC CRL 2.68 con with LMP. desires nipt. 04/30/24 -?-?-?-?-?-?-?-?-?-?-?-?- 13w 0d 152 lb 4 oz (+4 lb 4 oz) 115/72 Negative -?-?-?-?-?-?-?-?-?-?-?-?- Negative 170 -?-?-?-?-?-?-?-?-?-?-?-?- JV- some nausea still. NIPT was low risk boy! some burning with urination. UA ordered. 06/01/24 -?-?-?-?-?-?-?-?-?-?-?-?- 17w 4d 153 lb 8 oz (+5 lb 8 oz) 118/68 Negative -?-?-?-?-?-?-?-?-?-?-?-?- Negative 170 -?-?-?-?-?-?-?-?-?-?-?-?- KW- no vb/crampi ng. possible flutters. US scheduled. desires R C/S and possible tubal. 07/02/24 -?-?-?-?-?-?-?-?-?-?-?--?- 22w 0d 160 lb 2 oz (+12 lb 2 oz) 126/75 -?-?-?-?-?-?-?-?-?-?-?-?- 140 -?-?-?-?-?-?-?-?-?-?-?-?- SM- no vb lof go od fm no reuglar ctx didn't get complete spine views will get afp today and fu US eventually 07/30/24 -?-?-?-?-?-?-?-?-?-?-?-?- 26w 0d 165 lb 6 oz (+17 lb 6 oz) 125/75 Negative -?-?-?-?-?-?-?-?-?-?-?-?- Negative 150 26 -?-?-?-?-?-?-?-?-?-?-?-?- JV- no lof, vagi nal bleeding, or cramping. did glucola today. results pending. 09/03/24 -?-?-?-?-?-?-?-?-?-?-?-?- 31w 0d 169 lb 8 oz (+21 lb 8 oz) 119/73 -?-?-?-?-?-?-?-?-?-?-?-?- 140 31 -?-?-?-?-?-?-?-?-?-?-?-?- SM- no vb lof go od mf no reulgar ctx nl 3 hr gtt 09/10/24 -?-?-?-?-?-?-?-?-?-?-?-?- 32w 0d 172 lb (+24 lb) 119/75 -?-?-?-?-?-?-?-?-?-?-?-?- 130 32 -?-?-?-?-?-?-?-?-?-?-?-?- SM- no vb lof go od fm nore gular ctx 09/22/24 -?-?-?-?-?-?-?-?-?-?-?-?- 33w 5d 172 lb 8 oz (+24 lb 8 oz) 129/78 Negative -?-?-?-?-?-?-?-?-?-?-?-?- Negative 130 33 -?-?-?-?--?-?-?-?-?-?-?-?- SM- no vb lof go od fm no regualr ctx doing well ACOG First Trimester First Trimester: Desire for , Alcohol, Tobacco Cessation, Illicit/Recreational Drug/Substance Use, Intimate Partner Violence, Barriers to care, Unstable Housing, Communication Barriers, Environmental/Work Hazards, Anticipated Course of Care, Toxoplasmosis Precations, Use of Any medications, Sexual activity, Exercise, Dental Care, Sauna/Hot tub use, Seat Belt use, Childbirth classes/Hospital facilities, Travel, Indications for Ultrasound and Screening for Aneuploidy; Discussed Results POC Urinalysis 2 Dip (Clinic) Office Urine Glucose Negative Last Edit by Mitzy Sultana on 09/22/24 15:46 Office Urine Protein Negative Last Edit by Mitzy Sultana on 09/22/24 15:46 Coding Level of Care Code OB Routine Diagnoses Sterilization Z30.2 Abnormal glucose affecting O99.810 IBS (irritable bowel syndrome) K58.9 Seasonal allergies J30.2 Hypothyroidism E03.9 Previous section Z98.891 Supervision of high-risk O09.90 33 weeks gestation of Z3A.33 Weeks of gestation: 33 weeks Assessment and Plan Assessment and Plan (1) Sterilization: Status: Acute Comment: plan BS at time of CS (2) Abnormal glucose affecting : Status: Acute Comment: needs 3 hour -n WNL (3) IBS (irritable bowel syndrome): Status: Acute (4) Seasonal allergies: Status: Acute (5) Hypothyroidism: Status: Acute Comment: TSH with Slater. normalized with levothyroidism TSH 2.79 04/03/2024, t4=1.05 (6) Previous section: Status: Acute Comment: decel, cord around neck. considering repeat cs (7) Supervision of high-risk : Status: Acute Comment: PRR , KATIE 11/05/24,fabi BRANDT Jonas, Raheem (8) : Status: Acute Qualifiers: Weeks of gestation: 33 weeks Qualified Code(s): Z3A.33 - 33 weeks gestation of Comment: elects NIPT with Gender, nl anatomy Orders: Orders POC Urinalysis 2 Dip (Clinic) Today 09/22/24 3304 <Electronically signed by Bailey chau MD> Date _ Bailey Bro MD Cosigner Signature: Date (if applicable) CC: ~ [facility] Work Phone: 1(987) 680-728705-12-2025 History of Present illness Narrative* Stephania Rodrigues MD - 09/21/2024 4:40 PM EDT Subjective Maria Elena Aj is a 33 y.o. female who I am asked to see in consultation for evaluation of thyroid function. Had subclinical Hypothyroidism Currently in her last trimester 2nd 1st in 2021 No complications Periods: Heavy 1st couple days Levothyroxine 25 mcg daily in am waits 30 min before eating. Started on Feb 2024 Takes before dinner but sometimes forgets Tired since mid February Mother had Graves and hypothyroidism, aunts and cousin Took 2 cycles to get Previous gained 25-30 lbs Eats granola pretzel Heat intolerant Current taking 50 mcg daily in the morning Prenatals with lunch and dinner No vomiting little nausea now Night sweats Planning to breastfeed Review of Systems all pertinent systems reviewed and are otherwise negative Objective LMP 01/23/2024 Comment: approximately 7 weeks has not seen ob yet Visit Vitals BP 124/81 Pulse 69 Ht 1.676 m (5' 6) Wt 79.4 kg (175 lb) LMP 01/23/2024 Comment: approximately 7 weeks has not seen ob yet BMI 28.25 kg/m OB Status Smoking Status Never BSA 1.92 m Physical Exam Constitutional: General: She is not in acute distress. Appearance: Normal appearance. HENT: Head: Normocephalic and atraumatic. Eyes: Extraocular Movements: Extraocular movements intact. Pupils: Pupils are equal, round, and reactive to light. Cardiovascular: Rate and Rhythm: Normal rate and regular rhythm. Pulmonary: Effort: Pulmonary effort is normal. No respiratory distress. Breath sounds: Normal breath sounds. Abdominal: General: Bowel sounds are normal. Palpations: Abdomen is soft. Tenderness: There is no abdominal tenderness. Skin: Coloration: Skin is not jaundiced or pale. Findings: No erythema or rash. Neurological: General: No focal deficit present. Mental Status: She is alert and oriented to person, place, and time. Deep Tendon Reflexes: Reflexes normal. Psychiatric: Mood and Affect: Mood normal. Behavior: Behavior normal. Lab Results Component Value Date TSH 2.46 08/28/2024 FREET4 1.2 07/31/2024 Assessment/Plan Maria Elena Aj is a 33 y.o. female with hx of hypothyroidism on replacement currently coming in for follow up. Had subclinical Hypothyroidism Currently in her last trimester 2nd 1st in 2021 No complications Initially started on Levothyroxine 25 mcg daily in am waits 30 min before eating in Feb 2024 currently on LT4 50 mcg daily Takes before dinner but sometimes forgets Mother had Graves and hypothyroidism, aunts and cousin Took 2 cycles to get Plan: Continue levothyroxine 50 mcg daily to be taken on an empty stomach on its own 30min before other meds or food Repeat blood Saturday and 3 weeks after delivery We will decide if we need to cut down after deliverly according to labs [facility] 1(897) 556-897305-12-2025 Instructions* Patient Instructions* Stephania Rodrigues MD - 09/21/2024 4:40 PM EDT Continue levothyroxine 50 mcg daily to be taken on an empty stomach on its own 30min before other meds or food Repeat blood Saturday and 3 weeks after delivery We will decide if we need to cut down after deliverly according to labs Let me know if any symptoms RTC [facility] Work Phone: 1(727) 736-315202-20-2025 Evaluation note* Diagnosis Onset Date Resolution Status Admit Date Hypothyroidism acute June 142024 3:58pm IBS (irritable bowel syndrome) acute July 02, 2024 3:58pm acute July 02, 2024 3:58pm Previous section acute July 02, 2024 3:58pm Seasonal allergies acute Februa 2024 3:58pm Supervision of high-risk acute July 02, 025 3:58pm Hypothyroidism acute July 2:42pm IBS (irritable bowel syndrome) acute July 30, 2024 2:42pm acute July 30 2:42pm Previous section acute July 30, 2024 2:42pm Seasonal allergies acute July 30, 2024 2:42pm Supervision of high-risk acute July 30, 2024 2:42pm Abnormal glucose affecting acute September 03, 2024 2:48pm Hypothyroidism acute August 2:48pm IBS (irritable bowel syndrome) acute September 03, 2024 2:48pm acute September 03 2:48pm Previous section acute September 03, 2024 2:48pm Seasonal allergies acute September 03, 2024 2:48pm Sterilization acute September 03, 2024 2:48pm Supervision of high-risk acute September 03, 2024 2:48pm Abnormal glucose affecting acute September 10, 2024 4: 03pm Hypothyroidism acute September 10, 2 025 4:03pm IBS (irritable bowel syndrome) acute September 10, 2024 4:03pm acute September 10, 2024 4:03pm Previous section September 10, 2024 4:03pm Seasonal allergies acute September 4:03pm Sterilization acute September 10 4:03pm Supervision of high-risk acute September 10, 2024 4: 03pm Abnormal glucose affecting acute September 22, 2024 3 :38pm Hypothyroidism acute September 22, 2024 3:38pm IBS (irritable bowel syndrome) acute September 22, 2024 3:38pm acute September 22, 2024 3:38pm Previous section acute September 22, 2024 3:38pm Seasonal allergies acute September 222024 3:38pm Sterilization acute September 22, 2 025 3:38pm Supervision of high-risk acute September 22, 2024 3 :38pm Abnormal glucose affecting acute October 07, 2024 3 :46pm Hypothyroidism acute October 07, 2024 3:46pm IBS (irritable bowel syndrome) acute October 07, 2024 3:46pm acute October 07, 2024 3:46pm Previous section acute October 07, 2024 3:46pm Seasonal allergies acute October 072024 3:46pm Sterilization acute October 07, 2 025 3:46pm Supervision of high-risk acute October 07, 2024 3 :46pm [facility] Work Phone: 1([phone]) 714-333601-20-2025 Evaluation note* Diagnosis Onset Date Resolution Status Admit Date Hypothyroidism acute June 012024 2:29pm IBS (irritable bowel syndrome) acute June 01, 2024 2:29pm acute June 01, 2024 2:29pm Previous section acute June 01, 2024 2:29pm Seasonal allergies acute 2024 2:29pm Supervision of high-risk acute June 01 2:29pm Hypothyroidism acute June 142024 3:58pm IBS (irritable bowel syndrome) acute July 02, 2024 3:58pm acute July 02, 2024 3:58pm Previous section acute July 02, 2024 3:58pm Seasonal allergies acute 2024 3:58pm Supervision of high-risk acute July 02, 2 025 3:58pm Hypothyroidism acute July 2:42pm IBS (irritable bowel syndrome) acute July 30, 2024 2:42pm acute July 30 2:42pm Previous section acute July 30, 2024 2:42pm Seasonal allergies acute July 30, 2024 2:42pm Supervision of high-risk acute July 30, 2024 2:42pm Abnormal glucose affecting acute September 03, 2024 2:48pm Hypothyroidism acute August 2:48pm IBS (irritable bowel syndrome) acute September 03, 2024 2:48pm acute September 03 2:48pm Previous section acute September 03, 2024 2:48pm Seasonal allergies acute September 03, 2024 2:48pm Sterilization acute September 03, 2024 2:48pm Supervision of high-risk acute September 03, 2024 2:48pm Abnormal glucose affecting acute September 10, 2024 4: 03pm Hypothyroidism acute September 10, 2 025 4:03pm IBS (irritable bowel syndrome) acute September 10, 2024 4:03pm acute September 10, 2024 4:03pm Previous section acute September 10, 2024 4:03pm Seasonal allergies acute September 4:03pm Sterilization acute September 10 4:03pm Supervision of high-risk acute September 10, 2024 4: 03pm Abnormal glucose affecting acute September 22, 2024 3 :38pm Hypothyroidism acute September 22, 2024 3:38pm IBS (irritable bowel syndrome) acute September 22, 2024 3:38pm acute September 22, 2024 3:38pm Previous section acute September 22, 2024 3:38pm Seasonal allergies acute September 222024 3:38pm Sterilization acute September 22, 2 025 3:38pm Supervision of high-risk acute September 22, 2024 3 :38pm [facility] Work Phone: 1(994) 391-588712-19-2024 Evaluation note* Diagnosis Onset Date Resolution Status Admit Date Hypothyroidism acute April 122023 3:29pm IBS (irritable bowel syndrome) acute April 30, 2024 3:29pm acute April 30, 2024 3:29pm Previous section acute April 30, 2024 3:29pm Seasonal allergies acute Decemb er 2023 3:29pm Supervision of high-risk acute April 30, 2 024 3:29pm Hypothyroidism acute June 012024 2:29pm IBS (irritable bowel syndrome) acute June 01, 2024 2:29pm acute June 01, 2024 2:29pm Previous section acute June 01, 2024 2:29pm Seasonal allergies acute 2024 2:29pm Supervision of high-risk acute June 01 2:29pm Hypothyroidism acute June 142024 3:58pm IBS (irritable bowel syndrome) acute July 02, 2024 3:58pm acute July 02, 2024 3:58pm Previous section acute July 02, 2024 3:58pm Seasonal allergies acute 2024 3:58pm Supervision of high-risk acute July 02, 2 025 3:58pm Hypothyroidism acute July 2:42pm IBS (irritable bowel syndrome) acute July 30, 2024 2:42pm acute July 30 2:42pm Previous section acute July 30, 2024 2:42pm Seasonal allergies acute July 30, 2024 2:42pm Supervision of high-risk acute July 30, 2024 2:42pm [facility] Work Phone: 1([phone]) 964-877512-12-2024 History of Present illness Narrative* SOHAN King - 04/23/2024 6:00 PM EST [facility] SOHAN King Visit Note - 04/23/2024 6:13 PM This note was generated with voice recognition software and may contain errors including spelling, grammar, syntax, and misrecognization of what was dictated. Patient: Maria Elena Aj, , 33 y.o., female PCP: Nicole Negron MD ALLERGIES: Allergies Allergen Reactions Citalopram Unknown Penicillins Other CURRENT MEDICATIONS: Current Outpatient Medications Medication Instructions acetaminophen (Tylenol) 325 mg tablet Every 6 hours PRN cetirizine (ZYRTEC) 10 mg, Daily levothyroxine (SYNTHROID) 25 mcg, oral, Daily, Take on an empty stomach at the same time each day, either 30 to 60 minutes prior to breakfast phosphorated carbohydrate (Emetrol) solution Take 15-30 milliliter(s) orally every 15 minutes, As Needed for nausea/vomiting (do not take more than 5 doses in 1 hour). PAST MEDICAL HX: Patient Active Problem List Diagnosis (none) - all problems resolved or deleted Is currently 12 weeks . SURGICAL HX: Past Surgical History: Procedure Laterality Date SECTION, LOW TRANSVERSE 10/16/2021 OTHER SURGICAL HISTORY 10/26/2020 Hydatidiform mole removal OTHER SURGICAL HISTORY 10/26/2020 [place] tooth extraction OTHER SURGICAL HISTORY 10/26/2020 Foot surgery OTHER SURGICAL HISTORY 10/26/2020 Colonoscopy FAMILY HX: No pertinent history. SOCIAL HX: reports that she has never smoked. She has never used smokeless tobacco. 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 CHIEF COMPLAINT: Chief Complaint Patient presents with Flu Symptoms Flu sx, nausea, dizzy, cough, body aches X 2 days HISTORY OF PRESENT ILLNESS: The history was obtained from patient. Maria Elena is a 33 y.o. female, who presents with a chief complaint of headaches, fatigue, nausea, an occasional, dry cough, body aches, dry nasal passages, and intermittent L ear pain - sxs started on Saturday night. Denies any fever/chills, sore throat, abdominal pain, chest pain, wheezing/shortness of breath, rashes, urinary symptoms, vomiting, and diarrhea. Denies any changes in mental status. No swelling in legs. She is currently 12 weeks - denies any vaginal symptoms, although reports has had intermittent spottingthroughout her - reports [employer] is aware and monitoring. Denies any recent change in her symp toms. Appetite is decreased (but has still been able to eat and drink fluids without difficulty - today, had 2 eggs, a waffle, peach, yogurt, 1/2 hamburger, corn casserole, granola bar, and fruit snacks). denies loss of sense of taste or smell. Reports symptoms are unchanged since onset. Has been taking Tylenol and Tums without much relief; no other kcji-mun-hheqkam medications or home remedies for symptom management. No known ill contacts. Has not received the COVID vaccine. Has not received this season's influenza vaccine.. Last known COVID infection was in 2020. Is not a smoker. Reports she called her OBGYN to discuss sxs, but decided to come here after work, instead. REVIEW OF SYSTEMS: 10 systems reviewed negative with exception of history of present illness as listed above. TODAY'S VITALS: BP 136/71 Pulse 71 Temp 36.6 C (97.8 F) Resp 18 Ht 1.676 m (5' 6) Wt 66.7 kg (147 lb) LMP 01/23/2024 SpO2 100% BMI 23.73 kg/m PHYSICAL EXAMINATION: General: Mildly ill-appearing, well nourished female; alert and oriented; in no acute distress. Sitting comfortably on exam table. Non-dyspneic. Eyes: Pupils equal, round and reactive to light. No conjunctival erythema; no scleral icterus. HENT: No frontal or maxillary sinus tenderness; + audible nasal congestion. Airway patent, TMs and ear canals clear/unremarkable bilaterally. Nasal mucosa mildly injected and edematous, with scant blood-tinged mucus. Oral mucosa moist. Posterior pharynx mildly injected but without vesicles or oropharyngeal exudate. Uvula is midline. Managing oral secretions without difficulty. Neck: Supple. Mildly tender, mobile anterior cervical lymphadenopathy bilat. Trachea is midline. Respiratory: Respirations easy and unlabored, Breath sounds equal. Lungs are clear to auscultation;no wheezes, rhonchi, or rales; has good air movement throughout. + mild, non-productive cough noted. Non-dyspneic with ambulation; able to maintain SpO2. Cardiovascular: Normal rate, Regular rhythm. Normal S1S2. No m/r/g. No peripheral edema. Gastrointestinal: Soft, non-tender, non-distended; no palpable masses or organomegaly. Bowel soundsnormoactive. Musculoskeletal: Grossly normal; appropriate for age. Integumentary: Elmo, warm, dry, and intact. No rashes or skin discoloration appreciated. Good skin turgor. Neurologic: Alert and oriented, no gross deficits. Ambulates and changes positions independently and without any dizziness/instability. Cognition and Speech: Oriented, Speech clear and coherent. Psychiatric: Cooperative, Appropriate mood & affect. Medical Decision Making LABORATORY or RADIOLOGICAL IMAGING ORDERS/RESULTS: COVID/influenza/RSV PCR tests done - negative results. Urine culture done - results pending. Recent Results (from the past 24 hours) POCT UA Automated manually resulted Collection Time: 04/23/24 6:28 PM Result Value Ref Range POC Color, Urine Yellow Straw, Yellow, Light-Yellow POC Appearance, Urine Clear Clear POC Glucose, Urine NEGATIVE NEGATIVE mg/dl POC Bilirubin, Urine NEGATIVE NEGATIVE POC Ketones, Urine NEGATIVE NEGATIVE mg/dl POC Specific At[place], Urine 1.010 1.005 - 1.035 POC Blood, Urine TRACE-Lysed (A) NEGATIVE POC PH, Urine 6.5 No Reference Range Established PH POC Protein, Urine NEGATIVE NEGATIVE, 30 (1+) mg/dl POC Urobilinogen, Urine 0.2 0.2, 1.0 EU/DL Poc Nitrite, Urine NEGATIVE NEGATIVE POC Leukocytes, Urine NEGATIVE NEGATIVE POCT SARS-COV-2/FLU/RSV PCR SYMPTOMATIC manually resulted Collection Time: 04/23/24 6:29 PM Result Value Ref Range POC Coronavirus 2019, PCR Not Detected Not Detected POC Flu A Result Not Detected Not Detected POC Flu B Result Not Detected Not Detected POC RSV PCR Not Detected Not Detected IMPRESSION/PLAN: Course: Worsening; stable 1. Nausea (Primary) 2. Acute Viral Syndrome 3. Hematuria - POCT UA Automated manually resulted - phosphorated carbohydrate (Emetrol) solution; Take 15-30 milliliter(s) orally every 15 minutes, As Needed for nausea/vomiting (do not take more than 5 doses in 1 hour). Dispense: 400 mL; Refill: 0 - POCT SARS-COV-2/FLU/RSV PCR SYMPTOMATIC manually resulted - Urine Culture No red flags on exam today. Symptoms consistent with acute viral syndrome with associated symptoms,but reviewed other potential etiologies, and stressed importance of close monitoring/follow up withOBGYN/PCP. Nasal swab obtained (using proper PPE) for influenza/RSV/COVID-19 testing to err on the side of caution- results were negative. UA today showed trace blood, but was otherwise unremarkable.Patient denies any urinary symptoms at this point, so will defer any empiric treatment at this time, but sending urine for culture and will await results to help guide further care - urged to call the office [facility] if she develops any urinary sxs in the meantime. No antibiotics indicated at this point , but will start Emetrol for PRN use. Instructed to push fluids, rest, and to use appropriate over the counter medications as needed for management of symptoms (although should use caution, as many OTC medications are unsafe in ). Reviewed instructions for self-isolation and continued monitoring. Reviewed red flags to monitor for, counseled on potential adverse reactions of treatments, expectations for improvement in sxs, and advised to follow-up with primary care provider in 24-48 hours if symptoms persist, or to seek care sooner if worsening or if any additional concerns/red flags develop. Patient agreed with plan of care; questions were encouraged and answered. SOHAN King Advanced Practice Provider [facility] documented in this [facility] Work Phone: [phone]) 458-634811-18-2024 History of Present illness Narrative* Stephania Rodrigues MD - 03/30/2024 4:20 PM EST Subjective Maria Elena Aj is a 33 y.o. female who I am asked to see in consultation for evaluation of thyroid function. Had subclinical Hypothyroidism Currently 8.5 weeks 2nd 1st in 2021 No complications Periods: Heavy 1st couple days Levothyroxine 25 mcg daily in am waits 30 min before eating. Started on Feb 2024 Takes before dinner but sometimes forgets Tired since mid February Mother had Graves and hypothyroidism, aunts and cousin Took 2 cycles to get Period was off last one (22 days) Weight gain7 lbs. Previous gained 25-30 lbs Eats granola pretzel Heat intolerant No hot flashes no night sweats The past week has been constipated Hair loss MedS: Levothyroxine Pre natals Fhx: Thyroid disease Immune comprimised Chron's disease Graves disease Review of Systems all pertinent systems reviewed and are otherwise negative Objective LMP 01/23/2024 Comment: approximately 7 weeks has not seen ob yet Visit Vitals BP 117/70 Pulse 77 Ht 1.676 m (5' 6) Wt 66.7 kg (147 lb) LMP 01/23/2024 Comment: approximately 7 weeks has not seen ob yet BMI 23.73 kg/m OB Status Smoking Status Never BSA 1.76 m Physical Exam Constitutional: General: She is not in acute distress. Appearance: Normal appearance. HENT: Head: Normocephalic and atraumatic. Eyes: Extraocular Movements: Extraocular movements intact. Pupils: Pupils are equal, round, and reactive to light. Neck: Comments: Thyroid mildly palpable. No nodules felt Cardiovascular: Rate and Rhythm: Normal rate and regular rhythm. Pulmonary: Effort: Pulmonary effort is normal. No respiratory distress. Breath sounds: Normal breath sounds. Abdominal: General: Bowel sounds are normal. Palpations: Abdomen is soft. Tenderness: There is no abdominal tenderness. Skin: Coloration: Skin is not jaundiced or pale. Findings: No erythema or rash. Neurological: General: No focal deficit present. Mental Status: She is alert and oriented to person, place, and time. Deep Tendon Reflexes: Reflexes normal. Psychiatric: Mood and Affect: Mood normal. Behavior: Behavior normal. Lab Results Component Value Date TSH 5.20 (H) 03/06/2024 FREET4 1.12 03/06/2024 Assessment/Plan Diagnoses and all orders for this visit: Acquired hypothyroidism - Referral to Endocrinology Less than 8 weeks gestation of ([facility]) - Referral to Endocrinology Maria Elena Aj is a 33 y.o. female who I am asked to see in consultation for evaluation of thyroid function. Had subclinical Hypothyroidism Currently 8.5 weeks 2nd 1st in 2021 No complications Periods: Heavy 1st couple days Levothyroxine 25 mcg daily in am waits 30 min before eating. Started on Feb 2024 Takes before dinner but sometimes forgets Tired since mid February Mother had Graves and hypothyroidism, aunts and cousin Took 2 cycles to get Weight gain7 lbs. Previous gained 25-30 lbs Eats granola pretzel Heat intolerant Plan: Continue levothyroxine 25 mcg daily to be taken on an empty stomach on its own 30min before other meds or food Check blood work on Check antiTPO RTC in 6 months At least 40 minutes of direct consultation was spent reviewing the patient's chart as well as discussing and reviewing the plan including educating and answering questions and concerns, greater than 50 percent spent in counseling and coordination of care. [facility] Phone: [phone]) 824-642811-18-2024 Instructions* Patient Instructions* Stephania Rodrigues MD - 03/30/2024 4:20 PM EST Continue levothyroxine 25 mcg daily to be taken on an empty stomach on its own 30min before other meds or food Check blood work on Check antiTPO RTC in 6 months [facility] Work Phone: 1([phone]) 173-675511-07-2024 Emergency department Note* Papapeggy Delgado, DO - 03/19/2024 3:49 PM EST HPI Chief Complaint Patient presents with Vaginal Bleeding - Abdominal cramping, 7 weeks , vaginal bleeding. LMP 01/30/24. Just started thyroid medication 1-2 weeks ago Limitations to History: None HPI: 33-year-old G at 7 weeks presents with concern for vaginal bleeding. States that today at work she had 2 episodes where there was bright red and then dark red blood within the toilet whileshe was urinating. Blood on the tissue paper. Mild abdominal cramping. Denies any fever, chills, nausea, vomiting, fall or trauma. Physical Exam: VS: As documented in the triage note and EMR flowsheet from this visit were reviewed. Appearance: Alert. cooperative, in no acute distress. Skin: Intact, dry skin, no lesions, rash, petechiae or purpura. HENT: Normocephalic, atraumatic. Pulmonary: Clear bilaterally with good chest wall excursion. No rales, rhonchi or wheezing. No accessory muscle use or stridor. Cardiac: Regular rate and rhythm, no rubs, murmurs, or gallops. Abdomen: Abdomen is soft, nontender, and nondistended. No palpable organomegaly. No rebound or guarding. No CVA tenderness. Nonsurgical abdomen. Psychiatric: Appropriate mood and affect. Patient History Past Medical History: Diagnosis Date Disease of thyroid gland Other conditions influencing health status Menstruation Other specified postprocedural states History of Papanicolaou smear Past Surgical History: Procedure Laterality Date SECTION, LOW TRANSVERSE 10/16/2021 OTHER SURGICAL HISTORY 10/26/2020 Hydatidiform mole removal OTHER SURGICAL HISTORY 10/26/2020 [place] tooth extraction OTHER SURGICAL HISTORY 10/26/2020 Foot surgery OTHER SURGICAL HISTORY 10/26/2020 Colonoscopy Family History Problem Relation Name Age of Onset No Known Problems Mother No Known Problems Father Social History Tobacco Use Smoking status: Never Smokeless tobacco: Never Vaping Use Vaping status: Never Used Substance Use Topics Alcohol use: Never Drug use: Never Physical Exam ED Triage Vitals [03/19/24 1605] Temperature Heart Rate Respirations BP 36.4 C (97.5 F) 81 20 132/74 Pulse Ox Temp Source Heart Rate Source Patient Position 100 % Oral -- -- BP Location FiO2 (%) -- -- Physical Exam ED Course & MDM Diagnoses as of 03/19/241822 Vaginal bleeding in ([facility]) No data recorded [place] Coma Scale Score: 15 (03/19/24 1602 : Davina Fernández RN) Medical Decision Making Labs Reviewed COMPREHENSIVE METABOLIC PANEL - Abnormal Glucose 97 Sodium 135 (*) Potassium 3.3 (*) Chloride 103 Bicarbonate 26 Anion Gap 9 (*) Urea Nitrogen 13 Creatinine 0.69 eGFR >90 Calcium 9.2 Albumin 4.1 Alkaline Phosphatase 55 Total Protein 7.3 AST 14 Bilirubin, Total 0.5 ALT 12 HUMAN CHORIONIC GONADOTROPIN, SERUM QUANTITATIVE - Abnormal HCG, Beta-Quantitative 101,154 (*) Narrative: Total HCG measurement is performed using the [employer] Access Immunoassay which detects intact HCG and free beta HCG subunit. This test is not indicated for use as a tumor marker. HCG testing is performed using a different test methodology at [facility] than other legacy [facility]. Direct result comparison should only be made within the same method. URINALYSIS WITH REFLEX CULTURE AND MICROSCOPIC - Abnormal Color, Urine Colorless (*) Appearance, Urine Clear Specific Atkinson, Urine 1.005 pH, Urine 6.0 Protein, Urine NEGATIVE Glucose, Urine Normal Blood, Urine 0.5 (2+) (*) Ketones, Urine NEGATIVE Bilirubin, Urine NEGATIVE Urobilinogen, Urine Normal Nitrite, Urine NEGATIVE Leukocyte Esterase, Urine NEGATIVE URINALYSIS MICROSCOPIC WITH REFLEX CULTURE - Abnormal WBC, Urine 1-5 RBC, Urine >20 (*) Squamous Epithelial Cells, Urine Bacteria, Urine 1+ (*) Mucus, Urine FEW CBC WITH AUTO DIFFERENTIAL WBC 9.2 nRBC 0.0 RBC 4.58 Hemoglobin 14.0 Hematocrit 41.4 MCV 90 MCH 30.6 MCHC 33.8 RDW 12.0 Platelets 258 Neutrophils % 73.6 Immature Granulocytes %, Automated 0.4 Lymphocytes % 18.7 Monocytes % 5.5 Eosinophils % 1.3 Basophils % 0.5 Neutrophils Absolute 6.78 Immature Granulocytes Absolute, Au* 0.04 Lymphocytes Absolute 1.72 Monocytes Absolute 0.51 Eosinophils Absolute 0.12 Basophils Absolute 0.05 TYPE AND SCREEN ABO TYPE O Rh TYPE POS ANTIBODY SCREEN NEG URINALYSIS WITH REFLEX CULTURE AND MICROSCOPIC Narrative: The following orders were created for panel order Urinalysis with Reflex Culture and Microscopic. Procedure Abnormality Status --------- ------ Urinalysis with Reflex C...[[id number]] Abnormal Final result Extra Urine Estes Tube[[id number]] In process Please view results for these tests on the individual orders. EXTRA URINE ESTES TUBE US PELVIS OB TRANSABDOMINAL W TRANSVAGINAL UP TO 1ST TRIMESTER Final Result 1. Single live intrauterine with a pole and normal heart rate of 165 beats per minute. 2. Estimated gestational age of 7 weeks 0 days based on sonographic measurements with estimated sonographic due date of 11/03/2024. 3. Small subchorionic hemorrhage. 4. Right adnexal elongated simple-appearing cystic structure measuring up to 4.7 cm may represent right hydrosalpinx, paraovarian or peritoneal inclusion cyst. Attention on follow-up imaging is advised. 5. Left ovarian corpus luteum. Signed by: Sarah Hanson 03/19/2024 6:00 PM Dictation workstation: [id number] Medical Decision Making: Patient appears well nontoxic. hCG appropriate. Potassium 3.3 which was replaced orally. Rh+. Ultrasound shows single live intrauterine with heart rate of 165. Patient advised also of ovarian cyst which was seen. Advised on follow-up with [facility] within the next 3 to 4 days. Asked return for new or worsening symptoms. Patient agreeable and discharged home in stable condition. Differential Diagnoses Considered: Vaginal bleeding in early , ectopic , UTI. Escalation of Care: Appropriate for discharge and follow-up with [facility]. Procedure Procedures Papa Delgado DO 03/19/24 182 documented in this [facility] Work Phone: [phone]) 578-856711-07-2024 Physician Emergency department Note* Papa Delgado DO - 03/19/2024 3:49 PM EST HPI Chief Complaint Patient presents with Vaginal Bleeding - Abdominal cramping, 7 weeks , vaginal bleeding. LMP 01/30/24. Just started thyroid medication 1-2 weeks ago Limitations to History: None HPI: 33-year-old G at 7 weeks presents with concern for vaginal bleeding. States that today at work she had 2 episodes where there was bright red and then dark red blood within the toilet whileshe was urinating. Blood on the tissue paper. Mild abdominal cramping. Denies any fever, chills, nausea, vomiting, fall or trauma. Physical Exam: VS: As documented in the triage note and EMR flowsheet from this visit were reviewed. Appearance: Alert. cooperative, in no acute distress. Skin: Intact, dry skin, no lesions, rash, petechiae or purpura. HENT: Normocephalic, atraumatic. Pulmonary: Clear bilaterally with good chest wall excursion. No rales, rhonchi or wheezing. No accessory muscle use or stridor. Cardiac: Regular rate and rhythm, no rubs, murmurs, or gallops. Abdomen: Abdomen is soft, nontender, and nondistended. No palpable organomegaly. No rebound or guarding. No CVA tenderness. Nonsurgical abdomen. Psychiatric: Appropriate mood and affect. Patient History Past Medical History: Diagnosis Date Disease of thyroid gland Other conditions influencing health status Menstruation Other specified postprocedural states History of Papanicolaou smear Past Surgical History: Procedure Laterality Date SECTION, LOW TRANSVERSE 10/16/2021 OTHER SURGICAL HISTORY 10/26/2020 Hydatidiform mole removal OTHER SURGICAL HISTORY 10/26/2020 [place] tooth extraction OTHER SURGICAL HISTORY 10/26/2020 Foot surgery OTHER SURGICAL HISTORY 10/26/2020 Colonoscopy Family History Problem Relation Name Age of Onset No Known Problems Mother No Known Problems Father Social History Tobacco Use Smoking status: Never Smokeless tobacco: Never Vaping Use Vaping status: Never Used Substance Use Topics Alcohol use: Never Drug use: Never Physical Exam ED Triage Vitals [03/19/24 1605] Temperature Heart Rate Respirations BP 36.4 C (97.5 F) 81 20 132/74 Pulse Ox Temp Source Heart Rate Source Patient Position 100 % Oral -- -- BP Location FiO2 (%) -- -- Physical Exam ED Course & MDM Diagnoses as of 03/19/24 1823 Vaginal bleeding in ([facility]) No data recorded [place] Coma Scale Score: 15 (03/19/24 1602 : Davina Fernández RN) Medical Decision Making Labs Reviewed COMPREHENSIVE METABOLIC PANEL - Abnormal Glucose 97 Sodium 135 (*) Potassium 3.3 (*) Chloride 103 Bicarbonate 26 Anion Gap 9 (*) Urea Nitrogen 13 Creatinine 0.69 eGFR >90 Calcium 9.2 Albumin 4.1 Alkaline Phosphatase 55 Total Protein 7.3 AST 14 Bilirubin, Total 0.5 ALT 12 HUMAN CHORIONIC GONADOTROPIN, SERUM QUANTITATIVE - Abnormal HCG, Beta-Quantitative 101,154 (*) Narrative: Total HCG measurement is performed using the [employer] Access Immunoassay which detects intact HCG and free beta HCG subunit. This test is not indicated for use as a tumor marker. HCG testing is performed using a different test methodology at [facility] than other legacy [facility]. Direct result comparison should only be made within the same method. URINALYSIS WITH REFLEX CULTURE AND MICROSCOPIC - Abnormal Color, Urine Colorless (*) Appearance, Urine Clear Specific [place], Urine 1.005 pH, Urine 6.0 Protein, Urine NEGATIVE Glucose, Urine Normal Blood, Urine 0.5 (2+) (*) Ketones, Urine NEGATIVE Bilirubin, Urine NEGATIVE Urobilinogen, Urine Normal Nitrite, Urine NEGATIVE Leukocyte Esterase, Urine NEGATIVE URINALYSIS MICROSCOPIC WITH REFLEX CULTURE - Abnormal WBC, Urine 1-5 RBC, Urine >20 (*) Squamous Epithelial Cells, Urine Bacteria, Urine 1+ (*) Mucus, Urine FEW CBC WITH AUTO DIFFERENTIAL WBC 9.2 nRBC 0.0 RBC 4.58 Hemoglobin 14.0 Hematocrit 41.4 MCV 90 MCH 30.6 MCHC 33.8 RDW 12.0 Platelets 258 Neutrophils % 73.6 Immature Granulocytes %, Automated 0.4 Lymphocytes % 18.7 Monocytes % 5.5 Eosinophils % 1.3 Basophils % 0.5 Neutrophils Absolute 6.78 Immature Granulocytes Absolute, Au* 0.04 Lymphocytes Absolute 1.72 Monocytes Absolute 0.51 Eosinophils Absolute 0.12 Basophils Absolute 0.05 TYPE AND SCREEN ABO TYPE O Rh TYPE POS ANTIBODY SCREEN NEG URINALYSIS WITH REFLEX CULTURE AND MICROSCOPIC Narrative: The following orders were created for panel order Urinalysis with Reflex Culture and Microscopic. Procedure Abnormality Status --------- ------ Urinalysis with Reflex C...[[id number]] Abnormal Final result Extra Urine Estes Tube[[id number]] In process Please view results for these tests on the individual orders. EXTRA URINE ESETS TUBE US PELVIS OB TRANSABDOMINAL W TRANSVAGINAL UP TO 1ST TRIMESTER Final Result 1. Single live intrauterine with a pole and normal heart rate of 165 beats per minute. 2. Estimated gestational age of 7 weeks 0 days based on sonographic measurements with estimated sonographic due date of 11/03/2024. 3. Small subchorionic hemorrhage. 4. Right adnexal elongated simple-appearing cystic structure measuring up to 4.7 cm may represent right hydrosalpinx, paraovarian or peritoneal inclusion cyst. Attention on follow-up imaging is advised. 5. Left ovarian corpus luteum. Signed by: Sarah Hanson 03/19/2024 6:00 PM Dictation workstation: [id number] Medical Decision Making: Patient appears well nontoxic. hCG appropriate. Potassium 3.3 which was replaced orally. Rh+. Ultrasound shows single live intrauterine with heart rate of 165. Patient advised also of ovarian cyst which was seen. Advised on follow-up with [facility] within the next 3 to 4 days. Asked return for new or worsening symptoms. Patient agreeable and discharged home in stable condition. Differential Diagnoses Considered: Vaginal bleeding in early , ectopic , UTI. Escalation of Care: Appropriate for discharge and follow-up with [facility]. Procedure Procedures Papa Delgado DO 03/19/241823 [facility] Work Phone: [phone]) 690-235309-27-2024 History of Present illness Narrative* Padma Apple MA - 02/07/2024 4:00 PM EDT Subjective Patient ID: Maria Elena Aj is a 33 y.o. female who presents for lab work and patient states their thyroid numbers were off. HPI Review of Systems Objective There were no vitals taken for this visit. Physical Exam Assessment/Plan * Nicole Negron MD - 02/07/2024 4:00 PM EDT Subjective Maria Elena Aj is a 33 y.o. female who presents for No chief complaint on file.. Here for follow up recent labs. She states that she has been more tired recently - her TSH was a little bit elevated, free T4 was normal. She has been having more hair loss in the past few months as well. Objective Visit Vitals BP 90/60 (BP Location: Left arm, Patient Position: Sitting, BP Cuff Size: Adult) Pulse 52 Physical Exam Vitals reviewed. Constitutional: General: She is not in acute distress. Cardiovascular: Rate and Rhythm: Normal rate. Pulmonary: Effort: Pulmonary effort is normal. No respiratory distress. Skin: General: Skin is warm and dry. Neurological: General: No focal deficit present. Mental Status: She is alert. Mental status is at baseline. Latest Reference Range & Units 01/31/24 07:24 GLUCOSE 74 - 99 mg/dL 80 SODIUM 136 - 145 mmol/L 140 POTASSIUM 3.5 - 5.3 mmol/L 3.9 CHLORIDE 98 - 107 mmol/L 108 (H) Bicarbonate 21 - 32 mmol/L 26 Anion Gap 10 - 20 mmol/L 10 Blood Urea Nitrogen 6 - 23 mg/dL 15 Creatinine 0.50 - 1.05 mg/dL 0.78 EGFR >60 mL/min/1.73m*2 >90 Calcium 8.6 - 10.3 mg/dL 9.0 Albumin 3.4 - 5.0 g/dL 4.2 Alkaline Phosphatase 33 - 110 U/L 52 ALT 7 - 45 U/L 16 AST 9 - 39 U/L 17 Bilirubin Total 0.0 - 1.2 mg/dL 1.0 Total Protein 6.4 - 8.2 g/dL 7.2 Vitamin B12 211 - 911 pg/mL 710 Thyroxine, Free 0.61 - 1.12 ng/dL 1.10 Thyroid Stimulating Hormone 0.44 - 3.98 mIU/L 4.92 (H) Vitamin D, 25-Hydroxy, Total 30 - 100 ng/mL 31 WBC 4.4 - 11.3 x10*3/uL 5.2 nRBC 0.0 - 0.0 /100 WBCs 0.0 RBC 4.00 - 5.20 x10*6/uL 4.55 HEMOGLOBIN 12.0 - 16.0 g/dL 13.8 HEMATOCRIT 36.0 - 46.0 % 41.9 MCV 80 - 100 fL 92 MCH 26.0 - 34.0 pg 30.3 MCHC 32.0 - 36.0 g/dL 32.9 RED CELL DISTRIBUTION WIDTH 11.5 - 14.5 % 12.4 Platelets 150 - 450 x10*3/uL 251 Neutrophils % 40.0 - 80.0 % 55.0 Immature Granulocytes %, Automated 0.0 - 0.9 % 0.2 Lymphocytes % 13.0 - 44.0 % 32.7 Monocytes % 2.0 - 10.0 % 6.0 Eosinophils % 0.0 - 6.0 % 4.8 Basophils % 0.0 - 2.0 % 1.3 Neutrophils Absolute 1.20 - 7.70 x10*3/uL 2.86 Immature Granulocytes Absolute, Automated 0.00 - 0.70 x10*3/uL 0.01 Lymphocytes Absolute 1.20 - 4.80 x10*3/uL 1.70 Monocytes Absolute 0.10 - 1.00 x10*3/uL 0.31 Eosinophils Absolute 0.00 - 0.70 x10*3/uL 0.25 Basophils Absolute 0.00 - 0.10 x10*3/uL 0.07 (H): Data is abnormally high Assessment/Plan Problem List Items Addressed This Visit None Nicole Negron MD [facility] Work Phone: 1([phone]) 826-232509-27-2024 Instructions* Patient Instructions* Nicole Negron MD - 02/07/2024 4:00 PM EDT We discussed monitoring vs starting low dose levothyroxine. At this point we will continue to monitor and recheck labs in 1-3 months. documented [facility] Work Phone: 1(765) 567-481707-16-2024 History of Present illness Narrative* Caden Segura APRN-NISHA - 11/26/2023 5:05 PM EDT 33 y.o. female presents for evaluation of URI. Symptoms including mild cough, nasal congestion, body aches, malaise, and headache have been present for several days and refractory to OTC meds. Has a history of seasonal allergies. No fever, chills, nausea, vomiting, abdominal pain, CP, or SOB. No exacerbating factors. No known COVID 19/flu exposure. Vitals: 11/26/23 1705 BP: 114/78 Pulse: 83 Resp: 18 Temp: 36.7 C (98.1 F) SpO2: 99% Allergies Allergen Reactions Citalopram Unknown Penicillins Other Other Other and Rash Medication Documentation Review Audit Reviewed by Liliane Wiley MA ([employer] Host/Hostess) on 11/26/23 at 1704 Medication Order Taking? Sig Documenting Provider Last Dose Status No Medications to Display Past Medical History: Diagnosis Date Other conditions influencing health status Menstruation Other specified postprocedural states History of Papanicolaou smear Past Surgical History: Procedure Laterality Date SECTION, LOW TRANSVERSE 10/16/2021 OTHER SURGICAL HISTORY 10/26/2020 Hydatidiform mole removal OTHER SURGICAL HISTORY 10/26/2020 [place] tooth extraction OTHER SURGICAL HISTORY 10/26/2020 Foot surgery OTHER SURGICAL HISTORY 10/26/2020 Colonoscopy ROS See HPI Physical Exam Vitals and nursing note reviewed. Constitutional: General: She is not in acute distress. Appearance: Normal appearance. She is normal weight. She is not ill-appearing. HENT: Head: Normocephalic and atraumatic. Right Ear: Tympanic membrane and ear canal normal. Left Ear: Tympanic membrane and ear canal normal. Nose: Congestion present. Mouth/Throat: Mouth: Mucous membranes are moist. Pharynx: Oropharynx is clear. Eyes: Extraocular Movements: Extraocular movements intact. Conjunctiva/sclera: Conjunctivae normal. Pupils: Pupils are equal, round, and reactive to light. Cardiovascular: Rate and Rhythm: Normal rate. Pulmonary: Effort: Pulmonary effort is normal. Breath sounds: Normal breath sounds. Lymphadenopathy: Cervical: Cervical adenopathy present. Skin: General: Skin is warm and dry. Neurological: General: No focal deficit present. Mental Status: She is alert and oriented to person, place, and time. Psychiatric: Mood and Affect: Mood normal. Behavior: Behavior normal. Recent Results (from the past 1 hour(s)) POCT SARS-COV-2/FLU/RSV PCR SYMPTOMATIC manually resulted Collection Time: 11/26/23 5:48 PM Result Value Ref Range POC Coronavirus 2019, PCR Not Detected Not Detected POC Flu A Result Not Detected Not Detected POC Flu B Result Not Detected Not Detected POC RSV PCR Not Detected Not Detected Assessment/Plan/MDM Maria Elena was seen today for uri. Diagnoses and all orders for this visit: Acute non-recurrent maxillary sinusitis (Primary) - azithromycin (Zithromax Z-Sony) 250 mg tablet; Take 2 tablets (500 mg) on Day 1, followed by 1 tablet (250 mg) once daily on Days 2 through 5. Acute upper respiratory infection - POCT SARS-COV-2/FLU/RSV PCR SYMPTOMATIC manually resulted Encouraged pt to continue otc cold remedies PRN, push PO fluids and rest. Patient's clinical presentation is otherwise unremarkable at this time. Patient is discharged with instructions to follow-up with primary care or seek emergency medical attention for worsening symptoms or any new concerns. I did personally review Maria Elena's past medical history, surgical history, social history, as wellas family history (when relevant). In this case, I also oversaw the her drug management by reviewing her medication list, allergy list, as well as the medications that I prescribed during the UC course and/or recommended as an out-patient (including possible OTC medications such as acetaminophen, NSAIDs , etc). After reviewing the items above, I did look at previous medical documentation, such as recent hospitalizations, office visits, and/or recent consultations with PCP/specialist. SDOH: Another factor that I considered in Maria Elena's care was her Social Determinants of Health (SDOH). During this UC encounter, she did not have social determinants of health. Those SDOH influencing Maria Elena's care are: none Caden Segura CNP [facility] [phone] documented [facility]Gre[facility] Work Phone: 1(672) 309-453505-07-2024 History of Present illness Narrative* Padma Apple MA - 09/17/2023 4:00 PM EDT Subjective Patient ID: Maria Elena Aj is a 32 y.o. female who presents for yearly check/wellness check. HPI Review of Systems Objective There were no vitals taken for this visit. Physical Exam Assessment/Plan * Nicole Negron MD - 09/17/2023 4:00 PM EDT Subjective Maria Elena Aj is a 32 y.o. female who presents for No chief complaint on file.. Here for routine check up. Overall she is doing pretty well. Objective Visit Vitals BP 118/72 (BP Location: Left arm, Patient Position: Sitting, BP Cuff Size: Adult) Pulse 67 Physical Exam Vitals reviewed. Constitutional: General: She is not in acute distress. Cardiovascular: Rate and Rhythm: Normal rate and regular rhythm. Heart sounds: No murmur heard. Pulmonary: Effort: Pulmonary effort is normal. No respiratory distress. Breath sounds: Normal breath sounds. Skin: General: Skin is warm and dry. Neurological: General: No focal deficit present. Mental Status: She is alert. Mental status is at baseline. Assessment/Plan Problem List Items Addressed This Visit None Visit Diagnoses Healthcare maintenance - Primary Relevant Orders CBC and Auto Differential Comprehensive Metabolic Panel Lipid Panel TSH with reflex to Free T4 if abnormal Vitamin B12 Follow Up In Primary Care - Health Maintenance Nicole Negron MD documented [facility] Work Phone: 1(431) [phone] Instructions* Patient Instructions* Nicole Negron MD - 09/17/2023 4:00 PM EDT Get labs. Follow up in 1 year and prn. documented [facility] Work Phone: [phone]) 696-758604-15-2024 History of Present illness Narrative* SOHAN Galaviz - 08/26/2023 9:35 AM EDT 32 y.o. female presents for evaluation of sore throat, headaches, body aches and fatigue for the past 4 days. Was exposed to strep pharyngitis. Denies fever, n/v/d, abdominal pains, cough, or any other associated symptoms or complaints. No otc meds for symptoms. No other complaints. Vitals: 08/26/23 0940 BP: 113/80 Pulse: 83 Resp: 16 Temp: 37 C (98.6 F) SpO2: 98% Allergies Allergen Reactions Citalopram Unknown Penicillins Other Other Other and Rash Medication Documentation Review Audit Reviewed by Lauren Molina MA ([employer] Host/Hostess) on 08/26/23 at 0939 Medication Order Taking? Sig Documenting Provider Last Dose Status No Medications to Display Past Medical History: Diagnosis Date Other conditions influencing health status Menstruation Other specified postprocedural states History of Papanicolaou smear Past Surgical History: Procedure Laterality Date SECTION, LOW TRANSVERSE 10/16/2021 OTHER SURGICAL HISTORY 10/26/2020 Hydatidiform mole removal OTHER SURGICAL HISTORY 10/26/2020 [place] tooth extraction OTHER SURGICAL HISTORY 10/26/2020 Foot surgery OTHER SURGICAL HISTORY 10/26/2020 Colonoscopy ROS See HPI Physical Exam Vitals and nursing note reviewed. Constitutional: General: She is not in acute distress. Appearance: Normal appearance. She is normal weight. She is not ill-appearing or toxic-appearing. HENT: Head: Normocephalic and atraumatic. Right Ear: Tympanic membrane and ear canal normal. Left Ear: Tympanic membrane and ear canal normal. Nose: Nose normal. Mouth/Throat: Mouth: Mucous membranes are moist. Pharynx: Oropharyngeal exudate and posterior oropharyngeal erythema present. Comments: 1+ tonsillar edema bilaterally Eyes: Extraocular Movements: Extraocular movements intact. Conjunctiva/sclera: Conjunctivae normal. Pupils: Pupils are equal, round, and reactive to light. Cardiovascular: Rate and Rhythm: Normal rate and regular rhythm. Pulmonary: Effort: Pulmonary effort is normal. Breath sounds: Normal breath sounds. Lymphadenopathy: Cervical: Cervical adenopathy (anterior bilateral) present. Skin: General: Skin is warm and dry. Capillary Refill: Capillary refill takes less than 2 seconds. Neurological: General: No focal deficit present. Mental Status: She is alert and oriented to person, place, and time. Psychiatric: Mood and Affect: Mood normal. Behavior: Behavior normal. Recent Results (from the past 1 hour(s)) POCT Group A Streptococcus, PCR manually resulted Collection Time: 08/26/23 10:33 AM Result Value Ref Range POC Group A Strep, PCR Detected (A) Not Detected POCT BD Veritor Triplex Ag Collection Time: 08/26/23 10:34 AM Result Value Ref Range POC Triplex SARS-CoV-2 Ag Presumptive negative for Triplex SARS-CoV-2 (no antigen detected) Presumptive negative for Triplex SARS-CoV-2 (no antigen detected) POC Triplex Flu A-Ag Presumptive negative for Triplex FLU A (no antigen detected) Presumptive negative for Triplex FLU A (no antigen detected) POC Triplex Flu B-Ag Presumptive negative for Triplex FLU B (no antigen detected) Presumptive negative for Triplex FLU B (no antigen detected) Assessment/Plan/MDM Maria Elena was seen today for uri. Diagnoses and all orders for this visit: Acute streptococcal pharyngitis (Primary) - POCT BD Veritor Triplex Ag - POCT Group A Streptococcus, PCR manually resulted - azithromycin (Zithromax Z-Sony) 250 mg tablet; Take 2 tablets (500 mg) on Day 1, followed by 1 tablet (250 mg) once daily on Days 2 through 5. Advised pt to change toothbrush after 3 days of antibiotics, use warm salt water gargles, otc analgesics, push by mouth fluids and rest. Patient's clinical presentation is otherwise unremarkable at this time. Patient is discharged with instructions to follow-up with primary care or seek emergency medical attention for worsening symptoms or any new concerns. I did personally review Maria Elena's past medical history, surgical history, social history, as wellas family history (when relevant). In this case, I also oversaw the her drug management by reviewing her medication list, allergy list, as well as the medications that I prescribed during the UC course and/or recommended as an out-patient (including possible OTC medications such as acetaminophen, NSAIDs , etc). After reviewing the items above, I did not look at previous medical documentation, such as recent hospitalizations, office visits, and/or recent consultations with PCP/specialist. SDOH: Another factor that I considered in Maria Elena's care was her Social Determinants of Health (SDOH). During this UC encounter, she did not have social determinants of health. Those SDOH influencing Maria Elena's care are: none Caden Segura CNP [facility] [phone] documented in this encounterGre[facility] Work Phone: [phone]) 370-891601-04-2024 NoteHNO ID: [id number] Author: SAMM FERGUSON MD Service: ? Author Type: Physician Type: Progress Notes Filed: 05/16/2023 08:03 Note Text: Patient presents with: Sore Throat: ST, cough and [place] x 3 days HPI: Feeling sick for 3-4 days. Sore throat worsened last night Positive symptoms: minimal Cough, Sore throat, Headache, Nasal Congestion (has some at baseline), diarrhea this weekend after eating sausage Negative symptoms: Fever, Body Aches, Vomiting, OTC: none. Had COVID illness in February. MEDICATIONS: No current outpatient medications on file. No current facility-administered medications for this visit. ALLERGIES: ALLERGIES Allergen Reactions Penicillins Rash Seasonal Allergies Other: See Comments congestion VITALS: BP 122/78 Pulse 89 Temp 36.9 ?C (98.4 ?F) (Tympanic) Resp 18 Wt 66.5 kg (146 lb 9.6 oz) LMP 09/25/2014 SpO2 100% PHYSICAL EXAM: GEN: mildly ill appearing HEENT: PERRL, EOMI, conjunctiva clear Ears: canals clear. TMs without erythema, bulge, or effusion Sinuses: non-tender frontal sinus, non-tender maxillary sinuses Throat: moist mucous membranes, mild erythema, no exudate Neck: supple, no thyromegaly, no lymphadenopathy HEART: regular rate and rhythm, no murmurs LUNGS: clear to auscultation, no wheezes or crackles, no increased WOB ASSESSMENT/PLAN: 1. Sore throat - ICD9: 462, ICD10: J02.9 - STREP A MOLECULAR (POC) - negative. - suspect viral URI; unlikely COVID because of recent infection. - Discussed supportive care treatment with rest, cold medicine, and analgesia. Samm Ferguson, [facility]06-06-2023 History of Present illness Narrative* Nicole Negron MD - 10/16/2022 4:00 PM EDT Subjective Maria Elena Aj is a 32 y.o. female who presents for Mouth Lesions (Started last . ). Former patient of Kriss Ayala here c/o lesions in her mouth since . She states that onThu morning she had swelling no the right side of her inner cheek, has had swelling off and onsince then - tylenol and ibuprofen have been somewhat helpful. It was worse when she was eating. Objective Visit Vitals BP 112/68 Pulse 64 Physical Exam Vitals reviewed. Constitutional: General: She is not in acute distress. HENT: Mouth/Throat: Mouth: Mucous membranes are moist. Comments: There is mild irritation in the right cheek, no blisters Pulmonary: Effort: Pulmonary effort is normal. No respiratory distress. Skin: General: Skin is warm and dry. Neurological: General: No focal deficit present. Mental Status: She is alert. Mental status is at baseline. Assessment/Plan Problem List Items Addressed This Visit None Visit Diagnoses Irritation of oral cavity - Primary Nicole Negron MD documented [facility] encounterGre[facility] Work Phone: 1(333) 270-585106-06-2023 Instructions* Patient Instructions* Nicole Negron MD - 10/16/2022 4:00 PM EDT Suspect she may have had sialolithiasis of the parotid and the stone has now passed. She will continue to monitor, if the swelling returns or she has new symptoms she will let us know. documented in this encounterUnOhio[facility] Work Phone: 1([phone]) 463-853807-19-2022 History of Present illness NarrativePatient comes in for 6-week visit after a primary . Patient reports that her incision was slow to heal but now has healed completely. Patient is breast-feeding. Patient has stoppedbleeding. Patient was sexually active last week and is not interested in any form of contraception at this point[address] Work Phone: [phone]) 531-838306-08-2022 NoteSend Summary: Discharge Summary Providers: Provider RoleProvider Name Bre Carlson Note Recipients: n/a Discharge: Summary: Admission Date: .16-Oct-2021 05:23:00 Discharge Date: 19-Oct-2021 Attending Physician at Discharge: Sal Trejo Admission Reason: Elective induction Final Discharge Diagnoses: Status post primary section Procedures: Primary low transverse section Condition at Discharge: Satisfactory Disposition at Discharge: .Home Vital Signs: T PRBPMAPSpO2 [id number]/[id number]% Date/Time10/19 0:356/9 0:356/9 3:156/9 0:356/9 0:356/9 3:15 Range(36.6C - 36.7C ) (62 - 72 ) (14 - 16 ) (120 - 135 )/ (73 - 85 ) (86 - 99 ) (97% - 98% ) Date: Weight/Scale Type:Height: 16-Oct-2021 06:4383.2 kg / cpaqjowj067.4 cm Physical Exam: Lungs: Clear bilaterally Heart: Regular rate and rhythm Abdomen: Soft and nontender Hospital Course: Patient was at 39+ weeks gestation and was brought in for an elective induction secondary to concerns of LGA. Patient was induced with cervical ripening. We started with misoprostol and a Hinds bulb. Once a Hinds bulb came out we artificially ruptured her membranes and started oxytocin. The tracing had recurrent variables and an amnioinfusion was performed. The variables did not resolved and eventually started having lates with prolonged lates. The patient had remained at 4+ centimeters for numerous hours and inability to resume the oxytocin secondary to category 2 tracing. At this point the recommendation was made to proceed to a section and the patient was delivered by primary low transverse section. Nuchal cord x2 was found. day #1 the patient was doing well she was attempting to breast-feed GI function was returning pain was well controlled. On day #2 patient was still continuing to work on breast-feeding but overall was doing well she desired to stay for an additional day to work on her breast-feeding further from all other parameters the patient was doing well. The blood pressure had been elevated on a couple times during her admission there were mild elevations in her preeclamptic labs came back normal. Immunizations: Immunizations: 19-Sep-2021 Tdap: Immunizations, 19-Sep-2021 Discharge Information: and Continuing Care: Lab Results - Pending: None Radiology Results - Pending: None [place] Suicide Risk: negative Discharge Instructions: Activity: Return to normal activity as tolerated Nutrition/Diet: Regular Follow Up Appointments: Follow-Up - OB Provider: Physician/Dept/Service: OB Provider Dr. Long Call to Schedule in: 1 week, Outpatient office Discharge Medications: Home Medication ZyrTEC 10 mg oral tablet - 1 tab(s) orally once a day as needed 1 oral capsule - 1 cap(s) orally once a day acetaminophen 325 mg oral tablet - 3 tab(s) orally every 6 hours ibuprofen 800 mg oral tablet - 1 tab(s) orally every 8 hours PRN Medication DNR Status: Code StatusCode Status order at time of discharge: Full Code Electronic Signatures: Sal Trejo) (Signed 19-Oct-2021 07:23) Authored: Send Summary, Summary Content Bre Long) (Signed 18-Oct-2021 09:34) Authored: Send Summary, Summary Content, Immunizations, Ongoing Care, DNR Status, Note Completion Last Updated: 19-Oct-2021 07:23 by Sal Trejo)[facility] 10-18-2021 NoteProvider Information: Maternal Delivery Information Delivery Type: vaginal delivery Did this pt receive corticosteroids at any time during this : No Was intraamniotic infection diagnosed during this labor: no What antibiotic(s) were administered during labor and/or pre-incision: none Did this patient receive progesterone in any form to prevent premature delivery: no Rupture of Membranes: artificial Spontaneous Labor: yes Augmentation: yes Vaginal Delivery Type: spontaneous Vaginal Delivery Complications: none Delivery Anesthesia: epidural Presentation/Lie: vertex Vertex Presentation: Left: occiput anterior Episiotomy & Repair: none Perineal Laceration: first degree Other Laceration: sulcal, bilateral Laceration Repair: yes Abrasion: none QBL (mL): 400 mL Blood Products Transfused during Delivery (indicate number of units given): none Placenta: spontaneous Choose Baby: A Cord Characteristics: no anomalies noted Day of Delivery (Baby A): 17-Oct-2021 Gestational Age at Delivery (wk.days): 39.4 Term: term 37.0 to 41.6 weeks Live : yes Vaginal Delivery Provider: Bre Long Hemorrhage Risk Screen: Hemorrhage Medium Risk Factors (T&S) (2 or more medium risks Go to High Risk section & obtain T&C)IOL with oxytocin or cervical ripening(1) Hemorrhage Risk Assessmenthemorrhage risks reviewed and additional factors added if applicable Hemorrhage Risk Score MediumPatient is at Medium Risk for an OB hemorrhage. Order Type & Screen. Score Calculation - IT Use Only1 Electronic Signatures for Addendum Section: Bre Long) (Signed Addendum 17-Oct-2021 22:05) wrong patient documentation Electronic Signatures: Bre Long) (Signed 17-Oct-2021 22:04) Authored: Provider Information, Hemorrhage Risk, Note Completion Last Updated: 17-Oct-2021 22:05 by Bre Long) References: 1. Data Referenced From History and Physical - OB 16-[facility]-2021 08:06[facility]06-06-[facility]22 NoteProvider Information: Maternal Delivery Information Delivery Type: delivery Did this pt receive corticosteroids at any time during this : No Was intraamniotic infection diagnosed during this labor: no What antibiotic(s) were administered during labor and/or pre-incision: Azithromycin, Clindamycin, Gentamycin Did this patient receive progesterone in any form to prevent premature delivery: no Rupture of Membranes: artificial Spontaneous Labor: no Induction or Scheduled : induction Is patient at delivery >/= to 37 to < 39 completed weeks of gestation: no Failed TOLAC: no Delivery Anesthesia: epidural Type: primary Schedule: non-scheduled / non-urgent Pre-op Dx: intolerance of labor Presentation/Lie: vertex Vertex Presentation: Right: occiput anterior Assisted Operative Delivery at : no Skin Incision Type: Pfannenstiel Uterine Incision Type: low transverse Delivery Complications: none I.V. Fluids: 1500 QBL (mL): 505 mL Blood Products Transfused during Delivery (indicate number of units given): none Urine Output (mL): 200 mL Placenta: manual Choose Baby: A Delayed Cord Clamping (equal to or greater than 30 seconds): no Day of Delivery (Baby A): 16-Oct-2021 Gestational Age at Delivery (wk.days): 39.3 Term: term 37.0 to 41.6 weeks Live : yes Post-op Dx: same as pre-op dx Delivery Provider: Bre Long Assistant: Sal Trejo Dictation: not applicable - note contains Operative Report Operative Report: Patient was taken to the operating room where epidural anesthesia was found to be adequate. She was prepped and draped in the usual sterile fashion in the dorsal supine position with a leftward tilt. A Pfannenstiel skin incision was made with the scalpel and carried to the underlying fascia with the Bovie. The fascia was then nicked in the midline and the incision extended laterally with the use of a Bovie and a Karoline. Attention was turned to the superior and inferior fascial segments which were tented up with Livingston clamps and the underlying rectus muscles dissected off bluntly and with the use of a Bovie. The rectus muscles were then in the midline and the underlying peritoneum identified and entered with Metzenbaum scissors. The incision was then extended superiorly and inferiorly with the Bovie and good visualization of the bladder. A bladder blade was then inserted. The bladder was identified and the lower uterine segment was identified a bladder flap was created and placed behind the bladder retractor. We then entered the uterus with the scalpel. Once the amniotic sac was reached the incision was in extended laterally with bandage scissors. With gentle guidance and fundal pressure the infant's head was delivered atraumatically and then the was delivered shoulders and body. The nose and mouth were suctioned with a Yankauer suction and then the cord was clamped and cut and the infant was handed off to the waiting nurse. Cord blood was collected. The placenta then was manually removed. The uterus was cleared of clot and debris. We then put placed Grande's around the incision. The bladder blade was reinserted clot and debris were removed from the uterus and then the incision was closed with 0 Vicryl in a running locked fashion. A second imbricating layer of 0 Vicryl was performed. With the Bovie we controlled any areas of slight bleeding. Then lower uterine peritoneum was reapproximated to the bladder peritoneum with 2-0 Vicryl in a running fashion. Once good hemostasis was confirmed we removed all instruments from the patient's abdomen and cleared the gutters of clot and debris. The peritoneum was closed with 2-0 Vicryl in a running fashion. The fascia was then closed with 0 Vicryl in a running fashion. The subcutaneous fat was reapproximated with 2-0 Vicryl interrupteds. And then the skin was closed with Monocryl 3 oh using a subcuticular stitch. We then dressed the incision with Steri-Strips and a bandage. The uterus was then expressed of clot and debris. We then placed Tylenol and misoprostol per rectum and the patient was then cleaned and taken off of the operating room table and to her recovery room. The patient tolerated the procedure well. Sponge lap and needle count were correct x3. Dr. Trejo was present for the entire case and assisted with retraction and suturing visualization and the entire case. There was no other resident or qualified instructional support assistant to assist with this. Hemorrhage Risk Screen: Hemorrhage Medium Risk Factors (T&S) (2 or more medium risks Go to High Risk section & obtain T&C)IOL with oxytocin or cervical ripening, Hemorrhage Risk Assessmenthemorrhage risks reviewed and additional factors added if applicable Hemorrhage Risk Score HighPatient is at High Risk for an OB he (more content not included)...[facility]06-06-2022 NoteHPI/OB History: Care Provider: Dr. Ethan BORRERO Descriptive Info: HPI Patient is a 31-year-old 1 para 0 at 39-3/7 weeks gestation with an EDC of 10/20/2021. The patient comes in for an elective induction. has been complicated by an LGA fetus. Ultrasound done 3 days ago estimated weight approximately 8 pounds 13 ounces. also complicated by COVID in the . Additionally renal pelvises were dilated. Patient reports good movement denies contractions or leaking fluid. Labs: Labs: Labs: Blood Typed Date: 16-Oct-2021 Blood Type: O positive Antibody Screen Results: negative Chlamydia Date: 04-Apr-2021 Chlamydia Results: negative Gonorrhea Date: 04-Apr-2021 Gonorrhea Results: negative Group B Strep Date: 26-Sep-2021 Strep Results: negative GCT (dd-mmm-yy): 25-Jul-2021 GCT result: 125 HBsAG Date: 04-Apr-2021 HBsAG Results: negative HIV Date: 04-Apr-2021 HIV Results: negative Rubella Date: 04-Apr-2021 Rubella Results: immune Rubella Comments: Result Value POSITIVE Syphilis (mmm-dd-yyyy): 04-Apr-2021 Syphilis Results: negative Antepartum/: Antepartum/PP: Final [id number] Current EGA:39.3 Patient is > or = 35.0 wks EGAyes Determined byultrasound Date of [id number] EFW (kg)3.997 kilogram(s) EFW (lb)8 pound(s) EFW (oz)13 ounce(s) Presentationcephalic presentation verified bybedside ultrasound Vaginal BleedingNo Contractions/Abdominal PainNo Discharge/Loss of FluidNo MovementGood Hemorrhage Medium Risk Factors (T&S) (2 or more medium risks Go to High Risk section & obtain T&C)IOL with oxytocin or cervical ripening Hemorrhage Risk Assessmenthemorrhage risk completed on admission Hemorrhage Risk ScorePatient is at Medium Risk for an OB hemorrhage. Order Type & Screen. 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 Objective: Objective Information: T PRBPMAPSpO2 [id number]% Date/Time10/16 7: 7: 7: 7: 7: 7:34 Range(36.6C - 36.6C ) (74 - 79 ) (16 - 16 ) (128 - 133 )/ (81 - 88 ) (97 - 106 ) (98% - 98% ) Pain reported at 10/16 7:45: 0 = None Physical Exam by System: Constitutional: Healthy-appearing in no physical distress Obstetric: Gravid uterus nontender Head/Neck: Full range of motion Respiratory/Thorax: Clear to auscultation throughout Cardiovascular: Regular rate and rhythm Genitourinary: Cervix 2 cm 50% -3 station midposition and medium consistency Musculoskeletal: Good mobility of her extremities Psychological: Appropriately oriented with normal mood and affect 140 Skin: No lesions NST Interpretation - Baby A: Baseline [id number] Variabilitymoderate (amplitude range 6 to 25 bpm) AccelerationsPresent DecelerationsAbsent Recent Lab Results: Results: CBC: 10/16/2021 06:40 \ Hgb / \ 12.6 / WBC Plt 7.9 204 / Hct \ / 37.0 \ RBC: 4.33 MCV: 86 Neutrophil %: 78.2 Assessment and Plan: Assessment: Patient is a 31-year-old 1 para 0 at 39-3/7 weeks gestation who comes in for an elective induction secondary to an LGA fetus. Hinds balloon placed and vaginal misoprostol placed. Anticipate replacing the misoprostol in 4 hours. Once Hinds balloon comes out we will start Pitocin and artificial rupture membranes. 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 Data Referenced From Patient Profile - OB v3 16-Oct-2021 06:43[facility]10-01-2021 History of Present illness NarrativePt presents today for evaluation f missed menses. She has been trying to get and her menses was supposed to started x 4 days ago. She took home test and it was +. She denies nausea. She has breast tenderness. She recently had COVID and is feeling better, still some shortness of breath. She has been taking vitamin.[facility] Work Phone: 1(229) 774-429809-03-2021 History of Present illness NarrativePatient is a 30-year-old 1 para 0 whose last menstrual period was January 13, 2021. The patient reports that she has been feeling well since she found out she was she has been experiencing some mild round ligament pains she reports some minimal nausea but her appetite has been excellent reports that 2- day she noticed some pink blood on her toilet paper a couple times when she voi ded. Patient denies any abnormal discharge or odor and has had no recent coitus. Patient denies anyhealth problems and is just excited to [address] Work Phone: 1(241) 351-508909-03-2021 History of Present illness NarrativePatient is a 30-year-old 1 para 0 whose last menstrual period was January 13, 2021. The patient reports that she has been feeling well since she found out she was she has been experiencing some mild round ligament pains she reports some minimal nausea but her appetite has been excellent reports that 2- day she noticed some pink blood on her toilet paper a couple times when she voi ded. Patient denies any abnormal discharge or odor and has had no recent coitus. Patient denies anyhealth problems and is just excited to be [address] Work Phone: 1(441) 714-602405-17-2021 History of Present illness Narrative09/26/20 [facility] Work Phone: Evaluation note* Extremities: no calf tenderness, reflexes 2+Cardiovascular: S1 S2 RRR, no murmursRespiratory/Thorax: normal respiratory effort, lungs clear, no wheezes or rhonchiConstitutional: alert, oriented [facility]* Diagnosis Irritation of oral cavity- Primary documented in this encounter [facility] Work Phone: Evaluation note* Diagnosis Acute streptococcal pharyngitis- Primary Streptococcal sore throat documented in this encounter [facility] Work Phone: Evaluation note* Diagnosis Healthcare maintenance- Primary documented in this encounter [facility] Work Phone: Evaluation note* Diagnosis Vaginal bleeding in (HHS-HCC)- Primary documented in this encounter [facility] Work Phone: Evaluation note* Diagnosis Acquired hypothyroidism Unspecified hypothyroidism Less than 8 weeks gestation of ([facility]) documented in this encounter [facility] Work Phone: Evaluation note* Diagnosis Acute non-recurrent maxillary sinusitis- Primary Acute upper respiratory infection Acute upper respiratory infections of unspecified site documented in this encounter [facility] Work Phone: Evaluation note* Diagnosis Nausea- Primary Nausea alone Acute viral syndrome Hematuria, unspecified type documented in this encounter [facility] Work Phone: Evaluation note* Diagnosis Abnormal TSH- Primary documented in this encounter [facility] Work Phone: Evaluation note* Diagnosis Acquired hypothyroidism- Primary Unspecified hypothyroidism documented in this encounter [facility] Work Phone: Hospital Discharge instructions* Activity:Return to normal activity as tolerated. * Patient Instructions:Pelvic Rest: DO NOT place anything in vagina until cleared by OB Provider. MayNOT return to school/work until cleared by OB Provider. * Follow-Up - OB Provider:Physician/Dept/Service: OB Provider, Dr. Ham to Schedule in: 1 week, Outpatient office * Gold Form - Other Clinicians:Other Clinician Instructions: Any woman can have complications after the of a baby including a blood clot, a heart problem, hypertensive disorder/eclampsia, depression, hemorrhage, or infection. Notify all providers of your delivery date up to one year after .* Call 911 or go to nearest emergency room right away if you have: PAIN or pressure in chest; OBSTRUCTED breathing or shortness of breath; SEIZURES; THOUGHTS of hurting yourself or your baby; heart palpitations/racing; change in alertness/confusion.Call your provider if you have: BLEEDING, soaking t hrough a pad/hour, or blood clots the size of an egg or bigger; INCISION (episiotomy stitches or site) that is not healing (increased redness, pain, drainage/pus, or separation); RED or swollen leg/calf that is painful or warm to touch, especially in one leg more than the other; TEMPERATURE of 100.4 F or higher or chills; HEADACHE that does not get better with medicine, rest or hydration, or bad headache with vision changes like spots or flashing lights; increased swelling of face, hands or legs; severe cramps or upper right belly pain; red or swollen breast that is painful or warm to touch; an unusual, foul odor from your vaginal discharge; pain, burning, or difficulty during urination; severe constipation (more than 5 days); feelings of depression (such as depressed mood, lossof interest in enjoyable things, unable to care for yourself, trouble sleeping, lack of appetite, or feeling worthless). If you can t reach your provider or symptoms worsen, call 911 or go to nearestemergency room. *Information obtained from DANDRE s: Save Your Life: Get Care for These POST- Warning Signs Pericare Use kayleen bottle with warm water every time you use the bathroom Squirt water on the outside vaginal area. Do not squirt water inside the vagina Warm water helps rinse/wash off the blood. It is also comforting and promotes healing Take it home and use it for the first week Uterine Changes/Lochia You re going to feel menstrual-like cramps for about the first week Cramping may get worse after each baby Cramping typically gets worse while Uterus may take up to 6 weeks to move back to its normal size in your pelvis The first few days will be heavy, then take the course of a period Vaginal bleeding can last 2-6 weeks, usually less if you re Discuss signs of hemorrhage (saturated pad in <1hr, egg sized blood clots) Hubbard-sized blood clots are normal Bright red for the first week, then pink, then brown Bowel Function It may take several days for normal bowel function to return Increasing fluid intake, such as water, apple juice, and prune juice, and eating plenty of fresh fruits and vegetables may help avoid constipation You may take a stool softener until normal bowel function returns If you are constipated, and have tried a mild laxative without results, contact your doctor or director of safety Activity No pushing, pulling, or lifting anything heavier than 20lbs until follow up visit (vag del.) No pushing, pulling, or lifting anything heavier than 10lbs until follow up visit (c/s del.) Accept help from family/friends when it is offered Try to sleep while the baby sleeps, or at least rest/relax If it hurts, don t do it, if you re tired, sleep, if you re hungry, eat Sexual Activity/Pelvic Rest Pelvic rest for 6 weeks or until cleared by your OB provider. This means no sex, no tampons, no douching, no baths, pools,or hot tubs. Sitz baths are ok Contraception Ask patient what their plans for control are Remind them of pelvic rest until their follow-up appt. with the OB provider is not a method of control You can get right away Condoms and abstinence are the only ways to prevent STDs o Condoms o Depo (may lower your milk supply) o Nexplanon o IUD o Oral contraceptives (progestin only) Incision/Laceration/Episiotomy Look at your incision every day and report increased redness, pain, drainage, foul odor or separation of your incision. You may shower and wash your incisiongently and pat dry. Your stitches will dissolve on their own, you do not need to come back to have them removed Stitches take about 2 weeks to heal. You may feel tightness, pulling, or itching as they heal Breast Care - Lactating Proper latch = prevention of problems After feeding, manually expresssome colostrum/milk, or apply lanolin ointment and gently rub on to nipple and areola Avoid using drying soaps in the shower, dry nipples can crack Wear a supportive bra Airing out is good practice Breast Care - Dry Breast Try to eliminate any extra stimulation to the breasts/nipples Wear a supportive bra (sports bra is best) Keep your back to running water in the shower Resist the temptation to check for milk. Any time milk leaks out, it signals hormones to make more milk If your milk starts to come in, do not pump to relieve discomfort. Instead, use cold compresses such as ice packs, cabbage leaves (rinse clean and snap the veins of the leaf and place in your bra,) or frozen vegetables (never consume after thawing) Apply cold compress to breast for 10-15 minutes each time the baby takesa bottleWhen to Call Provider - Other Persistent pain Dizziness, faintness Breasts, perineum, or legs that are hot, red, painful, or swollen Nausea and/or vomiting Pain, burning, frequency, or difficulty peeing Anything that seems abnormal or that you may have questions about Any difficulty please call [phone] to speak with a application consultant.Please join our mom'ssupport group, which is the second Saturday of every month from [phone] in the Birthing & Women's Unit, 4th floor [facility]. No registration required.Thank you for choosing [facility]. [facility]* Attachments The following attachments cannot be sent through Care Everywhere. * Bleeding in Early ED (Tristanian) documented in this [facility] Work Phone: Reason for referral (narrative)* Consultation (Routine) - Authorized Specialty Diagnoses / Procedures Referred By Aung keenan Referred To Contact Primary Care Diagnoses Healthcare maintenance Procedures Follow Up In Primary Care - Health Maintenance Nicole Negron MD [address] [facility] [place] [address] Referral ID Status Reason Start Date Expiration Date V isits Requested Visits Authorized [id number] Authorized 09/17/2023 09/16/2024 1 1 [facility] Work Phone: Reason for referral (narrative)No reason for referral information availableWOhioHealth [facility] Work Phone: Summary Purpose Family History No Family History Records FoundUnknown Family Member Name Dates Details Family history of Crohn's di sease: Mother(V18.59, Z83.79) Status:Active Family history of thyroid di sease: Mother, Aunt(V18.19, Z83.49) Status:Active Unknown Family Member Name Dates Details Family history of Crohn's di sease: Mother(V18.59, Z83.79) Status:Active Family history of thyroid di sease: Mother, Aunt(V18.19, Z83.49) Status:Active Unknown Family Member Name Dates Details Family history of Crohn's di sease: Mother(V18.59, Z83.79) Status:Active Family history of thyroid di sease: Mother, Aunt(V18.19, Z83.49) Status:Active Unknown Family Member Name Dates Details Family history of Crohn's di sease: Mother(V18.59, Z83.79) Status:Active Family history of thyroid di sease: Mother, Aunt(V18.19, Z83.49) Status:Active Unknown Family Member Name Dates Details Family history of Crohn's di sease: Mother(V18.59, Z83.79) Status:Active Family history of thyroid di sease: Mother, Aunt(V18.19, Z83.49) Status:Active Irregular heartbeat: Grandmo ther Status:Active Unknown Family Member Name Dates Details Family history of Crohn's di sease: Mother(V18.59, Z83.79) Status:Active Family history of thyroid di sease: Mother, Aunt(V18.19, Z83.49) Status:Active Irregular heartbeat: Grandmo ther Status:Active Unknown Family Member Name Dates Details Family history of Crohn's di sease: Mother(V18.59, Z83.79) Status:Active Family history of thyroid di sease: Mother, Aunt(V18.19, Z83.49) Status:Active Irregular heartbeat: Grandmo ther Status:Active Unknown Family Member Name Dates Details Family history of Crohn's di sease: Mother(V18.59, Z83.79) Status:Active Family history of thyroid di sease: Mother, Aunt(V18.19, Z83.49) Status:Active Irregular heartbeat: Grandmo ther Status:Active Unknown Family Member Name Dates Details Family history of Crohn's di sease: Mother(V18.59, Z83.79) Status:Active Family history of thyroid di sease: Mother, Aunt(V18.19, Z83.49) Status:Active Irregular heartbeat: Grandmo ther Status:Active Unknown Family Member Name Dates Details Family history of Crohn's di sease: Mother(V18.59, Z83.79) Status:Active Family history of thyroid di sease: Mother, Aunt(V18.19, Z83.49) Status:Active Irregular heartbeat: Grandmo ther Status:Active Unknown Family Member Name Dates Details Family history of Crohn's di sease: Mother(V18.59, Z83.79) Status:Active Family history of thyroid di sease: Mother, Aunt(V18.19, Z83.49) Status:Active Irregular heartbeat: Grandmo ther Status:Active Unknown Family Member Name Dates Details Family history of Crohn's di sease: Mother(V18.59, Z83.79) Status:Active Family history of thyroid di sease: Mother, Aunt(V18.19, Z83.49) Status:Active Irregular heartbeat: Grandmo ther Status:Active Unknown Family Member Name Dates Details Family history of Crohn's di sease: Mother(V18.59, Z83.79) Status:Active Family history of thyroid di sease: Mother, Aunt(V18.19, Z83.49) Status:Active Irregular heartbeat: Grandmo ther Status:Active Unknown Family Member Name Dates Details Family history of Crohn's di sease: Mother(V18.59, Z83.79) Status:Active Family history of thyroid di sease: Mother, Aunt(V18.19, Z83.49) Status:Active Irregular heartbeat: Grandmo ther Status:Active Unknown Family Member Name Dates Details Family history of Crohn's di sease: Mother(V18.59, Z83.79) Status:Active Family history of thyroid di sease: Mother, Aunt(V18.19, Z83.49) Status:Active Irregular heartbeat: Grandmo ther Status:Active Unknown Family Member Name Dates Details Family history of Crohn's di sease: Mother(V18.59, Z83.79) Status:Active Family history of thyroid di sease: Mother, Aunt(V18.19, Z83.49) Status:Active Irregular heartbeat: Grandmo ther Status:Active Unknown Family Member Name Dates Details Family history of Crohn's di sease: Mother(V18.59, Z83.79) Status:Active Family history of thyroid di sease: Mother, Aunt(V18.19, Z83.49) Status:Active Irregular heartbeat: Grandmo ther Status:Active Unknown Family Member Name Dates Details Family history of Crohn's di sease: Mother(V18.59, Z83.79) Status:Active Family history of thyroid di sease: Mother, Aunt(V18.19, Z83.49) Status:Active Irregular heartbeat: Grandmo ther Status:Active Unknown Family Member Name Dates Details Family history of Crohn's di sease: Mother(V18.59, Z83.79) Status:Active Family history of thyroid di sease: Mother, Aunt(V18.19, Z83.49) Status:Active Irregular heartbeat: Grandmo ther Status:Active Unknown Family Member Name Dates Details Family history of Crohn's di sease: Mother(V18.59, Z83.79) Status:Active Family history of thyroid di sease: Mother, Aunt(V18.19, Z83.49) Status:Active Irregular heartbeat: Grandmo ther Status:Active Unknown Family Member Name Dates Details Family history of Crohn's di sease: Mother(V18.59, Z83.79) Status:Active Family history of thyroid di sease: Mother, Aunt(V18.19, Z83.49) Status:Active Irregular heartbeat: Grandmo ther Status:Active Unknown Family Member Name Dates Details Family history of Crohn's di sease: Mother(V18.59, Z83.79) Status:Active Family history of thyroid di sease: Mother, Aunt(V18.19, Z83.49) Status:Active Irregular heartbeat: Grandmo ther Status:Active Unknown Family Member Name Dates Details Family history of Crohn's di sease: Mother(V18.59, Z83.79) Status:Active Family history of thyroid di sease: Mother, Aunt(V18.19, Z83.49) Status:Active Irregular heartbeat: Grandmo ther Status:Active Unknown Family Member Name Dates Details Family history of Crohn's di sease: Mother(V18.59, Z83.79) Status:Active Family history of thyroid di sease: Mother, Aunt(V18.19, Z83.49) Status:Active Irregular heartbeat: Grandmo ther Status:Active Unknown Family Member Name Dates Details Family history of Crohn's di sease: Mother(V18.59, Z83.79) Status:Active Family history of thyroid di sease: Mother, Aunt(V18.19, Z83.49) Status:Active Irregular heartbeat: Grandmo ther Status:Active Unknown Family Member Name Dates Details Family history of Crohn's di sease: Mother(V18.59, Z83.79) Status:Active Family history of thyroid di sease: Mother, Aunt(V18.19, Z83.49) Status:Active Irregular heartbeat: Grandmo ther Status:Active Unknown Family Member Name Dates Details Family history of Crohn's di sease: Mother(V18.59, Z83.79) Status:Active Family history of thyroid di sease: Mother, Aunt(V18.19, Z83.49) Status:Active Irregular heartbeat: Grandmo ther Status:Active Relationship Condition Age at Onset Recorded Date/T demond aunt Disorder of thyroid Unknown mother Disorder of thyroid 25 Postural orthostatic tachycardia syndrome Unknown Depression Unknown Attempted suicide Unknown Advance Directives No Advanced Directives Records FoundNo Advanced Directives Records FoundNo Advanced Directives Records FoundNo Advanced Directives Records FoundNo Advanced Directives Records FoundNo Advanced Directives Records FoundNo Advanced Directives Records FoundNo Advanced Directives Records FoundNo Advanced Directives Records FoundNo Advanced Directives Records FoundNo Advanced Directives Records Found Chief Complaint Pt presents for routine check up; would like labs ordered; family hx of thyroid disease; trying to get and would like to know about vitamins or labs she may need to checked.Pt presents for test; LMP 01/13/21; breast soreness for a couple of weeks.PT IS A NEW PT HERE TODAY FOR AMENORRHEA. HAS HAD CRAMPING. NOTICED A LITTLE SPOTTING TODAY. DENIESANY N/V. HAS BREAST TENDERNESS. LMP: 01/13/2021T IS A NEW PT HERE TODAY FOR AMENORRHEA. HAS HAD CRAMPING. NOTICED A LITTLE SPOTTING TODAY. DENIESANY N/V. HAS BREAST TENDERNESS. LMP: 01/13/2021atient here today for 6 week post visit. She had a c- section on 10-16-21 baby boy delivered by Dr. Long. She is breast feeding, has not started her period, has no signs of post depression, has been sexually active but is not interested in control at this time. Reason for Referral * syncopesyncope Chief Complaint and Reason for Visit Chief Complaint Admit Date 12 WK OB April 30, 2024 3:29pm 16 WK OB June 01, 2024 2 :29pm 22 wk ob July 02, 2024 3:58pm 26 wk ob/glucose July 30, 2024 2:4 2pm SCREEN FOR GESTATIONAL DM August 06 7:00am Reason for Visit Admit Date Hypothyroidism April 30, 2024 3:29pm IBS (irritable bowel syndrome) April 30, 2024 3:29pm April 30, 2024 3:29pm Previous section April 30, 2024 3:29pm Seasonal allergies April 30, 2024 3:29pm Supervision of high-risk Decem 2023 3:29pm Hypothyroidism June 01, 2024 2 :29pm IBS (irritable bowel syndrome) May 142024 2:29pm June 01, 2024 2 :29pm Previous section June 01, 2024 2:29pm Seasonal allergies June 01, 2024 2 :29pm Supervision of high-risk Janua 2024 2:29pm Hypothyroidism July 02, 2024 3:58pm IBS (irritable bowel syndrome) July 02, 2024 3:58pm July 02, 2024 3:58pm Previous section July 02, 2024 3:58pm Seasonal allergies July 02, 2024 3:58pm Supervision of high-risk Febru 2024 3:58pm Hypothyroidism July 30, 2024 2:4 2pm IBS (irritable bowel syndrome) July 2:42pm July 30, 2024 2:4 2pm Previous section July 30 2:42pm Seasonal allergies July 30, 2024 2:4 2pm Supervision of high-risk July 30, 2024 2:42pm Chief Complaint Admit Date 16 WK OB June 01, 2024 2 :29pm 22 wk ob July 02, 2024 3:58pm 26 wk ob/glucose July 30, 2024 2:4 2pm SCREEN FOR GESTATIONAL DM August 06 7:00am 31 wk ob *doc only September 03, 2024 2:4 8pm 32 wk ob *doc only September 10, 2024 4:03pm 34 wk ob *doc only September 22, 2024 3:38p m Reason for Visit Admit Date Hypothyroidism June 01, 2024 2 :29pm IBS (irritable bowel syndrome) May [id number] 2:29pm June 01, 2024 2 :29pm Previous section June 01, 2024 2:29pm Seasonal allergies June 01, 2024 2 :29pm Supervision of high-risk Janua 2024 2:29pm Hypothyroidism July 02, 2024 3:58pm IBS (irritable bowel syndrome) July 02, 2024 3:58pm July 02, 2024 3:58pm Previous section July 02, 2024 3:58pm Seasonal allergies July 02, 2024 3:58pm Supervision of high-risk Febru [email or web address] 3:58pm Hypothyroidism July 30, 2024 2:4 2pm IBS (irritable bowel syndrome) July 2:42pm July 30, 2024 2:4 2pm Previous section July 30 2:42pm Seasonal allergies July 30, 2024 2:4 2pm Supervision of high-risk July 30, 2024 2:42pm Abnormal glucose affecting Aug 2:48pm Hypothyroidism September 03, 2024 2:4 8pm IBS (irritable bowel syndrome) August 2:48pm September 03, 2024 2:4 8pm Previous section September 03 2:48pm Seasonal allergies September 03, 2024 2:4 8pm Sterilization September 03, 2024 2:4 8pm Supervision of high-risk September 03, 2024 2:48pm Abnormal glucose affecting September 10, 2024 4:03pm Hypothyroidism September 10, 2024 4:03pm IBS (irritable bowel syndrome) September 10, 2024 4:03pm September 10, 2024 4:03pm Previous section September 10, 2024 4:03pm Seasonal allergies September 10, 2024 4:03pm Sterilization September 10, 2024 4:03pm Supervision of high-risk September [id number] 4:03pm Abnormal glucose affecting September 22, 2024 3:38pm Hypothyroidism September 22, 2024 3:38p m IBS (irritable bowel syndrome) September 22, 2024 3:38pm September 22, 2024 3:38p m Previous section September 22, 2024 3:38pm Seasonal allergies September 22, 2024 3:38p m Sterilization September 22, 2024 3:38p m Supervision of high-risk September [id number] 3:38pm Chief Complaint Admit Date 22 wk ob July 02, 2024 3:58pm 26 wk ob/glucose July 30, 2024 2:4 2pm SCREEN FOR GESTATIONAL DM August 06 7:00am 31 wk ob *doc only September 03, 2024 2:4 8pm 32 wk ob *doc only September 10, 2024 4:03pm 34 wk ob *doc only September 22, 2024 3:38p m 36wk ob *doc only October 07, 2024 3:46p m Reason for Visit Admit Date Hypothyroidism July 02, 2024 3:58pm IBS (irritable bowel syndrome) July 02, 2024 3:58pm July 02, 2024 3:58pm Previous section July 02, 2024 3:58pm Seasonal allergies July 02, 2024 3:58pm Supervision of high-risk Febru [email or web address] 3:58pm Hypothyroidism July 30, 2024 2:4 2pm IBS (irritable bowel syndrome) July 2:42pm July 30, 2024 2:4 2pm Previous section July 30 2:42pm Seasonal allergies July 30, 2024 2:4 2pm Supervision of high-risk July 30, 2024 2:42pm Abnormal glucose affecting Aug 2:48pm Hypothyroidism September 03, 2024 2:4 8pm IBS (irritable bowel syndrome) August 2:48pm September 03, 2024 2:4 8pm Previous section September 03 2:48pm Seasonal allergies September 03, 2024 2:4 8pm Sterilization September 03, 2024 2:4 8pm Supervision of high-risk September 03, 2024 2:48pm Abnormal glucose affecting September 10, 2024 4:03pm Hypothyroidism September 10, 2024 4:03pm IBS (irritable bowel syndrome) September 10, 2024 4:03pm September 10, 2024 4:03pm Previous section September 10, 2024 4:03pm Seasonal allergies September 10, 2024 4:03pm Sterilization September 10, 2024 4:03pm Supervision of high-risk September [id number] 4:03pm Abnormal glucose affecting September 22, 2024 3:38pm Hypothyroidism September 22, 2024 3:38p m IBS (irritable bowel syndrome) September 22, 2024 3:38pm September 22, 2024 3:38p m Previous section September 22, 2024 3:38pm Seasonal allergies September 22, 2024 3:38p m Sterilization September 22, 2024 3:38p m Supervision of high-risk September [id number] 3:38pm Abnormal glucose affecting October 07, 2024 3:46pm Hypothyroidism October 07, 2024 3:46p m IBS (irritable bowel syndrome) October 07, 2024 3:46pm October 07, 2024 3:46p m Previous section October 07, 2024 3:46pm Seasonal allergies October 07, 2024 3:46p m Sterilization October 07, 2024 3:46p m Supervision of high-risk September [id number] 3:46pm Additional Source Comments INFORMATION SOURCE (unrecogn ized section and content) DATE CREATED AUTHOR 12/30/2018 [facility] DATE CREATED AUTHOR AUTHOR'S ORGANIZ ATION 12/05/2021 [employer] DATE CREATED AUTHOR AUTHOR'S ORGANIZ ATION 09/05/2022 [facility] DATE CREATED AUTHOR AUTHOR'S ORGANIZ ATION 09/06/2022 [facility] DATE CREATED AUTHOR AUTHOR'S ORGANIZ ATION 05/17/2023 [facility] DATE CREATED AUTHOR AUTHOR'S ORGANIZ ATION 04/26/2024 [facility] DATE CREATED AUTHOR AUTHOR'S ORGANIZ ATION 06/10/2024 [facility] DATE CREATED AUTHOR AUTHOR'S ORGANIZ ATION 07/26/2024 [facility] DATE CREATED AUTHOR AUTHOR'S ORGANIZ ATION 10/09/2024 [facility] DATE CREATED AUTHOR AUTHOR'S ORGANIZ ATION 10/09/[address] [facility] DATE CREATED AUTHOR AUTHOR'S ORGANIZ ATION 10/13/2024 [facility] <item><item><item><item><item> Privacy Markings (unrecogniz ed section and content) Section Author: Erica Drake PROHIBITION ON REDISCLOSURE OF CONFIDENTIAL INFORMATION This notice accompanies a disclosure of information concerning a client made to you with the consent of such client. Section Author: Erica Drake PROHIBITION ON REDISCLOSURE OF CONFIDENTIAL INFORMATION This notice accompanies a disclosure of information concerning a client made to you with the consent of such client. Section Author: Erica Drake PROHIBITION ON REDISCLOSURE OF CONFIDENTIAL INFORMATION This notice accompanies a disclosure of information concerning a client made to you with the consent of such client. Section Author: Erica Drake PROHIBITION ON REDISCLOSURE OF CONFIDENTIAL INFORMATION This notice accompanies a disclosure of information concerning a client made to you with the consent of such client. Section Author: Erica Drake PROHIBITION ON REDISCLOSURE OF CONFIDENTIAL INFORMATION This notice accompanies a disclosure of information concerning a client made to you with the consent of such client. Reason for Visit (unrecogniz ed section and content) Reason Comments Mouth Lesions Started last Thursda y. Reason Comments URI Sore throat, headach es, body aches, fatigued, x 4 days Reason Comments Vaginal Bleeding - Abdominal cr amping, 7 weeks , vaginal bleeding. LMP 01/30/24. Just started thyroid medication 1-2 weeks ago Reason Comments New Patient Visit Acquired hypothyroid ism w/ Specialty Diagnoses / Procedures Referred By Aung keenan Referred To Contact Endocrinology Diagnoses Acquired hypothyroidism Less than 8 weeks gestation of ([facility]) Nicole Negron MD [address] [address] Phone: tel: fax: Referral ID Status Reason Start Date Expiration Date Visits Requested Visits Authorized [id number] Authorized Specialty Services Required 4 03/10/2025 1 1 Reason Comments URI Sinus congestion, sc ratchy throat, ear pressure, aches X 2 days Reason Comments Flu Symptoms Flu sx, nausea, dizz y, cough, body aches X 2 days Reason Comments Follow-up Acquired Hypothyroid ism Care Teams (unrecognized sec tion and content) 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 Start Date End Date Nicole Negron MD [address] [facility] [place] [address] PCP - General Family Medicine 10/16/22 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 Start Date End Date Nicole Negron MD [address] [place] [address] PCP - General Family Medicine 10/16/22 Nicole Negron MD [address] [facility] [place] [id number] PCP - Leonid PARKER PCP 12/11/22 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 Start Date End Date Nicole Negron MD [address] [facility] [place] [address] PCP - General Family Medicine 10/16/22 Nicole Negron MD [address] [facility] [place] [address] PCP - Painter ACO PCP 12/11/22 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 Start Date End Date Nicole Negron MD [address] [place] [address] PCP - General Family Medicine 10/16/22 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 Start Date End Date Nicole Negron MD [address] [place] [address] PCP - General Family Medicine 10/16/22 Nicole Negron MD [address] [place] [address] PCP - Painter ACO PCP 12/12/23 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 Start Date End Date Nicole Negron MD [address] [facility] [place] [address] PCP - General Family Medicine 10/16/22 Nicole Negron MD [address] [facility] [place] [address] PCP - Painter ACO PCP 12/11/22 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 Nicole Negron MD Primary Care Provider Act chelsi Team Status: Inactive Member Role Status Dates Shyanne Degroot CNM Attending Provider Active Start: April 14, 2024 End: April 14, 2024 Shyanne Degroot CNM Referring Provider Active Start: April 14, 2024 End: April 14, 2024 Team Status: Inactive Member Role Status Dates Dr. Bryanna Coronel DO Attending Provider Activ e Start: April 30, 2024 End: April 30, 2024 Team Status: Inactive Member Role Status Dates Karoline Prabhakar CNM Attending Provider Active S tart: June 01, 2024 End: June 01, 2024 Team Status: Inactive Member Role Status Dates Dr. Bailey Bro MD Attending Provider Active Start: July 02, 2024 End: July 02, 2024 Team Status: Inactive Member Role Status Dates Dr. Bailey Bro MD Attending Provider Active Start: July 02, 2024 End: July 02, 2024 Dr. Bailey Bro MD Referring Provider Active Start: July 02, 2024 End: July 02, 2024 Team Status: Inactive Member Role Status Dates Dr. Bryanna Coronel DO Attending Provider Activ e Start: July 30, 2024 End: July 30, 2024 Team Status: Inactive Member Role Status Dates Dr. Bryanna Coronel DO Attending Provider Activ e Start: July 30, 2024 End: July 30, 2024 Dr. Bryanna Coronel DO Referring Provider Activ e Start: July 30, 2024 End: July 30, 2024 Team Status: Active Member Role Status Dates Dr. Bryanna Coronel DO Attending Provider Activ e Start: August 06, 2024 Dr. Bryanna Coronel DO Referring Provider Activ e Start: August 06, 2024 Dr. Nicole Negron MD Primary Care Provider Act chelsi Start: August 06, 2024 Team Status: Inactive Member Role Status Dates Dr. Bryanna Coronel DO Attending Provider Activ e Start: August 06, 2024 End: August 06, 2024 Dr. Bryanna Coronel DO Referring Provider Activ e Start: August 06, 2024 End: August 06, 2024 Dr. Nicole Negron MD Primary Care Provider Act chelsi Start: August 06, 2024 End: August 06, 2024 Team Status: Inactive Member Role Status Dates Dr. Nicole Negron MD Primary Care Provider Act chelsi Start: September 03, 2024 End: September 03, 2024 Dr. Nicole Negron MD Referring Provider Active Start: September 03, 2024 End: September 03, 2024 Dr. Bailey Bro MD Attending Provider Active Start: September 03, 2024 End: September 03, 2024 Team Status: Inactive Member Role Status Dates Dr. Nicole Negron MD Primary Care Provider Act chelsi Start: September 10, 2024 End: September 10, 2024 Dr. Nicole Negron MD Referring Provider Active Start: September 10, 2024 End: September 10, 2024 Dr. Bailey Bro MD Attending Provider Active Start: September 10, 2024 End: September 10, 2024 Team Status: Inactive Member Role Status Dates Dr. Bailey Bro MD Attending Provider Active Start: September 22, 2024 End: September 22, 2024 Dr. Nicole Negron MD Primary Care Provider Act chelsi Start: September 22, 2024 End: September 22, 2024 Dr. 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 Nicole Negron MD Primary Care Provider Act chelsi Start: October 07, 2024 End: October 07, 2024 Dr. Nicole Negron MD Referring Provider Active Start: October 07, 2024 End: October 07, 2024 Dr. Bryanna Coronel DO Attending Provider Activ e Start: October 07, 2024 End: October 07, 2024 Scheduled Active and Recently Administ ered Medications (unrecognized section and content) Medication Order 03/17/2024 03/18/2024 03/19/2024 potassium chloride CR (Klor-Con M20) ER tablet 20 mEq (COMPLETED) 20 mEq, oral, Once, On Mariely 03/19/24 at 1650, For 1 dose, Best given with food and plenty of water to minimize gastric irritation. Do not crush or chew. 1801 (Given - Provid er: Jeanine Reynoso RN) Goals (unrecognized section and content) Goals may be documented in a n alternate sectionGoals may be documented in an alternate sectionGoals may be documented in an alternate sectionGoals may be documented in an alternate section FOR RECORDS PERTAINING TO PATIENTS WHO ARE OR HAVE BEEN ENROLLED IN A CHEMICAL DEPENDENCY/SUBSTANCEABUSE PROGRAM, SOME INFORMATION MAY BE OMITTED. This clinical summary was aggregated from multiple sources. Caution should be exercised in using it in the provision of clinical care. This summary normalizes information from multiple sources, and as a consequence, information in this document may materially change the coding, format and clinical context of patient data. In addition, data may be omitted in some cases. CLINICAL DECISIONS SHOULD BE BASED ON THE PRIMARY CLINICAL RECORDS. [employer] provides no warranty or guarantee of the accuracy or completeness of information in this document.
[2024-10-14] MEDS: Acetaminophen 500 MG Tablet 1000 MG PO (22:58)
[2024-10-14] MEDS: Sodium Citrate/Citric Acid 30 ML UDC PO (22:58)
--- NOTE | 2024-10-14 23:04 | PN.OBGYN_ITS ---
Objective Data Objective Data Patient with 4-5 late decelerations after contractions. Still good variability and movement. Vital Signs: Vital Signs Temp Pulse Resp BP Pulse Ox O2 Del Method 98.4 F 68 16 124/78 H 99 Room Air 10/14/24 19:41 10/14/24 19:41 10/14/24 19:41 10/14/24 19:41 10/14/24 19:41 10/14/24 16:33 Oxygen Delivery Method Room Air Weight: 177 lb 9.6 oz Body Mass Index (BMI) 28.6 Intake & Output: Intake and Output for Last 24 Hours 10/12/24 10/13/24 10/14/24 23:59 23:59 23:59 Intake Total 1287.5 / 1287.5 Balance 1287.5 / 1287.5 Lab / Micro Data 10/14/24 13:25 Labs: Laboratory Results - last 24 hr 10/14/24 13:25: WBC 11.1 H, RBC 3.99 L, Hgb 12.5, Hct 36.2 L, MCV 90.7, MCH 31.3, MCHC 34.5, RDW Std Deviation 42.7, RDW Coeff of Oriana 13.1, Plt Count 229, M PV 12.1 H, Immature Gran % (Auto) 0.400, Neut % (Auto) 80.3 H, Lymph % (Auto) 13.5 L, [place] % (Auto) 4.9, Eos % (Auto) 0.5, Baso % (Auto) 0.4, Absolute Neuts (auto) 8.9 H, Absolute Lymphs (auto) 1.49, Nucleated RBC % 0, Syphilis Total Ab Nonreactive, Blood Type O POSITIVE, Antibody Screen NEGATIVE Assessment & Plan (1) Oligohydramnios in third trimester: (2) Sterilization: COMMENT: plan BS at time of CS (3) Previous section: PLAN: Given nonreassuring heart tones, we will proceed with section. All questions were answered
[2024-10-15] VITALS (17 sets, daily range): BP systolic 110–136; BP diastolic 64–85; PULSE 60–90; RESP 12–18; TEMP 36.1–36.9; O2SAT 96–100
--- NOTE | 2024-10-15 00:29 | EX.PCM.OBRPT ---
Maternal Data Information KATIE Calculator Estimated Delivery Date Method Current WG Current Estimate 11/05/24 LMP (Certain) 37w 0d Operative Report (OB) Details Procedure Type: low transverse (With bilateral salpingectomy) Date of Procedure: 10/15/24 Procedure Start Time: 23:42 Pre-Operative Diagnosis: Repeat Elective , Desires elective sterilization, Distress and Oligohydramnios Post-Operative Diagnosis: Same as Pre-operative diagnosis Classification: LEVON Type of Anesthesia: Spinal Antibiotic Given: Ancef 2 grams IV x1 Drain: Hinds to straight drain Estimated Blood Loss: 500 cc Fluids Replaced: Crystalloid Findings Description of surgery: Surgeon: Raheem Hart MD, FACOG Anesthesia: [place] CRNA--Spinal with Duramorph Procedure: Repeat Low Transverse Cervical Caesarean Section And Bilateral Salpingectomy Findings: Viable male with Apgars of 8/9 in an occiput anterior presentation with scant clear amniotic fluid and normal three-vessel placenta. Right 2 cm paratubal cyst and 1 cm paraovarian cyst sent with right tube specimen. Indication: This is a 34-year-old who presents for her second at 36+6 weeks gestation. She presented to labor and delivery with some lower abdominal discomfort. She was subsequently found to have some late decelerations which resolved with IV fluids. Continuous monitoring revealed recurrent late decelerations and at that point it was decided to proceed with repeat section. Ultrasound earlier in the day and showed oligohydramnios. care has otherwise been uneventful except the patient has irritable bowel syndrome and hypothyroidism. The patient has been counseled regarding the risk and indications of this procedure including the possibility of bleeding infection and injury to surrounding structures such as bowel bladder. All questions were answered. She also understands the permanent nature of a tubal as well as the availability of other nonpermanent control options. All questions were answered. Procedure: Patient was taken to the operating room where after spinal anesthesia was placed, the patient was prepped and draped in usual sterile fashion and a Hinds catheter was placed. The abdomen was entered through the patient's prior Pfannenstiel incision and peritoneum was entered bluntly. After developing a bladder flap on the lower uterine segment a low transverse incision was made on the uterus and head was easily delivered onto the operative field the nose mouth and oropharynx were bulb suctioned. Subsequently a viable male was born with Apgars of 8/9. The infant was noted to cry move all extremities vigorously on the operative field. The umbilical cord was doubly clamped and ligated and infant handed to the nursery personnel who were present for the delivery. Placenta was delivered and noted to be 3 vessels and normal. Uterus was exteriorized and remaining placental tissue was removed. The uterus was then closed in 2 layers first with running locked 0 Vicryl suture followed by a second imbricating layer with 0 Vicryl suture. 0 Vicryl suture was then used in a horizontal mattress interrupted fashion to affect final hemostasis of the uterine incision line. Normal fallopian tubes and ovaries were visualized and a bilateral salpingectomy was performed with the LigaSure device. The uterus was returned to the pelvis. Hemostasis was noted and rectus abdominis muscles were reapproximated in the midline with interrupted Number 0 Vicryl suture in a horizontal mattress fashion. Fascia was closed with running Number 1 PDS Strata fix suture. Subcutaneous tissue was irrigated with copious amounts of saline solution and then closed with running 3-0 Vicryl suture. Skin was closed with 4-0 monocryl suture in a running subcuticular fashion. A Mepilex dressing was placed across the incision. The patient tolerated the procedure well and was taken to the recovery room in satisfactory condition. Sponge, needle, and instrument counts were all reportedly correct. EBL was 500 cc. Ancef 2 gms IV was given prior to the procedure. Spicemen to Pathology: None Complications: None Surgical findings: Viable male infant with Apgars of 8/9. Presentation: Vertex and JUAN Amniotic Fluid Description: Clear Placental Delivery Description: Spontaneous Placenta Disposition: [facility] Specimen collected: No Cord Vessel Description: 3 Vessels Cord Entanglement: None Cord Gases: ABG and VBG Infant A gender: Male (1 minute): 8 (5 minute): 9 Shot Peen Operator electrician radio: Yes Slat Pickler: Penny Guzmán Tasks completed by phlebotomist medical lab assistant: Closing and Retracting Complications Complications: No Admit VTE Documentation VTE Present on Admission: Yes VTE Mechan Device Prophylaxis: SCD's Reason Prophylaxis Not Ordered: Treatment Not Indicated
[2024-10-15] MEDS: Cefazolin 2 GM in 0.9% Normal Saline (100mL Bag) 100 ML IV (00:37)
[2024-10-15] MEDS: Oxytocin 15 Units/NS 250ml 15 UNITS/250 ML IV.SOLN 83 UNITS IV (01:16)
[2024-10-15] MEDS: Ketorolac 30 MG/ML Syringe IV ×4 (01:20→19:49)
[2024-10-15 02:18] LABS: Pathology Specimen OB SEE PATHOLOGY REPORT
[2024-10-15] MEDS: Lactated Ringers 1,000 ML 100 ML IV (04:13)
[2024-10-15] MEDS: Acetaminophen 500 MG Tablet 1000 MG PO ×4 (04:49→23:37)
[2024-10-15 05:48] LABS: Hematocrit 34.2 % (37-47); Mean Corp Hgb Conc 35.1 g/dL (32-36); Mean Corpuscular Hgb 32.1 pg (27.0-32.0); Mean Corpuscular Volume 91.4 fL (81-99); Mean Platelet Vol. 11.4 fl (6.2-12.0); Platelet Count 204 K/mm3 (150-450); RBC Distribution Width CV 13.2 % (11.6-14.6); RBC Distribution Width SD 43.8 fl (35.1-43.9); Red Blood Count 3.74 M/mm3 (4.2-5.4); White Blood Count 13.1 K/mm3 (4.4-11.0)
[2024-10-15] MEDS: Levothyroxine 50 MCG Tablet PO (06:33)
--- NOTE | 2024-10-15 07:38 | PN.OBGYN_ITS ---
Subjective Subjective Patient doing well without complaints. Tolerating PO. Ambulating and voiding without difficulty. feeding well. Denies chest pain, shortness of breath, calf pain/swelling, fevers, chills, lightheadedness. Objective Data Objective Data Vital Signs: Vital Signs Temp Pulse Resp BP Pulse Ox O2 Del Method 98.0 F 63 15 122/83 H 99 Room Air 10/15/24 06:38 10/15/24 06:38 10/15/24 06:38 10/15/24 06:38 10/15/24 06:38 10/15/24 06:38 Oxygen Delivery Method Room Air Weight: 177 lb 9.6 oz Body Mass Index (BMI) 28.6 Intake & Output: Intake and Output for Last 24 Hours 10/13/24 10/14/24 10/15/24 23:59 23:59 23:59 Intake Total 1287.5 / 1287.5 824.85 / 824.85 Output Total 1500 / 1500 Balance 1287.5 / 1287.5 -675.15 / -675.15 Lab / Micro Data 10/15/24 05:10 Labs: Laboratory Results - last 24 hr 10/14/24 13:25: WBC 11.1 H, RBC 3.99 L, Hgb 12.5, Hct 36.2 L, MCV 90.7, MCH 31.3, MCHC 34.5, RDW Std Deviation 42.7, RDW Coeff of Oriana 13.1, Plt Count 229, M PV 12.1 H, Immature Gran % (Auto) 0.400, Neut % (Auto) 80.3 H, Lymph % (Auto) 13.5 L, [place] % (Auto) 4.9, Eos % (Auto) 0.5, Baso % (Auto) 0.4, Absolute Neuts (auto) 8.9 H, Absolute Lymphs (auto) 1.49, Nucleated RBC % 0, Syphilis Total Ab Nonreactive, Blood Type O POSITIVE, Antibody Screen NEGATIVE 10/15/24 05:10: WBC 13.1 H, RBC 3.74 L, Hgb 12.0, Hct 34.2 L, MCV 91.4, MCH 32.1 H, MCHC 35.1, RDW Std Deviation 43.8, RDW Coeff of Oriana 13.2, Plt Count 204, MPV 11.4 ROS Constitutional Constitutional: Reports systems reviewed and no addt'l complaints, except as documented Cardiovascular Cardiovascular: Reports systems reviewed and no addt'l complaints, except as documented Respiratory/Chest Respiratory/Chest: Reports systems reviewed and no addt'l complaints, except as documented Gastrointestinal Gastrointestinal: Reports systems reviewed and no addt'l complaints, except as documented Physical Exam Const alert, oriented x3 and no apparent distress HEENT Head and Scalp: atraumatic Resp normal respiratory effort GI soft to palpation and non-tender Inspection: incision intact, healing well and drainage (none) Bimanual Exam - Vag & Uterus: uterus non-tender Uterus Palpation: uterus fundus firm (below Umbilicus) Assessment & Plan (1) delivery delivered: PLAN: Plan s/p LTCS PPD # 1 1. routine post care 2. breast feeding- support given 3. rh positive 4. rubella immune
--- NOTE | 2024-10-15 07:39 | DCINST_ITS ---
Discharge Instructions Diet Discharge Diet: No restrictions DC O2, CPAP, BIPAP needs Home O2 Discharge instructions: No Dressing / Incision Discharge Activity: May Not Drive (for 2 weeks or while taking narcotic pain medications.), May Shower and May Take a Tub Bath (in 7 days) May shower in (days): 0 May resume sexual activity in: 4-6 weeks Weight Bearing Status: Full weight bearing Lifting Restrictions: 20 pounds Dressing / Incision Call your doctor if your incision/area has: Continuous Slow Oozing, Sudden Increased Bleeding, Increased Pain/ Swelling, Increased Redness and Foul Smelling Discharge Call your doctor if you observe: Fever of 101 or Higher and Using more than 1 pad per hour (for 2 hours) Suture Line Care: Avoid Pulling/Pushing and Avoid Pinching/Bending Cleanse incision/area with: Soap & Water and Keep Dressing Clean & Dry Follow Up Care Please Follow Up With: Bailey Fabian MD When: Call [phone] to make an appointment for an incision check in 1-2 weeks. Test Results: Test results from this visit will be discussed in further detail at your follow- up appointment, if applicable. Discharge Plan Admission Admit Date/Time: 10/14/24 15:18 Attending Provider: Shyanne Degroot Primary Care Provider: Nicole Henley Discharge Orders/Prescriptions Prescriptions: New oxycodone-acetaminophen [Percocet] 5-325 mg tablet 1 tab PO Q4H PRN (Reason: pain) 7 Days Qty: 20 0RF naproxen 500 mg tablet 500 mg PO BID PRN PRN (Reason: Pain) Qty: 30 1RF No Action PNV no.[id number] 400 mcg-35 mg- 25 mg-5 mg tablet,chewable 1 tab PO DAILY Zyrtec 10 mg capsule 10 mg PO QDAY PRN (Reason: allergy symptoms) acetaminophen 500 mg capsule 500 mg PO Q4-6H PRN (Reason: pain) levothyroxine 25 mcg capsule 50 mcg PO ONCE Rx Instructions: 50 mcg x5 days, 25 mcg x2 days Referrals / Follow Up: Nicole Henley MD [Primary Care Provider] - Disposition Disposition (needs filled in before D/C Order can be placed): Home, Self Care
[2024-10-15] MEDS: Senna/Docusate Sodium 1 Tablet PO (11:21)
[2024-10-15] MEDS: 0.9% Saline Lock 10 ML Syringe IV ×2 (13:13→19:49)
[2024-10-16] MEDS: Ibuprofen 600 MG Tablet PO ×4 (02:34→20:57)
[2024-10-16 02:35] VITALS: BP 120/81; PULSE 83; RESP 16; TEMP 36.6; O2SAT 98
[2024-10-16] MEDS: Acetaminophen 500 MG Tablet 1000 MG PO ×3 (06:04→18:18)
[2024-10-16] MEDS: Levothyroxine 100 MCG Tablet PO (06:05)
--- NOTE | 2024-10-16 08:05 | PCM.PN.OB ---
Subjective Subjective Patient doing well without complaints. Tolerating PO. Ambulating and voiding without difficulty. Feeding well. Denies chest pain, shortness of breath, calf pain/swelling, fevers, chills, lightheadedness. Objective Data Objective Data Vital Signs: Vital Signs Temp Pulse Resp BP Pulse Ox O2 Del Method 97.8 F 83 16 120/81 H 98 Room Air 10/16/24 02:35 10/16/24 02:35 10/16/24 02:35 10/16/24 02:35 10/16/24 02:35 10/16/24 02:35 Oxygen Delivery Method Room Air Weight: 177 lb 9.6 oz Body Mass Index (BMI) 28.6 Intake & Output: Intake and Output for Last 24 Hours 10/14/24 10/15/24 10/16/24 23:59 23:59 23:59 Intake Total 1287.5 / 1287.5 1298.18 / 1298.18 Output Total 2800 / 2800 Balance 1287.5 / 1287.5 -1501.82 / -1501.82 Lab / Micro Data Attestation: I reviewed the patient's lab results. 10/15/24 05:10 ROS Constitutional Constitutional: Reports systems reviewed and no addt'l complaints, except as documented; Denies anorexia or headache(s) Cardiovascular Cardiovascular: Reports systems reviewed and no addt'l complaints, except as documented; Denies dizziness, dyspnea, nausea or tachypnea Respiratory/Chest Respiratory/Chest: Reports systems reviewed and no addt'l complaints, except as documented; Denies cough, dyspnea, shortness of breath at rest or tachypnea Gastrointestinal Gastrointestinal: Reports systems reviewed and no addt'l complaints, except as documented; Denies abdominal pain, constipation or nausea Genitourinary Genitourinary: Reports systems reviewed and no addt'l complaints, except as documented; Denies burning urination, difficulty urinating, dysuria, urinary frequency or urinary incontinence Musculoskeletal Musculoskeletal: Reports systems reviewed and no addt'l complaints, except as documented Integumentary Integumentary: Reports systems reviewed and no addt'l complaints, except as documented Neurologic Neurologic: Reports systems reviewed and no addt'l complaints, except as documented; Denies abnormal speech, dizziness or headache(s) Psychiatric Psychiatric: Reports systems reviewed and no addt'l complaints, except as documented Endocrine Endocrinology: Reports systems reviewed and no addt'l complaints, except as documented Hematologic/Lymphatic Hematologic/Lymphatic: Reports systems reviewed and no addt'l complaints, except as documented Physical Exam Const alert, oriented x3 and no apparent distress Neck full ROM Resp normal respiratory effort, normal air movement and no retractions Effort and Inspection: able to speak in complete sentences and symmetric chest movement GI soft to palpation Bladder / Kidney Exam: bladder normal to palpation Uterus Palpation: uterus fundus firm Extremity normal to inspection and full ROM Psych mental status grossly normal, thought process normal and cooperative Assessment & Plan (1) delivery delivered: PLAN: s/p LTCS PPD # 2 1. routine post care 2. breast feeding- support given 3. rh positive 4. rubella immune (2) Oligohydramnios in third trimester: (3) Sterilization: COMMENT: plan BS at time of CS (4) Abnormal glucose affecting : COMMENT: needs 3 hour -n WNL (5) IBS (irritable bowel syndrome): (6) Seasonal allergies: (7) Hypothyroidism: COMMENT: TSH with [place]. normalized with levothyroidism TSH 2.79 04/03/2024, t4=1.05 (8) Previous section: (9) Supervision of high-risk : COMMENT: PRR , KATIE 11/05/24,boy Diogo Mcdaniel, Raheem (10) : QUALIFIERS: Weeks of gestation: 35 weeks Qualified Code(s): Z3A.35 - 35 weeks gestation of COMMENT: Neg GBS elects NIPT with Gender, nl anatomy Charges/Coding Multi Select Codes Urinary/Genital Urinary/Genital CPT Codes: No Charge
[2024-10-16] MEDS: Senna/Docusate Sodium 1 Tablet PO (08:47)
[2024-10-16 09:00] VITALS: BP 124/75; PULSE 74; RESP 16; TEMP 36.7; O2SAT 96
[2024-10-16 15:00] VITALS: BP 126/82; PULSE 75; RESP 16; TEMP 36.6; O2SAT 99
[2024-10-16 19:40] VITALS: BP 115/79; PULSE 60; RESP 16; TEMP 36.6; O2SAT 99
[2024-10-17] MEDS: Acetaminophen 500 MG Tablet 1000 MG PO ×3 (01:20→16:28)
[2024-10-17 01:28] VITALS: BP 128/87; PULSE 72; RESP 14; TEMP 36.4; O2SAT 99
[2024-10-17] MEDS: Ibuprofen 600 MG Tablet PO ×3 (02:54→18:40)
[2024-10-17] MEDS: Levothyroxine 50 MCG Tablet PO (06:42)
--- NOTE | 2024-10-17 08:51 | PN.OBGYN_ITS ---
Subjective Subjective Patient doing well without complaints. Tolerating PO. Ambulating and voiding without difficulty. Feeding well. Denies chest pain, shortness of breath, calf pain/swelling, fevers, chills, lightheadedness. Objective Data Objective Data Vital Signs: Vital Signs Temp Pulse Resp BP Pulse Ox O2 Del Method 97.5 F L 72 14 128/87 H 99 Room Air 10/17/24 01:10/17/24 01:10/17/24 01:10/17/24 01:10/17/24 01:10/17/24 01:28 Oxygen Delivery Method Room Air Weight: 177 lb 9.6 oz Body Mass Index (BMI) 28.6 Intake & Output: Intake and Output for Last 24 Hours 10/15/24 10/16/24 10/17/24 23:59 23:59 23:59 Intake Total 1298.18 / 1298.18 Output Total 2800 / 2800 Balance -1501.82 / -1501.82 Lab / Micro Data 10/15/24 05:10 ROS Constitutional Constitutional: Reports systems reviewed and no addt'l complaints, except as documented; Denies anorexia or headache(s) Cardiovascular Cardiovascular: Reports systems reviewed and no addt'l complaints, except as documented; Denies dizziness, dyspnea, nausea or tachypnea Respiratory/Chest Respiratory/Chest: Reports systems reviewed and no addt'l complaints, except as documented; Denies cough, dyspnea, shortness of breath at rest or tachypnea Gastrointestinal Gastrointestinal: Reports systems reviewed and no addt'l complaints, except as documented; Denies abdominal pain, constipation or nausea Genitourinary Genitourinary: Reports systems reviewed and no addt'l complaints, except as documented; Denies burning urination, difficulty urinating, dysuria, urinary frequency or urinary incontinence Musculoskeletal Musculoskeletal: Reports systems reviewed and no addt'l complaints, except as documented Integumentary Integumentary: Reports systems reviewed and no addt'l complaints, except as documented Neurologic Neurologic: Reports systems reviewed and no addt'l complaints, except as documented; Denies abnormal speech, dizziness or headache(s) Psychiatric Psychiatric: Reports systems reviewed and no addt'l complaints, except as documented Endocrine Endocrinology: Reports systems reviewed and no addt'l complaints, except as documented Hematologic/Lymphatic Hematologic/Lymphatic: Reports systems reviewed and no addt'l complaints, except as documented Physical Exam Const alert, oriented x3 and no apparent distress Neck full ROM Resp normal respiratory effort, normal air movement and no retractions Effort and Inspection: able to speak in complete sentences and symmetric chest movement GI soft to palpation Inspection: incision intact Bladder / Kidney Exam: bladder normal to palpation Uterus Palpation: uterus fundus firm Extremity normal to inspection and full ROM Psych mental status grossly normal, thought process normal and cooperative Assessment & Plan (1) Status post bilateral salpingectomy: (2) delivery delivered: COMMENT: [place] PLAN: s/p LTCS PPD # 3 1. routine post care 2. breast feeding- support given 3. rh positive 4. rubella immune 5. Discharge home (3) Oligohydramnios in third trimester: (4) Sterilization: COMMENT: plan BS at time of CS (5) Abnormal glucose affecting : COMMENT: needs 3 hour -n WNL (6) IBS (irritable bowel syndrome): (7) Seasonal allergies: (8) Hypothyroidism: COMMENT: TSH with [place]. normalized with levothyroidism TSH 2.79 04/03/2024, t4=1.05 (9) Previous section: (10) Supervision of high-risk : COMMENT: PRR , KATIE 11/05/24,boy Diogo Mcdaniel, Raheem (11) : QUALIFIERS: Weeks of gestation: 35 weeks Qualified Code(s): Z 3A.35 - 35 weeks gestation of COMMENT: Neg GBS elects NIPT with Gender, nl anatomy Charges/Coding Multi Select Codes Urinary/Genital Urinary/Genital CPT Codes: No Charge
[2024-10-17] MEDS: Senna/Docusate Sodium 1 Tablet PO (09:03)
[2024-10-17 11:28] VITALS: BP 116/83; PULSE 72; RESP 16; TEMP 37.1; O2SAT 99
--- NOTE | 2024-10-17 12:10 | PCM.DC.SUM ---
Providers Date of Admission: 10/14/24 Date of Discharge: 10/17/24 Primary Care Physician: Dr. Nicole Henley MD Reason For Visit: REPEAT Diagnosis Discharge Diagnosis (1) Status post bilateral salpingectomy: Status: Acute Code(s): Z90.79 - Acquired absence of other genital organ(s) (2) delivery delivered: Status: Acute Code(s): O82 - Encounter for delivery without indication Plan: s/p LTCS PPD # 3 1. routine post care 2. breast feeding- support given 3. rh positive 4. rubella immune 5. Discharge home (3) Oligohydramnios in third trimester: Status: Acute Code(s): O41.03X0 - Oligohydramnios, third trimester, not applicable or unspecified (4) Sterilization: Status: Acute Code(s): Z30.2 - Encounter for sterilization (5) Abnormal glucose affecting : Status: Acute Code(s): O99.810 - Abnormal glucose complicating (6) IBS (irritable bowel syndrome): Status: Acute Code(s): K58.9 - Irritable bowel syndrome, unspecified (7) Seasonal allergies: Status: Acute Code(s): J30.2 - Other seasonal allergic rhinitis (8) Hypothyroidism: Status: Acute Code(s): E03.9 - Hypothyroidism, unspecified (9) Previous section: Status: Acute Code(s): Z98.891 - History of uterine scar from previous surgery (10) Supervision of high-risk : Status: Acute Code(s): O09.90 - Supervision of high risk , unspecified, unspecified trimester (11) : Status: Acute Code(s): Z34.90 - Encounter for supervision of normal , unspecified, unspecified trimester Qualifiers: Weeks of gestation: 35 weeks Qualified Code(s): Z3A.35 - 35 weeks gestation of Medications at Discharge Home Medications PNV [id number] 400 mcg-om3 35 mg-dha 25 mg-epa 5 mg-fish oil chew tablet 1 tab PO DAILY 03/19/24 acetaminophen 500 mg capsule 500 mg PO Q4-6H PRN pain 03/19/24 cetirizine 10 mg capsule (Zyrtec) 10 mg PO QDAY PRN allergy symptoms 03/19/24 levothyroxine 25 mcg capsule 50 mcg PO ONCE 07/30/24 naproxen 500 mg tablet 500 mg PO BID PRN PRN Pain #30 tabs 10/15/24 oxycodone-acetaminophen 5 mg-325 mg tablet (Percocet) 1 tab PO Q4H PRN pain 7 days #20 tabs 10/15/24 Hospital Course Operations section Procedures None Summary of Care Provided Minutes Spent on Discharge: 30 Physical Exam Const alert, oriented x3 and no apparent distress Neck full ROM Resp normal respiratory effort, normal air movement and no retractions Effort and Inspection: able to speak in complete sentences and symmetric chest movement GI soft to palpation Inspection: incision intact Bladder / Kidney Exam: bladder normal to palpation Uterus Palpation: uterus fundus Extremity normal to inspection and full ROM Psych mental status grossly normal, thought process normal and cooperative Weight / BMI Weight Weight: 177 lb 9.6 oz Body Mass Index (BMI) 28.6 ABG / Lab / Microbiology Data 10/15/24 05:10 D/C Instructions Discharge Diet: No restrictions May shower in (days): 0 May resume sexual activity in: 4-6 weeks Weight Bearing Status: Full weight bearing Call your doctor if your incision/area has: Continuous Slow Oozing, Sudden Increased Bleeding, Increased Pain/ Swelling, Increased Redness and Foul Smelling Discharge Call your doctor if you observe: Fever of 101 or Higher and Using more than 1 pad per hour (for 2 hours) Suture Line Care: Avoid Pulling/Pushing and Avoid Pinching/Bending Cleanse incision/area with: Soap & Water and Keep Dressing Clean & Dry DC O2, CPAP, BIPAP Needs Home O2 Discharge instructions: No Please Follow Up With: Bailey Fabian MD When: Call [phone] to make an appointment for an incision check in 1-2 weeks. Meaningful Use Info Meaningful Use Meaningful Use Diagnoses (Choose all that apply): None applicable Ischemic Stroke Statin Dosing Therapy Reference: STATIN DOSE THERAPY REFERENCE: * Patients > 75 years receive moderate or high dose statin therapy. * Patients 75 years or YOUNGER should receive HIGH intensity statin dose unless contraindicated. You will be required to document reason for non-treatment if statin daily dose does not meet guidelines. HIGH DOSE STATIN THERAPY DAILY Atorvastatin > than or = to 40 mg Rosuvastatin > than or = to 20 mg Amlodipine + Atorvastatin > than or = to 2.5/40 mg Ezetimibe + Simvastatin 10/80 mg Simvastatin 80mg Discharge Plan Admission Admit Date/Time: 10/14/24 15:18 Attending Provider: Shyanne Degroot Primary Care Provider: Nicole Henley Discharge Orders/Prescriptions Prescriptions: New oxycodone-acetaminophen [Percocet] 5-325 mg tablet 1 tab PO Q4H PRN (Reason: pain) 7 Days Qty: 20 0RF naproxen 500 mg tablet 500 mg PO BID PRN PRN (Reason: Pain) Qty: 30 1RF No Action PNV no.[id number] 400 mcg-35 mg- 25 mg-5 mg tablet,chewable 1 tab PO DAILY Zyrtec 10 mg capsule 10 mg PO QDAY PRN (Reason: allergy symptoms) acetaminophen 500 mg capsule 500 mg PO Q4-6H PRN (Reason: pain) levothyroxine 25 mcg capsule 50 mcg PO ONCE Rx Instructions: 50 mcg x5 days, 25 mcg x2 days Referrals / Follow Up: Nicole Henley MD [Primary Care Provider] - Disposition Disposition (needs filled in before D/C Order can be placed): Home, Self Care Charges/Coding Multi Select Codes Urinary/Genital Urinary/Genital CPT Codes: No Charge
[2024-10-17 16:33] VITALS: BP 131/82; PULSE 77; RESP 16; TEMP 36.1; O2SAT 100
== END 2024-10-17 18:40 | disposition home or self-care (01) | DRG 818 ==
LOC: WPOUT 15:34 → WP 15:34
PROVIDERS: Admitting Provider Obstetrics & Gynecology; PCP Family Medicine; Referring Provider Registered Nurse; Visit Provider Registered Nurse
DX: O36.8330 Maternal care for abnormalities of the fetal heart rate or rhythm, third trimester, not applicable or unspecified (principal); O41.03X0 Oligohydramnios, third trimester, not applicable or unspecified; E03.9 Hypothyroidism, unspecified; J30.2 Other seasonal allergic rhinitis; K58.9 Irritable bowel syndrome, unspecified; Z3A.37 37 weeks gestation of pregnancy; Z30.2 Encounter for sterilization; O99.52 Diseases of the respiratory system complicating childbirth; O99.284 Endocrine, nutritional and metabolic diseases complicating childbirth; O99.62 Diseases of the digestive system complicating childbirth; O34.211 Maternal care for low transverse scar from previous cesarean delivery; O34.83 Maternal care for other abnormalities of pelvic organs, third trimester; N83.8 Other noninflammatory disorders of ovary, fallopian tube and broad ligament; Z37.0 Single live birth; Z3A.36 36 weeks gestation of pregnancy; Z79.890 Hormone replacement therapy
CPT/HCPCS: 59025; 59050; 76815; 85025; 85027; 86780; 86850; 86900; 86901; 88302; 99221; A4216; G0378